=== PATIENT | male | born 1965 | race Caucasian/White ===

== ENCOUNTER 2019-02-27 21:45 | Emergency (ER) | payer MEDICAID, SELFPAY | END 2019-02-28 01:15 | disposition admitted as inpatient to this hospital (09) | LOC: ER 06-04 07:22 | PROVIDERS: Emergency Provider Emergency Medicine; Family Provider Family Medicine; PCP Family Medicine | DX: Z76.89 Persons encountering health services in other specified circumstances (principal) ==

== ENCOUNTER 2019-02-27 21:45 | Emergency (ER) | payer MEDICAID, SELFPAY | END 2019-02-28 01:15 | disposition admitted as inpatient to this hospital (09) | LOC: ER 04-11 09:27 | PROVIDERS: Emergency Provider Emergency Medicine; Family Provider Family Medicine; PCP Family Medicine | DX: Z76.89 Persons encountering health services in other specified circumstances (principal) | CPT/HCPCS: 36600; 71045; 80053; 82803; 83605; 85025; 87040; 87804; 93005; 96365; 96366; 96374; 96375; 99000; 99283; 99285; J1885; J2543; J2930 ==

== ENCOUNTER 2019-02-27 21:45 | Inpatient (IN) | payer MEDICAID, SELFPAY ==
[2019-02-27] VITALS (7 sets, daily range): BP systolic 126–154; BP diastolic 81–101; PULSE 78–103; RESP 20–31; TEMP 36.9; O2SAT 97–99; BMI 25.8
--- NOTE | 2019-02-27 21:55 | XR_ITS ---
WS: [id number] Portable AP upright chest, 02/27/2019 Clinical Data: admission Comparison: Portable chest, 11/12/2018. Findings: No nodules, masses or effusions are seen. The heart is normal. The pulmonary vascularity is not increased. No pneumonia or pneumothorax is seen. The diaphragms are flattened. XR/XR chest 1V portable [id number] Impression: Hyperinflation.
--- NOTE | 2019-02-27 21:55 | ECG_ITS ---
Measurements Intervals [place] Rate: 98 P: 87 RI: 144 QRS: 80 QRSD: 86 T: 78 QT: 318 QTc: 407 SINUS RHYTHM Compared to ECG 11/12/2018 03:13:56 Sinus arrhythmia no longer present Electronically Signed On 02-28-2019 5:36:02 MUSHROOM GROWER by Anna Akhtar M.D. [id number]
--- NOTE | 2019-02-27 22:01 | W.ED.GENADLT ---
HPI - General Adult General: Chief complaint: Chest Pain Stated complaint: SOB/LUNG PAIN Time Seen by Provider: 02/27/19 21:51 History of Present Illness: HPI narrative: Patient complains of worsening symptoms in the last 30 to 45 minutes and increased sputum production patient quit smoking 13 months ago does have a history of emphysema has been using his inhalers and home meds as directed. Now complains of increased shortness of breath. MD complaint: worse in last 1 hour, has been last copuple of days with increased sputum p Associated symptoms: Reports dyspnea; Deny chest pain, headache(s), nausea, rash or vomiting Review of Systems Const: Denies: fever, chills or body aches Eyes: Denies: change in vision or blurry vision ENMT: Denies: throat pain or nasal congestion Card: Reports: shortness of breath on exertion; Denies: chest pain Resp: Reports: shortness of breath, productive cough, wheezing, pain on inspiration, change in phlegm color and chest congestion; Denies: non-productive cough GI: Denies: abdominal pain, nausea or vomiting : Denies: difficulty urinating Musc: Denies: extremity pain Skin/Breast: Denies: rash Neuro: Denies: headache Psych: Denies: anxiety or depression Ish/Lymph: Denies: easy bruising PFSH ED PFSH: Statuses (acute, chronic, etc) shown below reflect problem list status as previously entered and may not be historically accurate Social History Smoking and tobacco status: former smoker Physical Exam Const: COMMON NORMALS: no apparent distress, average body habitus and oriented x3 HENMT: COMMON NORMALS: normocephalic HEAD & SCALP: normal to inspection and normocephalic FACE & SINUS: normal facial exam Eye: COMMON NORMALS: conjunctivae normal GENERAL EYE: normal appearance of both eyes CONJUNCTIVA: Yes conjunctivae normal Neck/C-Spine: COMMON NORMALS: no JVD Chest: COMMONS NORMALS: inspection of chest normal CHEST: Yes tenderness rib, pectoral muscle and sternoclavicular joint Resp: EFFORT & INSPECTION: Yes respiratory distress and Yes actively coughing AUSCULTATION: wheezes expiratory wheezes, diminished lung sounds diffuse and vesicular breath sounds Cardio: COMMON NORMALS: no JVD, regular rate and regular rhythm RATE: regular rate RHYTHM: regular rhythm GI: COMMON NORMALS: normal to inspection, nondistended, normoactive bowel sounds Extremity: COMMON NORMALS: normal to inspection and full ROM Neuro: COMMON NORMALS: oriented x3 Course Vital Signs: Vital signs: Vital Signs Temperature 98.4 F 02/27/19 21:52 Pulse Rate 112 H 02/28/19 00:32 Respiratory Rate 25 H 02/28/19 00:32 Blood Pressure 152/91 02/28/19 00:32 Pulse Oximetry 98 02/27/19 23:53 MDM - General Adult MDM Narrative: Medical decision making narrative: Patient coming here in respiratory distress with sats down around 86% while on 6 L oxygen after 2 respiratory treatments and IV steroids and while resting his sats maintained in 93-94 percent. After ambulating patient on 6 L his sats dropped back down to 86% and he had very difficult time breathing. Hospitalist was notified of need for admission he will come and see patient. Diagnosis COPD exacerbation Lab Data: Labs: Lab Results 02/27/19 02/27/19 02/27/19 Range/Units 22:10 22:10 22:10 WBC 12.4 H (4.0-10.0) 10^3/ uL RBC 4.18 (4.1-5.3) 10^6/u L Hgb 11.8 (11.7-16.6) g/dL Hct 37.1 L (42.0-52.0) % MCV 88.8 (80-94) fL MCH 28.2 (28.0-34.0) pg MCHC 31.8 (30.0-36.0) g/dL RDW 12.4 (12.1-15.1) % Plt Count 254 (130-400) 10^3/c mm MPV 11.1 H (7.4-10.4) fL Neut % (Auto) 77.6 % Lymph % (Auto) 12.0 % [place] % (Auto) 7.1 % Eos % (Auto) 2.2 % Baso % (Auto) 0.5 % Neut # (Auto) 9.6 H (1.8-7.7) 10^3/u L Lymph # (Auto) 1.5 (0.8-4.8) 10^3/u L [place] # (Auto) 0.9 (0.2-0.9) 10^3/u L Eos # (Auto) 0.3 (0.0-0.8) 10^3/u L Baso # (Auto) 0.1 (0.0-0.1) 10^3/u L Nucleated RBC % (a uto) 0 % Nucleated RBCs # 0.0 /100WBC Specimen Type Sample Site ABG pH (7.35-7.45) ABG pCO2 (35-45) mmHg ABG pO2 (80.0-100.0) mmH g ABG HCO3 (22-26) mmol/L ABG Base Excess (-2.0-2.0) mmol/ L Damon Test O2 Delivery Device O2 Liters/Min % Specimen Drawn By Sodium 142 (136-145) mmol/L Potassium 4.0 (3.5-5.1) mmol/L Chloride 101 (98-107) mmol/L Carbon Dioxide 29 (22-29) mmol/L Anion Gap 16.0 (5-19) BUN 16 (6-20) mg/dL Creatinine 0.7 (0.7-1.2) mg/dL GFR Calculation 117.5 (90-130) mL/min Glucose 133 H (74-109) mg/dL Lactic Acid 1.3 (0.5-2.2) mmol/L Calcium 9.9 (8.6-10.0) mg/Dl Total Bilirubin 0.2 (0.15-1.2) mg/dL AST 16 (0-40) U/L ALT 10 (0-41) U/L Alkaline Phosphata se 89 (40-130) IU/L Total Protein 7.5 (6.6-8.7) g/dL Albumin 4.8 (3.5-5.2) g/dL Globulin 2.7 (1.3-4.6) g/dL Influenza Type A A g (Negative) POC Influenza B Ag (Negative) 02/27/19 02/27/19 Range/Units 22:20 22:22 WBC (4.0-10.0) 10^3/ uL RBC (4.1-5.3) 10^6/u L Hgb (11.7-16.6) g/dL Hct (42.0-52.0) % MCV (80-94) fL MCH (28.0-34.0) pg MCHC (30.0-36.0) g/dL RDW (12.1-15.1) % Plt Count (130-400) 10^3/c mm MPV (7.4-10.4) fL Neut % (Auto) % Lymph % (Auto) % [place] % (Auto) % Eos % (Auto) % Baso % (Auto) % Neut # (Auto) (1.8-7.7) 10^3/u L Lymph # (Auto) (0.8-4.8) 10^3/u L [place] # (Auto) (0.2-0.9) 10^3/u L Eos # (Auto) (0.0-0.8) 10^3/u L Baso # (Auto) (0.0-0.1) 10^3/u L Nucleated RBC % (a uto) % Nucleated RBCs # /100WBC Specimen Type Arterial Sample Site Right,radial ABG pH 7.38 (7.35-7.45) ABG pCO2 53.8 H (35-45) mmHg ABG pO2 101.0 H (80.0-100.0) mmH g ABG HCO3 31.6 H (22-26) mmol/L ABG Base Excess 5.3 H (-2.0-2.0) mmol/ L Damon Test Pos O2 Delivery Device Nc O2 Liters/Min 6.0 % Specimen Drawn By Donnie Sodium (136-145) mmol/L Potassium (3.5-5.1) mmol/L Chloride (98-107) mmol/L Carbon Dioxide (22-29) mmol/L Anion Gap (5-19) BUN (6-20) mg/dL Creatinine (0.7-1.2) mg/dL GFR Calculation (90-130) mL/min Glucose (74-109) mg/dL Lactic Acid (0.5-2.2) mmol/L Calcium (8.6-10.0) mg/Dl Total Bilirubin (0.15-1.2) mg/dL AST (0-40) U/L ALT (0-41) U/L Alkaline Phosphata se (40-130) IU/L Total Protein (6.6-8.7) g/dL Albumin (3.5-5.2) g/dL Globulin (1.3-4.6) g/dL Influenza Type A A g Negative (Negative) POC Influenza B Ag Negative (Negative) Imaging Data^: CXR: My impression: left lower infiltrate, flattened diaphragm EKG Data^: EKG 1: EKG interpretation date: 02/27/19 EKG interpretation time: 21:58 Interpretation: Sinus rhythm normal EKG Discharge Plan Discharge Patient Disposition: Admitted As Inpatient Clinical Impression: COPD exacerbation Condition: Stable Prescriptions: No Action Unable to Assess RF: 0 Referrals: Rober Chakraborty MD [Family Provider] - Coding Level of Care Code ED Manager Study for Chg Fwd Exam Problem Focused
[2019-02-27 22:16] LABS: Basophils # 0.1 10^3/uL (0.0-0.1); Basophils % 0.5 %; Eosinophils # 0.3 10^3/uL (0.0-0.8); Eosinophils % 2.2 %; Hematocrit 37.1 % (42.0-52.0); Hemoglobin 11.8 g/dL (11.7-16.6); Lymphocytes # 1.5 10^3/uL (0.8-4.8); Mean Corpuscular HGB Conc 31.8 g/dL (30.0-36.0); Mean Corpuscular Hemoglobin 28.2 pg (28.0-34.0); Mean Corpuscular Volume 88.8 fL (80-94); Mean Platelet Volume 11.1 fL (7.4-10.4); Monocytes # 0.9 10^3/uL (0.2-0.9); Monocytes % 7.1 %; Neutrophils # 9.6 10^3/uL (1.8-7.7); Neutrophils % 77.6 %; Nucleated Red Blood Cells % 0 %; Platelet Count 254 10^3/cmm (130-400); Red Blood Count 4.18 10^6/uL (4.1-5.3); Red Cell Distribution Width 12.4 % (12.1-15.1); White Blood Count 12.4 10^3/uL (4.0-10.0)
--- NOTE | 2019-02-27 22:20 | PC.NURSE ---
via IV access
[2019-02-27] MEDS: ipratropium-albuterol 3 mL Neb INHALATION ×2 (22:21→23:52)
[2019-02-27 22:32] LABS: ABG PCO2 53.8 mmHg (35-45); ABG PH Result 7.38 (7.35-7.45); Base Excess ABG 5.3 mmol/L (-2.0-2.0); Blood Gas Allen Test POS; Blood Gas Sample Type ARTERIAL; HCO3 ABG 31.6 mmol/L (22-26); Oxygen Device NC
[2019-02-27 22:33] LABS: Alanine Aminotransferase 10 U/L (0-41); Albumin Level 4.8 g/dL (3.5-5.2); Alkaline Phosphatase 89 IU/L (40-130); Aspartate Amino Transferase 16 U/L (0-40); Blood Urea Nitrogen 16 mg/dL (6-20); Calcium 9.9 mg/Dl (8.6-10.0); Carbon Dioxide 29 mmol/L (22-29); Chloride 101 mmol/L (98-107); Globulin 2.7 g/dL (1.3-4.6); Glomerular Filtration Rate 117.5 mL/min (90-130); Glucose 133 mg/dL (74-109); Sodium 142 mmol/L (136-145); Total Bilirubin 0.2 mg/dL (0.15-1.2); Total Protein 7.5 g/dL (6.6-8.7)
[2019-02-27 22:50] LABS: Influenza A by IFA Negative (Negative); Influenza B by IFA Negative (Negative)
[2019-02-27] MEDS: ketorolac 60 mg/2 mL INJ IVP (23:16)
[2019-02-27 23:18] LABS: Lactic Sepsis W/Reflex 1.3 mmol/L (0.5-2.2)
[2019-02-27] MEDS: piperacillin-tazobactam 3.375 GM in sodium chloride 0.9% (plus) 50 ML IV (23:21)
[2019-02-28] VITALS (15 sets, daily range): BP systolic 122–152; BP diastolic 76–93; PULSE 87–112; RESP 18–25; TEMP 36.6–37; O2SAT 92–98
--- NOTE | 2019-02-28 00:29 | PC.NURSE ---
ambulation trail done on patient with nurse and respiratory therapy. Patient hooked up to oxygen via nasal canula at 6l/min during trial. pts oxygen dropped down to 86% upon exertion. patient become very short of breath and had abdominal breathing. ED ADDICTIONS COUNSELOR notified of ambulation trail. current vital signs after ambulation trial HR: 103 BP:152/91 RR:27 O2: 97
--- NOTE | 2019-02-28 00:44 | PM.HP ---
Providers/Chief Complaint Chief Complaint: SOB/LUNG PAIN History of Present Illness Shamar Negron JR is a 54 year old male carries diagnosis of end-stage COPD currently on 6 L [id number] at home, he is getting pretransplant work-up currently for his end-stage COPD, presented to the hospital with increased shortness of breath. Patient is stating that he decided to come to ER because he was hurting everywhere especially in his shoulders and rib cage bilaterally, he did not notice any fever, chills his cough and sputum production has been at usual baseline which is white sputum production with cough on daily basis, he cannot do much physical activity because he is on 6 L of oxygen [id number], he is compliant with his inhalers, he is not sure if he has diagnosis of pulmonary hypertension which was listed in his previous records. He has quit smoking and endorses weight gain. He has not noticed runny nose, runny eyes, fever, vital prodromal symptoms, diarrhea, constipation, dysuria or sick contacts. He has cats and dogs at home. Diagnostics in ER showed mild leukocytosis, normal pH on blood gas, on ambulation his oxygen saturation was down to 86% on 6 L hence decision was made to observe him overnight, in my assessment his chest x-ray is showing prominent vascular shadows because of primary hypertension I have compared them with previous x-ray I would not treat him with any antibiotics because I do not see any new consolidation/infiltrates I have ordered CTA chest to rule out pulmonary embolism Patient does carry previous history of pulmonary embolism he is off anticoagulation, he has not noticed any swelling of lower extremities, when I saw him he was on 6 L of oxygen saturating 97%, heart rate 97, sinus rhythm, blood pressure 147/70, he was not wheezing at that time Review of Systems Narrative: Patient is endorsing myalgias and bilateral shoulder pain and rib cage pain which does not get worse on taking deep breaths Denies diarrhea Denies dysuria Denies chest pain Denies abdominal pain Denies headache He is endorsing shortness of breath, sputum production white in color and cough Depressed mood positive No skin rash Medications/Allergies Home Medications Medication Instructions Recorded Confirmed Last Taken Type Unable to Assess 02/27/19 02/27/19 Unknown History Allergies Allergy/AdvReac Type Severity Reaction Status Date / Time No Known Allergies Allergy Verified 02/27/19 22:02 PFSH Acute PFSH: Statuses (acute, chronic, etc) shown below reflect problem list status as previously entered and may not be historically accurate Medical History (Updated 02/28/19 @ 01:51 by Minda Shelton MD) Anxiety (Acute) Chronic anticoagulation (Acute) COPD (chronic obstructive pulmonary disease) (Acute) Dyslipidemia (Acute) End stage COPD (Acute) GERD (gastroesophageal reflux disease) (Acute) Hypertension (Acute) Normal colonoscopy (Acute) Oxygen dependent (Acute) Pulmonary embolism (Acute) Pulmonary hypertension (Acute) Surgical History (Updated 02/28/19 @ 00:46 by Minda Shelton MD) H/O cardiac catheterization (Acute) Family History (Updated 02/28/19 @ 00:47 by Minda Shelton MD) Other CAD (coronary artery disease) Diabetes Social History (Updated 02/28/19 @ 00:49 by Minda Shelton MD) Smoking and tobacco status: former smoker Alcohol intake: never Substance/Drug Use: former Date of last use: Used to do marijuana Adopted: No Household members: family Vitals/I&O/Wt Last Vital Signs Temp 98.4 F 02/27/19 21:52 Pulse 112 H 02/28/19 00:32 Resp 25 H 02/28/19 00:32 BP 152/91 02/28/19 00:32 Pulse Ox 98 02/27/19 23:53 Weight last 48 hrs Weight 81.647 kg Physical Exam Narrative: EXAM NARRATIVE: Cachectic appearance unkempt appearance Patient is not using his respiratory accessory muscles currently saturating 97% on 6 L was able to communicate with mild distress, he has pursed lip breathing On lung auscultation he has decreased airflow but I was not able to hear any wheezing S1-S2 no murmur Abdomen soft nontender nondistended bowel sound present Nonfocal exam not focal deficit Skin shows no signs of ischemia gangrene or ulcers or signs of peripheral edema Flat affect Depressed mood Data Micro: Micro: Microbiology 02/27/19 22:10 Blood Culture - Pr eliminary Blood SPECIMEN [facility] A&P Assessment and plan (1) End stage COPD: Status: Acute Code(s): J44.9 - Chronic obstructive pulmonary disease, unspecified (2) Pulmonary hypertension: Status: Acute Code(s): I27.20 - Pulmonary hypertension, unspecified (3) Oxygen dependent: Status: Acute Code(s): Z99.81 - Dependence on supplemental oxygen End-stage COPD with acute exacerbation There is no shortness of breath No signs of acute infiltrate on chest x-ray, chest imaging is showing same prominent vascular markings as compared to previous x-ray, will get CTA chest to rule out pulmonary embolism I would not give him any antibiotics, he has already received Zosyn in ER I would not give him steroids, he is not actively wheezing Ted scheduled Roflumilast and azithromycin for anti-inflammatory effect for end-stage COPD Decrease his oxygen to 4 L because he was saturating 97% on 6 L at rest He is getting lung transplant work-up currently Looks cachectic but patient is saying he has gained weight after quitting smoking Med rec needs to be completed Goals of care: Patient said he wants to stay DNR/DNI, because he is getting lung transplant work-up I think goals of care should be readdressed in the morning Attestations Medical Necessity Statement*: Anticipating discharge in less than 48 hours will admit as observation to get CTA chest to rule out PE otherwise he has chronic end-stage COPD Coding Level of Care Code Acute Safety Assistant 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 Diagnoses End stage COPD J44.9 Pulmonary hypertension I27.20 Oxygen dependent Z99.81
--- NOTE | 2019-02-28 01:33 | CTR_ITS ---
PROCEDURE INFORMATION: Exam: CT Angiography Chest With Contrast Exam date and time: 02/28/2019 2:01 AM Age: 54 years old Clinical indication: Cough and shortness of breath; Chest pain; Type not specified; Additional info: Hypoxia on 6L TECHNIQUE: Imaging protocol: Computed tomographic angiography of the chest with intravenous contrast. 3D rendering: MIP and/or 3D reconstructed images were created by the technologist. Total DLP: 1048.31 mGy-cm Radiation optimization: All CT scans at this facility use at least one of these dose optimization techniques: automated exposure control; mA and/or kV adjustment per patient size (includes targeted exams where dose is matched to clinical indication); or iterative reconstruction. Contrast material: OMNI 350; Contrast volume: 95 ml; Contrast route: 20G; COMPARISON: 1. CTA Chest-Pulmonary Emb [id number] 04/18/2018 3:[address] of the chest 02/11/2019 FINDINGS: Heart size within normal limits. No enlarged or abnormal appearing mediastinal/hilar lymph nodes identified. No pulmonary emboli identified. There is no evidence of thoracic aortic aneurysm or dissection within the limits imposed by heart motion artifact. Severe emphysematous changes of both lungs. A few tiny calcified granulomata are noted in the right upper lobe. There is a 0.9 cm spiculated nodule in the left lung apex posteriorly on series 2 image 140. This is similar to 04/18/2018 and 02/11/2019. There is a 1 cm spiculated nodule in the left lung apex laterally on series 2 image 138. This is new since 04/18/2018 and similar to 02/11/2019. No pneumothorax or pleural effusion. Images of the upper abdomen were reviewed and are unremarkable. Visualized bones are unremarkable. CT/CT angio chest PE protcl [id number] IMPRESSION: 1. No pulmonary emboli identified. 2. Spiculated nodules in the left upper lobe. These are similar to 02/11/2019. One is new since 04/18/2018. See comment. 3. Severe emphysema. COMMENT: Highly suspicious nodule(s). Consider PET/CT, or tissue sampling.(Lida et al., Fleischner Society, 2017) Radiation Dose CTDIVOL = (mGy): DLP = 1048.31 (mGy-cm)
--- NOTE | 2019-02-28 02:39 | PC.NURSE ---
HOME OXYGEN: 6 liters
[2019-02-28] MEDS: iohexol 350 mg/mL 100 mL Btl IV (02:41)
[2019-02-28] MEDS: ipratropium-albuterol 3 mL Neb INHALATION ×3 (02:54→11:19)
[2019-02-28 03:45] LABS: ABG PCO2 54.3 mmHg (35-45); ABG PH Result 7.36 (7.35-7.45); Arterial Blood Gas Hematocrit 36.9 % (42-52); Base Excess ABG 3.8 mmol/L (-2.0-2.0); Blood Gas Allen Test Pos; Blood Gas Sample Site Radial, right; Blood Gas Sample Type Arterial; HCO3 ABG 30.4 mmol/L (22-26)
[2019-02-28] MEDS: enoxaparin 40 mg/0.4 mL Syringe SUBCUT (04:21)
--- NOTE | 2019-02-28 04:47 | NUR.SHIFT ---
OXYGEN: Nasal Cannula @6L
[2019-02-28 05:53] LABS: Basophils % 0.2 %; Hematocrit 37.3 % (42.0-52.0); Hemoglobin 11.7 g/dL (11.7-16.6); Lymphocytes # 0.6 10^3/uL (0.8-4.8); Lymphocytes % 5.1 %; Mean Corpuscular HGB Conc 31.4 g/dL (30.0-36.0); Mean Corpuscular Hemoglobin 28.8 pg (28.0-34.0); Mean Corpuscular Volume 91.9 fL (80-94); Mean Platelet Volume 11.1 fL (7.4-10.4); Monocytes # 0.1 10^3/uL (0.2-0.9); Monocytes % 0.8 %; Neutrophils # 11.2 10^3/uL (1.8-7.7); Neutrophils % 92.7 %; Nucleated Red Blood Cells % 0 %; Platelet Count 233 10^3/cmm (130-400); Red Blood Count 4.06 10^6/uL (4.1-5.3); Red Cell Distribution Width 12.3 % (12.1-15.1)
[2019-02-28] MEDS: morphine IR 15 mg Tablet PO ×2 (06:26→11:31)
[2019-02-28 06:31] LABS: Blood Urea Nitrogen 16 mg/dL (6-20); Calcium 10.4 mg/Dl (8.6-10.0); Carbon Dioxide 27 mmol/L (22-29); Chloride 99 mmol/L (98-107); Glomerular Filtration Rate 100.7 mL/min (90-130); Glucose 186 mg/dL (74-109); Sodium 140 mmol/L (136-145)
[2019-02-28] MEDS: azithromycin 250 mg Tablet 500 MG PO (11:29)
[2019-02-28] MEDS: CLONazepam 1 mg Tablet PO (11:30)
[2019-02-28] MEDS: roflumilast 500 mcg Tablet PO (11:32)
--- NOTE | 2019-02-28 12:17 | PM.DCS ---
Discharge Providers Date of Admission: 02/28/19 00:52 Date of Discharge: 02/28/19 Attending Provider at Admission: Minda Shelton MD Attending Provider at Discharge: Tam Paniter Diagnoses at Discharge Discharge Diagnosis (1) End stage COPD: Status: Acute (2) Pulmonary hypertension: Status: Acute (3) Oxygen dependent: Status: Acute Reason for Visit Reason for Visit: Reason For Visit: SOB/LUNG PAIN Hospital Course Hospital Course: 54-year-old gentleman with history of COPD, on chronic oxygen of 6 L, undergoing evaluation in preparation for placement onto a lung transplantation list was placed in observation after presenting with chest discomfort, epigastric discomfort, heartburn and bloating. Initially received a dose of Solu-Medrol and Zosyn in ER due to concern for possible COPD exacerbation. On assessment by night physician no signs of COPD exacerbation were seen. Steroids and antibiotic were not continued. His saturation was noted to be high on 6 L. His oxygen flow was turned down to 4 L with good subsequent saturation. Discussed with him and family to avoid excessively high saturations, to aim for saturation around 92%. He verbalized understanding, stating he understands to turn up his oxygen in case of saturation gets lower when he is walking. His EKG showed sinus rhythm. He had a coronary angiogram with normal coronary arteries in January 2018. Cardiac pain is considered unlikely. He does complain of epigastric discomfort, bloating, eructation. He reports history of recurrent GERD. He states he is previously had an upper endoscopy, but has not sure when exactly. He is not aware of history of diabetes. He does report that food sometimes sticks around in his stomach. Discussed with him and family we will request for A1c. This will need to be followed up in clinic. In case of persistence of the symptoms he may benefit from assessment by gastric emptying study. In terms of his hypoxia and chest discomfort he was assessed by CT angiogram to rule out PE. No PE was noted, but incidentally seen where a left upper lobe nodules. These will be followed up with PET CT, and we have discussed he should follow with his director of outpatient services in [place], and continue process of getting placed on lung transplantation list. Physical Exam Const: COMMON NORMALS: no apparent distress and oriented x3 OTHER: Nasal cannula on. Daughter is at bedside. HENMT: COMMON NORMALS: oropharynx normal Neck/C-Spine: COMMON NORMALS: no JVD Resp: COMMON NORMALS: normal respiratory effort and clear to auscultation bilaterally AUSCULTATION: clear to auscultation bilaterally Cardio: COMMON NORMALS: no JVD, regular rhythm, S1 normal heart sound, S2 normal heart sound and no murmurs RHYTHM: regular rhythm HEART SOUNDS: S1 normal and S2 normal GI: COMMON NORMALS: normal to inspection, nondistended, normoactive bowel sounds, soft to palpation and non-tender PALPATION: Yes soft Extremity: COMMON NORMALS: no joint enlargement and no pedal edema Neuro: COMMON NORMALS: oriented x3 Skin: COMMON NORMALS: no rashes or lesions noted GENERAL SKIN EXAM: no rashes or lesions noted Discharge Data Data Completed and Pending: Completed Studies During Hospitalization Category Date Time Status CT angio chest PE protcl 25754 Rout ine Cat Scan 02/28/19 01:33 Completed XR chest 1V frantz ble 92188 Stat Exams 02/27/19 21:55 Completed Pending at discharge Category Date Time Status Arterial Blood Ga s W/O Coox AM LABS Lab 02/28/19 03:33 Results Arterial Blood Ga s W/O Coox Routine Lab 02/27/19 22:20 Results Blood Culture Sta t Lab 02/27/19 22:10 Results Hemoglobin A1C Ro utine Lab 02/28/19 12:17 Ordered Labs from last 24 hours 02/28/19 02/28/19 02/28/19 05:35 05:35 03:33 WBC 12.0 H RBC 4.06 L Hgb 11.7 Hct 37.3 L MCV 91.9 MCH 28.8 MCHC 31.4 RDW 12.3 Plt Count 233 MPV 11.1 H Neut % (Auto) 92.7 Lymph % (Auto) 5.1 Butler % (Auto) 0.8 Eos % (Auto) 0.0 Baso % (Auto) 0.2 Neut # (Auto) 11.2 H Lymph # (Auto) 0.6 L Butler # (Auto) 0.1 L Eos # (Auto) 0.0 Baso # (Auto) 0.0 Nucleated RBC % (a uto) 0 Nucleated RBCs # 0.0 Specimen Type Arterial Sample Site Radial, right ABG pH 7.36 ABG pCO2 54.3 H ABG pO2 129.0 H ABG HCO3 30.4 H ABG Base Excess 3.8 H Damon Test Pos Hematocrit 36.9 L O2 Delivery Device O2 Liters/Min 6.0 Specimen Drawn By Event Marketing Coordinator ID [email or web address] Sodium 140 Potassium 4.0 Chloride 99 Carbon Dioxide 27 Anion Gap 18.0 BUN 16 Creatinine 0.8 GFR Calculation 100.7 Glucose 186 H Lactic Acid Calcium 10.4 H Total Bilirubin AST ALT Alkaline Phosphata se Total Protein Albumin Globulin Influenza Type A A g POC Influenza B Ag 02/27/19 02/27/19 02/27/19 22:22 22:20 22:10 WBC RBC Hgb Hct MCV MCH MCHC RDW Plt Count MPV Neut % (Auto) Lymph % (Auto) Butler % (Auto) Eos % (Auto) Baso % (Auto) Neut # (Auto) Lymph # (Auto) Butler # (Auto) Eos # (Auto) Baso # (Auto) Nucleated RBC % (a uto) Nucleated RBCs # Specimen Type Arterial Sample Site Right,radial ABG pH 7.38 ABG pCO2 53.8 H ABG pO2 101.0 H ABG HCO3 31.6 H ABG Base Excess 5.3 H Damon Test Pos Hematocrit O2 Delivery Device Nc O2 Liters/Min 6.0 Specimen Drawn By Donnie Event Marketing Coordinator ID Sodium Potassium Chloride Carbon Dioxide Anion Gap BUN Creatinine GFR Calculation Glucose Lactic Acid 1.3 Calcium Total Bilirubin AST ALT Alkaline Phosphata se Total Protein Albumin Globulin Influenza Type A A g Negative POC Influenza B Ag Negative 02/27/19 02/27/19 22:10 22:10 WBC 12.4 H RBC 4.18 Hgb 11.8 Hct 37.1 L MCV 88.8 MCH 28.2 MCHC 31.8 RDW 12.4 Plt Count 254 MPV 11.1 H Neut % (Auto) 77.6 Lymph % (Auto) 12.0 Butler % (Auto) 7.1 Eos % (Auto) 2.2 Baso % (Auto) 0.5 Neut # (Auto) 9.6 H Lymph # (Auto) 1.5 Butler # (Auto) 0.9 Eos # (Auto) 0.3 Baso # (Auto) 0.1 Nucleated RBC % (a uto) 0 Nucleated RBCs # 0.0 Specimen Type Sample Site ABG pH ABG pCO2 ABG pO2 ABG HCO3 ABG Base Excess Damon Test Hematocrit O2 Delivery Device O2 Liters/Min Specimen Drawn By Event Marketing Coordinator ID Sodium 142 Potassium 4.0 Chloride 101 Carbon Dioxide 29 Anion Gap 16.0 BUN 16 Creatinine 0.7 GFR Calculation 117.5 Glucose 133 H Lactic Acid Calcium 9.9 Total Bilirubin 0.2 AST 16 ALT 10 Alkaline Phosphata se 89 Total Protein 7.5 Albumin 4.8 Globulin 2.7 Influenza Type A A g POC Influenza B Ag Vitals: Last Vital Signs Temp 97.8 F 02/28/19 11:08 Pulse 109 H 02/28/19 11:25 Resp 20 H 02/28/19 11:31 BP 141/81 02/28/19 11:08 Pulse Ox 97 02/28/19 11:21 Discharge Plan Discharge Patient Disposition: Home, Self-Care Condition: Stable Prescriptions: New azithromycin 250 mg Tablet 500 mg PO DAILY Qty: 30 RF: 0 Continued Advair Diskus 250-50 mcg/dose Blister With Device 1 inh INHALATION BID RF: 0 albuterol sulfate 2.5 mg /3 mL (0.083 %) Solution For Nebulization 2.5 mg INHALATION Q6H RF: 0 Klonopin 1 mg Tablet 1 mg PO BEDTIME RF: 0 Wixela Inhub 250-50 mcg/dose Blister With Device 1 inh INHALATION BID RF: 0 DILT-XR 120 mg Capsule,Ext.Rel 24h Degradable 120 mg PO DAILY RF: 0 metoprolol tartrate 25 mg Tablet 12.5 mg PO BID RF: 0 Spiriva with HandiHaler 18 mcg Capsule, W/Inhalation Device 1 cap INHALATION DAILY RF: 0 Pristiq 50 mg Tablet Extended Release 24 Hr 50 mg PO DAILY RF: 0 Seroquel XR 50 mg Tablet Extended Release 24 Hr 50 mg PO BEDTIME RF: 0 Daliresp 500 mcg Tablet 500 mcg PO DAILY RF: 0 Changed Prilosec OTC 20 mg Tablet,Delayed Release (Dr/Ec) 40 mg PO BID Qty: 60 RF: 0 Discharge Orders: Discharge Order (Routine); Ordered 02/28/19 Ordered By: Tam Painter Referrals: Rober Chakraborty MD [Family Provider] - Juancarlos Hou MD, MBBS, MPH [Referring] - 2 weeks Discharge Activity: Oxygen as instructed Activity Restrictions/Additional Instructions: Please schedule patient for PET/CT for assessment of left upper lobe pulmonary nodules within 1 week, if possible tomorrow. At home please continue oxygen at 4 L nasal cannula, goal saturation 92%, titrate as needed to maintain saturation between 88-92%. Primary care provider please follow-up on A1c. If eructation/dyspepsia persistent, consider assessment by gastric emptying study, repeat upper endoscopy. Discharge Attestations Time Spent in Discharge Care*: greater than 30 min Quality Metrics Clinical Quality Measures During this hospital stay, did patient experience: None Coding Level of Care Code Acute Senior Billing Consultant 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 Diagnoses End stage COPD J44.9 Pulmonary hypertension I27.20 Oxygen dependent Z99.81
[2019-02-28 13:01] LABS: Estmated Average Glucose 97
--- NOTE | 2019-02-28 13:02 | PC.CHAP ---
Pastoral Care Encounter/Spiritual Assessment Type of Contact [x] Declined courtesy driver visit [] Patient/Family/Request visit [] Outpatient visit [] Follow-up visit [] Physician referral [] Code/Alert [] Routine visit [] Staff referral [] Actively dying [] Patient sleeping [] Family support [] [] Out of room [] Palliative care [] [] Receiving care in room [] Pre-surgical visit [] Trauma [] Long length of stay [] ICU visit [] Other: Relational/Emotional Strength [] Patient feels connected with others/family/visitors/staff [] Distress [] Loneliness/isolation [] Abandonment Spirituality of Patient [] Person of Casandra [] Attends Orthodox of their Casandra [] Believes in Prayer [] Reads Bible or Sikhism materials [] There are Spiritual issues to be addressed Cementer Machine Interventions [] Prayer [] Active listening [] Non-anxious presence [] Spiritual/emotional support [] Crisis/trauma care [] Spiritual counseling [] Bereavement support [] Provided bereavement packet [] Provided Bible/devotional materials [] Provided toy/stuffed animal, coloring book to patient or family member [] Completed spiritual assessment [] Provided Communion [] Anointing/[place] [] Salvation [] Other: Impact on Illness or Injury [] Angry [] Fearful [] Anxious [] Often cries [] Exhaustion [] Unable to work [] Unable to attend yazdanism [] Unable to walk/stand [] Unable to read [] Unable to drive [] Unable to eat/drink [] Unable to sleep [] Unable to be with family [] Other: Summary Patient declined visit; Mary Grace Verdugo Time spent with patient 2-minutes
[2019-02-28] MEDS: ibuprofen 600 mg Tablet PO (13:16)
--- NOTE | 2019-02-28 14:12 | PC.RESP ---
Pt currently enrolled and active in Pulmonary Rehab program.
[2019-03-05 08:22] LABS: Oxygen Device NC
[2019-03-05 08:24] LABS: Arterial Blood Gas Hematocrit 35.8 % (42-52)
== END 2019-02-28 14:00 | disposition home or self-care (01) | DRG 192 ==
LOC: ER 02-28 00:44 → MEDSURG 02-28 00:53
PROVIDERS: Nurse Practitioner Family; Admitting Provider Internal Medicine; Emergency Provider Emergency Medicine; Family Provider Family Medicine; Visit Provider Internal Medicine
DX: J44.9 Chronic obstructive pulmonary disease, unspecified (principal); I27.20 Pulmonary hypertension, unspecified; K21.9 Gastro-esophageal reflux disease without esophagitis; Z99.81 Dependence on supplemental oxygen; Z86.711 Personal history of pulmonary embolism; M79.10 Myalgia, unspecified site; M25.512 Pain in left shoulder; M25.511 Pain in right shoulder; F41.9 Anxiety disorder, unspecified; Z79.01 Long term (current) use of anticoagulants; E78.5 Hyperlipidemia, unspecified; I10 Essential (primary) hypertension; Z87.891 Personal history of nicotine dependence; R91.8 Other nonspecific abnormal finding of lung field; Z79.51 Long term (current) use of inhaled steroids; Z76.82 Awaiting organ transplant status
CPT/HCPCS: 36415; 36600; 71045; 71275; 80048; 80053; 82803; 83036; 83605; 85025; 87040; 87804; 93005; 94640; 96365; 96374; 99000; 99283; J1650; J1885; J2543; J2930; Q0144; Q9967

== ENCOUNTER 2019-03-05 07:13 | Outpatient (RCR) | payer MEDICAID, SELFPAY | END 2019-03-28 23:59 | disposition home or self-care (01) | LOC: PULRHB 07:13 | PROVIDERS: Family Provider Family Medicine; Visit Provider Internal Medicine | DX: J44.9 Chronic obstructive pulmonary disease, unspecified (principal) ==

== ENCOUNTER 2019-03-09 19:34 | Emergency (ER) | payer MEDICAID, SELFPAY ==
[2019-03-09 19:45] VITALS: BP 144/98; PULSE 107; RESP 30; TEMP 36.8; O2SAT 95; BMI 22.5
--- NOTE | 2019-03-09 19:46 | ED_ITS ---
Entered by Henrietta Hernandez, acting as scribe for HPI - Chest Pain General: Chief Complaint: Chest Pain Stated Complaint: CHEST PAINS, SOB Time Seen by Provider: 03/09/19 19:44 Source: patient Mode of arrival: ambulatory Limitations: no limitations History of Present Illness: HPI narrative: 54 yo Male presents to ED with complaint of chest pain. Pt states his lung are hurting. Pt states that he was in here a week ago. Pt states that his pain got worse about 2-3 hours ago. Pt states that he doesn't have a cardiac history. Pt states that he is working on getting a lung transplant. Pt states his Bingo Worker is in [facility]. Pt states he uses 4 liters of oxygen at home. MD complaint: chest pain and chest discomfort Onset (ago): hour(s) (2) Timing of current episode: constant, increasing and still present Prior episodes: Yes Pain location: left chest and right chest Relieving factors: nothing Exacerbating factors: nothing Associated symptoms: Deny dyspnea Treatment prior to arrival: none Review of Systems General: Reports: 10 or more systems reviewed and unremarkable except in HPI and below Card: Reports: chest pain Resp: Denies: shortness of breath PFSH ED PFSH: Statuses (acute, chronic, etc) shown below reflect problem list status as previously entered and may not be historically accurate Medical History (Updated 03/09/19 @ 22:44 by Angeline Barragan MD, [facility] [place]) Anxiety (Acute) Chronic anticoagulation (Acute) Chronic back pain (Acute) COPD (chronic obstructive pulmonary disease) (Acute) Depression (Acute) Dyslipidemia (Acute) End stage COPD (Acute) GERD (gastroesophageal reflux disease) (Acute) Hypertension (Acute) Normal colonoscopy (Acute) Oxygen dependent (Acute) Pulmonary embolism (Acute) Pulmonary hypertension (Acute) Respiratory failure (Acute) Surgical History (Updated 02/28/19 @ 00:46 by Minda Shelton MD) H/O cardiac catheterization (Acute) Family History (Updated 02/28/19 @ 00:47 by Minda Shelton MD) Other CAD (coronary artery disease) Diabetes Social History (Updated 02/28/19 @ 00:49 by Minda Shelton MD) Smoking and tobacco status: former smoker Alcohol intake: never Adopted: No Household members: family Physical Exam Const: COMMON NORMALS: average body habitus, oriented x3, no limitations, healthy appearing, alert and well nourished GENERAL APPEARANCE: in distress HENMT: COMMON NORMALS: normocephalic, head/scalp atraumatic, hearing grossly normal bilaterally, external ears normal, EAC's normal, TM's normal bilaterally, external nose normal, nasal mucous membranes and turbinates normal, moist oral mucous membranes, oropharynx normal, dentition normal and gingiva normal HEAD & SCALP: normocephalic and atraumatic NOSE: external nose normal and nasal mucous membranes and turbinates normal EXTERNAL EAR: Yes external ears normal EXTERNAL AUDITORY CANAL: EAC's normal TYMPANIC MEMBRANE: TM's normal bilaterally Eye: COMMON NORMALS: PERRL, EOMs intact bilaterally, conjunctivae normal, no scleral icterus, no papilledema, normal visual ann by confrontation and fundi normal bilaterally CONJUNCTIVA: Yes conjunctivae normal PUPIL: Yes PERRL DIRECT OPHTHALMOSCOPY: Yes no papilledema and Yes fundi normal bilaterally Neck/C-Spine: COMMON NORMALS: full ROM, supple, no meningeal signs, no JVD and no carotid bruits Chest: COMMONS NORMALS: inspection of chest normal and palpation of chest normal CHEST: No tenderness Resp: COMMON NORMALS: normal respiratory effort, no retractions, no use of accessory muscles, clear to auscultation bilaterally and percussion normal AUSCULTATION: clear to auscultation bilaterally PERCUSSION: percussion normal Cardio: COMMON NORMALS: no JVD, regular rhythm, S1 normal heart sound, S2 normal heart sound, no gallops, no clicks, no murmurs, no rub and peripheral pulses 2+ throughout RATE: tachycardic RHYTHM: regular rhythm HEART SOUNDS: S1 normal and S2 normal PERIPHERAL PULSES: pulses 2+ throughout GI: COMMON NORMALS: normal to inspection, nondistended, normoactive bowel sounds, soft to palpation, non-tender, no hepatosplenomegaly, no masses and no bruits PALPATION: Yes soft and Yes no hepatosplenomegaly : COMMON NORMALS: Yes no CVA tenderness BLADDER/KIDNEY EXAM: Yes no CVA tenderness Back/Pelvis: COMMON NORMALS: no CVA tenderness Extremity: COMMON NORMALS: normal to inspection, full ROM, normal capillary refill, no joint enlargement, no clubbing, cyanosis or edema, no calf tenderness and no pedal edema Neuro: COMMON NORMALS: oriented x3 SENSORIUM/ORIENTATION: Yes alert MENINGEAL SIGNS: Yes no meningeal signs Skin: COMMON NORMALS: no rashes or lesions noted, no wounds, skin turgor normal, no jaundice, no petechiae and no mottling GENERAL SKIN EXAM: no rashes or lesions noted and turgor normal Course Reevaluation(s): Reevaluation #1: Patient seen. His pain is resolved. Discussed his labs and imaging findings with him, negative for acute findings. He has a flat 2-hour delta on the high-sensitivity troponin. I believe his symptoms may be secondary to pleurisy. We will discharge him home on conservative measures, he is to take NSAIDs as needed. He voiced understanding and is in agreement with the plan. Time: 22:35 Vital Signs: Vital signs: Vital Signs Temperature 98.2 F 03/09/19 19:45 Pulse Rate 88 03/09/19 21:38 Respiratory Rate 18 03/09/19 21:38 Blood Pressure 126/88 03/09/19 21:38 Pulse Oximetry 97 03/09/19 21:38 MDM - Chest Pain MDM Narrative: Medical decision making narrative: 54-year-old gentleman with end-stage COPD who is on the lung transplant list. Presented to the emergency department with severe chest pain. Evaluation in the ED was negative for ischemic cardiac pain, negative d-dimer. I believe his pain is secondary to pleurisy which she has had in the past apparently. He will be managed conservatively with NSAIDs. Differential Diagnosis: Cardiac arrest differential diagnosis: Likely acute massive pulmonary embolism and acute myocardial infarction Medical Records: Attestation: I reviewed the patient's medical records. Lab Data: Attestation: I reviewed the patient's lab results. Labs: Lab Results 03/09/19 03/09/19 03/09/19 Range/Units 19:45 19:45 19:45 WBC 10.2 H (4.0-10.0) 10^3/ uL RBC 4.30 (4.1-5.3) 10^6/u L Hgb 12.2 (11.7-16.6) g/dL Hct 37.4 L (42.0-52.0) % MCV 87.0 (80-94) fL MCH 28.4 (28.0-34.0) pg MCHC 32.6 (30.0-36.0) g/dL RDW 12.1 (12.1-15.1) % Plt Count 232 (130-400) 10^3/c mm MPV 11.4 H (7.4-10.4) fL Neut % (Auto) 69.5 % Lymph % (Auto) 15.9 % Upson % (Auto) 8.5 % Eos % (Auto) 2.8 % Baso % (Auto) 0.6 % Neut # (Auto) 7.1 (1.8-7.7) 10^3/u L Lymph # (Auto) 1.6 (0.8-4.8) 10^3/u L Upson # (Auto) 0.9 (0.2-0.9) 10^3/u L Eos # (Auto) 0.3 (0.0-0.8) 10^3/u L Baso # (Auto) 0.1 (0.0-0.1) 10^3/u L Nucleated RBC % (a uto) 0 % Nucleated RBCs # 0.0 /100WBC PT 13.20 (10.5-13.3) SECO NDS INR 0.97 (0.8-1.2) D-Dimer 0.53 (0-0.59) ug/mIFE U Sodium 149 H (136-145) mmol/L Potassium 4.6 (3.5-5.1) mmol/L Chloride 105 (98-107) mmol/L Carbon Dioxide 29 (22-29) mmol/L Anion Gap 19.6 H (5-19) BUN 14 (6-20) mg/dL Creatinine 1.3 H (0.7-1.2) mg/dL GFR Calculation 57.5 L (90-130) mL/min Glucose 121 H (74-109) mg/dL Calcium 9.9 (8.6-10.0) mg/Dl Total Bilirubin 0.2 (0.15-1.2) mg/dL AST 17 (0-40) U/L ALT 13 (0-41) U/L Alkaline Phosphata se 91 (40-130) IU/L Troponin T Baselin e (0-15) ng/mL Troponin T 120 Min kw[place] (0-15) ng/mL Delta Troponin T (0-10) ABS# NT-Pro-B Natriuret Pep 28 (0-125) pg/mL Total Protein 7.1 (6.6-8.7) g/dL Albumin 4.9 (3.5-5.2) g/dL Globulin 2.2 (1.3-4.6) g/dL Lipase 18 (13-60) U/L Urine Opiates Scre en (Negative) ng/mL Ur Barbiturates Sc reen (Negative) ng/mL Ur Phencyclidine S crn (Negative) ng/mL Ur Amphetamines Sc reen (Negative) ng/mL U Benzodiazepines Scrn (Negative) ng/mL Urine Cocaine Scre en (Negative) ng/mL U Marijuana (THC) Screen (Negative) ng/mL 03/09/19 03/09/19 03/09/19 Range/Units 19:45 20:40 21:40 WBC (4.0-10.0) 10^3/ uL RBC (4.1-5.3) 10^6/u L Hgb (11.7-16.6) g/dL Hct (42.0-52.0) % MCV (80-94) fL MCH (28.0-34.0) pg MCHC (30.0-36.0) g/dL RDW (12.1-15.1) % Plt Count (130-400) 10^3/c mm MPV (7.4-10.4) fL Neut % (Auto) % Lymph % (Auto) % Upson % (Auto) % Eos % (Auto) % Baso % (Auto) % Neut # (Auto) (1.8-7.7) 10^3/u L Lymph # (Auto) (0.8-4.8) 10^3/u L Upson # (Auto) (0.2-0.9) 10^3/u L Eos # (Auto) (0.0-0.8) 10^3/u L Baso # (Auto) (0.0-0.1) 10^3/u L Nucleated RBC % (a uto) % Nucleated RBCs # /100WBC PT (10.5-13.3) SECO NDS INR (0.8-1.2) D-Dimer (0-0.59) ug/mIFE U Sodium (136-145) mmol/L Potassium (3.5-5.1) mmol/L Chloride (98-107) mmol/L Carbon Dioxide (22-29) mmol/L Anion Gap (5-19) BUN (6-20) mg/dL Creatinine (0.7-1.2) mg/dL GFR Calculation (90-130) mL/min Glucose (74-109) mg/dL Calcium (8.6-10.0) mg/Dl Total Bilirubin (0.15-1.2) mg/dL AST (0-40) U/L ALT (0-41) U/L Alkaline Phosphata se (40-130) IU/L Troponin T Baselin e 11 (0-15) ng/mL Troponin T 120 Min kw[place] 10.89 (0-15) ng/mL Delta Troponin T -0.11 L (0-10) ABS# NT-Pro-B Natriuret Pep (0-125) pg/mL Total Protein (6.6-8.7) g/dL Albumin (3.5-5.2) g/dL Globulin (1.3-4.6) g/dL Lipase (13-60) U/L Urine Opiates Scre en Positive H (Negative) ng/mL Ur Barbiturates Sc reen Negative (Negative) ng/mL Ur Phencyclidine S crn Negative (Negative) ng/mL Ur Amphetamines Sc reen Negative (Negative) ng/mL U Benzodiazepines Scrn Negative (Negative) ng/mL Urine Cocaine Scre en Negative (Negative) ng/mL U Marijuana (THC) Screen Negative (Negative) ng/mL EKG Data^: EKG 1: Attestation: I personally reviewed and interpreted this EKG as follows: EKG interpretation date: 03/09/19 EKG interpretation time: 19:44 Interpretation: Atrial fibrillation with RVR. Heart rate 105. Poor EKG tracing with lots of artifact. No ST changes EKG 2: Computer generated interpretation: Patient: Shamar Negron JRUnit #: [id number] : 1965Acct#:[id number] Age/Sex: 54 / MADM Date: 03/09/19 Loc: ERRoom/Bed: Attending Dr: Ordering Provider/Ordering MD: Angeline Barragan MD, [facility] [place] Date of Service: 03/09/19 Procedure(s): ECG 12 lead EKG Accession Number(s): [id number] Report Number: [id number] Measurements Intervals [place] Rate: 72 P: 68 DE: 181 QRS: 61 QRSD: 81 T: 66 QT: 335 QTc: 367 SINUS RHYTHM WITH SINUS ARRHYTHMIA Compared to ECG 02/27/2019 21:58:49 No significant changes [email or web address] Discharge Plan Discharge Patient Disposition: Home, Self-Care Clinical Impression: End stage COPD Chest pain Qualifiers: Chest pain type: other chest pain Qualified Code(s): R07.89 - Other chest pain Condition: Stable Prescriptions: Continued fluticasone propion-salmeterol [Advair Diskus] 250-50 mcg/dose Blister With Device 1 inh INHALATION BID RF: 0 albuterol sulfate 2.5 mg /3 mL (0.083 %) Solution For Nebulization 2.5 mg INHALATION Q6H RF: 0 clonazepam [Klonopin] 1 mg Tablet 1 mg PO TID RF: 0 diltiazem HCl [DILT-XR] 120 mg Capsule,Ext.Rel 24h Degradable 120 mg PO DAILY RF: 0 metoprolol tartrate 25 mg Tablet 12.5 mg PO BID RF: 0 Spiriva with HandiHaler 18 mcg Capsule, W/Inhalation Device 1 cap INHALATION DAILY RF: 0 desvenlafaxine succinate [Pristiq] 50 mg Tablet Extended Release 24 Hr 50 mg PO DAILY RF: 0 quetiapine [Seroquel XR] 50 mg Tablet Extended Release 24 Hr 50 mg PO BEDTIME RF: 0 Daliresp 500 mcg Tablet 500 mcg PO DAILY RF: 0 azithromycin 250 mg Tablet 500 mg PO DAILY Qty: 30 RF: 0 Prilosec OTC 20 mg Tablet,Delayed Release (Dr/Ec) 40 mg PO BID Qty: 60 RF: 0 Discharge Orders: Discharge Order (Routine); Ordered 03/09/19 Ordered By: Angeline Barragan Referrals: Rober Chakraborty MD [Family Provider] - 1-3 days Activity Restrictions/Additional Instructions: Return for any new or worsening symptoms. Follow-up with your primary care provider within 3 days. Take naproxen or ibuprofen as needed for mild to moderate pain. Take the pain medication as needed for severe pain. Follow-up with your unit director as scheduled. Coding Level of Care Code ED Automatic Transmission Mechanic 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 The documentation recorded by the David coon Carmen, accurately reflects the service I personally performed and the decisions made by , Angeline Barragan MD, [facility] [place] Mar 09, 2019 19:34
[2019-03-09 19:50] VITALS: BP 144/98; PULSE 106; RESP 22; O2SAT 94; O2SAT 95
--- NOTE | 2019-03-09 19:54 | ECG_ITS ---
Measurements Intervals [place] Rate: 105 P: NC: 0 QRS: 77 QRSD: 88 T: 74 QT: 294 QTc: 389 Sinus tachycardia with some PACs ABNORMAL RHYTHM ECG Compared to ECG 02/27/2019 21:58:49 Sinus rhythm no longer present Electronically Signed On 03-10-2019 19:25:02 INSTRUCTOR PAINTING by Aleksandra Johnston M.D. [email or web address]
--- NOTE | 2019-03-09 19:54 | XR_ITS ---
WS: [id number] PORTABLE CHEST HISTORY: Chest Pain COMPARISON: 07/01/2018 and 02/27/2019 Hyperinflated lungs. A few scattered granulomata. Focal scarring at the RIGHT lung base is stable. No dules are again noted at the LEFT apex which has been previously described. No pleural effusion or pn eumothorax. Cardiac size: Normal. Mediastinum/Aorta: Normal mediastinum. No osseous abnormality seen. XR/XR chest 1V portable [id number] IMPRESSION: 1. Chronic emphysema and stable scarring at the RIGHT lung base. 2. LEFT upper lobe pulmonary nodules. These nodules have been previously descr ibed and PET CT imaging has been performed.
[2019-03-09] MEDS: aspirin 325 mg Tablet PO (20:02)
[2019-03-09 20:06] VITALS: RESP 20
[2019-03-09 20:06] LABS: Basophils # 0.1 10^3/uL (0.0-0.1); Basophils % 0.6 %; Eosinophils # 0.3 10^3/uL (0.0-0.8); Eosinophils % 2.8 %; Hematocrit 37.4 % (42.0-52.0); Hemoglobin 12.2 g/dL (11.7-16.6); Lymphocytes # 1.6 10^3/uL (0.8-4.8); Lymphocytes % 15.9 %; Mean Corpuscular HGB Conc 32.6 g/dL (30.0-36.0); Mean Corpuscular Hemoglobin 28.4 pg (28.0-34.0); Mean Platelet Volume 11.4 fL (7.4-10.4); Monocytes # 0.9 10^3/uL (0.2-0.9); Monocytes % 8.5 %; Neutrophils # 7.1 10^3/uL (1.8-7.7); Neutrophils % 69.5 %; Nucleated Red Blood Cells % 0 %; Platelet Count 232 10^3/cmm (130-400); Red Cell Distribution Width 12.1 % (12.1-15.1); White Blood Count 10.2 10^3/uL (4.0-10.0)
[2019-03-09] MEDS: morphine 4 mg/mL SDV 1 mL IVP (20:06)
[2019-03-09 20:11] LABS: INR 0.97 (0.8-1.2)
[2019-03-09 20:14] LABS: D Dimer 0.53 ug/mIFEU (0-0.59)
[2019-03-09 20:30] LABS: Alanine Aminotransferase 13 U/L (0-41); Albumin Level 4.9 g/dL (3.5-5.2); Alkaline Phosphatase 91 IU/L (40-130); Anion Gap 19.6 (5-19); Aspartate Amino Transferase 17 U/L (0-40); Blood Urea Nitrogen 14 mg/dL (6-20); Calcium 9.9 mg/Dl (8.6-10.0); Carbon Dioxide 29 mmol/L (22-29); Chloride 105 mmol/L (98-107); Globulin 2.2 g/dL (1.3-4.6); Glomerular Filtration Rate 57.5 mL/min (90-130); Glucose 121 mg/dL (74-109); Lipase 18 U/L (13-60); NT Pro B Type Natriuretic Pept 28 pg/mL (0-125); Potassium 4.6 mmol/L (3.5-5.1); Sodium 149 mmol/L (136-145); Total Bilirubin 0.2 mg/dL (0.15-1.2); Total Protein 7.1 g/dL (6.6-8.7)
[2019-03-09 20:36] VITALS: BP 124/40; PULSE 98; RESP 18; O2SAT 96
[2019-03-09 20:44] LABS: Troponin(5th) Baseline 11 ng/mL (0-15)
[2019-03-09 21:00] LABS: Amphetamines Screen Urine Negative (Negative); Barbiturates Screen Urine Negative (Negative); Benzodiazepines Screen Urine Negative (Negative); Cocaine Screen Urine Negative (Negative); Opiate Screen Urine Positive (Negative); PCP Screen Urine Negative (Negative); THC Screen Urine Negative (Negative)
[2019-03-09 21:38] VITALS: BP 126/88; PULSE 88; RESP 18; O2SAT 97
--- NOTE | 2019-03-09 21:40 | PC.NURSE ---
Pt work of breathing is decreased. Pt states he no longer has pain. VSS. Pt watching tv and jovial at this time.
--- NOTE | 2019-03-09 21:54 | ECG_ITS ---
Measurements Intervals [place] Rate: 72 P: 68 DE: 181 QRS: 61 QRSD: 81 T: 66 QT: 335 QTc: 367 SINUS RHYTHM WITH SINUS ARRHYTHMIA Compared to ECG 02/27/2019 21:58:49 No significant changes Electronically Signed On 03-10-2019 19:30:42 WATCH TRAIN INSPECTOR by Aleksandra Johnston M.D. [id number] f
[2019-03-09 22:05] LABS: Troponin 5 2HR 10.89 ng/mL (0-15)
[2019-03-09 22:08] LABS: Troponin 5 2HR Delta -0.11 ABS# (0-10)
[2019-03-09] MEDS: HYDROcodone-acetaminophen 5-325 mg Tablet 4 TAB PO (23:08)
[2019-03-09 23:11] VITALS: BP 138/91; PULSE 72; RESP 18; TEMP 36.9; O2SAT 4
--- NOTE | 2019-03-10 15:57 | DCPLANNER ---
manager forms had message to schedule a follow up appointment for patient with [facility]. manager forms called [facility], spoke with Nneka, gave clinic patients information. manager forms was told that patients information would be printed and reviewed. Clinic will call pillowcase cutter and patient with appointment information.
--- NOTE | 2019-03-11 14:56 | DCPLANNER ---
A follow up appointment is scheduled for Tuesday, March 26, 2019 at 10:[address] Arnold at [facility]. Clinic will contact patient with appointment information.
--- NOTE | 2019-05-07 15:48 | DCPLANNER ---
Patient did not attend appointment scheduled with [facility].
== END 2019-03-09 23:18 | disposition home or self-care (01) ==
PROVIDERS: Emergency Provider Family Medicine; Family Provider Family Medicine
DX: J44.9 Chronic obstructive pulmonary disease, unspecified (principal); E78.5 Hyperlipidemia, unspecified; I10 Essential (primary) hypertension; Z87.891 Personal history of nicotine dependence; K21.9 Gastro-esophageal reflux disease without esophagitis
CPT/HCPCS: 71045; 80053; 80307; 83690; 83880; 84484; 85025; 85378; 85610; 93005; 96374; 99283; J2270

== ENCOUNTER → 2019-03-14 15:39 | Outpatient (BNVA) | payer MEDICAID, SELFPAY | PROVIDERS: Family Provider Family Medicine; PCP Family Medicine; Referring Provider Family Medicine; Visit Provider Family Medicine | DX: R07.81 Pleurodynia (principal); R91.1 Solitary pulmonary nodule | CPT/HCPCS: 80307 ==

== ENCOUNTER → 2019-04-17 14:18 | Outpatient (BNVA) | payer MEDICAID, SELFPAY | PROVIDERS: Family Provider Family Medicine; PCP Family Medicine; Visit Provider Psychiatry & Neurology Psychiatry | DX: F41.0 Panic disorder [episodic paroxysmal anxiety] (principal); F32.5 Major depressive disorder, single episode, in full remission | CPT/HCPCS: 99213 ==

== ENCOUNTER 2019-06-07 14:41 | Emergency (ER) | payer MEDICAID, SELFPAY ==
[2019-06-07 14:44] VITALS: BP 129/85; PULSE 75; RESP 18; TEMP 36.6; O2SAT 96; BMI 24.8
--- NOTE | 2019-06-07 14:50 | ED_ITS ---
HPI - Chest Pain General: Chief Complaint: Chest Pain Stated Complaint: CHEST PAIN Time Seen by Provider: 06/07/19 14:48 History of Present Illness: HPI narrative: Mr. Negron is a 54-year-old male who presents to the emergency room via EMS with complaint of chest pain radiating into his back. He has a known history of severe lung disease and is actually working to get on the transplant list. He has had this chest pain for the last 1-1/2 to 2 days with come on while at rest did get significantly worse today and he called EMS he did take a sublingual nitro had mild relief of pain and further relief of pain when Nitropaste was applied. He states the pain shoots through to his back. He denies any recent respiratory symptoms he denies any cough or fever. He is not had any vomiting he did have some diaphoresis today with this but not with his prior episodes. He states he has no known history of aneurysm. MD complaint: chest pain Onset (ago): day(s) (1 to 2 days ago) Timing of current episode: episodic and increasing Prior episodes: Yes Onset: during rest Pain location: substernal Pain radiation: back Quality: sharp Relieving factors: nitroglycerin Associated symptoms: Reports diaphoresis, dyspnea and nausea; Deny fever(s), leg edema, palpitations, syncope or vomiting Treatment prior to arrival: nitroglycerin Review of Systems Const: Reports: diaphoresis; Denies: fever ENMT: Denies: throat pain, ear pain, nasal discharge or nasal congestion Card: Reports: chest pain and shortness of breath on exertion; Denies: palpitations, swelling of feet/ankles, syncope or shortness of breath when lying down Resp: Reports: shortness of breath GI: Reports: nausea; Denies: vomiting : Denies: flank pain, painful urination, urinary frequency or urinary urgency Skin/Breast: Denies: rash or itching PFSH ED PFSH: Medical History Anxiety Chronic anticoagulation Chronic back pain COPD (chronic obstructive pulmonary disease) Depression Dyslipidemia End stage COPD GERD (gastroesophageal reflux disease) Hypertension Major depressive disorder, single episode, in full remission Normal colonoscopy Oxygen dependent Panic disorder [episodic paroxysmal anxiety] Pulmonary embolism Pulmonary hypertension Respiratory failure Surgical History H/O cardiac catheterization Family History Other CAD (coronary artery disease) Diabetes Social History Smoking and tobacco status: former smoker Alcohol intake: never Adopted: No Household members: family Physical Exam Const: COMMON NORMALS: no apparent distress GENERAL APPEARANCE: cooperative and comfortable ORIENTATION/CONSCIOUSNESS: Yes awake, Yes oriented to person, Yes oriented to place and Yes oriented to time HENMT: COMMON NORMALS: normocephalic, head/scalp atraumatic, hearing grossly normal bilaterally, external ears normal, EAC's normal, TM's normal bilaterally, nasal mucous membranes and turbinates normal, moist oral mucous membranes and oropharynx normal HEAD & SCALP: normocephalic and atraumatic NOSE: nasal mucous membranes and turbinates normal EXTERNAL EAR: Yes external ears normal EXTERNAL AUDITORY CANAL: EAC's normal TYMPANIC MEMBRANE: TM's normal b ilaterally Eye: COMMON NORMALS: PERRL, EOMs intact bilaterally, conjunctivae normal and no scleral icterus CONJUNCTIVA: Yes conjunctivae normal PUPIL: Yes PERRL Neck/C-Spine: COMMON NORMALS: full ROM, no lymphadenopathy, supple and no JVD Lymph: LYMPHATIC: no lymphadenopathy noted and no lymphedema noted Resp: COMMON NORMALS: normal respiratory effort, no retractions, no use of accessory muscles and clear to auscultation bilaterally AUSCULTATION: clear to auscultation bilaterally Cardio: COMMON NORMALS: no JVD, regular rate, regular rhythm and no murmurs RATE: regular rate RHYTHM: regular rhythm GI: COMMON NORMALS: soft to palpation and no hepatosplenomegaly AUSCULTATIO N: Yes normoactive bowel sounds PALPATION: Yes soft, No tender, No guarding and Yes no hepatosplenomegaly Extremity: COMMON NORMALS: normal to inspection, normal capillary refill, no clubbing, cyanosis or edema, no calf tenderness and no pedal edema Neuro: SENSORIUM/ORIENTATION: Yes oriented to person, Yes oriented to place and Yes oriented to time Skin: COMMON NORMALS: no rashes or lesions noted GENERAL SKIN EXAM: no rashes or lesions noted Course Vital Signs: Vital signs: Vital Signs Temperature 97.9 F 06/07/19 14:44 Pulse Rate 71 06/07/19 18:13 Respiratory Rate 21 H 06/07/19 18:13 Blood Pressure 109/78 06/07/19 18:13 Pulse Oximetry 96 06/07/19 18:13 MDM - Chest Pain MDM Narrative: Medical decision making narrative: On and is unremarkable x2. There is a little congestion on his chest x-ray when I cover him some Levaquin based on his symptoms. He has end-stage COPD and has been seen at [place] are attempting him on the list for lung transplant he has worsening problems recheck Lab Data: Labs: Lab Results 06/07/19 06/07/19 06/07/19 Range/Units 14:55 14:55 14:55 WBC 7.2 (4.0-10.0) 10^3/ uL RBC 4.08 L (4.1-5.3) 10^6/u L Hgb 11.4 L (11.7-16.6) g/dL Hct 36.9 L (42.0-52.0) % MCV 90.4 (80-94) fL MCH 27.9 L (28.0-34.0) pg MCHC 30.9 (30.0-36.0) g/dL RDW 12.1 (12.1-15.1) % Plt Count 227 (130-400) 10^3/c mm MPV 11.4 H (7.4-10.4) fL Neut % (Auto) 62.6 % Lymph % (Auto) 22.6 % [place] % (Auto) 8.2 % Eos % (Auto) 4.9 % Baso % (Auto) 0.7 % Neut # (Auto) 4.5 (1.8-7.7) 10^3/u L Lymph # (Auto) 1.6 (0.8-4.8) 10^3/u L [place] # (Auto) 0.6 (0.2-0.9) 10^3/u L Eos # (Auto) 0.4 (0.0-0.8) 10^3/u L Baso # (Auto) 0.1 (0.0-0.1) 10^3/u L Nucleated RBC % (a uto) 0 % Nucleated RBCs # 0.0 /100WBC Sodium 138 (136-145) mmol/L Potassium 4.3 (3.5-5.1) mmol/L Chloride 99 (98-107) mmol/L Carbon Dioxide 30 H (22-29) mmol/L Anion Gap 13.3 (5-19) BUN 12 (6-20) mg/dL Creatinine 0.8 (0.7-1.2) mg/dL GFR Calculation 100.7 (90-130) mL/min Glucose 107 (65-115) mg/dL Calculated Osmolal ity 283 L (285-295) mOsm/k g Calcium 9.6 (8.5-10.5) mg/dL Total Bilirubin 0.3 (0.15-1.2) mg/dL AST 14 (0-40) U/L ALT 7 (0-41) U/L Alkaline Phosphata se 76 (40-130) IU/L Troponin T Baselin e 9 (0-15) ng/mL Troponin T 120 Min [place] (0-15) ng/mL Delta Troponin T (0-10) ABS# Total Protein 6.9 (6.6-8.7) g/dL Albumin 4.3 (3.5-5.2) g/dL Globulin 2.6 (1.3-4.6) g/dL 06/07/19 Range/Units 17:02 WBC (4.0-10.0) 10^3/ uL RBC (4.1-5.3) 10^6/u L Hgb (11.7-16.6) g/dL Hct (42.0-52.0) % MCV (80-94) fL MCH (28.0-34.0) pg MCHC (30.0-36.0) g/dL RDW (12.1-15.1) % Plt Count (130-400) 10^3/c mm MPV (7.4-10.4) fL Neut % (Auto) % Lymph % (Auto) % [place] % (Auto) % Eos % (Auto) % Baso % (Auto) % Neut # (Auto) (1.8-7.7) 10^3/u L Lymph # (Auto) (0.8-4.8) 10^3/u L [place] # (Auto) (0.2-0.9) 10^3/u L Eos # (Auto) (0.0-0.8) 10^3/u L Baso # (Auto) (0.0-0.1) 10^3/u L Nucleated RBC % (a uto) % Nucleated RBCs # /100WBC Sodium (136-145) mmol/L Potassium (3.5-5.1) mmol/L Chloride (98-107) mmol/L Carbon Dioxide (22-29) mmol/L Anion Gap (5-19) BUN (6-20) mg/dL Creatinine (0.7-1.2) mg/dL GFR Calculation (90-130) mL/min Glucose (65-115) mg/dL Calculated Osmolal ity (285-295) mOsm/k g Calcium (8.5-10.5) mg/dL Total Bilirubin (0.15-1.2) mg/dL AST (0-40) U/L ALT (0-41) U/L Alkaline Phosphata se (40-130) IU/L Troponin T Baselin e (0-15) ng/mL Troponin T 120 Min [place] 7.93 (0-15) ng/mL Delta Troponin T -1.07 L (0-10) ABS# Total Protein (6.6-8.7) g/dL Albumin (3.5-5.2) g/dL Globulin (1.3-4.6) g/dL Discharge Plan Discharge Patient Disposition: Home, Self-Care Clinical Impression: Atypical chest pain, End stage COPD, Bronchitis Condition: Stable Prescriptions: New Levaquin 750 mg tablet 750 mg PO DAILY 7 Days Qty: 7 RF: 0 No Action clonazepam [Klonopin] 1 mg tablet 1 mg PO TID Qty: 90 RF: 2 desvenlafaxine succinate [Pristiq] 50 mg tablet extended release 24 hr 50 mg PO DAILY Qty: 30 RF: 2 quetiapine 50 mg tablet 50 mg PO DAILY Qty: 30 RF: 2 Spiriva with HandiHaler 18 mcg capsule, w/inhalation device 1 cap INHALATION DAILY 90 Days Qty: 90 RF: 3 fluticasone propion-salmeterol [Advair Diskus] 250-50 mcg/dose blister with device 1 inh INHALATION BID Qty: 60 RF: 3 hydrocodone-acetaminophen [[place]] 5-325 mg tablet 1 tab PO Q24H PRN (Reason: pain) 30 Days Qty: 30 RF: 0 Prilosec OTC 20 mg tablet,delayed release (DR/EC) 40 mg PO BID 90 Days Qty: 360 RF: 0 diltiazem HCl [DILT-XR] 120 mg Capsule,Ext.Rel 24h Degradable 120 mg PO DAILY RF: 0 metoprolol tartrate 25 mg Tablet 12.5 mg PO BID RF: 0 Daliresp 500 mcg Tablet 500 mcg PO DAILY RF: 0 Discharge Orders: Discharge Order (Routine); Ordered 06/07/19 Ordered By: Henry Villafana Discharge Diet: Usual diet Discharge Activity: Limit activity as instructed Activity Restrictions/Additional Instructions: Levaquin once daily for 7 days follow-up with your primary care doctor in 3 to 4 days if symptoms worsen or change return. Discharge Date/Time: 06/07/19 18:36 Coding Level of Care Code ED Records Custodian for Kianna Fwxiomara Exam Comprehensive
--- NOTE | 2019-06-07 14:55 | XRR_ITS ---
PROCEDURE INFORMATION: Exam: XR Chest, 1 View Exam date and time: 06/07/2019 2:56 PM Age: 54 years old Clinical indication: Shortness of breath; Patient HX: C/O SOB; Additional info: Dyspnea/cough TECHNIQUE: Imaging protocol: XR of the chest Views: 1 view. COMPARISON: [place] XR chest 1V portable [id number] 03/09/2019 8:52 PM FINDINGS: Lungs: Stable COPD . Possible mild right basilar interstitial pneumonia which is new since the previous exam. Pleural space: Unremarkable. No pleural effusion. No pneumothorax. Heart/Mediastinum: Unremarkable. No cardiomegaly. Bones/joints: Unremarkable. XR/XR chest 1V portable [id number] IMPRESSION: 1. Stable COPD . 2. Possible mild right basilar interstitial pneumonia which is new since the previous exam.
--- NOTE | 2019-06-07 14:55 | ECG_ITS ---
Measurements Intervals [place] Rate: 72 P: 78 OR: 156 QRS: 75 QRSD: 83 T: 78 QT: 354 QTc: 388 SINUS RHYTHM INTERPRETATION BASED ON A DEFAULT AGE OF 40 YEARS Compared to ECG 03/09/2019 21:48:59 Sinus arrhythmia no longer present Electronically Signed On 06-08-2019 8:21:13 CDT by Emir Colon M.D. [id number] f
[2019-06-07 15:05] LABS: Basophils # 0.1 10^3/uL (0.0-0.1); Basophils % 0.7 %; Eosinophils # 0.4 10^3/uL (0.0-0.8); Eosinophils % 4.9 %; Hematocrit 36.9 % (42.0-52.0); Hemoglobin 11.4 g/dL (11.7-16.6); Lymphocytes # 1.6 10^3/uL (0.8-4.8); Lymphocytes % 22.6 %; Mean Corpuscular HGB Conc 30.9 g/dL (30.0-36.0); Mean Corpuscular Hemoglobin 27.9 pg (28.0-34.0); Mean Corpuscular Volume 90.4 fL (80-94); Mean Platelet Volume 11.4 fL (7.4-10.4); Monocytes # 0.6 10^3/uL (0.2-0.9); Monocytes % 8.2 %; Neutrophils # 4.5 10^3/uL (1.8-7.7); Neutrophils % 62.6 %; Nucleated Red Blood Cells % 0 %; Platelet Count 227 10^3/cmm (130-400); Red Blood Count 4.08 10^6/uL (4.1-5.3); Red Cell Distribution Width 12.1 % (12.1-15.1); White Blood Count 7.2 10^3/uL (4.0-10.0)
[2019-06-07 15:21] LABS: Alanine Aminotransferase 7 U/L (0-41); Albumin Level 4.3 g/dL (3.5-5.2); Alkaline Phosphatase 76 IU/L (40-130); Anion Gap 13.3 (5-19); Aspartate Amino Transferase 14 U/L (0-40); Blood Urea Nitrogen 12 mg/dL (6-20); Calcium 9.6 mg/dL (8.5-10.5); Carbon Dioxide 30 mmol/L (22-29); Chloride 99 mmol/L (98-107); Globulin 2.6 g/dL (1.3-4.6); Glomerular Filtration Rate 100.7 mL/min (90-130); Glucose 107 mg/dL (65-115); Osmolality Calculated 283 mOsm/kg (285-295); Potassium 4.3 mmol/L (3.5-5.1); Sodium 138 mmol/L (136-145); Total Bilirubin 0.3 mg/dL (0.15-1.2); Total Protein 6.9 g/dL (6.6-8.7)
[2019-06-07 15:23] LABS: Troponin(5th) Baseline 9 ng/mL (0-15)
[2019-06-07 17:21] LABS: Troponin 5 2HR 7.93 ng/mL (0-15)
[2019-06-07 18:13] VITALS: BP 109/78; PULSE 71; RESP 21; O2SAT 96
[2019-06-07 18:46] LABS: Troponin 5 2HR Delta -1.07 ABS# (0-10)
== END 2019-06-07 18:36 | disposition home or self-care (01) ==
PROVIDERS: Emergency Provider Family Medicine; Family Provider Family Medicine; PCP Family Medicine
DX: R07.89 Other chest pain (principal); J44.9 Chronic obstructive pulmonary disease, unspecified; I10 Essential (primary) hypertension; I27.20 Pulmonary hypertension, unspecified; E78.5 Hyperlipidemia, unspecified; K21.9 Gastro-esophageal reflux disease without esophagitis; F41.0 Panic disorder [episodic paroxysmal anxiety]; F43.25 Adjustment disorder with mixed disturbance of emotions and conduct; Z99.81 Dependence on supplemental oxygen; Z87.891 Personal history of nicotine dependence
CPT/HCPCS: 12345; 36415; 71045; 80053; 84484; 85025; 87040; 93005; 99281; 99283

== ENCOUNTER 2019-08-10 18:21 | Emergency (ER) | payer MEDICAID, SELFPAY ==
[2019-08-10 18:35] VITALS: BP 128/83; PULSE 77; RESP 18; TEMP 36.8; O2SAT 97; BMI 24.3
[2019-08-10 18:50] VITALS: BP 133/88; PULSE 77; RESP 20; O2SAT 99
--- NOTE | 2019-08-10 18:57 | ECG_ITS ---
Measurements Intervals [place] Rate: 77 P: 83 [place]: 178 QRS: 79 QRSD: 80 T: 78 QT: 348 QTc: 395 SINUS RHYTHM Compared to ECG 06/07/2019 14:53:04 No significant changes Electronically Signed On 08-10-2019 21:03:12 CDT by Aleksandra Johnston M.D. [id number] f
--- NOTE | 2019-08-10 18:57 | XR_ITS ---
WS: [id number] XR chest 1V portable [id number] REASON FOR EXAM: chest pain FINDINGS: The cardiac silhouette is unremarkable. The mediastinum and heart shadows are normal. The lung ann are mildly hyper aerated and there is mild flattening the hemidiaphragm suggesting so me degree of emphysema. There was no pneumothorax, pleural effusion, pulmonary edema, or pneumonia. The hilum and apices are normal. XR/XR chest 1V portable [id number] IMPRESSION: Negative chest for acute findings.
[2019-08-10 19:06] LABS: Basophils # 0.1 10^3/uL (0.0-0.1); Eosinophils # 0.3 10^3/uL (0.0-0.8); Eosinophils % 4.3 %; Hematocrit 40.9 % (42.0-52.0); Hemoglobin 12.9 g/dL (11.7-16.6); Lymphocytes # 1.3 10^3/uL (0.8-4.8); Lymphocytes % 20.9 %; Mean Corpuscular HGB Conc 31.5 g/dL (30.0-36.0); Mean Corpuscular Volume 88.9 fL (80-94); Mean Platelet Volume 11.5 fL (7.4-10.4); Monocytes # 0.6 10^3/uL (0.2-0.9); Monocytes % 9.4 %; Neutrophils % 63.3 %; Nucleated Red Blood Cells % 0 %; Platelet Count 256 10^3/cmm (130-400); Red Cell Distribution Width 12.2 % (12.1-15.1); White Blood Count 6.3 10^3/uL (4.0-10.0)
--- NOTE | 2019-08-10 19:11 | PC.NURSE ---
DUring pt rounding, pt states his pain is 8/10 with nausea. Pt instructed to provide urine sample
[2019-08-10 19:21] LABS: Alanine Aminotransferase 10 U/L (0-41); Albumin Level 4.8 g/dL (3.5-5.2); Alkaline Phosphatase 89 IU/L (40-130); Anion Gap 16.3 (5-19); Aspartate Amino Transferase 18 U/L (0-40); Blood Urea Nitrogen 9 mg/dL (6-20); Carbon Dioxide 33 mmol/L (22-29); Chloride 97 mmol/L (98-107); Creatinine Clr Calc Pharmacy 111.4482; Globulin 2.7 g/dL (1.3-4.6); Glomerular Filtration Rate 100.7 mL/min (90-130); Glucose 113 mg/dL (65-115); Lipase 18 U/L (13-60); Osmolality Calculated 291 mOsm/kg (285-295); Potassium 4.3 mmol/L (3.5-5.1); Sodium 142 mmol/L (136-145); Total Bilirubin 0.3 mg/dL (0.15-1.2); Total Protein 7.5 g/dL (6.6-8.7)
[2019-08-10 19:22] LABS: Troponin(5th) Baseline 10 ng/L (0-15)
[2019-08-10 19:26] LABS: Alcohol Level < 10 mg/dL (0-10)
[2019-08-10] MEDS: ondansetron 2 mg/ML SDV 2 mL 4 MG IVP (19:35)
[2019-08-10 19:43] VITALS: RESP 22; O2SAT 100
[2019-08-10] MEDS: morphine 4 mg/mL SDV 1 mL 8 MG IVP (19:43)
--- NOTE | 2019-08-10 19:58 | PC.NURSE ---
pt reports 0/10 pain and no nausea after morphine and zofran adm
[2019-08-10 20:28] LABS: Add Urine Microscopic? NO
[2019-08-10 20:34] LABS: Bilirubin Urine Neg (NEGATIVE); Blood Urine Neg (Negative); Glucose Urine UA Norm (Normal); Ketones Urine Negative (Negative); Leukocyte Esterase Urine Negative (Negative); Nitrate Urine Negative (Negative); Protein Urine Neg (Negative); Urine Appearance Clear (CLEAR); Urine Color Yellow (Yellow); Urobilinogen Urine Norm (Negative); pH Urine 5 (5-7)
--- NOTE | 2019-08-10 20:57 | ECG_ITS ---
Measurements Intervals [place] Rate: 60 P: 81 [place]: 182 QRS: 77 QRSD: 85 T: 77 QT: 377 QTc: 377 SINUS RHYTHM Compared to ECG 08/10/2019 18:33:02 No significant changes Electronically Signed On 08-11-2019 20:35:26 CDT by Aleksandra Johnston M.D. [id number]
[2019-08-10 21:17] LABS: Troponin 5 2HR 10.14 ng/L (0-15); Troponin 5 2HR Delta 0.14 ABS# (0-10)
--- NOTE | 2019-08-10 21:27 | ED_ITS ---
HPI - Chest Pain General: Chief Complaint: Chest Pain Stated Complaint: sob/cp Time Seen by Provider: 08/10/19 18:49 History of Present Illness: HPI narrative: 54-year-old gentleman who presents to the emergency department with complaints of chest pain. States the chest pain is mainly on the right side of his chest, in the right lateral region. He has some mild shortness of breath. Denies dizziness, denies nausea, denies diaphoresis. He has had similar happen to him a few times. No prior cardiac history. He does have a history of end-stage COPD and is being worked up for lung transplant. MD complaint: chest pain Associated symptoms: Reports dyspnea; Deny abdominal pain, fever(s), nausea, palpitations or vomiting Review of Systems General: Reports: 10 or more systems reviewed and unremarkable except in HPI and below Const: Denies: fever(s), chills or body aches Eyes: Denies: change in vision or blurry vision ENMT: Denies: throat pain, enlarged tonsils, odynophagia, hoarseness, mouth pain or swelling of lips/tongue Card: Reports: chest pain; Denies: palpitations, irregular heart rhythm, edema or swelling of feet/ankles Resp: Reports: dyspnea; Denies: productive cough or non-productive cough GI: Denies: abdominal pain, nausea or vomiting : Denies: flank pain, dysuria, urinary frequency, urinary urgency or urinary hesitancy Musc: Denies: neck pain, back pain or extremity swelling Skin/Breast: Denies: rash, pruritus or erythema Neuro: Denies: headache(s), numbness in extremities or weakness in extremities Endo: Denies: polyuria, polydipsia or tired all the time PFSH ED PFSH: Medical History Anxiety Chronic anticoagulation Chronic back pain COPD (chronic obstructive pulmonary disease) Depression Dyslipidemia End stage COPD GERD (gastroesophageal reflux disease) Hypertension Major depressive disorder, single episode, in full remission Normal colonoscopy Oxygen dependent Panic disorder [episodic paroxysmal anxiety] Pulmonary embolism Pulmonary hypertension Respiratory failure Surgical History H/O cardiac catheterization Family History Other CAD (coronary artery disease) Diabetes Social History Smoking and tobacco status: former smoker Alcohol intake: never Adopted: No Household members: family Physical Exam Const: COMMON NORMALS: no acute distress, average body habitus, patient oriented x3, no limitations, healthy appearing, alert and well nourished HENMT: COMMON NORMALS: normocephalic, atraumatic and moist oral mucous membranes HEAD & SCALP: normocephalic and atraumatic Eye: COMMON NORMALS: Equal, round and reactive pupils present, EOMs intact bilaterally, conjunctivae normal and no scleral icterus CONJUNCTIVA: Yes conjunctivae normal PUPIL: Yes Equal, round and reactive pupils present Neck/C-Spine: COMMON NORMALS: full ROM, supple, no meningeal signs, no JVD and No carotid bruits Chest: COMMONS NORMALS: normal inspection of the chest CHEST: Yes tenderness (Right lateral chest wall) Resp: COMMON NORMALS: normal respiratory effort, No retractions, No use of acc essory muscles, clear to auscultation bilaterally and percussion normal AUSCULTATION: clear to auscultation bilaterally PERCUSSION: percussion normal Cardio: COMMON NORMALS: no JVD, regular rate, regular rhythm, S1 normal heart sound present, S2 normal heart sound present, No gallops present (Cardio), No clicks present (Cardio), No murmurs present (Cardio), No rub (Cardio) and Peripheral pulses 2+ throughout RATE: regular rate RHYTHM: regular rhythm HEART SOUNDS: S1 normal heart sound present and S2 normal heart sound present PERIPHERAL PULSES: Peripheral pulses 2+ throughout GI: COMMON NORMALS: Normal to inspection, nondistended, normoactive bowel sounds present, Soft to palpation, non-tender, No hepatosplenomegaly present, no masses and no bruits PALPATION: Yes Soft to palpation and Yes No hepatosplenomegaly present : COMMON NORMALS: Yes no CVA tenderness BLADDER/KIDNEY EXAM: Yes no CVA tenderness Back/Pelvis: COMMON NORMALS: no CVA tenderness Extremity: COMMON NORMALS: normal to inspection, full ROM, capillary refill normal, no calf tenderness and no pedal edema Neuro: COMMON NORMALS: patient oriented x3 SENSORIUM/ORIENTATION: Yes alert MENINGEAL SIGNS: Yes no meningeal signs Skin: COMMON NORMALS: no rashes or lesions noted, no wounds, turgor normal, no jaundice, no petechiae and no mottling GENERAL SKIN EXAM: no rashes or lesions noted and turgor normal Course Reevaluation(s): Reevaluation #1: Discussed his lab and imaging findings with him. Negative for acute findings. Negative high-sensitivity troponin x2. Negative d-dimer, negative lipase. Pain is resolved with a single dose of morphine. I believe his pain is musculoskeletal in origin. We will discharge him home with no new orders and he is to follow-up with his primary care provider. He voiced understanding and he is in agreement with the plan Time: 21:28 Vital Signs: Vital signs: Vital Signs Temperature 98.2 F 08/10/19 18:35 Pulse Rate 99 08/10/19 21:42 Respiratory Rate 22 H 08/10/19 21:42 Blood Pressure 128/80 08/10/19 21:42 Pulse Oximetry 99 08/10/19 21:42 MDM - Chest Pain MDM Narrative: Medical decision making narrative: 54-year-old gentleman with a right-sided chest pain. Chest pain is reproducible. Evaluation is negative for a cardiac etiology. Negative HS troponin x 2, normal liver enzymes, negative lipase, negative d-dimer. Medical Records: Attestation: I reviewed the patient's medical records. Lab Data: Attestation: I reviewed the patient's lab results. Labs: Lab Results 08/10/19 08/10/19 08/10/19 Range/Units 18:50 18:50 18:50 WBC 6.3 (4.0-10.0) 10^3/ uL RBC 4.60 (4.1-5.3) 10^6/u L Hgb 12.9 (11.7-16.6) g/dL Hct 40.9 L (42.0-52.0) % MCV 88.9 (80-94) fL MCH 28.0 (28.0-34.0) pg MCHC 31.5 (30.0-36.0) g/dL RDW 12.2 (12.1-15.1) % Plt Count 256 (130-400) 10^3/c mm MPV 11.5 H (7.4-10.4) fL Neut % (Auto) 63.3 % Lymph % (Auto) 20.9 % [place] % (Auto) 9.4 % Eos % (Auto) 4.3 % Baso % (Auto) 1.0 % Neut # (Auto) 4.0 (1.8-7.7) 10^3/u L Lymph # (Auto) 1.3 (0.8-4.8) 10^3/u L [place] # (Auto) 0.6 (0.2-0.9) 10^3/u L Eos # (Auto) 0.3 (0.0-0.8) 10^3/u L Baso # (Auto) 0.1 (0.0-0.1) 10^3/u L Nucleated RBC % (a uto) 0 % Nucleated RBCs # 0.0 /100WBC D-Dimer (0-0.59) ug/mIFE U Sodium 142 (136-145) mmol/L Potassium 4.3 (3.5-5.1) mmol/L Chloride 97 L (98-107) mmol/L Carbon Dioxide 33 H (22-29) mmol/L Anion Gap 16.3 (5-19) BUN 9 (6-20) mg/dL Creatinine 0.8 (0.7-1.2) mg/dL GFR Calculation 100.7 (90-130) mL/min Glucose 113 (65-115) mg/dL Calculated Osmolal ity 291 (285-295) mOsm/k g Calcium 10.0 (8.5-10.5) mg/dL Total Bilirubin 0.3 (0.15-1.2) mg/dL AST 18 (0-40) U/L ALT 10 (0-41) U/L Alkaline Phosphata se 89 (40-130) IU/L Troponin T Baselin e 10 (0-15) ng/L Troponin T 120 Min [place] (0-15) ng/L Delta Troponin T (0-10) ABS# Total Protein 7.5 (6.6-8.7) g/dL Albumin 4.8 (3.5-5.2) g/dL Globulin 2.7 (1.3-4.6) g/dL Lipase 18 (13-60) U/L Urine Color (Yellow) Urine Appearance (CLEAR) Urine pH (5-7) Ur Specific Gravit y (1.005-1.030) Urine Protein (Negative) Urine Glucose (UA) (Normal) Urine Ketones (Negative) Urine Blood (Negative) Urine Nitrate (Negative) Urine Bilirubin (NEGATIVE) Urine Urobilinogen (Negative) mg/dL Ur Leukocyte Mariaelena ase (Negative) Ethyl Alcohol < 10 (0-10) mg/dL 08/10/19 08/10/19 08/10/19 Range/Units 18:50 19:50 20:55 WBC (4.0-10.0) 10^3/ uL RBC (4.1-5.3) 10^6/u L Hgb (11.7-16.6) g/dL Hct (42.0-52.0) % MCV (80-94) fL MCH (28.0-34.0) pg MCHC (30.0-36.0) g/dL RDW (12.1-15.1) % Plt Count (130-400) 10^3/c mm MPV (7.4-10.4) fL Neut % (Auto) % Lymph % (Auto) % [place] % (Auto) % Eos % (Auto) % Baso % (Auto) % Neut # (Auto) (1.8-7.7) 10^3/u L Lymph # (Auto) (0.8-4.8) 10^3/u L [place] # (Auto) (0.2-0.9) 10^3/u L Eos # (Auto) (0.0-0.8) 10^3/u L Baso # (Auto) (0.0-0.1) 10^3/u L Nucleated RBC % (a uto) % Nucleated RBCs # /100WBC D-Dimer 0.30 (0-0.59) ug/mIFE U Sodium (136-145) mmol/L Potassium (3.5-5.1) mmol/L Chloride (98-107) mmol/L Carbon Dioxide (22-29) mmol/L Anion Gap (5-19) BUN (6-20) mg/dL Creatinine (0.7-1.2) mg/dL GFR Calculation (90-130) mL/min Glucose (65-115) mg/dL Calculated Osmolal ity (285-295) mOsm/k g Calcium (8.5-10.5) mg/dL Total Bilirubin (0.15-1.2) mg/dL AST (0-40) U/L ALT (0-41) U/L Alkaline Phosphata se (40-130) IU/L Troponin T Baselin e (0-15) ng/L Troponin T 120 Min [place] 10.14 (0-15) ng/L Delta Troponin T 0.14 (0-10) ABS# Total Protein (6.6-8.7) g/dL Albumin (3.5-5.2) g/dL Globulin (1.3-4.6) g/dL Lipase (13-60) U/L Urine Color Yellow (Yellow) Urine Appearance Clear (CLEAR) Urine pH 5 (5-7) Ur Specific Gravit y 1.020 (1.005-1.030) Urine Protein Neg (Negative) Urine Glucose (UA) Norm (Normal) Urine Ketones Negative (Negative) Urine Blood Neg (Negative) Urine Nitrate Negative (Negative) Urine Bilirubin Neg (NEGATIVE) Urine Urobilinogen Norm (Negative) mg/dL Ur Leukocyte Mariaelena ase Negative (Negative) Ethyl Alcohol (0-10) mg/dL Imaging Data^: CXR: Attestation: I personally reviewed and interpreted this imaging study as follows: My impression: hyperexpanded lungs. no acute findings EKG Data^: EKG 1: Attestation: I personally reviewed and interpreted this EKG as follows: EKG interpretation date: 08/10/19 EKG interpretation time: 18:33 Prior EKG tracings: not available for review Interpretation: normal sinus rhythm HR 77 beats per minute no ST changes normal axis EKG 2: Attestation: I personally reviewed and interpreted this EKG as follows: EKG interpretation date: 08/10/19 EKG interpretation time: 21:09 Prior EKG tracings: available for review Interpretation: normal sinus rhythm HR [address] changes unchanged from earlier Discharge Plan Discharge Patient Disposition: Home, Self-Care Clinical Impression: Chest pain, musculoskeletal Condition: Stable Prescriptions: Continued Spiriva with HandiHaler 18 mcg capsule, w/inhalation device 1 cap INHALATION DAILY 90 Days Qty: 90 RF: 3 clonazepam [Klonopin] 1 mg tablet 1 mg PO TID Qty: 90 RF: 2 desvenlafaxine succinate [Pristiq] 50 mg tablet extended release 24 hr 50 mg PO DAILY Qty: 30 RF: 2 quetiapine 50 mg tablet 50 mg PO DAILY Qty: 30 RF: 2 fluticasone propion-salmeterol [Advair Diskus] 250-50 mcg/dose blister with device 1 inh INHALATION BID Qty: 60 RF: 3 Prilosec OTC 20 mg tablet,delayed release (DR/EC) 40 mg PO BID 90 Days Qty: 360 RF: 0 hydrocodone-acetaminophen 5-325 mg tablet 1 tab PO DAILY PRN (Reason: pain) 30 Days Qty: 30 RF: 0 diltiazem HCl [DILT-XR] 120 mg Capsule,Ext.Rel 24h Degradable 120 mg PO DAILY RF: 0 metoprolol tartrate 25 mg Tablet 12.5 mg PO BID RF: 0 Daliresp 500 mcg Tablet 500 mcg PO DAILY RF: 0 Discharge Orders: Discharge Order (Routine); Ordered 08/10/19 Ordered By: Angeline Barragan Referrals: Jaime Jordan MD [Primary Care Provider] - 1-3 days Patient Instructions: Chest Pain (ED) Activity Restrictions/Additional Instructions: Return for any new or worsening symptoms. Follow-up with your primary care provider within 3 days. Discharge Date/Time: 08/10/19 21:42 Coding Level of Care Code ED Senior Ruby Developer 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
[2019-08-10 21:42] VITALS: BP 128/80; PULSE 99; RESP 22; O2SAT 99
== END 2019-08-10 21:42 | disposition home or self-care (01) ==
PROVIDERS: Emergency Provider Family Medicine; PCP Family Medicine
DX: R07.89 Other chest pain (principal); J44.9 Chronic obstructive pulmonary disease, unspecified; E78.5 Hyperlipidemia, unspecified; I10 Essential (primary) hypertension; Z87.891 Personal history of nicotine dependence
CPT/HCPCS: 12345; 71045; 80053; 80307; 81003; 83690; 84484; 85025; 85378; 93005; 96374; 96375; 99283; 99284; J2270; J2405

== ENCOUNTER → 2019-08-21 07:34 | Outpatient (BNVA) | payer MEDICAID, SELFPAY | PROVIDERS: PCP Family Medicine; Visit Provider Psychiatry & Neurology Psychiatry | DX: F32.4 Major depressive disorder, single episode, in partial remission (principal); F41.0 Panic disorder [episodic paroxysmal anxiety] | CPT/HCPCS: 99214 ==

== ENCOUNTER 2019-08-23 18:13 | Emergency (ER) | payer MEDICAID, SELFPAY ==
[2019-08-23 18:30] VITALS: BP 105/66; PULSE 81; RESP 20; TEMP 36.7; O2SAT 96; BMI 24.3
--- NOTE | 2019-08-23 20:39 | XRR_ITS ---
PROCEDURE INFORMATION: Exam: XR Abdomen, 3 or More Views Exam date and time: 08/23/2019 8:41 PM Age: 54 years old Clinical indication: Abdominal pain; Generalized; Additional info: Diffuse abd pain distention TECHNIQUE: Imaging protocol: XR of the abdomen. Views: 3 or more views. COMPARISON: Chest CT report from 02/28/2019 FINDINGS: Lungs: Bilateral thickened interstitial opacities may represent scarring or bronchial wall thickening. Incidental bullae in the right lower lobe. There are several bilateral noncalcified nodules in the upper lobes all measuring between 5 and 8 mm. Some nodules were also seen on a chest CT from earlier this year. Gastrointestinal tract: There are several loops of dilated small bowel in the left abdomen measuring up to 3.2 cm. Scattered gas and stool in the nondilated colon. Intraperitoneal space: No free air. Bones/joints: Unremarkable for age. XR/XR acute abdomen series 72119 IMPRESSION: 1. Several dilated loops of small bowel. Low-grade obstruction versus ileus. 2. Several bilateral noncalcified lung nodules. These have been previously seen on CT but it is indeterminate if they have changed in size or number.
--- NOTE | 2019-08-23 20:41 | ECG_ITS ---
[facility] Test Date: 2019-08-23 Pat Name: Shamar Negron Department: Room: Gender: Male Paper Finisher: : 1965 Requested By: Trina Barry Order Number: [id number] Durham MD: Emir Colon M.D. Measurements Intervals [place] Rate: 67 P: 77 IN: 198 QRS: 80 QRSD: 90 T: 80 QT: 378 QTc: 400 Interpretive Statements SINUS RHYTHM ST ELEVATION, PROBABLY EARLY REPOLARIZATION [ST ELEVATION WITH NORMALLY INFLECTED T WAVE] INTERPRETATION BASED ON A DEFAULT AGE OF 40 YEARS Compared to ECG 08/10/2019 21:08:55 ST (T wave) deviation now present Early repolarization now present Electronically Signed On 08-24-2019 15:12:37 CDT by Emir Colon M.D. [id number]
[2019-08-23 20:55] LABS: Basophils # 0.1 10^3/uL (0.0-0.1); Basophils % 0.8 %; Eosinophils # 0.4 10^3/uL (0.0-0.8); Eosinophils % 6.1 %; Hematocrit 36.7 % (42.0-52.0); Hemoglobin 11.5 g/dL (11.7-16.6); Lymphocytes # 1.3 10^3/uL (0.8-4.8); Lymphocytes % 21.4 %; Mean Corpuscular HGB Conc 31.3 g/dL (30.0-36.0); Mean Corpuscular Hemoglobin 27.8 pg (28.0-34.0); Mean Corpuscular Volume 88.9 fL (80-94); Mean Platelet Volume 11.3 fL (7.4-10.4); Monocytes # 0.5 10^3/uL (0.2-0.9); Neutrophils # 3.7 10^3/uL (1.8-7.7); Neutrophils % 62.2 %; Nucleated Red Blood Cells % 0 %; Platelet Count 210 10^3/cmm (130-400); Red Blood Count 4.13 10^6/uL (4.1-5.3); Red Cell Distribution Width 12.3 % (12.1-15.1)
[2019-08-23 21:21] LABS: Alanine Aminotransferase 8 U/L (0-41); Albumin Level 4.2 g/dL (3.5-5.2); Alkaline Phosphatase 80 IU/L (40-130); Amylase 64 U/L (28-100); Anion Gap 15.9 (5-19); Aspartate Amino Transferase 16 U/L (0-40); Blood Urea Nitrogen 9 mg/dL (6-20); Calcium 9.4 mg/dL (8.5-10.5); Carbon Dioxide 31 mmol/L (22-29); Chloride 97 mmol/L (98-107); Creatinine Clr Calc Pharmacy 111.4482; Globulin 2.6 g/dL (1.3-4.6); Glomerular Filtration Rate 100.7 mL/min (90-130); Glucose 96 mg/dL (65-115); Lipase 13 U/L (13-60); Osmolality Calculated 286 mOsm/kg (285-295); Potassium 3.9 mmol/L (3.5-5.1); Sodium 140 mmol/L (136-145); Total Bilirubin 0.3 mg/dL (0.15-1.2); Total Protein 6.8 g/dL (6.6-8.7)
--- NOTE | 2019-08-23 21:24 | CTR_ITS ---
PROCEDURE INFORMATION: Exam: CT Abdomen With Contrast Exam date and time: 08/23/2019 10:36 PM Age: 54 years old Clinical indication: Abnormal findings; Abnormal radiologic finding of the abdomen; Radiologic exam and body structure: Acute abd series; Patient HX: Dilated bowel loops seen on plain film imaging this p. M. Denies any abd pain. ; Additional info: Abdominal pain TECHNIQUE: Imaging protocol: Computed tomography images of the abdomen with intravenous contrast. Radiation optimization: All CT scans at this facility use at least one of these dose optimization techniques: automated exposure control; mA and/or kV adjustment per patient size (includes targeted exams where dose is matched to clinical indication); or iterative reconstruction. Contrast material: OMNI 300; Contrast volume: 95 ml; Contrast route: INTRAVENOUS (IV); COMPARISON: CT abdomen pelvis w con* [id number] 07/14/2016 7:45 AM RADIATION DOSE METRICS: Total DLP (mGy-cm): 467.22 FINDINGS: Lungs: Centrilobular emphysema in both lung bases. Pleural space: Right pleural plaques and subpleural atelectasis. Liver: Normal. No mass. Gallbladder and bile ducts: Normal. No calcified stones. No ductal dilation. Pancreas: Normal. No ductal dilation. Spleen: Normal. No splenomegaly. Adrenals: Normal. No mass. Kidneys and ureters: Normal. No hydronephrosis. Stomach and bowel: The visualized bowel is normal in size. There is no obstruction or ileus. Appendix: The appendix is normal. Intraperitoneal space: No abdominal free fluid. Lymph nodes: Unremarkable. No enlarged lymph nodes. Vasculature: Unremarkable. No abdominal aortic aneurysm. Bones/joints: Chronic lower lumbar degenerative disc disease. Soft tissues: Unremarkable. CT/CT abdomen w con* [id number] IMPRESSION: 1. No acute abdominal findings. 2. No bowel obstruction or ileus. 3. Emphysema Radiation Dose CTDIVOL = (mGy): DLP = 467.22 (mGy-cm)
--- NOTE | 2019-08-23 21:27 | W.ED.SOB ---
HPI - SOB/Dyspnea General: Chief Complaint: Abdominal Pain Stated Complaint: sob, abd pain Time Seen by Provider: 08/23/19 20:33 Source: patient History of Present Illness: HPI Narrative: Patient chronically has COPD however states that in the last 3 days he has had increasing discomfort in his abdomen, along with some distention. To cure this he states that he took his pain medication that he typically takes daily 3 times in 1 day. Patient typically has daily bowel movements and states that constipation is not typically an issue with him. Associated symptoms: Reports abdominal pain; Deny fever(s), nausea or vomiting Related Data: Home oxygen amount: 4 liters Review of Systems General: Reports: 10 or more systems reviewed and unremarkable except in HPI and below Const: Denies: fever(s) or chills GI: Reports: abdominal pain, bloating and GI cramping; Denies: nausea or vomiting PFSH ED PFSH: Medical History (Updated 08/23/19 @ 23:29 by Trina Barry APRN) Anxiety Chronic anticoagulation Chronic back pain COPD (chronic obstructive pulmonary disease) Depression Dyslipidemia End stage COPD GERD (gastroesophageal reflux disease) Hypertension Major depressive disorder, single episode, in full remission Normal colonoscopy Oxygen dependent Panic disorder [episodic paroxysmal anxiety] Pulmonary embolism Pulmonary hypertension Respiratory failure Surgical History (Reviewed 08/10/19 @ 21:57 by Angeline Barragan MD, [facility] [place]) H/O cardiac catheterization Family History (Reviewed 08/10/19 @ 21:57 by Angeline Barragan MD, [facility] [place]) Other CAD (coronary artery disease) Diabetes Social History (Reviewed 08/10/19 @ 21:57 by Angeline Barragan MD, [facility] [place]) Smoking and tobacco status: former smoker Alcohol intake: never Adopted: No Household members: family Physical Exam Const: COMMON NORMALS: average body habitus, patient oriented x3 and no limitations HENMT: COMMON NORMALS: normocephalic and atraumatic HEAD & SCALP: normocephalic and atraumatic Eye: COMMON NORMALS: Equal, round and reactive pupils present and EOMs intact bilaterally PUPIL: Yes Equal, round and reactive pupils present Chest: COMMONS NORMALS: normal inspection of the chest and normal palpation of entire chest wall Resp: COMMON NORMALS: normal respiratory effort, No retractions and No use of accessory muscles EFFORT & INSPECTION: Yes able to speak in complete sentences AUSCULTATION: diminished lung sounds Cardio: COMMON NORMALS: regular rhythm, S1 normal heart sound present and S2 normal heart sound present RHYTHM: regular rhythm HEART SOUNDS: S1 normal heart sound present and S2 normal heart sound present GI: COMMON NORMALS: Normal to inspection, nondistended, normoactive bowel sounds present and Soft to palpation INSPECTION: Yes normal to inspection and Yes abdominal distension AUSCULTATION: Yes normoactive bowel sounds PALPATION: Yes Soft to palpation and Yes Tenderness to palpation present (GI) Details: LLQ, RLQ, LUQ and RUQ PERCUSSION: normal to percussion : COMMON NORMALS: Yes no CVA tenderness BLADDER/KIDNEY EXAM: Yes no CVA tenderness Back/Pelvis: COMMON NORMALS: no CVA tenderness and thoracic and lumbar spine normal to inspection Extremity: COMMON NORMALS: normal to inspection and full ROM Neuro: COMMON NORMALS: patient oriented x3 Course Vital Signs: Vital signs: Vital Signs Temperature 98.1 F 08/23/19 18:30 Pulse Rate 81 08/23/19 18:30 Respiratory Rate 20 H 08/23/19 18:30 Blood Pressure 105/66 08/23/19 18:30 Pulse Oximetry 96 08/23/19 18:30 MDM - SOB/Dyspnea MDM Narrative: Medical decision making narrative: Acute abdominal series indicates several dilated loops of small bowel. Low-grade obstruction versus ileus. No acute abdominal findings aside from constipation. Discussed the effects of constipation and the associated symptoms of abdominal distention. Will have patient take mag citrate at home, follow-up with his doctor next week Lab Data: Labs: Lab Results 08/23/19 08/23/19 Range/Units 20:45 20:45 WBC 6.0 (4.0-10.0) 10^3/ uL RBC 4.13 (4.1-5.3) 10^6/u L Hgb 11.5 L (11.7-16.6) g/dL Hct 36.7 L (42.0-52.0) % MCV 88.9 (80-94) fL MCH 27.8 L (28.0-34.0) pg MCHC 31.3 (30.0-36.0) g/dL RDW 12.3 (12.1-15.1) % Plt Count 210 (130-400) 10^3/c mm MPV 11.3 H (7.4-10.4) fL Neut % (Auto) 62.2 % Lymph % (Auto) 21.4 % Divide % (Auto) 9.0 % Eos % (Auto) 6.1 % Baso % (Auto) 0.8 % Neut # (Auto) 3.7 (1.8-7.7) 10^3/u L Lymph # (Auto) 1.3 (0.8-4.8) 10^3/u L Divide # (Auto) 0.5 (0.2-0.9) 10^3/u L Eos # (Auto) 0.4 (0.0-0.8) 10^3/u L Baso # (Auto) 0.1 (0.0-0.1) 10^3/u L Nucleated RBC % (a uto) 0 % Nucleated RBCs # 0.0 /100WBC Sodium 140 (136-145) mmol/L Potassium 3.9 (3.5-5.1) mmol/L Chloride 97 L (98-107) mmol/L Carbon Dioxide 31 H (22-29) mmol/L Anion Gap 15.9 (5-19) BUN 9 (6-20) mg/dL Creatinine 0.8 (0.7-1.2) mg/dL GFR Calculation 100.7 (90-130) mL/min Glucose 96 (65-115) mg/dL Calculated Osmolal ity 286 (285-295) mOsm/k g Calcium 9.4 (8.5-10.5) mg/dL Total Bilirubin 0.3 (0.15-1.2) mg/dL AST 16 (0-40) U/L ALT 8 (0-41) U/L Alkaline Phosphata se 80 (40-130) IU/L Total Protein 6.8 (6.6-8.7) g/dL Albumin 4.2 (3.5-5.2) g/dL Globulin 2.6 (1.3-4.6) g/dL Amylase 64 (28-100) U/L Lipase 13 (13-60) U/L Discharge Plan Discharge Patient Disposition: Home, Self-Care Clinical Impression: Constipation in male Condition: Stable Prescriptions: No Action bupropion HCl [Wellbutrin XL] 150 mg tablet extended release 24 hr 150 mg PO QAM Qty: 30 RF: 5 Spiriva with HandiHaler 18 mcg capsule, w/inhalation device 1 cap INHALATION DAILY 90 Days Qty: 90 RF: 3 clonazepam [Klonopin] 1 mg tablet 1 mg PO TID Qty: 90 RF: 2 desvenlafaxine succinate [Pristiq] 50 mg tablet extended release 24 hr 50 mg PO DAILY Qty: 30 RF: 2 quetiapine 50 mg tablet 50 mg PO DAILY Qty: 30 RF: 2 fluticasone propion-salmeterol [Advair Diskus] 250-50 mcg/dose blister with device 1 inh INHALATION BID Qty: 60 RF: 3 Prilosec OTC 20 mg tablet,delayed release (DR/EC) 40 mg PO BID 90 Days Qty: 360 RF: 0 hydrocodone-acetaminophen 5-325 mg tablet 1 tab PO DAILY PRN (Reason: pain) 30 Days Qty: 30 RF: 0 diltiazem HCl [DILT-XR] 120 mg Capsule,Ext.Rel 24h Degradable 120 mg PO DAILY RF: 0 metoprolol tartrate 25 mg Tablet 12.5 mg PO BID RF: 0 Daliresp 500 mcg Tablet 500 mcg PO DAILY RF: 0 Discharge Orders: Discharge Order (Routine); Ordered 08/23/19 Ordered By: Trina Barry Referrals: Jaime Jordan MD [Primary Care Provider] - Discharge Diet: Usual diet Discharge Activity: Resume usual activity Coding Level of Care Code ED Claims Collector for Chg Fwd Exam Comprehensive
[2019-08-23] MEDS: iohexol 300 mg/mL 100 mL Btl IV (22:40)
[2019-08-24] MEDS: magnesium citrate Btl 296 mL 150 ML PO (00:05)
[2019-08-24 00:12] VITALS: BP 116/80; PULSE 67; RESP 18; O2SAT 98
--- NOTE | 2019-08-24 00:14 | PC.NURSE ---
i agree with this assessment
== END 2019-08-24 00:14 | disposition home or self-care (01) ==
PROVIDERS: Emergency Provider Nurse Practitioner Family; PCP Family Medicine
DX: K59.00 Constipation, unspecified (principal); J44.9 Chronic obstructive pulmonary disease, unspecified; E78.5 Hyperlipidemia, unspecified; I10 Essential (primary) hypertension; Z87.891 Personal history of nicotine dependence
CPT/HCPCS: 12345; 36415; 74022; 74160; 80053; 82150; 83690; 85025; 93005; 99283; 99284; Q9967

== ENCOUNTER → 2019-09-18 07:56 | Outpatient (BNVA) | payer MEDICAID, SELFPAY | PROVIDERS: PCP Family Medicine; Visit Provider Psychiatry & Neurology Psychiatry | DX: F41.0 Panic disorder [episodic paroxysmal anxiety] (principal); F32.5 Major depressive disorder, single episode, in full remission | CPT/HCPCS: 99213 ==

== ENCOUNTER 2019-10-01 10:44 | Outpatient (CLI) | payer MEDICAID, SELFPAY ==
--- NOTE | 2019-10-01 18:30 | ONC CON_ITS ---
Dr. Sharma New Patient Note Patient: Shamar Negron Unit #: [id number]: 1965 Dicatated By: Etienne Sharma M.D.Date of Visit: Oct 01, 2019 Onc MED New Patient/Consult Referring Physician: Dr. Shahzad Ybarra M.D. Chief Complaint: Pulmonary nodules. History of Present Illness: This is a 54 year-old man with multiple pulmonary nodules. This patient has severe COPD. He has associated pulmonary hypertension, and he has a history of pulmonary emboli in 2018. 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 [place] for possible lung transplant. The reason for the visit has had he has been found to have small pulmonary nodules by CT scan which thus far has precluded him from being placed on the transplant list due to the concern for underlying malignancy. The initial chest CT report which is available to me is from November 2017. It showed advanced chronic emphysematous changes with bulla formation. A noncalcified 3 minimally pulmonary nodule was noted in the right upper lobe laterally. There were no other pulmonary nodules noted and there was no mediastinal or hilar lymphadenopathy. His CT pulmonary angiogram in December 2017 showed small emboli in the bilateral lower lobe segmental pulmonary artery branches. There were no pulmonary nodules reported on that study. A repeat CT pulmonary angiogram on 04/18/2018 showed resolved bibasilar segmental emboli with scattered foci of subsegmental atelectasis in both upper and lower lobes. A tiny cavitary focus was noted in the lateral subpleural right middle lobe measuring 6.3 mm. There were no other nodules reported on that study. A repeat chest CT on 02/11/2019 showed resolution of the cavitary right middle lobe nodule, which was presumed inflammatory. There was interim development of 2 left upper lobe nodules, the more anterior measuring 9.1 x 7.9 mm in the more posterior measuring 6.6 x 8 mm. These were indeterminate, but 3 to 6-month interval follow-up was recommended. Further evaluation with PET/CT on 03/08/2019 reported to 6 mm left lung apical nodules which demonstrated minimal FDG uptake. Due to the small size of the lesions the presence of FDG activity in the nodules was felt to be suspicious but not diagnostic for malignancy. There were no other areas of abnormal uptake. He was seen for followup at the [facility] on 06/24/2019. Repeat chest CT showed a 9 x 6 mm left upper lobe nodule which appeared stable prior to a prior study from 03/25/2019 but new since 12/20/2017. A 6 x 5 mm smoothly marginated left upper lobe nodule was reported to be slightly smaller, previously measuring 9.6 mm, and a 1 mm linear opacity in left upper lobe had decreased from 4 mm. Multiple groundglass opacities in the right lung appeared stable. Overall, the findings were felt to be consistent with a stable 9 x 6 mm left upper nodule with decrease in size of multiple other nodules and opacities. The transplant physician recommended a 6-month interval follow-up. He says that he feels fairly decent, though he does have very limited activity tolerance. He is able to do some walking. His ECOG score is 2. His appetite comes and goes, and his weight fluctuates up and down. He does not have fever or night sweats. He complains that he has been gradually losing his eyesight. He has shortness of breath, and he is on continuous oxygen at 4 L/min. He does not complain of cough, and he has had no hemoptysis. He has lots of sharp pain in the chest and up both sides. He does not complain of nausea, but he does have heartburn and he also complains that he stays bloated. He has had chronic diarrhea. Recently he has had pain in his lower abdomen on both sides, but more on the right. He says his bladder function is not too good. He voids pretty well in the morning, but only a little bit here and there during the rest of the day. He has a little bit of joint pain in his knees, elbows, and shoulders. He has some chronic back problems. He does not complain of headache or dizziness, and he has no focal neurologic symptoms. He has had some ongoing problems with depression. He is [facility] at [facility]. Past Medical History: His medical history includes chronic anxiety with agoraphobia and panic disorder, chronic obstructive pulmonary disease, depression, gastroesophageal reflux disease, hypercholesterolemia, hypertension, and pulmonary hypertension. He has a history of pulmonary emboli in 2018. Past Surgical History: He has had no prior surgeries. Medications: Advair Diskus 1 Puff(s) (of 250-50 mcg/dose) Aerosol Powder, Breath Activated Inhalation b.i.d., Benzonatate 1 Capsule (of 100 mg) Oral t.i.d. PRN, buPROPion HCl ER (SR) 1 Tablet (of 150 mg) Tablet SR 12 HR Oral daily, Cetirizine HCl 1 Tablet (of 10 mg) Oral at bedtime, clonazePAM 1 Tablet (of 1 mg) Oral t.i.d., Daliresp 1 Tablet (of 500 mcg) Oral daily, Desvenlafaxine Fumarate ER 1 Tablet (of 50 mg) Tablet SR 24 HR Oral daily, dilTIAZem CD 1 Capsule (of 120 mg) Capsule SR 24 HR Oral daily, HYDROcodone-Acetaminophen 1 Tablet (of 5-325 mg) Oral b.i.d. PRN, Meloxicam 1 Tablet (of 7.5 mg) Oral daily, Omeprazole 1 Capsule (of 40 mg) Capsule Delayed Release Oral b.i.d., ProAir HFA (108 (90 base) mcg/act) Aerosol, solution Inhalation daily, QUEtiapine Fumarate 1 Tablet (of 50 mg) Oral daily, Spiriva HandiHaler 1 Capsule (of 18 mcg) Inhalation daily Allergies: No Known Allergies. Social History: Mr. Negron is . He has a history of smoking for 30 years, up to 2 packs of cigarettes daily. He quit smoking in December 2017. He currently does not drink alcohol. He had some alcohol use when he was younger, but never heavy. Family History: Mr. Negron's mother is alive. Mr. Negron's father at age 86. Father lived to age 86. He had COPD, but apparently just of old age. Mother is still living at age 79 and in good health. He has 10 siblings who apparently are also in good health. Review Of Symptoms: Constitutional - His energy is not very good. He has very limited activity. He is ambulatory. His appetite comes and goes, and his weight fluctuates up and down. He does not have fever or night sweats. ECOG score is 2, Eyes - He has been gradually losing eyesight, ENMT - He has some hearing loss. No tinnitus. No sinus congestion/drainage. No mouth sores. No sore throat or difficulty swallowing, Hematologic/Lymphatic - No has easy bruising, Respiratory - He has shortness of breath. He is on continuous oxygen at 4 L/min. No cough. No hemoptysis. He reports having a lot of sharp pain in his chest and up both sides, Cardiovascular - No angina pain. No palpitations, Gastrointestinal - No nausea or vomiting. He has heartburn, and he complains that he stays bloated. He has chronic diarrhea. Recently has had some pain in his lower abdomen on both sides, but more on the right. No blood in the stool or black stools, Genitourinary (M) - His bladder function is not too good. It is okay when he first gets up in the morning but after that he just voids a little bit here and there. No dysuria or hematuria. No urinary frequency. No urgency or incontinence, Musculoskeletal - He has a little bit of joint pain in his knees, elbows, and shoulders. He has some chronic back problems, Integumentary - No skin rash or other skin problems, Neurologic - No headache or dizziness. No numbness or tingling. No other focal neurologic symptoms, Psychiatric - He has depression. He has difficulty falling asleep. Vital Signs: Performed on Oct 01, 2019 11:08: 0, 25.51, 1.99 sq.m, 70.00 in, 95 % (LOW), 88 /min, 26 /min, 149/92 mm(hg) (HIGH), 98.2 F (LOW), and 177.8 lbs (HIGH). Physical Examination: Constitutional - He appears chronically ill, Eyes - Sclerae nonicteric. Conjunctivae clear, ENMT - No lesions noted in the oral cavity, Neck - No mass or thyromegaly, Hematologic/Lymphatic - No cervical, clavicular, or axillary adenopathy, Respiratory - Lungs sound clear with dimnished air movement bilaterally, Cardiovascular - Heart tones are distant. The rhythm is regular. There is no murmur, gallop, or rub noted, Abdomen - Soft and non-tender. Liver and spleen are not enlarged. There is no abdominal mass or ascites noted and there is no inguinal adenopathy, Back/Spine - No spine or CVA tenderness noted, Extremities - No edema, Integumentary - No rashes. No suspicious skin lesions noted, Neurologic - No focal neurologic deficits noted. Lab/Imaging: His laboratory studies from 08/23/2019 included CBC showing hemoglobin 11.5 g, white blood cell count 6000, and platelet count 210,000. The red cell indices were normal. Comprehensive metabolic profile was unremarkable. Impression: 1. Patient with CT evidence of multiple small pulmonary nodules, the largest in the left upper lobe measuring 9 x 6 mm. On the most recent CT scan, from 06/24/2019, the 9 x 6 mm nodule appeared stable, and there did appear to be improvement in other pulmonary nodules and opacities. However, the findings are still of indeterminate significance, and underlying malignancy is not excluded. 2. He has severe COPD with associated pulmonary hypertension, and he would otherwise be a potential candidate for lung transplant. 3. He has been mildly anemic, which potentially is significant in the context of his underlying lung disease. The cause is uncertain. 4. He has a history of pulmonary emboli in December 2017. His other medical illnesses include: 5. Hypertension. 6. Hypercholesterolemia. 7. GERD. 8. Chronic pain. 9. Depression. 10. Chronic anxiety with panic disorder and agoraphobia. Plan: I reviewed the CT findings with the patient, and we discussed the clinical implications. These would appear to be most likely benign nodules, but at this point they would still have to be considered of indeterminate significance. Due to the size, they cannot be reliably evaluated by PET imaging, and biopsy would have significant risk and would probably not be technically feasible to begin with. My plan is to obtain the CT disks from [facility] and review all of the studies with the radiologist. However, in all likelihood the only practical way to manage this will be continued monitoring with serial CT scans, which unfortunately will further delay any possibility of his undergoing transplant. At some point I will plan some additional evaluation for the anemia, but that does not appear to be an urgent issue. Signed By: Etienne Sharma M.D. <<Signature on File>>
== END 2019-10-01 10:45 | disposition home or self-care (01) ==
PROVIDERS: PCP Family Medicine; Visit Provider Internal Medicine Medical Oncology
DX: R91.8 Other nonspecific abnormal finding of lung field (principal); J44.9 Chronic obstructive pulmonary disease, unspecified; I27.20 Pulmonary hypertension, unspecified; D64.9 Anemia, unspecified; I10 Essential (primary) hypertension; E78.00 Pure hypercholesterolemia, unspecified; K21.9 Gastro-esophageal reflux disease without esophagitis; G89.29 Other chronic pain; F32.9 Major depressive disorder, single episode, unspecified; F40.01 Agoraphobia with panic disorder; Z86.711 Personal history of pulmonary embolism
CPT/HCPCS: 99205

== ENCOUNTER 2019-11-19 19:14 | Emergency (ER) | payer MEDICAID, SELFPAY ==
--- NOTE | 2019-11-19 19:18 | XR_ITS ---
WS: [id number] Portable AP upright chest, 11/19/2019 Clinical Data: Dyspnea Comparison: Portable chest, 08/10/2019. Findings: No nodules, masses or effusions are seen. The heart is normal. The pulmonary vascularity is not increased. No pneumonia or pneumothorax is seen. The diaphragms are flattened. Monitor leads are on the chest wall. XR/XR chest 1V portable [id number] Impression: Hyperinflation.
--- NOTE | 2019-11-19 19:19 | ECG_ITS ---
[facility] Test Date: 2019-11-19 Pat Name: Shamar Negron Department: Room: Gender: Male Office Service Coordinator: : 1965 Requested By: Balbina Bernal Order Number: [id number] Durham MD: Anna Akhtar M.D. Measurements Intervals [place] Rate: 61 P: 76 WI: 219 QRS: 79 QRSD: 86 T: 78 QT: 365 QTc: 370 Interpretive Statements SINUS RHYTHM WITH SINUS ARRHYTHMIA WITH FIRST DEGREE AV BLOCK Compared to ECG 08/23/2019 21:28:00 First degree AV block now present ST (T wave) deviation no longer present Early repolarization no longer present Electronically Signed On 11-20-2019 17:12:38 CDT by Anna Akhtar M.D. [id number]
[2019-11-19 19:20] VITALS: BP 136/89; PULSE 71; RESP 18; TEMP 36.7; O2SAT 95; BMI 25.0
--- NOTE | 2019-11-19 19:20 | ED_ITS ---
HPI - General Adult General: Chief complaint: Chest Pain Stated complaint: CP Time Seen by Provider: 11/19/19 19:18 Source: patient and EMS Mode of arrival: EMS Limitations: no limitations History of Present Illness: HPI narrative: Mr. Negron is a nice 54-year-old male who comes in complaining of cough and chest pain with cough. He also states he has pain in his chest when he takes a deep breath. He denies any fevers or chills. He does state his sputum is changed color from white to green. He denies any hemoptysis. He denies any chest pain at rest only when he coughs or takes a deep breath. Patient does not have a history of pulmonary embolism or DVT. He does have a history of severe COPD for which she is on a transplant list for lungs. Patient has any leg pain or swelling. Patient states the symptoms went present for the past 3 days and not improving. He otherwise denies any complaints. Associated symptoms: Reports chest pain; Deny confusion, diaphoresis, dyspnea, headache(s), malaise, nausea, rash, palpitations, syncope or vomiting Review of Systems Const: Denies: fever(s), chills, body aches, fatigue, malaise or diaphoresis Eyes: Denies: change in vision, blurry vision, photophobia, eye discomfort, eye discharge, eye redness or yellow eyes ENMT: Denies: throat pain, odynophagia, hoarseness, swelling of lips/tongue, ear or mastoid pain, ear discharge, change in hearing or nasal discharge Card: Reports: chest pain; Denies: palpitations, irregular heart rhythm, edema, lightheadedness, syncope, pre-syncope, dyspnea on exertion or orthopnea Resp: Denies: dyspnea, productive cough, non-productive cough, wheezing, hemoptysis or chest congestion GI: Denies: abdominal pain, nausea, vomiting, hematemesis, coffee ground emesis, heartburn, diarrhea, constipation, GI cramping, hematochezia or melena : Denies: flank pain, dysuria, urinary frequency, urinary urgency or hematuria Musc: Denies: neck pain, back pain, extremity pain, extremity swelling, joint pain, joint swelling, joint redness, joint warmth or joint stiffness Skin/Breast: Denies: rash, pruritus, erythema, skin pain or skin tenderness Neuro: Denies: headache(s), numbness in extremities, weakness in extremities, sensory changes, lack of coordination, difficulty walking, dizziness, vertigo, confusion, Slurred speech present or seizure-like activity Ish/Lymph: Denies: easy bruising, easy bleeding, petechiae, purpura or enlarged lymph nodes All/Imm: Denies: urticaria, throat swelling, tongue swelling, facial swelling or acute wheezing PFSH ED PFSH: Medical History Anxiety Chronic anticoagulation Chronic back pain COPD (chronic obstructive pulmonary disease) Depression Dyslipidemia End stage COPD GERD (gastroesophageal reflux disease) Hypertension Major depressive disorder, single episode, in full remission Normal colonoscopy Oxygen dependent Panic disorder [episodic paroxysmal anxiety] Pulmonary embolism Pulmonary hypertension Respiratory failure Surgical History H/O cardiac catheterization Family History Other CAD (coronary artery disease) Diabetes Social History Smoking and tobacco status: former smoker Alcohol intake: never Adopted: No Household members: family Physical Exam Const: COMMON NORMALS: no acute distress, patient oriented x3, no limitations and alert GENERAL APPEARANCE: cooperative HENMT: COMMON NORMALS: normocephalic, atraumatic, external ears normal, EAC's normal and Normal external nose present HEAD & SCALP: normal to inspection, normocephalic and atraumatic FACE & SINUS: normal facial exam and face symmetric NOSE: Normal external nose present and Normal nares present EXTERNAL EAR: Yes external ears normal EXTERNAL AUDITORY CANAL: EAC's normal MOUTH: Normal oral and palatal mucosa present, lip normal and tongue normal Eye: COMMON NORMALS: Equal, round and reactive pupils present and conjunctivae normal GENERAL EYE: appearance normal, both eyes and all related structures ALIGNMENT: Yes alignment normal PERIORBITAL: periorbital findings normal EYELID: eyelids normal CONJUNCTIVA: Yes conjunctivae normal SCLERA: sclerae normal PUPIL: Yes Equal, round and reactive pupils present Neck/C-Spine: COMMON NORMALS: full ROM, no lymphadenopathy, supple, no meningeal signs and no JVD GENERAL: Yes normal visual inspection and Yes trachea midline Chest: COMMONS NORMALS: normal inspection of the chest and normal palpation of entire chest wall Resp: COMMON NORMALS: normal respiratory effort, No retractions, No use of accessory muscles and clear to auscultation bilaterally EFFORT & INSPECTION: Yes able to speak in complete sentences and Yes symmetric chest movement AUSCULTATION: clear to auscultation bilaterally, no crackles, no rales, no rhonchi and no wheezes Cardio: COMMON NORMALS: no JVD, regular rate, regular rhythm, S1 normal heart sound present and S2 normal heart sound present RATE: regular rate RHYTHM: regular rhythm HEART SOUNDS: S1 normal heart sound present, S2 normal heart sound present, no click, no gallops, no murmurs and no rubs GI: COMMON NORMALS: Soft to palpation and No hepatosplenomegaly present PALPATION: Yes Soft to palpation, No Tenderness to palpation present (GI), No Guarding due to palpation present (GI), No Rigid due to palpation, Yes No hepatosplenomegaly present, No Hernia present, No Palpable mass present and No Pulsatile mass present : COMMON NORMALS: Yes no CVA tenderness BLADDER/KIDNEY EXAM: Yes no CVA tenderness Back/Pelvis: COMMON NORMALS: no CVA tenderness, thoracic and lumbar spine normal to inspection, no thoracic nor lumbar tenderness and thoraco-lumbar ROM normal Extremity: COMMON NORMALS: normal to inspection, full ROM, capillary refill normal, no joint enlargement, no clubbing, cyanosis or edema and no calf tende rness Neuro: COMMON NORMALS: patient oriented x3, CN's II-XII intact bilaterally, moves all extremities, no focal motor deficits and no sensory deficits noted SENSORIUM/ORIENTATION: Yes alert MENINGEAL SIGNS: Yes no meningeal signs SPEECH: speech normal Psych: COMMON NORMALS: mental status grossly normal, Normal thought process present, cooperative, normal affect, speech normal and activity/motor behavior normal SPEECH: Yes normal speech THOUGHT PROCESS: Normal thought process present Skin: COMMON NORMALS: no rashes or lesions noted, turgor normal, no jaundice, no petechiae and no mottling GENERAL SKIN EXAM: no rashes or lesions noted and turgor normal Course Vital Signs: Vital signs: Vital Signs Temperature 98.0 F 11/19/19 19:20 Pulse Rate 63 11/19/19 22:06 Respiratory Rate 16 11/19/19 22:06 Blood Pressure 135/82 11/19/19 22:06 Pulse Oximetry 97 11/19/19 22:06 MDM - General Adult MDM Narrative: Medical decision making narrative: 2202 -patient is feeling better and wants to go home. He declines a second EKG or troponin to rule out cardiac problems. He is aware that a possible heart problem can be life- threatening but at this time he states that he only has the pain when he takes deep breaths and now that is gone he would like to be discharged. I see no sign or symptom of acute coronary syndrome based upon history, first EKG and troponin. He understands my evaluation is limited secondary to just 1 EKG and troponin. His d-dimer is negative and per Wells criteria he is low risk for PE. Patient agrees to return should his symptoms change or worsen but at this time he is requesting discharge. Patient clearly has capacity to make this decision and shows no sign of impairment. He has asked multiple questions but at this time he feels like he would like to go home. Lab Data: Labs: Lab Results 11/19/19 11/19/19 11/19/19 Range/Units 19:32 19:32 19:32 WBC 6.4 (4.0-10.0) 10^3/ uL RBC 4.23 (4.1-5.3) 10^6/u L Hgb 11.9 (11.7-16.6) g/dL Hct 38.4 L (42.0-52.0) % MCV 90.8 (80-94) fL MCH 28.1 (28.0-34.0) pg MCHC 31.0 (30.0-36.0) g/dL RDW 12.5 (12.1-15.1) % Plt Count 202 (130-400) 10^3/c mm MPV 11.4 H (7.4-10.4) fL Neut % (Auto) 65.7 % Lymph % (Auto) 20.8 % Clarke % (Auto) 7.2 % Eos % (Auto) 4.9 % Baso % (Auto) 0.5 % Neut # (Auto) 4.19 (1.8-7.7) 10^3/u L Lymph # (Auto) 1.3 (0.8-4.8) 10^3/u L Clarke # (Auto) 0.5 (0.2-0.9) 10^3/u L Eos # (Auto) 0.3 (0.0-0.8) 10^3/u L Baso # (Auto) 0.0 (0.0-0.1) 10^3/u L Nucleated RBC % (a uto) 0 % Nucleated RBCs # 0.0 /100WBC PT 12.90 (12.1-14.9) SECO NDS INR 0.95 (0.8-1.2) D-Dimer (0-0.59) ug/mIFE U Specimen Type Sample Site ABG pH (7.35-7.45) ABG pCO2 (35-45) mmHg ABG pO2 (80.0-100.0) mmH g ABG HCO3 (22-26) mmol/L ABG Base Excess (-2.0-2.0) mmol/ L Damon Test Hematocrit (42-52) % O2 Delivery Device O2 Liters/Min % Software Designer ID Sodium 141 (136-145) mmol/L Potassium 4.1 (3.5-5.1) mmol/L Chloride 101 (98-107) mmol/L Carbon Dioxide 33 H (22-29) mmol/L Anion Gap 11.1 (5-19) BUN 13 (6-20) mg/dL Creatinine 0.8 (0.7-1.2) mg/dL GFR Calculation 100.7 (90-130) mL/min Glucose 107 (65-115) mg/dL Calculated Osmolal ity 293 (285-295) mOsm/k g Lactic Acid (0.5-2.2) mmol/L Calcium 10.3 (8.5-10.5) mg/dL Magnesium 1.7 (1.7-2.3) mg/dL Total Bilirubin 0.2 (0.15-1.2) mg/dL AST 14 (0-40) U/L ALT 8 (0-41) U/L Alkaline Phosphata se 78 (40-130) IU/L Troponin T Baselin e (0-15) ng/L Total Protein 6.8 (6.6-8.7) g/dL Albumin 4.5 (3.5-5.2) g/dL Globulin 2.3 (1.3-4.6) g/dL Urine Color (Yellow) Urine Appearance (CLEAR) Urine pH (5-7) Ur Specific Gravit y (1.005-1.030) Urine Protein (Negative) Urine Glucose (UA) (Normal) Urine Ketones (Negative) Urine Blood (Negative) Urine Nitrate (Negative) Urine Bilirubin (Negative) Urine Urobilinogen (Negative) mg/dL Ur Leukocyte Mariaelena ase (Negative) SARS-CoV-2 Ag (Rap id) (Negative) 11/19/19 11/19/19 11/19/19 Range/Units 19:32 19:33 19:42 WBC (4.0-10.0) 10^3/ uL RBC (4.1-5.3) 10^6/u L Hgb (11.7-16.6) g/dL Hct (42.0-52.0) % MCV (80-94) fL MCH (28.0-34.0) pg MCHC (30.0-36.0) g/dL RDW (12.1-15.1) % Plt Count (130-400) 10^3/c mm MPV (7.4-10.4) fL Neut % (Auto) % Lymph % (Auto) % Clarke % (Auto) % Eos % (Auto) % Baso % (Auto) % Neut # (Auto) (1.8-7.7) 10^3/u L Lymph # (Auto) (0.8-4.8) 10^3/u L Clarke # (Auto) (0.2-0.9) 10^3/u L Eos # (Auto) (0.0-0.8) 10^3/u L Baso # (Auto) (0.0-0.1) 10^3/u L Nucleated RBC % (a uto) % Nucleated RBCs # /100WBC PT (12.1-14.9) SECO NDS INR (0.8-1.2) D-Dimer 0.29 (0-0.59) ug/mIFE U Specimen Type Arterial Sample Site Radial, left ABG pH 7.38 (7.35-7.45) ABG pCO2 53.9 H (35-45) mmHg ABG pO2 78.0 L (80.0-100.0) mmH g ABG HCO3 31.8 H (22-26) mmol/L ABG Base Excess 5.4 H (-2.0-2.0) mmol/ L Damon Test Pos Hematocrit 35.3 L (42-52) % O2 Delivery Device Nc O2 Liters/Min 3.0 % Software Designer ID Harkr Sodium (136-145) mmol/L Potassium (3.5-5.1) mmol/L Chloride (98-107) mmol/L Carbon Dioxide (22-29) mmol/L Anion Gap (5-19) BUN (6-20) mg/dL Creatinine (0.7-1.2) mg/dL GFR Calculation (90-130) mL/min Glucose (65-115) mg/dL Calculated Osmolal ity (285-295) mOsm/k g Lactic Acid (0.5-2.2) mmol/L Calcium (8.5-10.5) mg/dL Magnesium (1.7-2.3) mg/dL Total Bilirubin (0.15-1.2) mg/dL AST (0-40) U/L ALT (0-41) U/L Alkaline Phosphata se (40-130) IU/L Troponin T Baselin e 8 (0-15) ng/L Total Protein (6.6-8.7) g/dL Albumin (3.5-5.2) g/dL Globulin (1.3-4.6) g/dL Urine Color (Yellow) Urine Appearance (CLEAR) Urine pH (5-7) Ur Specific Gravit y (1.005-1.030) Urine Protein (Negative) Urine Glucose (UA) (Normal) Urine Ketones (Negative) Urine Blood (Negative) Urine Nitrate (Negative) Urine Bilirubin (Negative) Urine Urobilinogen (Negative) mg/dL Ur Leukocyte Mariaelena ase (Negative) SARS-CoV-2 Ag (Rap id) (Negative) 11/19/19 11/19/19 11/19/19 Range/Units 19:46 20:15 21:17 WBC (4.0-10.0) 10^3/ uL RBC (4.1-5.3) 10^6/u L Hgb (11.7-16.6) g/dL Hct (42.0-52.0) % MCV (80-94) fL MCH (28.0-34.0) pg MCHC (30.0-36.0) g/dL RDW (12.1-15.1) % Plt Count (130-400) 10^3/c mm MPV (7.4-10.4) fL Neut % (Auto) % Lymph % (Auto) % Clarke % (Auto) % Eos % (Auto) % Baso % (Auto) % Neut # (Auto) (1.8-7.7) 10^3/u L Lymph # (Auto) (0.8-4.8) 10^3/u L Clarke # (Auto) (0.2-0.9) 10^3/u L Eos # (Auto) (0.0-0.8) 10^3/u L Baso # (Auto) (0.0-0.1) 10^3/u L Nucleated RBC % (a uto) % Nucleated RBCs # /100WBC PT (12.1-14.9) SECO NDS INR (0.8-1.2) D-Dimer (0-0.59) ug/mIFE U Specimen Type Sample Site ABG pH (7.35-7.45) ABG pCO2 (35-45) mmHg ABG pO2 (80.0-100.0) mmH g ABG HCO3 (22-26) mmol/L ABG Base Excess (-2.0-2.0) mmol/ L Damon Test Hematocrit (42-52) % O2 Delivery Device O2 Liters/Min % Software Designer ID Sodium (136-145) mmol/L Potassium (3.5-5.1) mmol/L Chloride (98-107) mmol/L Carbon Dioxide (22-29) mmol/L Anion Gap (5-19) BUN (6-20) mg/dL Creatinine (0.7-1.2) mg/dL GFR Calculation (90-130) mL/min Glucose (65-115) mg/dL Calculated Osmolal ity (285-295) mOsm/k g Lactic Acid 0.7 (0.5-2.2) mmol/L Calcium (8.5-10.5) mg/dL Magnesium (1.7-2.3) mg/dL Total Bilirubin (0.15-1.2) mg/dL AST (0-40) U/L ALT (0-41) U/L Alkaline Phosphata se (40-130) IU/L Troponin T Baselin e (0-15) ng/L Total Protein (6.6-8.7) g/dL Albumin (3.5-5.2) g/dL Globulin (1.3-4.6) g/dL Urine Color Yellow (Yellow) Urine Appearance Clear (CLEAR) Urine pH 7 (5-7) Ur Specific Gravit y 1.015 (1.005-1.030) Urine Protein Neg (Negative) Urine Glucose (UA) Norm (Normal) Urine Ketones Negative (Negative) Urine Blood Neg (Negative) Urine Nitrate Negative (Negative) Urine Bilirubin Neg (Negative) Urine Urobilinogen Norm (Negative) mg/dL Ur Leukocyte Mariaelena ase Negative (Negative) SARS-CoV-2 Ag (Rap id) Negative (Negative) Imaging Data^: CXR: Attestation: I personally reviewed and interpreted this imaging study as follows: My impression: No acute cardiopulmonary findings. EKG Data^: EKG 1: Attestation: I personally reviewed and interpreted this EKG as follows: EKG interpretation date: 11/19/19 EKG interpretation time: 19:34 Interpretation: Normal sinus rhythm at 61 beats a minute, benign early repolarization, first-degree AV block, normal QTC. No change from previous. Discharge Plan Discharge Patient Disposition: Home Clinical Impression: Pleurisy Chest pain Qualifiers: Chest pain type: unspecified Qualified Code(s): R07.9 - Chest pain, unspecified Condition: Stable Prescriptions: No Action bupropion HCl [Wellbutrin XL] 150 mg tablet extended release 24 hr 150 mg PO QAM Qty: 30 RF: 5 benzonatate [Tessalon Perles] 100 mg capsule 100 mg PO TID PRN (Reason: Cough) RF: 0 clonazepam [Klonopin] 1 mg tablet 1 mg PO TID Qty: 90 RF: 2 desvenlafaxine succinate [Pristiq] 50 mg tablet extended release 24 hr 50 mg PO DAILY Qty: 30 RF: 2 quetiapine 50 mg tablet 50 mg PO DAILY Qty: 30 RF: 2 Spiriva with HandiHaler 18 mcg capsule, w/inhalation device 1 cap INHALATION DAILY 90 Days Qty: 90 RF: 3 fluticasone propion-salmeterol [Advair Diskus] 250-50 mcg/dose blister with device 1 inh INHALATION BID Qty: 60 RF: 3 Multiple Vitamins Tablet 1 tab PO DAILY RF: 0 Zyrtec 10 mg Tablet 10 mg PO BEDTIME RF: 0 omeprazole 40 mg Capsule,Delayed Release(Dr/Ec) 40 mg PO BID RF: 0 Mobic 7.5 mg Tablet 7.5 mg PO DAILY RF: 0 ProAir HFA 90 mcg/actuation Hfa Aerosol Inhaler 2 puff INHALATION QID PRN (Reason: Shortness Of Breath) RF: 0 Tums See Rx Instructions .ROUTE .COMPLEX RF: 0 hydrocodone-acetaminophen 5-325 mg tablet 1 tab PO BID PRN (Reason: pain) RF: 0 diltiazem HCl [DILT-XR] 120 mg Capsule,Ext.Rel 24h Degradable 120 mg PO DAILY RF: 0 metoprolol tartrate 25 mg Tablet 12.5 mg PO BID RF: 0 Daliresp 500 mcg Tablet 500 mcg PO DAILY RF: 0 Discharge Orders: Discharge Order (Routine); Ordered 11/19/19 Ordered By: Balbina Monaco Referrals: Shahzad Ybarra [Primary Care Provider] - 1-3 days Discharge Diet: Advance as tolerated Discharge Activity: Increase activity as tolerated Patient Instructions: Pleurisy (ED) Activity Restrictions/Additional Instructions: Please return to the ER immediately for any of the signs or symptoms listed on your discharge instruction sheets, worsening/changing of your symptoms, you are not getting better as quickly as expected, or for ANY other cause or concerns. You have declined any further evaluation and care of your heart and of course any heart problem can become life-threatening so if you change your mind, your symptoms return or worsen, he develop any new concerning symptoms you are more than welcome to return to the ER for recheck. Take Tylenol Motrin at home if you have any more discomfort. Discharge Date/Time: 11/19/19 22:38 Coding Level of Care Code ED Payroll Consultant for Kianna Fwd Exam Comprehensive
[2019-11-19] MEDS: sodium chloride 0.9% 1,000 ML 999 ML IV (19:36)
[2019-11-19] MEDS: sodium chloride 0.9% 1,000 ML 100 ML IV (19:36)
[2019-11-19 19:43] LABS: ABG PCO2 53.9 mmHg (35-45); ABG PH Result 7.38 (7.35-7.45); Arterial Blood Gas Hematocrit 35.3 % (42-52); Base Excess ABG 5.4 mmol/L (-2.0-2.0); Blood Gas Allen Test Pos; Blood Gas Sample Type Arterial; HCO3 ABG 31.8 mmol/L (22-26)
[2019-11-19 19:44] VITALS: BP 144/88; PULSE 63; RESP 18; O2SAT 98
[2019-11-19 19:44] LABS: Blood Gas Operator Identificat HARKR; Blood Gas Sample Site Radial, left; Oxygen Device NC
[2019-11-19 19:57] LABS: INR 0.95 (0.8-1.2)
[2019-11-19 19:58] LABS: Basophils % 0.5 %; Eosinophils # 0.3 10^3/uL (0.0-0.8); Eosinophils % 4.9 %; Hematocrit 38.4 % (42.0-52.0); Hemoglobin 11.9 g/dL (11.7-16.6); Lymphocytes # 1.3 10^3/uL (0.8-4.8); Lymphocytes % 20.8 %; Mean Corpuscular Hemoglobin 28.1 pg (28.0-34.0); Mean Corpuscular Volume 90.8 fL (80-94); Mean Platelet Volume 11.4 fL (7.4-10.4); Monocytes # 0.5 10^3/uL (0.2-0.9); Monocytes % 7.2 %; Neutrophils # 4.19 10^3/uL (1.8-7.7); Neutrophils % 65.7 %; Nucleated Red Blood Cells % 0 %; Platelet Count 202 10^3/cmm (130-400); Red Blood Count 4.23 10^6/uL (4.1-5.3); Red Cell Distribution Width 12.5 % (12.1-15.1); White Blood Count 6.4 10^3/uL (4.0-10.0)
[2019-11-19 20:05] LABS: Alanine Aminotransferase 8 U/L (0-41); Albumin Level 4.5 g/dL (3.5-5.2); Alkaline Phosphatase 78 IU/L (40-130); Anion Gap 11.1 (5-19); Aspartate Amino Transferase 14 U/L (0-40); Blood Urea Nitrogen 13 mg/dL (6-20); Calcium 10.3 mg/dL (8.5-10.5); Carbon Dioxide 33 mmol/L (22-29); Chloride 101 mmol/L (98-107); Globulin 2.3 g/dL (1.3-4.6); Glomerular Filtration Rate 100.7 mL/min (90-130); Glucose 107 mg/dL (65-115); Magnesium 1.7 mg/dL (1.7-2.3); Osmolality Calculated 293 mOsm/kg (285-295); Potassium 4.1 mmol/L (3.5-5.1); Sodium 141 mmol/L (136-145); Total Bilirubin 0.2 mg/dL (0.15-1.2); Total Protein 6.8 g/dL (6.6-8.7)
[2019-11-19 20:06] LABS: Troponin(5th) Baseline 8 ng/L (0-15)
[2019-11-19 20:07] LABS: Lactic Sepsis W/Reflex 0.7 mmol/L (0.5-2.2)
[2019-11-19 20:26] LABS: D Dimer 0.29 ug/mIFEU (0-0.59)
[2019-11-19 20:50] LABS: Add Urine Microscopic? NO
[2019-11-19 20:56] LABS: Bilirubin Urine Neg (Negative); Blood Urine Neg (Negative); Glucose Urine UA Norm (Normal); Ketones Urine Negative (Negative); Leukocyte Esterase Urine Negative (Negative); Nitrate Urine Negative (Negative); Protein Urine Neg (Negative); Specific Gravity, Urine 1.015 (1.005-1.030); Urine Appearance Clear (CLEAR); Urine Color Yellow (Yellow); Urobilinogen Urine Norm (Negative); pH Urine 7 (5-7)
[2019-11-19 21:52] LABS: SARS Covid-2 Antigen Negative (Negative)
[2019-11-19 21:57] VITALS: BP 135/85; PULSE 75; RESP 16; O2SAT 97
[2019-11-19 22:06] VITALS: BP 135/82; PULSE 63; RESP 16; O2SAT 97
== END 2019-11-19 22:38 | disposition home or self-care (01) ==
PROVIDERS: Emergency Provider Emergency Medicine; PCP Family Medicine
DX: R07.9 Chest pain, unspecified (principal); R09.1 Pleurisy; J44.9 Chronic obstructive pulmonary disease, unspecified; E78.5 Hyperlipidemia, unspecified; I10 Essential (primary) hypertension; Z87.891 Personal history of nicotine dependence
CPT/HCPCS: 12345; 36415; 36600; 71045; 80053; 81003; 82803; 83605; 83735; 84484; 85025; 85378; 85610; 87426; 93005; 96360; 96361; 99283; 99284; J7030

== ENCOUNTER → 2019-12-08 07:35 | Outpatient (BNVA) | payer MEDICAID, SELFPAY | PROVIDERS: PCP Family Medicine; Visit Provider Psychiatry & Neurology Psychiatry | DX: F32.5 Major depressive disorder, single episode, in full remission (principal); F41.0 Panic disorder [episodic paroxysmal anxiety] | CPT/HCPCS: 99213 ==

== ENCOUNTER 2019-12-21 19:15 | Emergency (ER) | payer MEDICAID, SELFPAY ==
[2019-12-21 19:28] VITALS: BP 129/81; PULSE 88; RESP 20; TEMP 37; O2SAT 100
--- NOTE | 2019-12-21 20:08 | XR_ITS ---
WS: [id number] PORTABLE CHEST HISTORY: chest pain, congestion COMPARISON: 11/19/2019 Hyperexpanded lungs from emphysema. Linear area of increasing scarring or atelectasis in the central RIGHT lung. New area of scarring at the RIGHT lung base. No pneumonia. No pleural effusion or pneumot horax. Cardiac size: Normal. Mediastinum/Aorta: Normal mediastinum. No osseous abnormality seen. XR/XR chest 1V portable [id number] IMPRESSION: 1. Moderate to severe chronic emphysema. 2. New areas of atelectasis or mild pneumonitis in the central RIGHT lung and at the RIGHT lung base.
--- NOTE | 2019-12-21 20:08 | ECG_ITS ---
[facility] Test Date: 2019-12-21 Pat Name: Shamar Negron Department: Room: Gender: Male Research Fellow: : 1965 Requested By: Jessica Barber Order Number: [id number] Marva MD: Anna Akhtar M.D. Measurements Intervals [place] Rate: 90 P: 74 RI: 168 QRS: 70 QRSD: 82 T: 68 QT: 321 QTc: 394 Interpretive Statements SINUS RHYTHM Compared to ECG 11/19/2019 19:34:12 Sinus arrhythmia no longer present First degree AV block no longer present Electronically Signed On 12-23-2019 7:22:14 CDT by Anna Akhtar M.D. [id number] f
--- NOTE | 2019-12-21 20:08 | CTR_ITS ---
PROCEDURE INFORMATION: Exam: CT Head Without Contrast Exam date and time: 12/21/2019 8:24 PM Age: 54 years old Clinical indication: Pain; Headache not specified; Patient HX: C/O VELÁSQUEZ w n/v x 3 days TECHNIQUE: Imaging protocol: Computed tomography of the head without contrast. Sagittal and coronal reformatted images were created and reviewed. Radiation optimization: All CT scans at this facility use at least one of these dose optimization techniques: automated exposure control; mA and/or kV adjustment per patient size (includes targeted exams where dose is matched to clinical indication); or iterative reconstruction. COMPARISON: No relevant prior studies available. RADIATION DOSE METRICS: Total DLP (mGy-cm): 859.55 FINDINGS: Brain: No acute intracranial hemorrhage. No acute infarct. No intra-axial or extra-axial masses. De Leon-white matter differentiation is preserved. No cerebral edema. No extra-axial fluid collections. No midline shift. No evidence for Chiari 1 malformation. Cerebral ventricles: No hydrocephalus. Bones/joints: No acute fracture. Paranasal sinuses: Visualized paranasal sinuses are clear. Mastoid air cells: Mastoid air cells are clear bilaterally. Orbital cavity: Globes and lenses, extraocular muscles, and optic nerves are intact bilaterally. No acute intraorbital abnormality. Vasculature: Mild atherosclerotic changes in the visualized arteries. Soft tissues: The extracranial soft tissues are unremarkable. CT/CT head wo con* [id number] IMPRESSION: No acute abnormality of the brain. Radiation Dose CTDIVOL = (mGy): DLP = 859.55 (mGy-cm)
--- NOTE | 2019-12-21 20:10 | W.ED.NAVMDI ---
HPI - Nausea/Vomiting/Diarrhea General: Chief complaint: Nausea/Vomiting/Diarrhea Stated complaint: N/V/VELÁSQUEZ X3 DAYS Time Seen by Provider: 12/21/19 19:38 History of Present Illness: HPI Narrative: 54-year-old male patient presents to the emergency department via EMS. Reports 3-day history of nausea vomiting with headache, increased cough congestion. Reports previous testing for Covid 4-5 times in the past month, all negative. Denies fever chills, denies diarrhea. He reports last meal yesterday, has not tolerated p.o. fluids. Reports pain to the right side of his chest, reports pain increases with deep breath. He reports productive cough but is unable to describe character of sputum. States has given up on lung transplant and is thinking of hospice secondary to severe COPD state. MD elicited complaint: nausea and vomiting Onset (ago): day(s) (3) Description of vomiting: other (yellow) Associated nausea: Yes Associated abdominal pain: No Location of pain: Chest (right) Pain consistency: intermittent Severity: moderate Quality: stabbing Exacerbating factors: none Relieving factors: none Associated symtoms: Reports chest pain, cough, fatigue, anorexia, malaise, nausea, short of breath and weakness; Denies anxiety, dysuria, headache(s) or palpitations Review of Systems General: Reports: 10 or more systems reviewed and unremarkable except in HPI and below Const: Reports: fatigue and malaise; Denies: fever(s) or chills Eyes: Denies: blurry vision or eye redness ENMT: Denies: throat pain, dental pain or disequilibrium Card: Reports: chest pain and dyspnea on exertion; Denies: palpitations or swelling of feet/ankles Resp: Reports: dyspnea, productive cough, wheezing (x 4 days), pain on inspiration, change in phlegm color and chest congestion; Denies: non-productive cough or hemoptysis GI: Reports: nausea and vomiting; Denies: heartburn : Denies: difficulty urinating, dysuria or urinary urgency Musc: Denies: neck pain, back pain, joint pain or joint warmth Skin/Breast: Denies: rash or pruritus Neuro: Denies: headache(s), weakness in extremities or behavioral changes Psych: Reports: depression (secondary to illness), sleeping more and change in appetite (decreased); Denies: anxiety Ish/Lymph: Denies: easy bruising PFS ED PFSH: Medical History (Updated 12/21/19 @ 22:51 by BERENICE Oneal) Anxiety Chronic anticoagulation Chronic back pain COPD (chronic obstructive pulmonary disease) Depression Dyslipidemia End stage COPD GERD (gastroesophageal reflux disease) Hypertension Major depressive disorder, single episode, in full remission Normal colonoscopy Oxygen dependent Panic disorder [episodic paroxysmal anxiety] Pulmonary embolism Pulmonary hypertension Respiratory failure Surgical History H/O cardiac catheterization Family History Other CAD (coronary artery disease) Diabetes Social History Smoking and tobacco status: former smoker Alcohol intake: never Adopted: No Household members: family Physical Exam Const: COMMON NORMALS: no acute distress, patient oriented x3 and alert GENERAL APPEARANCE: cooperative, comfortable, ill appearing, frail appearing and well hydrated NUTRITIONAL APPEARANCE: thin ORIENTATION/CONSCIOUSNESS: Yes awake, Yes oriented to person, Yes oriented to place and Yes oriented to time HENMT: COMMON NORMALS: normocephalic, Normal external nose present and moist oral mucous membranes HEAD & SCALP: normocephalic NOSE: Normal external nose present Eye: COMMON NORMALS: Equal, round and reactive pupils present and EOMs intact bilaterally GENERAL EYE: appearance normal, both eyes and all related structures PUPIL: Yes Equal, round and reactive pupils present Neck/C-Spine: COMMON NORMALS: full ROM and no lymphadenopathy GENERAL: Yes normal visual inspection and Yes trachea midline CERVICAL SPINE: Yes cervical ROM normal Lymph: LYMPHATIC: no lymphadenopathy noted Chest: COMMONS NORMALS: normal palpation of entire chest wall CHEST: Yes abnormal inspection of the chest barrel chest and increased A-P diameter Resp: COMMON NORMALS: normal respiratory effort EFFORT & INSPECTION: Yes able to speak in complete sentences, Yes symmetric chest movement, Yes labored and Yes audible wheezes AUSCULTATION: diminished lung sounds bilateral in the lower lung ann Cardio: COMMON NORMALS: regular rhythm, S1 normal heart sound present, S2 normal heart sound present and Peripheral pulses 2+ throughout RHYTHM: regular rhythm HEART SOUNDS: S1 normal heart sound present and S2 normal heart sound present PERIPHERAL PULSES: Peripheral pulses 2+ throughout GI: COMMON NORMALS: Soft to palpation and non-tender INSPECTION: No Abdominal wall edema, No incision, No visible peristalsis and Yes other (distended) AUSCULTATION: Yes Hypoactive bowel sounds present PALPATION: Yes Soft to palpation PERCUSSION: normal to percussion : COMMON NORMALS: Yes no CVA tenderness BLADDER/KIDNEY EXAM: Yes no CVA tenderness Back/Pelvis: COMMON NORMALS: no CVA tenderness and thoracic and lumbar spine normal to inspection Extremity: COMMON NORMALS: normal to inspection and capillary refill normal Neuro: COMMON NORMALS: patient oriented x3 and no focal motor deficits SENSORIUM/ORIENTATION: Yes alert, Yes oriented to person, Yes oriented to place and Yes oriented to time Psych: COMMON NORMALS: mental status grossly normal, Normal thought process present and cooperative ACTIVITY/MOTOR BEHAVIOR: Yes appropriate eye contact THOUGHT PROCESS: Normal thought process present Skin: COMMON NORMALS: no rashes or lesions noted and turgor normal GENERAL SKIN EXAM: no rashes or lesions noted and turgor normal Course ED course: 54-year-old male patient presents to the emergency department with complaints of nausea vomiting. He reports increased cough congestion, change of sputum with increased wheezing x4 days. Previous Covid testing with negative results. Zofran administered IV, tolerated oral fluids without vomiting or nausea, is requesting to go home, does not wish to stay. Placed on doxycycline for COPD with exacerbation/acute bronchitis. Plan to refer to primary care for hospice consult. Advised to return to the emergency department if he develops increased shortness of breath, inability to catch his breath or other concerning symptoms. Serology and radiology results discussed with the patient. Lactic acid and D-dimer negative, lipase normal, EKG without acute changes. Troponin negative. Chemistry with slightly elevated CO2, he suffers from COPD and oxygen dependent at home. Vital Signs: Vital signs: Vital Signs Temperature 98.6 F 12/21/19 19:28 Pulse Rate 79 12/21/19 23:30 Respiratory Rate 18 12/21/19 23:30 Blood Pressure 101/58 12/21/19 23:30 Pulse Oximetry 99 12/21/19 23:30 MDM - Nausea/Vomiting/Diarrhea Lab Data: Labs: Lab Results 12/21/19 12/21/19 12/21/19 Range/Units 20:32 20:44 20:44 WBC 11.4 H (4.0-10.0) 10^3/ uL RBC 3.73 L (4.1-5.3) 10^6/u L Hgb 10.9 L (11.7-16.6) g/dL Hct 35.1 L (42.0-52.0) % MCV 94.1 H (80-94) fL MCH 29.2 (28.0-34.0) pg MCHC 31.1 (30.0-36.0) g/dL RDW 13.1 (12.1-15.1) % Plt Count 197 (130-400) 10^3/c mm MPV 10.6 H (7.4-10.4) fL Neut % (Auto) 82.1 % Lymph % (Auto) 7.2 % [place] % (Auto) 7.1 % Eos % (Auto) 2.2 % Baso % (Auto) 0.3 % Neut # (Auto) 9.38 H (1.8-7.7) 10^3/u L Lymph # (Auto) 0.8 (0.8-4.8) 10^3/u L [place] # (Auto) 0.8 (0.2-0.9) 10^3/u L Eos # (Auto) 0.3 (0.0-0.8) 10^3/u L Baso # (Auto) 0.0 (0.0-0.1) 10^3/u L Nucleated RBC % (a uto) 0 % Nucleated RBCs # 0.0 /100WBC D-Dimer (0-0.59) ug/mIFE U Sodium 137 (136-145) mmol/L Potassium 4.4 (3.5-5.1) mmol/L Chloride 95 L (98-107) mmol/L Carbon Dioxide 33 H (22-29) mmol/L Anion Gap 13.4 (5-19) BUN 11 (6-20) mg/dL Creatinine 0.6 L (0.7-1.2) mg/dL GFR Calculation 140.4 H (90-130) mL/min Glucose 120 H (65-115) mg/dL Calculated Osmolal ity 285 (285-295) mOsm/k g Lactate (0.5-2.2) mmol/L Calcium 9.5 (8.5-10.5) mg/dL Total Bilirubin 0.4 (0.15-1.2) mg/dL AST 22 (0-40) U/L ALT 22 (0-41) U/L Alkaline Phosphata se 80 (40-130) IU/L Troponin T Baselin e (0-15) ng/L Total Protein 6.6 (6.6-8.7) g/dL Albumin 4.1 (3.5-5.2) g/dL Globulin 2.5 (1.3-4.6) g/dL Lipase 10 L (13-60) U/L Urine Color Yellow (Yellow) Urine Appearance Sl cloudy A (CLEAR) Urine pH 9 H (5-7) Ur Specific Gravit y 1.015 (1.005-1.030) Urine Protein Neg (Negative) Urine Glucose (UA) Norm (Normal) Urine Ketones Negative (Negative) Urine Blood Neg (Negative) Urine Nitrate Negative (Negative) Urine Bilirubin Neg (Negative) Prot Sulfosalicyli c Acd Negative (Negative) Urine Urobilinogen Norm (Negative) mg/dL Ur Leukocyte Mariaelena ase Negative (Negative) Urine RBC 0-4 H (0-2) /hpf Urine WBC 0-4 H (0-5) /hpf Ur Squamous Epith Cells 0-4 H (0-5) /hpf Amorphous Sediment 3+ /hpf Urine Bacteria Trace (NONE) /hpf Urine Mucus Trace /hpf 12/21/19 12/21/19 12/21/19 Range/Units 20:44 20:44 20:44 WBC (4.0-10.0) 10^3/ uL RBC (4.1-5.3) 10^6/u L Hgb (11.7-16.6) g/dL Hct (42.0-52.0) % MCV (80-94) fL MCH (28.0-34.0) pg MCHC (30.0-36.0) g/dL RDW (12.1-15.1) % Plt Count (130-400) 10^3/c mm MPV (7.4-10.4) fL Neut % (Auto) % Lymph % (Auto) % [place] % (Auto) % Eos % (Auto) % Baso % (Auto) % Neut # (Auto) (1.8-7.7) 10^3/u L Lymph # (Auto) (0.8-4.8) 10^3/u L [place] # (Auto) (0.2-0.9) 10^3/u L Eos # (Auto) (0.0-0.8) 10^3/u L Baso # (Auto) (0.0-0.1) 10^3/u L Nucleated RBC % (a uto) % Nucleated RBCs # /100WBC D-Dimer 0.36 (0-0.59) ug/mIFE U Sodium (136-145) mmol/L Potassium (3.5-5.1) mmol/L Chloride (98-107) mmol/L Carbon Dioxide (22-29) mmol/L Anion Gap (5-19) BUN (6-20) mg/dL Creatinine (0.7-1.2) mg/dL GFR Calculation (90-130) mL/min Glucose (65-115) mg/dL Calculated Osmolal ity (285-295) mOsm/k g Lactate 0.4 L (0.5-2.2) mmol/L Calcium (8.5-10.5) mg/dL Total Bilirubin (0.15-1.2) mg/dL AST (0-40) U/L ALT (0-41) U/L Alkaline Phosphata se (40-130) IU/L Troponin T Baselin e 9 (0-15) ng/L Total Protein (6.6-8.7) g/dL Albumin (3.5-5.2) g/dL Globulin (1.3-4.6) g/dL Lipase (13-60) U/L Urine Color (Yellow) Urine Appearance (CLEAR) Urine pH (5-7) Ur Specific Gravit y (1.005-1.030) Urine Protein (Negative) Urine Glucose (UA) (Normal) Urine Ketones (Negative) Urine Blood (Negative) Urine Nitrate (Negative) Urine Bilirubin (Negative) Prot Sulfosalicyli c Acd (Negative) Urine Urobilinogen (Negative) mg/dL Ur Leukocyte Mariaelena ase (Negative) Urine RBC (0-2) /hpf Urine WBC (0-5) /hpf Ur Squamous Epith Cells (0-5) /hpf Amorphous Sediment /hpf Urine Bacteria (NONE) /hpf Urine Mucus /hpf Imaging Data^: CT Head: Radiologist's impression: [address] [place] [address] CT Scan Report Signed Patient: Shamar Negron JRUnit #: [id number] : 1965Acct#:[id number] Age/Sex: 54 / MADM Date: 12/21/19 Loc: ERRoom/Bed: Attending Dr: Ordering Provider/Ordering MD: Jessica Dimas Date of Service: 12/21/19 Procedure(s): CT head wo con* [id number] Accession Number(s): [id number] Report Number: [id number] PROCEDURE INFORMATION: Exam: CT Head Without Contrast Exam date and time: 12/21/2019 8:24 PM Age: 54 years old Clinical indication: Pain; Headache not specified; Patient HX: C/O VELÁSQUEZ w n/v x 3 days TECHNIQUE: Imaging protocol: Computed tomography of the head without contrast. Sagittal and coronal reformatted images were created and reviewed. Radiation optimization: All CT scans at this facility use at least one of these dose optimization techniques: automated exposure control; mA and/or kV adjustment per patient size (includes targeted exams where dose is matched to clinical indication); or iterative reconstruction. COMPARISON: No relevant prior studies available. RADIATION DOSE METRICS: Total DLP (mGy-cm): 859.55 FINDINGS: Brain: No acute intracranial hemorrhage. No acute infarct. No intra-axial or extra-axial masses. De Leon-white matter differentiation is preserved. No cerebral edema. No extra-axial fluid collections. No midline shift. No evidence for Chiari 1 malformation. Cerebral ventricles: No hydrocephalus. Bones/joints: No acute fracture. Paranasal sinuses: Visualized paranasal sinuses are clear. Mastoid air cells: Mastoid air cells are clear bilaterally. Orbital cavity: Globes and lenses, extraocular muscles, and optic nerves are intact bilaterally. No acute intraorbital abnormality. Vasculature: Mild atherosclerotic changes in the visualized arteries. Soft tissues: The extracranial soft tissues are unremarkable. CT/CT head wo con* [id number] IMPRESSION: No acute abnormality of the brain. Radiation Dose CTDIVOL = (mGy): DLP = 859.55 (mGy-cm) Dictated By:Patricia Harden MD Signed By:Patricia Harden Date/Time:12/21/192046 DD/ 45 CXR: My impression: No acute changes from previous chest x-ray completed 11/19/2019. Question increased haziness of the right middle lobe, radiology interpretation pending. EKG Data^: EKG 1: EKG interpretation date: 12/21/19 EKG interpretation time: 20:40 Computer generated interpretation: Sinus rhythm, normal ECG Discharge Plan Discharge Patient Disposition: Home Clinical Impression: Chronic obstructive pulmonary disease with (acute) exacerbation, COPD (chronic obstructive pulmonary disease) with acute bronchitis Nausea & vomiting Qualifiers: Vomiting type: unspecified Vomiting Intractability: unspecified Qualified Code(s): R11.2 - Nausea with vomiting, unspecified Condition: Stable Prescriptions: New Zofran 4 mg tablet 4 mg PO DIRECTED PRN (Reason: nausea and vomiting) 4 Days Qty: 10 RF: 0 prednisone 20 mg tablet 20 mg PO BID 5 Days Qty: 10 RF: 0 doxycycline hyclate 100 mg tablet 100 mg PO BID 10 Days Qty: 20 RF: 0 No Action benzonatate [Tessalon Perles] 100 mg capsule 100 mg PO TID PRN (Reason: Cough) RF: 0 Spiriva with HandiHaler 18 mcg capsule, w/inhalation device 1 cap INHALATION DAILY 90 Days Qty: 90 RF: 3 fluticasone propion-salmeterol [Advair Diskus] 250-50 mcg/dose blister with device 1 inh INHALATION BID Qty: 60 RF: 3 quetiapine 50 mg tablet 50 mg PO DAILY Qty: 30 RF: 2 desvenlafaxine succinate [Pristiq] 50 mg tablet extended release 24 hr 50 mg PO DAILY Qty: 30 RF: 2 clonazepam [Klonopin] 1 mg tablet 1 mg PO TID Qty: 90 RF: 2 bupropion HCl [Wellbutrin XL] 150 mg tablet extended release 24 hr 150 mg PO QAM Qty: 30 RF: 5 Multiple Vitamins Tablet 1 tab PO DAILY RF: 0 Zyrtec 10 mg Tablet 10 mg PO BEDTIME RF: 0 omeprazole 40 mg Capsule,Delayed Release(Dr/Ec) 40 mg PO BID RF: 0 Mobic 7.5 mg Tablet 7.5 mg PO DAILY RF: 0 ProAir HFA 90 mcg/actuation Hfa Aerosol Inhaler 2 puff INHALATION QID PRN (Reason: Shortness Of Breath) RF: 0 Tums See Rx Instructions .ROUTE .COMPLEX RF: 0 hydrocodone-acetaminophen 5-325 mg tablet 1 tab PO BID PRN (Reason: pain) RF: 0 diltiazem HCl [DILT-XR] 120 mg Capsule,Ext.Rel 24h Degradable 120 mg PO DAILY RF: 0 metoprolol tartrate 25 mg Tablet 12.5 mg PO BID RF: 0 Daliresp 500 mcg Tablet 500 mcg PO DAILY RF: 0 Discharge Orders: Discharge Order (Routine); Ordered 12/21/19 Ordered By: Jessica Dimas Referrals: Shahzad Ybarra [Primary Care Provider] - Discharge Diet: Advance as tolerated and Clear Liquid Discharge Activity: Limit activity as instructed Patient Instructions: Acute Bronchitis (ED), Chronic Obstructive Pulmonary Disease (ED), Acute Nausea and Vomiting (ED) Activity Restrictions/Additional Instructions: Continue home medications Take doxycycline until all gone, even if feeling better Continue inhalers as directed Take prednisone with food Remain in quarantine as Covid testing will be available in 24 to 48 hours Follow-up with your primary care physician this week Return to the emergency department if you develop worsening shortness of breath, inability to catch her breath or coughing up blood Push fluids, clear liquid diet for the first 12 hours then advance as tolerated, avoid greasy fried fatty foods as this can upset your stomach. Discharge Date/Time: 12/22/19 00:02 Coding Level of Care Code ED Supervisor Transcribing Operators for Kianna Fwd Exam Comprehensive
[2019-12-21 20:46] LABS: Add Urine Microscopic? YES; Bilirubin Urine Neg (Negative); Blood Urine Neg (Negative); Glucose Urine UA Norm (Normal); Ketones Urine Negative (Negative); Leukocyte Esterase Urine Negative (Negative); Nitrate Urine Negative (Negative); Protein Urine Neg (Negative); Specific Gravity, Urine 1.015 (1.005-1.030); Sulfosalicylic Acid Urine Negative (Negative); Urine Color Yellow (Yellow); Urobilinogen Urine Norm (Negative); pH Urine 9 (5-7)
[2019-12-21 20:47] LABS: Add Urine Culture? No; Amorphous Sediment Urine 3+ /hpf; Bacteria Urine TRACE /hpf; Mucus Urine TRACE /hpf; RBC Urine 0-4 /hpf (0-2); Squamous Epithelial Cell Urine 0-4 /hpf (0-5); WBC Urine 0-4 /hpf (0-5)
[2019-12-21 20:53] LABS: Basophils % 0.3 %; Eosinophils # 0.3 10^3/uL (0.0-0.8); Eosinophils % 2.2 %; Hematocrit 35.1 % (42.0-52.0); Hemoglobin 10.9 g/dL (11.7-16.6); Lymphocytes # 0.8 10^3/uL (0.8-4.8); Lymphocytes % 7.2 %; Mean Corpuscular HGB Conc 31.1 g/dL (30.0-36.0); Mean Corpuscular Hemoglobin 29.2 pg (28.0-34.0); Mean Corpuscular Volume 94.1 fL (80-94); Mean Platelet Volume 10.6 fL (7.4-10.4); Monocytes # 0.8 10^3/uL (0.2-0.9); Monocytes % 7.1 %; Neutrophils # 9.38 10^3/uL (1.8-7.7); Neutrophils % 82.1 %; Nucleated Red Blood Cells % 0 %; Platelet Count 197 10^3/cmm (130-400); Red Blood Count 3.73 10^6/uL (4.1-5.3); Red Cell Distribution Width 13.1 % (12.1-15.1); White Blood Count 11.4 10^3/uL (4.0-10.0)
[2019-12-21] MEDS: ondansetron 2 mg/ML SDV 2 mL 4 MG IVP (20:55)
[2019-12-21] MEDS: sodium chloride 0.9% 500 ML 999 ML IV (20:55)
[2019-12-21 21:06] LABS: D Dimer 0.36 ug/mIFEU (0-0.59)
[2019-12-21 21:11] VITALS: BP 121/79; RESP 20; O2SAT 100
[2019-12-21 21:12] LABS: Alanine Aminotransferase 22 U/L (0-41); Albumin Level 4.1 g/dL (3.5-5.2); Alkaline Phosphatase 80 IU/L (40-130); Blood Urea Nitrogen 11 mg/dL (6-20); Calcium 9.5 mg/dL (8.5-10.5); Carbon Dioxide 33 mmol/L (22-29); Chloride 95 mmol/L (98-107); Globulin 2.5 g/dL (1.3-4.6); Glomerular Filtration Rate 140.4 mL/min (90-130); Glucose 120 mg/dL (65-115); Lipase 10 U/L (13-60); Osmolality Calculated 285 mOsm/kg (285-295); Sodium 137 mmol/L (136-145); Total Bilirubin 0.4 mg/dL (0.15-1.2); Total Protein 6.6 g/dL (6.6-8.7)
[2019-12-21 21:13] LABS: Lactate (Lactic Acid level) 0.4 mmol/L (0.5-2.2)
[2019-12-21 21:14] LABS: Anion Gap 13.4 (5-19); Potassium 4.4 mmol/L (3.5-5.1); Troponin(5th) Baseline 9 ng/L (0-15)
[2019-12-21 21:15] LABS: Aspartate Amino Transferase 22 U/L (0-40)
[2019-12-21 22:05] VITALS: BP 124/88; PULSE 94; RESP 18; O2SAT 94
--- NOTE | 2019-12-21 22:08 | ECG_ITS ---
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 Measurements Intervals [place] Rate: 90 P: 74 [place]: 168 QRS: 70 QRSD: 82 T: 68 QT: 321 QTc: 394 Interpretive Statements SINUS RHYTHM Compared to ECG 11/19/2019 19:34:12 Sinus arrhythmia no longer present First degree AV block no longer present Electronically Signed On 12-23-2019 7:39:27 CDT by Anna Akhtar M.D. [id number]
[2019-12-21 23:30] VITALS: BP 101/58; PULSE 79; RESP 18; O2SAT 99
== END 2019-12-22 00:02 | disposition home or self-care (01) ==
PROVIDERS: Emergency Provider Nurse Practitioner Family; PCP Family Medicine
DX: J44.0 Chronic obstructive pulmonary disease with (acute) lower respiratory infection (principal); J20.9 Acute bronchitis, unspecified; J44.1 Chronic obstructive pulmonary disease with (acute) exacerbation; R11.2 Nausea with vomiting, unspecified; E78.5 Hyperlipidemia, unspecified; I10 Essential (primary) hypertension; Z99.81 Dependence on supplemental oxygen; Z87.891 Personal history of nicotine dependence
CPT/HCPCS: 12345; 70450; 71045; 80053; 81001; 83605; 83690; 84484; 85025; 85378; 93005; 96374; 96375; 99283; 99284; J2405; J7040

== ENCOUNTER → 2020-02-17 07:29 | Outpatient (BNVA) | payer MEDICAID, SELFPAY | PROVIDERS: PCP Family Medicine; Visit Provider Psychiatry & Neurology Psychiatry | DX: F32.5 Major depressive disorder, single episode, in full remission (principal); F41.0 Panic disorder [episodic paroxysmal anxiety]; J44.9 Chronic obstructive pulmonary disease, unspecified | CPT/HCPCS: 99214 ==

== ENCOUNTER → 2020-04-13 07:26 | Outpatient (BNVA) | payer MEDICAID, SELFPAY | PROVIDERS: PCP Family Medicine; Visit Provider Psychiatry & Neurology Psychiatry | DX: F32.5 Major depressive disorder, single episode, in full remission (principal); F41.0 Panic disorder [episodic paroxysmal anxiety]; J44.9 Chronic obstructive pulmonary disease, unspecified; Z99.81 Dependence on supplemental oxygen | CPT/HCPCS: 99214 ==

== ENCOUNTER 2020-05-06 09:14 | Outpatient (CLI) | payer MEDICAID, SELFPAY ==
--- NOTE | 2020-05-06 09:28 | CT_ITS ---
WS: [id number] CT CHEST WITHOUT INTRAVENOUS CONTRAST HISTORY: PULMONARY NODULES, PRE TRANSPLANT EVALUATION FOR LUNG TRANSPLANT TECHNIQUE: Contiguous 5 mm axial imaging performed on the thorax. Coronal and sagittal reformats are submitted. All CT scans at [facility] use at least one of these dose optimization techniq ues: automated exposure control; mA and/or kV adjustment per patient size (includes targeted exams wh ere dose is matched to clinical indication); or iterative reconstruction. CONTRAST: None DLP: 935.39 mGycm COMPARISON: 06/24/2019, 02/11/2019 Lungs and central airway: Severe chronic emphysema. There is a new spiculated lesion with central cav itation measuring 1.5 cm in the RIGHT upper lobe. Previously described nodules in the LEFT upper lobe have decreased in size since 02/11/2019. The largest measures 4 mm. Focal linear area of scar anteri germaine RIGHT upper lobe. Bronchial thickening and mild bronchiectasis at the lung bases. There are nume roslyn bulla and bleb formations. Pleura: Normal. No pleural effusion. Heart and pericardium: Normal size heart with no pericardial effusion. Mediastinum and saida: No mediastinum or hilar adenopathy. Vessels: Normal size aortic and pulmonary artery. No coronary artery calcifications. Chest wall and lower neck: No soft tissue masses. Upper abdomen: No adrenal mass. Visualized noncontrast liver is negative. Osseous structures: No destructive process. CT/CT chest wo con [id number] IMPRESSION: 1. New spiculated cavitary lesion RIGHT upper lobe with a maximum diameter 1.5 cm. Suspicious for neoplasm versus resolving pneumonia. 2. Previously described LEFT upper lobe pulmonary nodules have significantly d ecreased in size with a maximum diameter of 4 mm. 3. Severe emphysema and bilateral lower lobe mild bronchiectasis.
== END 2020-05-06 09:15 | disposition home or self-care (01) ==
LOC: RADWPI 09:17
PROVIDERS: PCP Family Medicine; Visit Provider Family Medicine
DX: J44.9 Chronic obstructive pulmonary disease, unspecified (principal); R91.8 Other nonspecific abnormal finding of lung field; Z01.818 Encounter for other preprocedural examination
CPT/HCPCS: 71250

== ENCOUNTER 2020-05-31 02:03 | Inpatient (IN) | payer MEDICAID, SELFPAY ==
[2020-05-31] VITALS (14 sets, daily range): BP systolic 114–165; BP diastolic 69–108; PULSE 67–104; RESP 16–20; TEMP 36.4–37.6; O2SAT 93–98; BMI 24.3
--- NOTE | 2020-05-31 02:19 | ECG_ITS ---
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 Measurements Intervals [place] Rate: 93 P: 79 [place]: 148 QRS: 79 QRSD: 86 T: 79 QT: 331 QTc: 413 Interpretive Statements SINUS RHYTHM Compared to ECG 12/21/2019 20:35:32 No significant changes Electronically Signed On 06-01-2020 1:11:12 CDT by Aleksandra Johnston M.D. [id number]
[2020-05-31] MEDS: sodium chloride 0.9% 1,000 ML 999 ML IV (02:27)
[2020-05-31 02:40] LABS: Basophils # 0.1 10^3/uL (0.0-0.1); Basophils % 0.6 %; Eosinophils # 0.4 10^3/uL (0.0-0.8); Eosinophils % 4.6 %; Hematocrit 36.3 % (42.0-52.0); Hemoglobin 11.3 g/dL (11.7-16.6); Lymphocytes % 25.1 %; Mean Corpuscular HGB Conc 31.1 g/dL (30.0-36.0); Mean Corpuscular Hemoglobin 28.2 pg (28.0-34.0); Mean Corpuscular Volume 90.5 fL (80-94); Mean Platelet Volume 12.1 fL (7.4-10.4); Monocytes # 0.7 10^3/uL (0.2-0.9); Monocytes % 8.7 %; Neutrophils # 4.73 10^3/uL (1.8-7.7); Neutrophils % 60.2 %; Nucleated Red Blood Cells % 0 %; Platelet Count 289 10^3/cmm (130-400); Red Blood Count 4.01 10^6/uL (4.1-5.3); Red Cell Distribution Width 12.9 % (12.1-15.1); White Blood Count 7.9 10^3/uL (4.0-10.0)
[2020-05-31 02:54] LABS: Alanine Aminotransferase 7 U/L (0-41); Albumin Level 4.3 g/dL (3.5-5.2); Alkaline Phosphatase 73 IU/L (40-130); Blood Urea Nitrogen 13 mg/dL (6-20); Calcium 9.4 mg/dL (8.5-10.5); Carbon Dioxide 33 mmol/L (22-29); Chloride 101 mmol/L (98-107); Glomerular Filtration Rate 117.1 mL/min (90-130); Glucose 127 mg/dL (65-115); Osmolality Calculated 298 mOsm/kg (285-295); Sodium 143 mmol/L (136-145); Total Bilirubin 0.2 mg/dL (0.15-1.2); Total Protein 6.3 g/dL (6.6-8.7)
[2020-05-31 03:00] LABS: Acetaminophen < 5.0 ug/mL (10-30); Alcohol Level < 10 mg/dL (0-10); Salicylate < 0.3 mg/dL (3-10)
[2020-05-31 03:01] LABS: Anion Gap 12.4 (5-19); Aspartate Amino Transferase 14 U/L (0-40); Potassium 3.4 mmol/L (3.5-5.1)
--- NOTE | 2020-05-31 04:28 | ED_ITS ---
HPI - Overdose General: Chief Complaint: Overdose Stated Complaint: OD Time Seen by Provider: 05/31/20 02:12 History of Present Illness: HPI Narrative: 55-year-old male who intentionally drank between 204 100 mg of morphine liquid last evening after he did discussion with his . He had made statements that he did not want his kids to see him suffer with his COPD, and that he wanted to . He is on oxygen chronically. He presents on his home O2 settings, awake and talking. Narcan did not have to be used. MD complaint: intentional overdose Onset (ago): hour(s) (3) Timing confirmed by: family member Review of Systems Const: Denies: fever(s) or chills Eyes: Denies: change in vision Card: Denies: chest pain, palpitations or irregular heart rhythm Resp: Reports: dyspnea (Chronic) and non-productive cough (Chronic); Denies: productive cough or wheezing GI: Denies: abdominal pain, nausea or vomiting Skin/Breast: Denies: rash Neuro: Reports: confusion (Mild) and behavioral changes; Denies: headache(s) Psych: Reports: depression and suicidal ideation PFS ED PFSH: Medical History (Updated 05/31/20 @ 04:24 by Narinder Valentin DO) Anxiety Chronic anticoagulation Chronic back pain COPD (chronic obstructive pulmonary disease) Depression Dyslipidemia End stage COPD GERD (gastroesophageal reflux disease) Hypertension Major depressive disorder, single episode, in full remission Normal colonoscopy Oxygen dependent Panic disorder [episodic paroxysmal anxiety] Pulmonary embolism Pulmonary hypertension Respiratory failure Surgical History H/O cardiac catheterization Family History Other CAD (coronary artery disease) Diabetes Social History Smoking and tobacco status: former smoker Alcohol intake: never Adopted: No Household members: family Physical Exam Const: GENERAL APPEARANCE: well developed ORIENTATION/CONSCIOUSNESS: Yes oriented to person, Yes oriented to place and Yes oriented to time HENMT: COMMON NORMALS: normocephalic, external ears normal and Normal external nose present HEAD & SCALP: normocephalic FACE & SINUS: normal facial exam NOSE: Normal external nose present and No nasal discharge present EXTERNAL EAR: Yes external ears normal Eye: COMMON NORMALS: Equal, round and reactive pupils present, EOMs intact bilaterally and conjunctivae normal EYELID: eyelids normal CONJUNCTIVA: Yes conjunctivae normal PUPIL: Yes Equal, round and reactive pupils present Neck/C-Spine: GENERAL: No tracheal deviation Chest: COMMONS NORMALS: normal inspection of the chest CHEST: No tenderness Resp: COMMON NORMALS: clear to auscultation bilaterally EFFORT & INSPECTION: No tachypneic, No respiratory distress, No retractions, No uses accessory muscles and No tracheal deviation AUSCULTATION: clear to auscultation bilaterally, no rhonchi, no wheezes and lung sounds not diminished Cardio: COMMON NORMALS: regular rate and regular rhythm RATE: regular rate RHYTHM: regular rhythm HEART SOUNDS: no murmurs PERIPHERAL PULSES: radial pulses present GI: INSPECTION: No abdominal distension AUSCULTATION: No Hyperactive bowel sounds present and No Hypoactive bowel sounds present PALPATION: No Guarding due to palpation present (GI) and No Rigid due to palpation PERCUSSION: no dullness to percussion and no tympanic to percussion Neuro: SENSORIUM/ORIENTATION: Yes oriented to person, Yes oriented to place and Yes oriented to time Psych: COMMON NORMALS: Normal thought process present, cooperative and speech normal APPEARANCE: Yes grossly normal ATTITUDE: Yes calm and Yes engaged ACTIVITY/MOTOR BEHAVIOR: Yes appropriate eye contact SPEECH: Yes normal speech MOOD & AFFECT: Yes depressed mood THOUGHT PROCESS: Normal thought process present THOUGHT CONTENT: Yes Suicidality present ATTENTION/CONCENTRATION: Yes attention grossly intact and Yes concentration grossly intact MEMORY/COGNITION: Yes memory grossly intact and Yes cognition grossly intact INSIGHT: Fair insight present (Psych) JUDGEMENT: Limited judgement present (Psych) Skin: COMMON NORMALS: no rashes or lesions noted GENERAL SKIN EXAM: no rashes or lesions noted Course Consultations: Consultation #1: yony Vital Signs: Vital signs: Vital Signs Temperature 98 F 05/31/20 02:05 Pulse Rate 83 05/31/20 04:16 Respiratory Rate 20 H 05/31/20 04:16 Blood Pressure 157/93 05/31/20 04:16 Pulse Oximetry 95 05/31/20 04:16 MDM - Overdose MDM Narrative: Medical decision making narrative: 55-year-old intentional narcotic overdose on morphine oral solution. He is awake talking. No intervention has been warranted. He is oxygenating well on his home O2 settin gs. He does have multiple medical problems. His laboratory is stable at this point. Remains stable over 6 hours out of his ingestion time. Spoke with psychiatry. He will be admitted to the NPU. He will be placed under 96-hour hold because of the intentional overdose. Lab Data: Labs: Lab Results 05/31/20 05/31/20 Range/Units 02:12 02:12 WBC 7.9 (4.0-10.0) 10^3/ uL RBC 4.01 L (4.1-5.3) 10^6/u L Hgb 11.3 L (11.7-16.6) g/dL Hct 36.3 L (42.0-52.0) % MCV 90.5 (80-94) fL MCH 28.2 (28.0-34.0) pg MCHC 31.1 (30.0-36.0) g/dL RDW 12.9 (12.1-15.1) % Plt Count 289 (130-400) 10^3/c mm MPV 12.1 H (7.4-10.4) fL Neut % (Auto) 60.2 % Lymph % (Auto) 25.1 % Clarke % (Auto) 8.7 % Eos % (Auto) 4.6 % Baso % (Auto) 0.6 % Neut # (Auto) 4.73 (1.8-7.7) 10^3/u L Lymph # (Auto) 2.0 (0.8-4.8) 10^3/u L Clarke # (Auto) 0.7 (0.2-0.9) 10^3/u L Eos # (Auto) 0.4 (0.0-0.8) 10^3/u L Baso # (Auto) 0.1 (0.0-0.1) 10^3/u L Nucleated RBC % (a uto) 0 % Nucleated RBCs # 0.0 /100WBC Sodium 143 (136-145) mmol/L Potassium 3.4 L (3.5-5.1) mmol/L Chloride 101 (98-107) mmol/L Carbon Dioxide 33 H (22-29) mmol/L Anion Gap 12.4 (5-19) BUN 13 (6-20) mg/dL Creatinine 0.7 (0.7-1.2) mg/dL GFR Calculation 117.1 (90-130) mL/min Glucose 127 H (65-115) mg/dL Calculated Osmolal ity 298 H (285-295) mOsm/k g Calcium 9.4 (8.5-10.5) mg/dL Total Bilirubin 0.2 (0.15-1.2) mg/dL AST 14 (0-40) U/L ALT 7 (0-41) U/L Alkaline Phosphata se 73 (40-130) IU/L Total Protein 6.3 L (6.6-8.7) g/dL Albumin 4.3 (3.5-5.2) g/dL Globulin 2.0 (1.3-4.6) g/dL Salicylates < 0.3 L (3-10) mg/dL Acetaminophen < 5.0 L (10-30) ug/mL Ethyl Alcohol < 10 (0-10) mg/dL Discharge Plan Discharge Patient Disposition: Admitted As Inpatient Clinical Impression: Overdose of analgesic Qualifiers: Encounter type: initial encounter Injury intent: intentional self-harm Qualified Code(s): T39.92XA - Poisoning by unspecified nonopioid analgesic, antipyretic and antirheumatic, intentional self-harm, initial encounter Condition: Stable Coding Level of Care Code ED Director Of Manufacturing Operations 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
[2020-05-31] MEDS: albuterol 8 gm MDI 2 PUFF INHALATION ×3 (08:00→19:41)
[2020-05-31] MEDS: multivitamin therapeutic Tablet 1 TAB PO (08:23)
[2020-05-31] MEDS: desvenlafaxine 50 mg Tablet PO (08:23)
[2020-05-31] MEDS: calcium carbonate 500 mg Chew Tablet 1000 MG PO (08:23)
[2020-05-31] MEDS: pantoprazole DR 40 mg Tablet PO ×2 (08:24→20:18)
[2020-05-31] MEDS: meloxicam 7.5 mg tablet PO (08:24)
[2020-05-31] MEDS: metoprolol tartrate 25 mg Tablet 12.5 MG PO ×2 (08:24→20:18)
--- NOTE | 2020-05-31 08:26 | PC.NURSE ---
PRN TUMS 1000 MG GIVEN PO PER PT C/O ACID REFLUX
[2020-05-31] MEDS: roflumilast 500 mcg Tablet PO (09:38)
[2020-05-31] MEDS: dilTIAZem ER (24HR) 120 mg Capsule PO (09:38)
[2020-05-31] MEDS: acetaminophen 325 mg Tablet 650 MG PO ×2 (11:49→17:22)
[2020-05-31] MEDS: ondansetron 4 MG Tablet PO (11:49)
--- NOTE | 2020-05-31 11:52 | PC.NURSE ---
PRN ZOFRAN 4 MG GIVEN PO PER PT C/O NAUSEA/VOMITING.
[2020-05-31 13:15] LABS: Add Urine Microscopic? NO; Charge for UA Resulting for Rev
[2020-05-31 13:25] LABS: Bilirubin Urine 1+ (Negative); Blood Urine Neg (Negative); Glucose Urine UA Norm (Normal); Ketones Urine Negative (Negative); Leukocyte Esterase Urine Negative (Negative); Nitrate Urine Negative (Negative); Protein Urine Neg (Negative); Specific Gravity, Urine 1.025 (1.005-1.030); Urine Appearance Clear (CLEAR); Urine Color Dark Yellow (Yellow); Urobilinogen Urine Norm (Negative); pH Urine 5 (5-7)
[2020-05-31 15:12] LABS: Amphetamines Screen Urine Negative (Negative); Barbiturates Screen Urine Negative (Negative); Benzodiazepines Screen Urine Positive (Negative); Cocaine Screen Urine Negative (Negative); Opiate Screen Urine Positive (Negative); PCP Screen Urine Negative (Negative); THC Screen Urine Positive (Negative)
--- NOTE | 2020-05-31 16:17 | PC.RESP ---
Pt has been previously enrolled and compliant with Pulmonary Rehab prior to COVID event. Patient has not returned since Quarantine. Will reach out to patient.
--- NOTE | 2020-05-31 17:34 | P.HP_ITS ---
Providers/Chief Complaint Admitting Physician: Demetrius Díaz MD Primary Care Provider: Shahzad Ybarra Chief Complaint: SI HPI NPU History of Present Illness Shamar Negron JR is a 55 year old male who presents to the emergency department with the following report: Chief Complaint: Overdose Stated Complaint: OD Time Seen by Provider: 05/31/20 02:12 History of Present Illness: HPI Narrative: 55-year-old male who intentionally drank between 204 100 mg of morphine liquid last evening after he did discussion with his . He had made statements that he did not want his kids to see him suffer with his COPD, and that he wanted to . He is on oxyg en chronically. He presents on his home O2 settings, awake and talking. Narcan did not have to be used. complaint: intentional overdose Onset (ago): hour(s) (3) Timing confirmed by: family member. He was admitted to the neuropsychiatric unit for definitive treatment of those issues. He presents today reporting that he has never had psychiatric inpatient services but has had psychiatric outpatient services including here at [facility]. He endorses having treatment with medication including Wellbutrin SR Pristiq and Seroquel. He reports that he struggles a lot with depression and anxiety for s ome time. He reports that he did smoke cigarettes but he quit that essentially 2-1/2 years ago but that he did have a cigarette the other day. He reports that he does not drink alcohol, does not smoke marijuana but does have edibles regularly, he denies any other illicit drug use. He denies any previous suicide attempts. And reports that he got in a fight with his significant other and that he ended up doing something really stupid that he does acknowledge that he did but he reports that he feels horrible identified by his throwing up throughout the day. He denies that he had used the morphine for some time. He reports that he came off of it over 4 weeks ago and he denies using the left over morphine but he did take a whole bunch today or yesterday. He reports that he did make some comments about not wanting to go on but it was something he said the moment. He said he wants to live and severely regrets doing what he did. He was reporting the ability to contract for safety and hoping he could continue to do treatment as he has. He denies any need for any major changes. An excerpt from his December 05, 2011 outpatient psychiatric evaluation is included below for context. He endorses that it represents an accurate history at that point. Psychiatric history: As above. Substance abuse history: As above. Per his 12/05/2011 [facility] outpatient eval: [facility] Psychiatric Evaluation Time in: 9 AM Time out: 9:25 AM Chief Complaint: I have this anxiety History of present illness:Shamar is a 46-year-old white male who presents for the evaluation of anxiety. For the past 6 months Shamar has been having pretty well circumscribed panic attacks. They reach peak intensity within 10 minutes and he feels as if he is going crazy, has difficulty breathing, has a rapid heart rate, has extreme anxiety, gets short of breath, sweats, and has to stop whatever he is doing to try to calm himself. They can last anywhere from a few minutes to a few hours and afterwards he feels perfectly fine, but he has been changing his routine recently for fear of having more panic attacks. He has difficulty driving anywhere because he is scared of having one when he drives. As a result, he has stopped going out in public as much and is starting to become agoraphobic. He is having panic attacks about 2-3 times per week, but some weeks he will have more. His primary care physician started him on Celexa, but he developed bruxism and abdominal pain so he stopped taking it and he does not know the dosage that he was on, but I suspect he was on a relatively high dose. Other than these very well circumscribed incidents of panic, he denies any other psychiatric comorbidity. He is relatively psychiatrically healthy individual and he denies all mood symptoms. Past Psychiatric History: No hospitalizations and no suicide attempts. No self injury. Family Psychiatric History: No family psychiatric history or history of suicide. Past Medical History: COPD Substance Use History: He experimented with drugs and alcohol as a youngster, but denies current use of any illicit substances. He does smoke one to 2 packs of cigarettes per day. Social History: He was born and raised in [facility]. He denies ever being exposed physical or sexual abuse of child. He currently lives in [place] with his girlfriend of 3 years. He is under a lot of stress at home now because he is having difficulty with his oldest daughter he is raising his 5-year-old granddaughter. He has 3 biological kids. He has twins age 26 and a 2-year-old thought. He has 3 stepchildren. He is currently unemployed and on disability because he cannot read or write. He has an eighth grade education and is illiterate. He is not jehovah's witness man. He does have guns at home, but adamantly denies all suicidal thoughts. He denies any current or past legal difficulties. He was for 20 years but in 1992. Mental Status Examination:The patient is alert and oriented to person, place, time, and situation. Hygiene is fairly adequate. Sensorium is clear. Speech is of a regular rate, rhythm, volume, tone, and prosody. The patient maintains appropriate eye contact during the examination. There are no psychomotor changes. Mood is okay right now . Affect is mood congruent and non-labile. He appears to be friendly Thought process is linear, logical, and goal directed. The patient denies auditory or visual hallucinations and does not endorse any delusional thinking. The patient denies suicide or homicidal thoughts. There is no passive wish of . Memory is intact for recent and remote events. The p atient is cooperative and relates well to me. Insight and judgment were deemed to be good given the recognition of problems and desire for treatment. 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 I suspect he has been genetically predisposed to this, however with decreased lung functioning as a result of his COPD, I suspect that he is having some hypercapnia and then having a false suffocation alarm response. With appropriate treatment, I feel that we will be able to treat his symptoms into remission. Meds NPU Home Medications Medication Instructions Recorded Confirmed Last Taken Type Daliresp 500 mcg PO DAILY 02/28/19 05/31/20 05/30/20 21:00 History diltiazem HCl [DILT-XR] 120 mg PO DAILY 02/28/19 05/31/20 05/30/20 09:00 History metoprolol tartrate 12.5 mg PO BID 02/28/19 05/31/20 11/19/19 History tiotropium bromide 18 mcg capsule 1 cap INHALATION DAILY 90 Days #90 04/10/19 05/31/20 05/30/20 12:00 Rx with inhalation device inh fluticasone 250 mcg-salmeterol 50 1 inh INHALATION BID #60 each 05/12/19 05/31/20 05/30/20 09:00 Rx mcg/dose blistr powdr for inhalation benzonatate 100 mg capsule 100 mg PO TID PRN 09/17/19 05/31/20 05/30/20 21:00 History Tums 2 wafer PO Q1H PRN 11/19/19 05/31/20 05/30/20 20:20 History albuterol sulfate [ProAir HFA] 2 puff INHALATION QID PRN 11/19/19 05/31/20 05/30/20 21:00 History cetirizine [Zyrtec] 10 mg PO BEDTIME 11/19/19 05/31/20 05/30/20 21:00 History hydrocodone-acetaminophen 1 tab PO BID PRN 11/19/19 05/31/20 05/30/20 16:00 History meloxicam [Mobic] 7.5 mg PO DAILY 11/19/19 05/31/20 05/30/20 16:00 History multivitamin [Multiple Vitamins] 1 tab PO DAILY 11/19/19 05/31/20 05/30/20 09:00 History omeprazole 40 mg PO BID 11/19/19 05/31/20 05/30/20 09:00 History bupropion HCl 150 mg 24 hr tablet, 150 mg PO QAM #30 tab 02/24/20 05/31/20 05/30/20 09:00 Rx extended release desvenlafaxine succinate 50 mg 50 mg PO DAILY #30 tab 04/13/20 05/31/20 05/30/20 09:00 Rx tablet,extended release 24 hr quetiapine 50 mg tablet 50 mg PO DAILY #30 tab 04/13/20 05/31/20 05/31/20 00:00 Rx Allergies Allergy/AdvReac Type Severity Reaction Status Date / Time No Known Allergies Allergy Verified 11/19/19 20:07 PFSH NPU PFSH: Medical History (Updated 06/01/20 @ 00:01 by Demetrius Díaz MD) Anxiety Chronic anticoagulation Chronic back pain COPD (chronic obstructive pulmonary disease) Depression Dyslipidemia End stage COPD GERD (gastroesophageal reflux disease) Hypertension Major depressive disorder, single episode, in full remission Normal colonoscopy Oxygen dependent Panic disorder [episodic paroxysmal anxiety] Pulmonary embolism Pulmonary hypertension Respiratory failure Surgical History H/O cardiac catheterization Family History Other CAD (coronary artery disease) Diabetes Social History Smoking and tobacco status: former smoker Alcohol intake: never Adopted: No Household members: family Mental Status Exam MSE Comments: This is an overweight white male with limited grooming and adequate eye contact in hospital scrubs. Cooperative with exam in mild distress. Speech was slightly decreased rate and volume with some tremulousness in his voice. Mood described as a little better, affect slightly subdued. Thought process organized. Thought content: Patient denied suicidal or homicida l ideation, there were no delusions reported or noted, he denied any auditory or visual hallucinations. Attention and concentration appeared intact and memory appeared reliable but none were formally tested. He is alert and oriented x3. Insight and judgment appear fair impulse control is limited. Vitals/I&O/Wt Last Vital Signs Temp 99.7 F H 05/31/20 19:27 Pulse 92 05/31/20 19:44 Resp 17 05/31/20 19:44 BP 125/69 05/31/20 19:27 Pulse Ox 98 05/31/20 19:44 Weight last 48 hrs Weight 77.111 kg Data NPU : 05/31/20 02:12 05/31/20 02:12 A&P Assessment and plan (1) Overdose of analgesic: Status: Acute Qualifiers: Encounter type: initial encounter Injury intent: intentional self-harm Qualified Code(s): T39.92XA - Poisoning by unspecified nonopioid analgesic, antipyretic and antirheumatic, intentional self-harm, initial encounter (2) Panic disorder [episodic paroxysmal anxiety]: Status: Acute (3) Partner relational problem: Status: Acute (4) Major depressive disorder, single episode, in full remission: Status: Acute (5) Adjustment disorder with mixed disturbance of emotions and conduct: Status: Acute (6) Pulmonary nodule, left: Status: Acute (7) Rib pain: Status: Acute (8) End stage COPD: Status: Acute (9) Pulmonary hypertension: Status: Acute (10) GERD (gastroesophageal reflux disease): Status: Acute (11) Oxygen dependent: Status: Acute (12) Suicide attempt: Status: Acute (13) Cannabis abuse: Status: Acute Additional A&P Information This is a 55-year-old white male with a long history of mental health difficul ties, nicotine dependence and multiple medical sequela who presents with some partner relational problems and adjustment to his medical status which is fairly advanced reporting that he had an impulsive moment and is no longer suicidal. 1. Continue current medication. Given his medical issues we will touch base with his outpatient psychiatrist and get recommendations about possible changes if indicated. 2. Continue every 15 minute checks for safety. 3. Encourage individual, group and milieu therapies. 4. We will identify whether there is a need for ongoing hospitalization in collaboration with outpatient team and monitor for 96-hour hold necessity. Involuntary Hold Information 96 Hour Hold: 96 Hour Involuntary Admission: Yes 96 Hour Hold Ending Date: 06/04/20 96 Hour Hold Ending Time: 04:33 Attestations NPU Medical Necessity Statement*: Inpatient hospitalization is medically necessary and the clinically appropriate intervention at this time. We will monitor medications and make changes as indicated. Patient will be in the hospital for over two midnights. Likely length of stay 2-4 days. Coding Level of Care Code Acute [place] Management Specialist 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 Diagnoses Overdose of analgesic T39.92XA Encounter type: initial encounter Injury intent: intentional self-harm Panic disorder [episodic paroxysmal anxiety] F41.0 Partner relational problem Z63.0 Major depressive disorder, single episode, in full remission F32.5 Adjustment disorder with mixed disturbance of emotions and conduct F43.25 Pulmonary nodule, left R91.1 Rib pain R07.81 End stage COPD J44.9 Pulmonary hypertension I27.20 GERD (gastroesophageal reflux disease) K21.9 Oxygen dependent Z99.81 Suicide attempt T14.91XA Cannabis abuse F12.10
[2020-05-31] MEDS: quetiapine 25 mg Tablet 50 MG PO (20:17)
[2020-05-31] MEDS: cetirizine 10 mg Tablet PO (20:18)
[2020-06-01] VITALS (8 sets, daily range): BP systolic 103–114; BP diastolic 58–70; PULSE 65–94; RESP 16–18; TEMP 36.7–37.4; O2SAT 94–98
[2020-06-01] MEDS: buPROPion XL (24 HR) 150 mg Tablet PO (06:37)
[2020-06-01] MEDS: albuterol 8 gm MDI 2 PUFF INHALATION ×3 (08:16→19:45)
[2020-06-01] MEDS: desvenlafaxine 50 mg Tablet PO (09:10)
[2020-06-01] MEDS: roflumilast 500 mcg Tablet PO (09:10)
[2020-06-01] MEDS: meloxicam 7.5 mg tablet PO (09:10)
[2020-06-01] MEDS: multivitamin therapeutic Tablet 1 TAB PO (09:10)
[2020-06-01] MEDS: dilTIAZem ER (24HR) 120 mg Capsule PO (09:10)
[2020-06-01] MEDS: metoprolol tartrate 25 mg Tablet 12.5 MG PO ×2 (09:10→21:04)
[2020-06-01] MEDS: pantoprazole DR 40 mg Tablet PO ×2 (09:11→21:05)
[2020-06-01] MEDS: HYDROcodone-acetaminophen 5-325 mg Tablet 1 TAB PO ×2 (10:36→21:05)
--- NOTE | 2020-06-01 15:53 | PM.NPN ---
Subjective NPU Subjective: Interval history: Jaison presented today reporting that he really would like to go home. We discussed the importance of making sure the 96-hour hold has been thoroughly vetted. She reported that he feels the medication he is on is fine and he denies any need for any changes. He reiterated that he would not be harming anyone or himself and that he is never attempted to hurt himself before. He contracted for safety outside the hospital and endorsed a desire to leave as soon as he can. Mental Status Exam MSE Comments: This is an overweight white male with limited grooming and adequate eye contact in hospital scrubs. Cooperative with exam in no acute distress. Speech was more normal rate and volume with less tremulousness in his voice. Mood described as pretty good, affect brighter. Thought process organized. Thought content: Patient denied suicidal or homicidal ideation, there were no delusions reported or noted, he denied any auditory or visual hallucinations. Attention and concentration appeared intact and memory appeared reliable but none were formally tested. He is alert and oriented x3. Insight and judgment appear fair impulse control is limited. Vitals/I&O/Wt Last Vital Signs Temp 98.0 F 06/01/20 13:43 Pulse 65 06/01/20 13:43 Resp 18 06/01/20 13:43 BP 112/60 06/01/20 13:43 Pulse Ox 97 06/01/20 13:43 Data NPU : 05/31/20 02:12 05/31/20 02:12 A&P Additional A&P Information (1) Overdose of analgesic: (2) Panic disorder [episodic paroxysmal anxiety]: (3) Partner relational problem: (4) Major depressive disorder, single episode, in full remission: (5) Adjustment disorder with mixed disturbance of emotions and conduct: (6) Pulmonary nodule, left: (7) Rib pain: (8) End stage COPD: (9) Pulmonary hypertension: (10) GERD (gastroesophageal reflux disease): (11) Oxygen dependent: (12) Suicide attempt: (13) Cannabis abuse: Additional A&P Information This is a 55-year-old white male with a long history of mental health difficulties, nicotine dependence and multiple medical sequela who presents with some partner relational problems and adjustment to his medical status which is fairly advanced reporting that he had an impulsive moment and is no longer suicidal. 1. Continue current medication. 2. Continue every 15 minute checks for safety. 3. Encourage individual, group and milieu therapies. 4. We will identify whether there is a need for ongoing hospitalization in collaboration with outpatient team and monitor for 96-hour hold necessity. Involuntary Hold Information 96 Hour Hold: 96 Hour Involuntary Admission: Yes 96 Hour Hold Ending Date: 06/04/20 96 Hour Hold Ending Time: 04:33 Attestations NPU Medical Necessity Statement*: Inpatient hospitalization is medically necessary and the clinically appropriate intervention at this time. We will monitor medications and make changes as indicated. Likely length of stay 1-3 days. Coding Level of Care Code Acute [employer] Maintenance Supervisor 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
[2020-06-01] MEDS: quetiapine 25 mg Tablet 50 MG PO (21:04)
[2020-06-01] MEDS: cetirizine 10 mg Tablet PO (21:04)
[2020-06-01] MEDS: trazodone 50 mg Tablet PO (21:05)
--- NOTE | 2020-06-01 22:22 | PC.NURSE ---
Patient requested Trazodone 50mg PO for sleep.
[2020-06-02 06:00] VITALS: BP 102/65; PULSE 74; RESP 17; TEMP 37.1; O2SAT 96
[2020-06-02] MEDS: buPROPion XL (24 HR) 150 mg Tablet PO (09:01)
[2020-06-02] MEDS: roflumilast 500 mcg Tablet PO (09:01)
[2020-06-02] MEDS: pantoprazole DR 40 mg Tablet PO (09:01)
[2020-06-02] MEDS: desvenlafaxine 50 mg Tablet PO (09:01)
[2020-06-02] MEDS: metoprolol tartrate 25 mg Tablet 12.5 MG PO (09:02)
[2020-06-02] MEDS: dilTIAZem ER (24HR) 120 mg Capsule PO (09:02)
[2020-06-02] MEDS: meloxicam 7.5 mg tablet PO (09:02)
[2020-06-02] MEDS: multivitamin therapeutic Tablet 1 TAB PO (09:02)
[2020-06-02] MEDS: albuterol 8 gm MDI 2 PUFF INHALATION (10:05)
[2020-06-02 10:06] VITALS: PULSE 73; RESP 17; O2SAT 97
[2020-06-02 10:09] VITALS: PULSE 77; RESP 16; O2SAT 97
--- NOTE | 2020-06-02 10:14 | P.DS_ITS ---
Diagnoses at Discharge Discharge Diagnosis (1) Overdose of analgesic: Status: Inactive Qualifiers: Encounter type: initial encounter Injury intent: intentional self-harm Qualified Code(s): T39.92XA - Poisoning by unspecified nonopioid analgesic, antipyretic and antirheumatic, intentional self-harm, initial encounter (2) Panic disorder [episodic paroxysmal anxiety]: Status: Acute (3) Partner relational problem: Status: Acute (4) Major depressive disorder, single episode, in full remission: Status: Acute (5) Adjustment disorder with mixed disturbance of emotions and conduct: Status: Acute (6) Pulmonary nodule, left: Status: Acute (7) Rib pain: Status: Acute (8) End stage COPD: Status: Acute (9) Pulmonary hypertension: Status: Acute (10) GERD (gastroesophageal reflux disease): Status: Acute (11) Oxygen dependent: Status: Acute (12) Suicide attempt: Status: Resolved (13) Cannabis abuse: Status: Acute Reason for Visit Reason for Visit: SI Brief History: History of Present Illness Shamar Negron JR is a 55 year old male who presents to the emergency department with the following report: Chief Complaint: Overdose Stated Complaint: OD Time Seen by Provider: 05/31/20 02:12 History of Present Illness: HPI Narrative: 55-year-old male who intentionally drank between 204 100 mg of morphine liquid last evening after he did discussion with his . He had made statements that he did not want his kids to see him suffer with his COPD, and that he wanted to . He is on oxygen chronically. He presents on his home O2 settings, awake and talking. Narcan did not have to be used. MD complaint: intentional overdose Onset (ago): hour(s) (3) Timing confirmed by: family member. He was admitted to the neuropsychiatric unit for definitive treatment of those issues. He presents today reporting that he has never had psychiatric inpatient services but has had psychiatric outpatient services including here at [facility]. He endorses having treatment with medication including Wellbutrin SR Pristiq and Seroquel. He reports that he struggles a lot with depression and anxiety for some time. He reports that he did smoke cigarettes but he quit that essentially 2-1/2 years ago but that he did have a cigarette the other day. He reports that he does not drink alcohol, does not smoke marijuana but does have edibles regularly, he denies any other illicit drug use. He denies any previous suicide attempts. And reports that he got in a fight with his significant other and that he ended up doing something really stupid that he does acknowledge that he did but he reports that he feels horrible identified by his throwing up throughout the day. He denies that he had used the morphine for some time. He reports that he came off of it over 4 weeks ago and he denies using the left over morphine but he did take a whole bunch today or yesterday. He reports that he did make some comments about not wanting to go on but it was something he said the moment. He said he wants to live and severely regrets doing what he did. He was reporting the ability to contract for safety and hoping he could continue to do treatment as he has. He denies any need for any major changes. An excerpt from his December 05, 2011 outpatient psychiatric evaluation is included below for context. He endorses that it represents an accurate history at that point. Psychiatric history: As above. Substance abuse history: As above. Per his 12/05/2011 [facility] outpatient eval: [facility] Psychiatric Evaluation Time in: 9 AM Time out: 9:25 AM Chief Complaint: I have this anxiety History of present illness:Shamar is a 46-year-old white male who presents for the evaluation of anxiety. For the past 6 months Shamar has been having pretty well circumscribed panic attacks. They reach peak intensity within 10 minutes and he feels as if he is going crazy, has difficulty breathing, has a rapid heart rate, has extreme anxiety, gets short of breath, sweats, and has to stop whatever he is doing to try to calm himself. They can last anywhere from a few minutes to a few hours and afterwards he feels perfectly fine, but he has been changing his routine recently for fear of having more panic attacks. He has difficulty driving anywhere because he is scared of having one when he drives. As a result, he has stopped going out in public as much and is starting to become agoraphobic. He is having panic attacks about 2-3 times per week, but some weeks he will have more. His primary care physician started him on Celexa, but he developed bruxism and abdominal pain so he stopped taking it and he does not know the dosage that he was on, but I suspect he was on a relatively high dose. Other than these very well circumscribed incidents of panic, he denies any other psychiatric comorbidity. He is relatively psychiatrically healthy individual and he denies all mood symptoms. Past Psychiatric History: No hospitalizations and no suicide attempts. No self injury. Family Psychiatric History: No family psychiatric history or history of suicide. Past Medical History: COPD Substance Use History: He experimented with drugs and alcohol as a youngster, but denies current use of any illicit substances. He does smoke one to 2 packs of cigarettes per day. Social History: He was born and raised in [place]. He denies ever being exposed physical or sexual abuse of child. He currently lives in [place] with his girlfriend of 3 years. He is under a lot of stress at home now because he is having difficulty with his oldest daughter he is raising his 5-year-old granddaughter. He has 3 biological kids. He has twins age 26 and a 2-year-old thought. He has 3 stepchildren. He is currently unemployed and on disability because he cannot read or write. He has an eighth grade education and is illiterate. He is not methodist man. He does have guns at home, but adamantly denies all suicidal thoughts. He denies any current or past legal difficulties. He was for 20 years but in 1992. Mental Status Examination:The patient is alert and oriented to person, place, time, and situation. Hygiene is fairly adequate. Sensorium is clear. Speech is of a regular rate, rhythm, volume, tone, and prosody. The patient maintains appropriate eye contact during the examination. There are no psychomotor changes. Mood is okay right now . Affect is mood congruent and non-labile. He appears to be friendly Thought process is linear, logical, and goal directed. The patient denies auditory or visual hallucinations and does not endorse any delusional thinking. The patient denies suicide or homicidal thoughts. There is no passive wish of . Memory is intact for recent and remote events. The patient is cooperative and relates well to me. Insight and judgment were deemed to be good given the recognition of problems and desire for treatment. 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 I suspect he has been genetically predisposed to this, however with decreased lung functioning as a result of his COPD, I suspect that he is having some hypercapnia and then having a false suffocation alarm response. With appropriate treatment, I feel that we will be able to treat his symptoms into remission. Hospital Course Hospital Course junior Shamar presented to the outside facility with reported suicidal gesture which involved taking some unknown amount of morphine after a conflict with his . He was transferred to [facility] and then admitted to the neuropsychiatric unit for definitive treatment of those issues. He was oxygen dependent and has been having significant medical problems and acknowledges taking some medicine but very quickly denied current lethality. We continued his medication and observed him on the 96-hour hold to identify whether he would be safe for discharge. He showed modest improvement and was able to contract for safety outside the hospital before discharge. During the hospitalization, patient had routine laboratory studies which were within normal limits except for few outliers. Additionally there was a general medical evaluation which was also within normal limits and revealed no new acute processes. Discharge Summary: At the time of discharge, psychosis and lethality were denied. Mood and anxiety were well managed. Patient endorsed a plan to avoid all drugs of abuse and follow-up with the aftercare recommendations of the treatment team. Patient was evaluated and deemed to be absent credible lethality, and had achieved the maximum benefit from an inpatient hospitalization, so was discharged. Involuntary Hold Information 96 Hour Hold: 96 Hour Involuntary Admission: Yes 96 Hour Hold Ending Date: 06/04/20 96 Hour Hold Ending Time: 04:33 Mental Status Exam MSE Comments: This is a well-nourished, well-developed white male with adequate grooming and eye contact in hospital scrubs. Cooperative with exam in no acute distress. Speech was more normal rate and volume with less tremulousness in his voice. Mood described as better, affect brighter. Thought process organized. Thought content: Patient denied suicidal or homicidal ideation, there were no delusions reported or noted, he denied any auditory or visual hallucinations. Attention and concentration appeared intact and memory appeared reliable but none were formally tested. He is alert and oriented x3. Insight and judgment appear fair, impulse control is limited and improving. Discharge Data Vitals: Last Vital Signs Temp 98.8 F 06/02/20 06:00 Pulse 77 06/02/20 10:09 Resp 16 06/02/20 10:09 BP 102/65 06/02/20 06:00 Pulse Ox 97 06/02/20 10:09 Discharge Plan Discharge Patient Disposition: Home Condition: Stable Prescriptions: Continued Spiriva with HandiHaler 18 mcg capsule, w/inhalation device 1 cap INHALATION DAILY 90 Days Qty: 90 RF: 3 fluticasone propion-salmeterol [Advair Diskus] 250-50 mcg/dose blister with device 1 inh INHALATION BID Qty: 60 RF: 3 multivitamin [Multiple Vitamins] Tablet 1 tab PO DAILY RF: 0 cetirizine [Zyrtec] 10 mg Tablet 10 mg PO BEDTIME RF: 0 omeprazole 40 mg Capsule,Delayed Release(Dr/Ec) 40 mg PO BID RF: 0 meloxicam [Mobic] 7.5 mg Tablet 7.5 mg PO DAILY RF: 0 Tums 2 wafer PO Q1H PRN (Reason: Acid Reflux) RF: 0 hydrocodone-acetaminophen 5-325 mg tablet 1 tab PO BID PRN (Reason: pain) RF: 0 diltiazem HCl [DILT-XR] 120 mg Capsule,Ext.Rel 24h Degradable 120 mg PO DAILY RF: 0 metoprolol tartrate 25 mg Tablet 12.5 mg PO BID RF: 0 Daliresp 500 mcg Tablet 500 mcg PO DAILY RF: 0 Tessalon Perles 100 mg capsule 100 mg PO TID PRN (Reason: Cough) 30 Days Qty: 90 RF: 1 Wellbutrin XL 150 mg tablet extended release 24 hr 150 mg PO QAM 30 Days Qty: 30 RF: 1 quetiapine 50 mg tablet 50 mg PO DAILY Qty: 30 RF: 2 Pristiq 50 mg tablet extended release 24 hr 50 mg PO DAILY 30 Days Qty: 30 RF: 1 ProAir HFA 90 mcg/actuation Hfa Aerosol Inhaler 2 puff INHALATION QID PRN (Reason: Shortness Of Breath) 30 Days Qty: 1 RF: 0 No Action clonazepam [Klonopin] 1 mg tablet 1 mg PO TID Qty: 30 RF: 1 Discharge Orders: Discharge Order (Routine); Ordered 06/02/20 Ordered By: Demetrius Díaz Referrals: Floresita Adam [Machine Loader] - (Contact for needs) Shahzad Ybarra [Primary Care Provider] - Carmelo Renae DO [Staff Physician] - 06/08/20 10:30 am (Medication services) Discharge Diet: Cardiac Discharge Activity: Resume usual activity Patient Instructions: Generalized Anxiety Disorder (DC) Discharge Attestations NPU Time Spent in Discharge Care*: less than 30 min Specific Discharge Activities: Specific discharge activities: educating patient, discussing with transplant case manager/social workers/dc planners, documenting/other paperwork and evaluating patient/reviewing data Coding Level of Care Code 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
[2020-06-02 10:26] VITALS: PULSE 77; RESP 16; O2SAT 97
== END 2020-06-02 11:30 | disposition home or self-care (01) | DRG 918 ==
LOC: ER 04:24 → NP 04:45
PROVIDERS: Admitting Provider Psychiatry & Neurology Psychiatry; Emergency Provider Emergency Medicine; PCP Family Medicine; Visit Provider Psychiatry & Neurology Psychiatry
DX: T39.92XA Poisoning by unspecified nonopioid analgesic, antipyretic and antirheumatic, intentional self-harm, initial encounter (principal); J44.9 Chronic obstructive pulmonary disease, unspecified; Z99.81 Dependence on supplemental oxygen; F32.5 Major depressive disorder, single episode, in full remission; F41.9 Anxiety disorder, unspecified; Z87.891 Personal history of nicotine dependence; Z79.01 Long term (current) use of anticoagulants; G89.29 Other chronic pain; M54.9 Dorsalgia, unspecified; E78.5 Hyperlipidemia, unspecified; K21.9 Gastro-esophageal reflux disease without esophagitis; I10 Essential (primary) hypertension; F41.0 Panic disorder [episodic paroxysmal anxiety]; Z86.711 Personal history of pulmonary embolism; I27.20 Pulmonary hypertension, unspecified; Z63.0 Problems in relationship with spouse or partner; F43.25 Adjustment disorder with mixed disturbance of emotions and conduct; R91.8 Other nonspecific abnormal finding of lung field; Z79.51 Long term (current) use of inhaled steroids; F12.10 Cannabis abuse, uncomplicated; R07.81 Pleurodynia
CPT/HCPCS: 80053; 80306; 80307; 81003; 85025; 93005; 94640; 96360; 99285; J3535; J7030; Q0162

== ENCOUNTER → 2020-06-08 07:28 | Outpatient (BNVA) | payer MEDICAID, SELFPAY | PROVIDERS: PCP Family Medicine; Visit Provider Psychiatry & Neurology Psychiatry | DX: F32.5 Major depressive disorder, single episode, in full remission (principal); F41.0 Panic disorder [episodic paroxysmal anxiety]; J44.9 Chronic obstructive pulmonary disease, unspecified | CPT/HCPCS: 99214 ==

== ENCOUNTER 2020-06-22 09:55 | Outpatient (CLI) | payer MEDICAID, SELFPAY ==
--- NOTE | 2020-06-22 09:59 | CT_ITS ---
WS: [id number] Exam: CT chest wo con [id number] Date/Time of Exam: 06/22/2020 10:00 AM Reason For Exam: LUNG NEOPLASM DLP: 636.[address] scans at [facility] use at least one of these dose optimization techniques: automat ed exposure control; mA and/or kV adjustment per patient size (includes targeted exams where dose is matched to clinical indication); or iterative reconstruction. Compared to previous exam 05/06/2020. There are 2 stable appearing small spiculated soft tissue nodules in the posterior aspect of the left upper lobe. Previously noted new 1.5 cm nodule in the right upper lobe is much less dense and appear s to represent area of post pneumonitis scarring or fibrosis. There are no new suspicious lesions elvis ntified in either lung. There are scattered areas of fibrous scarring. Advanced changes of pulmonary emphysema noted. The lungs are hyperinflated. No infiltrates or pleural effusions. No pericardial eff usion. The airway is patent. No mediastinal or hilar lymphadenopathy. The thoracic aorta is normal in caliber. CT sections the upper abdomen are unremarkable. No destructive bone lesions are chest wall defects are seen. Bronchiectasis noted in the lower lung zones. Several emphysematous blebs are seen in the right lower lobe. CT/CT chest wo con [id number] IMPRESSION: 1. There are 2 stable appearing 4 mm spiculated soft tissue nodules in the left upper lobe. 2. Previously noted spiculated cavitary nodule in the upper right lobe is much less dense and appears to represent an area of post pneumonitis scarring or fib rosis. 3. No suspicious new nodules have developed and no lymphadenopathy in the chest noted. 4. Advanced emphysematous changes and other chronic findings as indicated above .
== END 2020-06-22 09:56 | disposition home or self-care (01) ==
PROVIDERS: PCP Family Medicine; Visit Provider Family Medicine
DX: D49.1 Neoplasm of unspecified behavior of respiratory system (principal); R91.8 Other nonspecific abnormal finding of lung field
CPT/HCPCS: 71250

== ENCOUNTER → 2020-07-07 08:09 | Outpatient (BNVA) | payer MEDICAID, SELFPAY | PROVIDERS: PCP Family Medicine; Visit Provider Psychiatry & Neurology Psychiatry | DX: F32.5 Major depressive disorder, single episode, in full remission (principal); F41.0 Panic disorder [episodic paroxysmal anxiety]; J44.9 Chronic obstructive pulmonary disease, unspecified | CPT/HCPCS: 99214 ==

== ENCOUNTER 2020-07-26 21:27 | Emergency (ER) | payer MEDICAID, SELFPAY ==
[2020-07-26 21:28] VITALS: BP 156/114; PULSE 78; RESP 24; TEMP 36.8; O2SAT 97; BMI 24.3
--- NOTE | 2020-07-26 21:34 | ED_ITS ---
HPI - SOB/Dyspnea General: Chief Complaint: Shortness of Breath/Dyspnea Stated Complaint: diff breathing Time Seen by Provider: 07/26/20 21:28 Source: patient and EMS Mode of arrival: EMS Limitations: no limitations History of Present Illness: HPI Narrative: 55-year-old male with a long history of COPD is on 4 to 5 L of oxygen at all times at home. He states he has had increasing shortness of breath throughout the day and wheezing. Patient given a breathing treatment in route with no steroids. He denies any chest pain. Denies any recent illness. He has had a slight cough denies any worsening improving factors. Associated symptoms: Deny abdominal pain, chest pain, fever(s), nausea or vomiting Review of Systems Const: Denies: fever(s), chills, body aches or change in appetite Eyes: Denies: blurry vision or eye discomfort ENMT: Denies: throat pain or dental pain Card: Denies: chest pain Resp: Reports: dyspnea, non-productive cough and wheezing GI: Denies: abdominal pain, nausea, vomiting or diarrhea : Denies: dysuria Musc: Denies: neck pain or back pain Skin/Breast: Denies: rash Neuro: Denies: headache(s) Psych: Denies: depression Ish/Lymph: Denies: easy bruising All/Imm: Denies: urticaria PFSH ED PFSH: Medical History Anxiety Chronic anticoagulation Chronic back pain COPD (chronic obstructive pulmonary disease) Depression Dyslipidemia End stage COPD GERD (gastroesophageal reflux disease) Hypertension Major depressive disorder, single episode, in full remission Normal colonoscopy Overdose of analgesic Oxygen dependent Panic disorder [episodic paroxysmal anxiety] Pulmonary embolism Pulmonary hypertension Respiratory failure Surgical History H/O cardiac catheterization Family History Other CAD (coronary artery disease) Diabetes Social History Smoking and tobacco status: former smoker Alcohol intake: never Adopted: No Household members: family Physical Exam Const: COMMON NORMALS: no acute distress, patient oriented x3 and healthy appearing HENMT: COMMON NORMALS: normocephalic and atraumatic HEAD & SCALP: normocephalic and atraumatic Eye: COMMON NORMALS: Equal, round and reactive pupils present and EOMs intact bilaterally PUPIL: Yes Equal, round and reactive pupils present Neck/C-Spine: COMMON NORMALS: full ROM and supple Chest: COMMONS NORMALS: normal inspection of the chest and normal palpation of entire chest wall Resp: COMMON NORMALS: normal respiratory effort, No retractions and No use of accessory muscles EFFORT & INSPECTION: Yes tachypneic AUSCULTATION: wheezes Cardio: COMMON NORMALS: regular rate, regular rhythm and No murmurs present ( Cardio) RATE: regular rate RHYTHM: regular rhythm GI: COMMON NORMALS: Normal to inspection, nondistended, normoactive bowel sounds present, Soft to palpation, non-tender and no masses PALPATION: Yes Soft to palpation Extremity: COMMON NORMALS: normal to inspection and full ROM Neuro: COMMON NORMALS: patient oriented x3, moves all extremities and no focal motor deficits Psych: COMMON NORMALS: mental status grossly normal, Normal thought process present and cooperative THOUGHT PROCESS: Normal thought process present Skin: COMMON NORMALS: no rashes or lesions noted and no wounds GENERAL SKIN EXAM: no rashes or lesions noted Course Vital Signs: Vital signs: Vital Signs Temperature 98.3 F 07/26/20 21:28 Pulse Rate 73 07/26/20 22:21 Respiratory Rate 16 07/26/20 23:07 Blood Pressure 155/101 07/26/20 22:21 Pulse Oximetry 98 07/26/20 23:07 MDM - SOB/Dyspnea MDM Narrative: Medical decision making narrative: Patient presents here with COPD exacerbation. He is much improved after breathing treatments and is in no distress here. X-ray shows no pneumonia and his troponin here is normal with no signs of coronary cause. He has no signs of pulmonary embolism. We will place him on 5 days of steroids and he is to follow-up his PCP in 2 to 4 days and return if worsening. Lab Data: Labs: Lab Results 07/26/20 07/26/20 07/26/20 Range/Units 21:40 21:40 21:40 WBC 8.8 (4.0-10.0) 10^3/ uL RBC 4.05 L (4.1-5.3) 10^6/u L Hgb 11.4 L (11.7-16.6) g/dL Hct 37.4 L (42.0-52.0) % MCV 92.3 (80-94) fL MCH 28.1 (28.0-34.0) pg MCHC 30.5 (30.0-36.0) g/dL RDW 13.2 (12.1-15.1) % Plt Count 230 (130-400) 10^3/c mm MPV 11.5 H (7.4-10.4) fL Neut % (Auto) 72.0 % Lymph % (Auto) 17.8 % [place] % (Auto) 6.5 % Eos % (Auto) 2.5 % Baso % (Auto) 0.6 % Neut # (Auto) 6.31 (1.8-7.7) 10^3/u L Lymph # (Auto) 1.6 (0.8-4.8) 10^3/u L [place] # (Auto) 0.6 (0.2-0.9) 10^3/u L Eos # (Auto) 0.2 (0.0-0.8) 10^3/u L Baso # (Auto) 0.1 (0.0-0.1) 10^3/u L Nucleated RBC % (a uto) 0 % Nucleated RBCs # 0.0 /100WBC Specimen Type Sample Site ABG pH (7.35-7.45) ABG pCO2 (35-45) mmHg ABG pO2 (80.0-100.0) mmH g ABG HCO3 (22-26) mmol/L ABG Base Excess (-2.0-2.0) mmol/ L Damon Test Hematocrit (42-52) % Hgb O2 Saturation (95-100) % Carboxyhemoglobin (0.4-20.1) %THgb Methemoglobin (0.4-1.5) % Total Hemoglobin (14-18) g/dL O2 Delivery Device O2 Liters/Min % Black Top Spreader Machine Operator ID Sodium 147 H (136-145) mmol/L Potassium 3.8 (3.5-5.1) mmol/L Chloride 107 (98-107) mmol/L Carbon Dioxide 33 H (22-29) mmol/L Anion Gap 10.8 (5-19) BUN 19 (6-20) mg/dL Creatinine 0.7 (0.7-1.2) mg/dL GFR Calculation 117.1 (90-130) mL/min Glucose 115 (65-115) mg/dL Calculated Osmolal ity 307 H (285-295) mOsm/k g Calcium 8.8 (8.5-10.5) mg/dL Total Bilirubin 0.2 (0.15-1.2) mg/dL AST 17 (0-40) U/L ALT 11 (0-41) U/L Alkaline Phosphata se 75 (40-130) IU/L Troponin T Baselin e 9 (0-15) ng/L NT-Pro-B Natriuret Pep 63 (0-125) pg/mL Total Protein 6.6 (6.6-8.7) g/dL Albumin 4.2 (3.5-5.2) g/dL Globulin 2.4 (1.3-4.6) g/dL 07/26/20 Range/Units 21:45 WBC (4.0-10.0) 10^3/ uL RBC (4.1-5.3) 10^6/u L Hgb (11.7-16.6) g/dL Hct (42.0-52.0) % MCV (80-94) fL MCH (28.0-34.0) pg MCHC (30.0-36.0) g/dL RDW (12.1-15.1) % Plt Count (130-400) 10^3/c mm MPV (7.4-10.4) fL Neut % (Auto) % Lymph % (Auto) % [place] % (Auto) % Eos % (Auto) % Baso % (Auto) % Neut # (Auto) (1.8-7.7) 10^3/u L Lymph # (Auto) (0.8-4.8) 10^3/u L [place] # (Auto) (0.2-0.9) 10^3/u L Eos # (Auto) (0.0-0.8) 10^3/u L Baso # (Auto) (0.0-0.1) 10^3/u L Nucleated RBC % (a uto) % Nucleated RBCs # /100WBC Specimen Type Arterial Sample Site Radial, right ABG pH 7.42 (7.35-7.45) ABG pCO2 51.5 H (35-45) mmHg ABG pO2 74.5 L (80.0-100.0) mmH g ABG HCO3 33.4 H (22-26) mmol/L ABG Base Excess 7.6 H (-2.0-2.0) mmol/ L Damon Test Pos Hematocrit 36.1 L (42-52) % Hgb O2 Saturation 93.2 L (95-100) % Carboxyhemoglobin 1.9 (0.4-20.1) %THgb Methemoglobin 0.9 (0.4-1.5) % Total Hemoglobin 11.8 L (14-18) g/dL O2 Delivery Device Nc O2 Liters/Min 5.0 % Black Top Spreader Machine Operator ID ellpe Sodium (136-145) mmol/L Potassium (3.5-5.1) mmol/L Chloride (98-107) mmol/L Carbon Dioxide (22-29) mmol/L Anion Gap (5-19) BUN (6-20) mg/dL Creatinine (0.7-1.2) mg/dL GFR Calculation (90-130) mL/min Glucose (65-115) mg/dL Calculated Osmolal ity (285-295) mOsm/k g Calcium (8.5-10.5) mg/dL Total Bilirubin (0.15-1.2) mg/dL AST (0-40) U/L ALT (0-41) U/L Alkaline Phosphata se (40-130) IU/L Troponin T Baselin e (0-15) ng/L NT-Pro-B Natriuret Pep (0-125) pg/mL Total Protein (6.6-8.7) g/dL Albumin (3.5-5.2) g/dL Globulin (1.3-4.6) g/dL Imaging Data^: CXR: Attestation: I personally reviewed and interpreted this imaging study as follows: Radiologist's impression: [address] [address] XRay Report Signed Patient: Shamar Negron JR Unit #: [id number] : 1965 Age/Sex: 55 / M ADM Date: 07/26/20 Loc: ER Room/Bed: Attending Dr: Ordering Provider/Ordering MD: Mike Espinoza MD Date of Service: 07/26/20 Procedure(s): XR chest 1V portable [id number] Accession Number(s): [id number] Report Number: [id number] PROCEDURE INFORMATION: Exam: XR Chest Exam date and time: 07/26/2020 9:34 PM Age: 55 years old Clinical indication: Shortness of breath; Additional info: SOB TECHNIQUE: Imaging protocol: XR of the chest. Views: 1 view. COMPARISON: CT chest [facility] [id number] 06/22/2020 10:05 AM FINDINGS: Lungs: There are emphysematous changes in both lungs, stable compared with 12/21/2019 with stable areas of scarring in the right mid lung and at the right lung base. No acute infiltrate is identified. Pleural spaces: Unremarkable. No pleural effusion. No pneumothorax. Heart/Mediastinum: Unremarkable. No cardiomegaly. Bones/joints: Unremarkable. Other findings: Findings are not significantly changed from 12/21/2019. XR/XR chest 1V portable [id number] IMPRESSION: COPD. EKG Data^: EKG 1: Attestation: I personally reviewed and interpreted this EKG as follows: EKG Interpretation Date: 07/26/20 EKG interpretation time: 21:58 Interpretation: nsr hr [address] or t wave abnormalities qrs 85 qtc 377 EKG 2: Attestation: I personally reviewed and interpreted this EKG as follows: EKG Interpretation Date: 07/26/20 EKG interpretation time: 23:17 Interpretation: Normal sinus rhythm heart rate [address] or T wave normalities QRS 84 QTC 385 Discharge Plan Discharge Patient Disposition: Home Clinical Impression: Acute exacerbation of chronic obstructive airways disease Condition: Stable Prescriptions: New prednisone 50 mg tablet 50 mg PO DAILY Qty: 5 RF: 0 No Action Wellbutrin XL 150 mg tablet extended release 24 hr 150 mg PO QAM 30 Days Qty: 30 RF: 5 clonazepam [Klonopin] 1 mg tablet 1 mg PO TID Qty: 90 RF: 5 Pristiq 50 mg tablet extended release 24 hr 50 mg PO DAILY Qty: 30 RF: 5 Spiriva with HandiHaler 18 mcg capsule, w/inhalation device 1 cap INHALATION DAILY 90 Days Qty: 90 RF: 3 fluticasone propion-salmeterol [Advair Diskus] 250-50 mcg/dose blister with device 1 inh INHALATION BID Qty: 60 RF: 3 multivitamin [Multiple Vitamins] Tablet 1 tab PO DAILY RF: 0 cetirizine [Zyrtec] 10 mg Tablet 10 mg PO BEDTIME RF: 0 omeprazole 40 mg Capsule,Delayed Release(Dr/Ec) 40 mg PO BID RF: 0 meloxicam [Mobic] 7.5 mg Tablet 7.5 mg PO DAILY RF: 0 Tums 2 wafer PO Q1H PRN (Reason: Acid Reflux) RF: 0 hydrocodone-acetaminophen 5-325 mg tablet 1 tab PO BID PRN (Reason: pain) RF: 0 diltiazem HCl [DILT-XR] 120 mg Capsule,Ext.Rel 24h Degradable 120 mg PO DAILY RF: 0 metoprolol tartrate 25 mg Tablet 12.5 mg PO BID RF: 0 Daliresp 500 mcg Tablet 500 mcg PO DAILY RF: 0 Tessalon Perles 100 mg capsule 100 mg PO TID PRN (Reason: Cough) 30 Days Qty: 90 RF: 1 ProAir HFA 90 mcg/actuation Hfa Aerosol Inhaler 2 puff INHALATION QID PRN (Reason: Shortness Of Breath) 30 Days Qty: 1 RF: 0 Discharge Orders: Discharge ED (Routine); Ordered 07/26/20 Ordered By: Mike Espinoza Referrals: Shahzad Ybarra [Primary Care Provider] - 1-3 days Discharge Diet: Advance as tolerated Discharge Activity: Resume usual activity Patient Instructions: Chronic Obstructive Pulmonary Disease (ED) Coding Level of Care Code ED Spinning Machine Operator for Konradg Fwd Exam Comprehensive
[2020-07-26] MEDS: ipratropium-albuterol 3 mL Neb INHALATION (21:43)
[2020-07-26 21:44] VITALS: PULSE 93; RESP 22; O2SAT 96
[2020-07-26 21:47] VITALS: PULSE 98
[2020-07-26 21:48] LABS: Basophils # 0.1 10^3/uL (0.0-0.1); Basophils % 0.6 %; Eosinophils # 0.2 10^3/uL (0.0-0.8); Eosinophils % 2.5 %; Hematocrit 37.4 % (42.0-52.0); Hemoglobin 11.4 g/dL (11.7-16.6); Lymphocytes # 1.6 10^3/uL (0.8-4.8); Lymphocytes % 17.8 %; Mean Corpuscular HGB Conc 30.5 g/dL (30.0-36.0); Mean Corpuscular Hemoglobin 28.1 pg (28.0-34.0); Mean Corpuscular Volume 92.3 fL (80-94); Mean Platelet Volume 11.5 fL (7.4-10.4); Monocytes # 0.6 10^3/uL (0.2-0.9); Monocytes % 6.5 %; Neutrophils # 6.31 10^3/uL (1.8-7.7); Nucleated Red Blood Cells % 0 %; Platelet Count 230 10^3/cmm (130-400); Red Blood Count 4.05 10^6/uL (4.1-5.3); Red Cell Distribution Width 13.2 % (12.1-15.1); White Blood Count 8.8 10^3/uL (4.0-10.0)
[2020-07-26 21:50] LABS: ABG PCO2 51.5 mmHg (35-45); ABG PH Result 7.42 (7.35-7.45); Arterial Blood Gas Hematocrit 36.1 % (42-52); Base Excess ABG 7.6 mmol/L (-2.0-2.0); Blood Gas Allen Test Pos; Blood Gas Sample Site Radial, right; Blood Gas Sample Type Arterial; Carboxyhemoglobin 1.9 %THgb (0.4-20.1); HCO3 ABG 33.4 mmol/L (22-26); HGB O2 Sat 93.2 % (95-100); Methemoglobin 0.9 % (0.4-1.5); Oxygen Device NC; PO2 ABG 74.5 mmHg (80.0-100.0); Total Hemoglobin 11.8 g/dL (14-18)
--- NOTE | 2020-07-26 21:51 | ECG_ITS ---
[facility] Test Date: 2020-07-26 Pat Name: Shamar Negron Department: Room: Gender: Male Youth Director: : 1965 Requested By: Mike Espinoza Order Number: [id number] Marva MD: Anthony Moran M.D. Measurements Intervals [place] Rate: 82 P: 78 CA: 180 QRS: 80 QRSD: 84 T: 77 QT: 346 QTc: 406 Interpretive Statements SINUS RHYTHM Compared to ECG 05/31/2020 02:16:08 No significant changes Electronically Signed On 07-27-2020 19:08:38 CDT by Anthony Moran M.D. [email or web address]
[2020-07-26 22:20] LABS: Alanine Aminotransferase 11 U/L (0-41); Albumin Level 4.2 g/dL (3.5-5.2); Alkaline Phosphatase 75 IU/L (40-130); Anion Gap 10.8 (5-19); Aspartate Amino Transferase 17 U/L (0-40); Blood Urea Nitrogen 19 mg/dL (6-20); Calcium 8.8 mg/dL (8.5-10.5); Carbon Dioxide 33 mmol/L (22-29); Chloride 107 mmol/L (98-107); Globulin 2.4 g/dL (1.3-4.6); Glomerular Filtration Rate 117.1 mL/min (90-130); Glucose 115 mg/dL (65-115); NT Pro B Type Natriuretic Pept 63 pg/mL (0-125); Osmolality Calculated 307 mOsm/kg (285-295); Potassium 3.8 mmol/L (3.5-5.1); Sodium 147 mmol/L (136-145); Total Bilirubin 0.2 mg/dL (0.15-1.2); Total Protein 6.6 g/dL (6.6-8.7)
[2020-07-26 22:21] VITALS: BP 155/101; PULSE 73; RESP 18; O2SAT 97
--- NOTE | 2020-07-26 22:57 | ECG_ITS ---
[facility] Test Date: 2020-07-26 Pat Name: Shamar Negron Department: Room: Gender: Male Nursing Administrator: : 1965 Requested By: Mike Espinoza Order Number: [id number] Marva MD: Anthony Moran M.D. Measurements Intervals [place] Rate: 83 P: 80 MT: 166 QRS: 80 QRSD: 85 T: 75 QT: 337 QTc: 397 Interpretive Statements SINUS RHYTHM WITH SINUS ARRHYTHMIA Compared to ECG 05/31/2020 02:16:08 No significant changes Electronically Signed On 07-27-2020 19:08:52 CDT by Anthony Moran M.D. [id number]
[2020-07-26] MEDS: ondansetron 2 mg/ML SDV 2 mL 4 MG IVP (23:06)
[2020-07-26 23:07] VITALS: RESP 16; O2SAT 98
[2020-07-26] MEDS: morphine 4 mg/mL SDV 1 mL IVP (23:07)
[2020-07-26 23:24] LABS: Troponin(5th) Baseline 9 ng/L (0-15)
[2020-07-26 23:40] VITALS: BP 131/93; PULSE 82; RESP 22; O2SAT 97
== END 2020-07-26 23:40 | disposition home or self-care (01) ==
PROVIDERS: Emergency Provider Emergency Medicine; PCP Family Medicine
DX: J44.1 Chronic obstructive pulmonary disease with (acute) exacerbation (principal); E78.5 Hyperlipidemia, unspecified; I10 Essential (primary) hypertension; Z99.81 Dependence on supplemental oxygen; Z87.891 Personal history of nicotine dependence
CPT/HCPCS: 36600; 71045; 80053; 82805; 83880; 84484; 85025; 93005; 94640; 96374; 96375; 99284; J2270; J2405; J2930; J7611

== ENCOUNTER 2020-08-30 09:51 | Outpatient (CLI) | payer MEDICAID, SELFPAY ==
--- NOTE | 2020-08-30 12:37 | PFTS_ITS ---
Date of Study:08/30/20 Date of Dictation: 09/03/2020 MECHANICS: Post bronchodilator Forced vital capacity (FVC) is reduced. Post bronchodilator Forced expiratory volume in one second (FEV1) is very severe reduced 18% FEV1/FVC is reduced. There is no significant response to bronchodilators. FLOW VOLUME LOOP: Sloping of expiratory limb suggestive of severe air way obstruction LUNG VOLUMES: Total lung capacity (TLC) is increased. Residual volume (RV) is increased suggestive of severe air trapping. Increased RV/TLC suggestive of severe hyperinflation. DIFFUSING CAPACITY FOR CARBON MONOXIDE: severely reduced 36% . INTERPRETATION: The pulmonary function tests consistent with very severe obstructive ventilatory defect with post bronchodilator FVC 2.21 L 46% predicted and post bronchodilator FEV1 690 ml 18% of predicted normal. There is no significant bronchodilator response. There is severe air trapping and hyperinflation on lung volumes and severe gas transfer defect. Overall suggestive of very severe emphysema. Clinical correlation recommended. [facility]
== END 2020-08-30 09:52 | disposition home or self-care (01) ==
LOC: RT 09:52
PROVIDERS: PCP Family Medicine; Visit Provider Family Medicine
DX: J43.1 Panlobular emphysema (principal); J96.11 Chronic respiratory failure with hypoxia
CPT/HCPCS: 94060; 94726; 94729; J7611

== ENCOUNTER → 2020-09-03 07:29 | Outpatient (BNVA) | payer MEDICAID, SELFPAY | PROVIDERS: PCP Family Medicine; Visit Provider Psychiatry & Neurology Psychiatry | DX: F32.5 Major depressive disorder, single episode, in full remission (principal); F41.0 Panic disorder [episodic paroxysmal anxiety]; J44.9 Chronic obstructive pulmonary disease, unspecified | CPT/HCPCS: 99214 ==

== ENCOUNTER → 2020-09-17 07:15 | Outpatient (BNVA) | payer MEDICAID, SELFPAY | PROVIDERS: PCP Family Medicine; Visit Provider Psychiatry & Neurology Psychiatry | DX: F33.2 Major depressive disorder, recurrent severe without psychotic features (principal); F41.0 Panic disorder [episodic paroxysmal anxiety]; Z55.0 Illiteracy and low-level literacy | CPT/HCPCS: 99215 ==

== ENCOUNTER 2021-01-21 21:13 | Emergency (ER) | payer MEDICAID, SELFPAY ==
[2021-01-21 21:13] VITALS: BP 140/110; PULSE 118; RESP 28; TEMP 37.1; O2SAT 97; BMI 19.3
--- NOTE | 2021-01-21 21:25 | ED_ITS ---
Documented by User: Luis E Mojica MD 01/25/21 21:23 HPI - SOB/Dyspnea General: Chief Complaint: Shortness of Breath/Dyspnea Stated Complaint: sob Time Seen by Provider: 01/21/21 21:17 History of Present Illness: HPI Narrative: Mr. Negron is a 56-year-old gentleman with significant past medical history of COPD with chronic hypoxic respiratory failure on 5 L at baseline who presents to the emergency department due to chest pain and worsening shortness of breath. He reports symptom onset approximately 6 days ago, 1 week ago he went to a basketball game and the next morning he woke up with severe generalized malaise. At that time he had some nausea and vomiting as well as cough and shortness of breath which have become more progressive. Today he endorses generalized chest pain with this. Intensity of symptoms is moderate to severe. Course has been worsening. He has tried home nebulizer treatments without significant relief. He has not been vaccinated except Covid. No other specific exacerbating or alleviating factors identified. Review of Systems General: Reports: 10 or more systems reviewed and unremarkable except in HPI and below PFSH ED PFSH: Medical History Anxiety Chronic anticoagulation Chronic back pain COPD (chronic obstructive pulmonary disease) Depression Dyslipidemia End stage COPD GERD (gastroesophageal reflux disease) Hypertension Major depressive disorder, single episode, in full remission Normal colonoscopy Overdose of analgesic Oxygen dependent Panic disorder [episodic paroxysmal anxiety] Pulmonary embolism Pulmonary hypertension Respiratory failure Surgical History H/O cardiac catheterization Family History Other CAD (coronary artery disease) Diabetes Social History Smoking and tobacco status: former smoker Alcohol intake: never Adopted: No Household members: family Physical Exam Narrative: EXAM NARRATIVE: GENERAL/CONSTITUTIONAL -chronically ill-appearing. No acute distress. Eyes - PERRL, no conjunctival injection ENMT - Atraumatic external nose and ears. Moist mucous membranes NECK - supple. trachea midline CARDIOVASCULAR -tachycardic rate and regular rhythm. Normal peripheral perfusion. RESPIRATORY -markedly decreased throughout, worse in right lower quadrant, wheezes present. ABDOMEN/GI - Nontender/Nondistended. No tenderness to percussion or evidence of peritonitis MSK - Extremities without obvious deformity or tenderness to palpation SKIN - Warm, Dry NEURO - alert and appropriately oriented. Moves all extremities equally. Course ED course: - Patient was seen and evaluated by me at bedside - Patient placed on cardiac monitors, IV access obtained - Initial evaluation notable for increased respiratory effort, decreased breath sounds, wheezes. -Symptom treatment ordered, RT treatment ordered. - Labs notable for no leukocytosis. Metabolic panel without significant abnormality to explain patient's symptoms. PCO2 on blood gas is mildly elevated above baseline however patient is compensating well at this time and mental status is normal with improvement with breathing treatments. Viral studies negative. - Imaging notable for no lobar consolidation. Discussed finding of pulmonary nodule with patient. - Upon serial reexamination after treatment the patient was mildly improved though still would benefit from additional breathing treatments which were ordered. - Patient care signed out to overnight ED physician Dr. Valentin pending reevaluation for disposition. Vital Signs: Vital signs: Vital Signs Temperature 98.7 F 01/21/21 21:13 Pulse Rate 101 H 01/22/21 01:49 Respiratory Rate 18 01/22/21 01:49 Blood Pressure 134/72 01/22/21 01:49 Pulse Oximetry 97 01/22/21 01:49 MDM - SOB/Dyspnea Medical Records: Attestation: I reviewed the patient's medical records. Lab Data: Attestation: I reviewed the patient's lab results. Labs: Lab Results 01/21/21 01/21/21 01/21/21 21:25 21:25 21:25 WBC 8.7 10^3/uL 10^3/ uL (4.0-10.0) RBC 4.28 10^6/uL 10^6 /uL (4.1-5.3) Hgb 12.3 g/dL g/dL (11.7-16.6) Hct 39.6 % L % (42.0-52.0) MCV 92.5 fl fl (80-94) MCH 28.7 pg pg (28.0-34.0) MCHC 31.1 g/dL g/dL (30.0-36.0) RDW 12.8 % % (12.1-15.1) Plt Count 303 10^3/cmm 10^3 /cmm (130-400) MPV 11.3 fL H fL (7.4-10.4) Neut % (Auto) 69.7 % % Lymph % (Auto) 17.5 % % Wallace % (Auto) 8.2 % % Eos % (Auto) 3.3 % % Baso % (Auto) 0.7 % % Neut # (Auto) 6.08 10^3/uL 10^3 /uL (1.8-7.7) Lymph # (Auto) 1.5 10^3/uL 10^3/ uL (0.8-4.8) Wallace # (Auto) 0.7 10^3/uL 10^3/ uL (0.2-0.9) Eos # (Auto) 0.3 10^3/uL 10^3/ uL (0.0-0.8) Baso # (Auto) 0.1 10^3/uL 10^3/ uL (0.0-0.1) Nucleated RBC % (a uto) 0 % % Nucleated RBCs # 0.0 /100WBC /100W BC Specimen Type Sample Site ABG pH ABG pCO2 ABG pO2 ABG HCO3 ABG Base Excess Damon Test Hematocrit Hgb O2 Saturation Carboxyhemoglobin Methemoglobin Total Hemoglobin O2 Delivery Device O2 Liters/Min Inside Outside Sales Representative ID Sodium 144 mmol/L mmol/L (136-145) Potassium 3.7 mmol/L mmol/L (3.5-5.1) Chloride 99 mmol/L mmol/L (98-107) Carbon Dioxide 31 mmol/L H mmol/ L (22-29) Anion Gap 17.7 (5-19) BUN 18 mg/dL mg/dL (6-20) Creatinine 0.7 mg/dL mg/dL (0.7-1.2) GFR Calculation 116.7 mL/min mL/m in (90-130) Glucose 105 mg/dL mg/dL (65-115) Calculated Osmolal ity 300 mOsm/kg H mOs m/kg (285-295) Lactic Acid 1.9 mmol/L mmol/L (0.5-2.2) Calcium 8.9 mg/dL mg/dL (8.5-10.5) Total Bilirubin 0.2 mg/dL mg/dL (0.15-1.2) AST 13 U/L U/L (0-40) ALT 8 U/L U/L (0-41) Alkaline Phosphata se 73 IU/L IU/L (40-130) Troponin T Baselin e Troponin T 120 Min [place] Troponin T NT-Pro-B Natriuret Pep 58 pg/mL pg/mL (0-125) Total Protein 6.2 g/dL L g/dL (6.6-8.7) Albumin 4.2 g/dL g/dL (3.5-5.2) Globulin 2.0 g/dL g/dL (1.3-4.6) Procalcitonin 0.05 ng/mL ng/mL (0-0.5) Influenza Type A A g Influenza Type B A g SARS-CoV-2 Ag (Rap id) 01/21/21 01/21/21 01/21/21 21:25 21:29 21:35 WBC RBC Hgb Hct MCV MCH MCHC RDW Plt Count MPV Neut % (Auto) Lymph % (Auto) Wallace % (Auto) Eos % (Auto) Baso % (Auto) Neut # (Auto) Lymph # (Auto) Wallace # (Auto) Eos # (Auto) Baso # (Auto) Nucleated RBC % (a uto) Nucleated RBCs # Specimen Type Arterial Sample Site Radial, right ABG pH 7.40 (7.35-7.45) ABG pCO2 61.1 mmHg H* mmHg (35-45) ABG pO2 77.1 mmHg L mmHg (80.0-100.0) ABG HCO3 37.8 mmol/L H mmo l/L (22-26) ABG Base Excess 10.8 mmol/L H mmo l/L (-2.0-2.0) Damon Test Pos Hematocrit 36.7 % L % (42-52) Hgb O2 Saturation 93.9 % L % (95-100) Carboxyhemoglobin 1.1 %THgb %THgb (0.4-20.1) Methemoglobin 0.8 % % (0.4-1.5) Total Hemoglobin 12.0 g/dL L g/dL (14-18) O2 Delivery Device Nc O2 Liters/Min 5.0 % % Inside Outside Sales Representative ID [id number] Sodium Potassium Chloride Carbon Dioxide Anion Gap BUN Creatinine GFR Calculation Glucose Calculated Osmolal ity Lactic Acid Calcium Total Bilirubin AST ALT Alkaline Phosphata se Troponin T Baselin e 13 ng/L ng/L (0-15) Troponin T 120 Min [place] Troponin T NT-Pro-B Natriuret Pep Total Protein Albumin Globulin Procalcitonin Influenza Type A A g Negative (Negative) Influenza Type B A g Negative (Negative) SARS-CoV-2 Ag (Rap id) 01/21/21 01/21/21 21:35 23:44 WBC RBC Hgb Hct MCV MCH MCHC RDW Plt Count MPV Neut % (Auto) Lymph % (Auto) Wallace % (Auto) Eos % (Auto) Baso % (Auto) Neut # (Auto) Lymph # (Auto) Wallace # (Auto) Eos # (Auto) Baso # (Auto) Nucleated RBC % (a uto) Nucleated RBCs # Specimen Type Sample Site ABG pH ABG pCO2 ABG pO2 ABG HCO3 ABG Base Excess Damon Test Hematocrit Hgb O2 Saturation Carboxyhemoglobin Methemoglobin Total Hemoglobin O2 Delivery Device O2 Liters/Min Inside Outside Sales Representative ID Sodium Potassium Chloride Carbon Dioxide Anion Gap BUN Creatinine GFR Calculation Glucose Calculated Osmolal ity Lactic Acid Calcium Total Bilirubin AST ALT Alkaline Phosphata se Troponin T Baselin e Troponin T 120 Min [place] 9.01 ng/L ng/L (0-15) Delta Troponin T -3.99 ABS# L ABS# (0-10) NT-Pro-B Natriuret Pep Total Protein Albumin Globulin Procalcitonin Influenza Type A A g Influenza Type B A g SARS-CoV-2 Ag (Rap id) Negative (Negative) EKG Data^: EKG 1: Attestation: I personally reviewed and interpreted this EKG as follows: EKG Interpretation Date: 01/21/21 EKG interpretation time: 21:33 Interpretation: Twelve-lead EKG shows a regular rhythm at a rate of 111 HI interval 148, QRS duration 86, QTc 377 Normal axis Interpretation: Sinus tachycardia. Discharge Plan Discharge Patient Disposition: Home Clinical Impression: Acute exacerbation of chronic obstructive airways disease Condition: Stable Prescriptions: New prednisone 50 mg tablet 50 mg PO DAILY 5 Days Qty: 5 RF: 0 doxycycline hyclate 100 mg tablet 100 mg PO BID 10 Days Qty: 20 RF: 0 albuterol sulfate 90 mcg/actuation HFA aerosol inhaler See Rx Instructions .ROUTE .COMPLEX Qty: 8.5 RF: 0 No Action Wellbutrin XL 150 mg tablet extended release 24 hr 150 mg PO QAM 30 Days Qty: 30 RF: 2 clonazepam [Klonopin] 1 mg tablet 1 mg PO TID Qty: 90 RF: 2 Pristiq 50 mg tablet extended release 24 hr 50 mg PO DAILY Qty: 30 RF: 2 Spiriva with HandiHaler 18 mcg capsule, w/inhalation device 1 cap INHALATION DAILY 90 Days Qty: 90 RF: 3 fluticasone propion-salmeterol [Advair Diskus] 250-50 mcg/dose blister with device 1 inh INHALATION BID Qty: 60 RF: 3 multivitamin [Multiple Vitamins] Tablet 1 tab PO DAILY RF: 0 cetirizine [Zyrtec] 10 mg Tablet 10 mg PO BEDTIME RF: 0 omeprazole 40 mg Capsule,Delayed Release(Dr/Ec) 40 mg PO BID RF: 0 meloxicam [Mobic] 7.5 mg Tablet 7.5 mg PO DAILY RF: 0 Tums 2 wafer PO Q1H PRN (Reason: Acid Reflux) RF: 0 hydrocodone-acetaminophen 5-325 mg tablet 1 tab PO BID PRN (Reason: pain) RF: 0 diltiazem HCl [DILT-XR] 120 mg Capsule,Ext.Rel 24h Degradable 120 mg PO DAILY RF: 0 metoprolol tartrate 25 mg Tablet 12.5 mg PO BID RF: 0 Daliresp 500 mcg Tablet 500 mcg PO DAILY RF: 0 Tessalon Perles 100 mg capsule 100 mg PO TID PRN (Reason: Cough) 30 Days Qty: 90 RF: 1 ProAir HFA 90 mcg/actuation Hfa Aerosol Inhaler 2 puff INHALATION QID PRN (Reason: Shortness Of Breath) 30 Days Qty: 1 RF: 0 prednisone 50 mg tablet 50 mg PO DAILY Qty: 5 RF: 0 Discharge Orders: Discharge ED (Routine); Ordered 01/22/21 Ordered By: Narinder Valentin Referrals: Shahzad Ybarra [Primary Care Provider] - 4-7 days Discharge Diet: Usual diet Discharge Activity: Resume usual activity Patient Instructions: Chest Pain (ED), COPD (Chronic Obstructive Pulmonary Disease) (ED), Opioid Safety Activity Restrictions/Additional Instructions: Thank you for visiting the ED. You were seen and evaluated for shortness of b reath and chest pain. The exact cause of your symptoms is unclear though likely related to exacerbation of your baseline COPD. You will be given prescriptions for symptom treatment. Please follow-up with your primary care provider. Please return to the emergency department for worsening symptoms or anything else that you are concerned about and feel needs emergency department evaluation. Incidentally you were noted to have the radiologist found I recommend the following: Small right upper lobe pulmonary nodule may be new from prior, although a couple right upper lobe granulomas are visible on comparison CT chest. However, recommend CT chest follow-up as an outpatient to exclude a new, developing nodule. Coding Level of Care Code ED Director Of Promotions for Chg [employer]wd Documented by User: Narinder Valentin, 01/22/21 00:56 HPI - SOB/Dyspnea General: Chief Complaint: Shortness of Breath/Dyspnea Stated Complaint: sob Time Seen by Provider: 01/21/21 21:17 PFSH ED PFSH: Medical History Anxiety Chronic anticoagulation Chronic back pain COPD (chronic obstructive pulmonary disease) Depression Dyslipidemia End stage COPD GERD (gastroesophageal reflux disease) Hypertension Major depressive disorder, single episode, in full remission Normal colonoscopy Overdose of analgesic Oxygen dependent Panic disorder [episodic paroxysmal anxiety] Pulmonary embolism Pulmonary hypertension Respiratory failure Surgical History H/O cardiac catheterization Family History Other CAD (coronary artery disease) Diabetes Social History Smoking and tobacco status: former smoker Alcohol intake: never Adopted: No Household members: family Course Vital Signs: Vital signs: Vital Signs Temperature 98.7 F 01/21/21 21:13 Pulse Rate 101 H 01/22/21 01:49 Respiratory Rate 18 01/22/21 01:49 Blood Pressure 134/72 01/22/21 01:49 Pulse Oximetry 97 01/22/21 01:49 MDM - SOB/Dyspnea MDM Narrative: Medical decision making narrative: 56-year-old male checked out to me at shift change by the previous physician. This patient complained of shortness of breath, and pleuritic type chest discomfort. CBC is not remarkable. BMP is not remarkable. Troponin initially was 13, and felt to 9. EKG did not show any signs of acute ischemia. Discomfort and shortness of breath appear to be related to his COPD. He will be treated as such. Given he improved significantly after nebulizer treatments, he will be allowed home. The patient wishes to go home. Lab Data: Labs: Lab Results 01/21/21 01/21/21 01/21/21 21:25 21:25 21:25 WBC 8.7 10^3/uL 10^3/ uL (4.0-10.0) RBC 4.28 10^6/uL 10^6 /uL (4.1-5.3) Hgb 12.3 g/dL g/dL (11.7-16.6) Hct 39.6 % L % (42.0-52.0) MCV 92.5 fl fl (80-94) MCH 28.7 pg pg (28.0-34.0) MCHC 31.1 g/dL g/dL (30.0-36.0) RDW 12.8 % % (12.1-15.1) Plt Count 303 10^3/cmm 10^3 /cmm (130-400) MPV 11.3 fL H fL (7.4-10.4) Neut % (Auto) 69.7 % % Lymph % (Auto) 17.5 % % Wallace % (Auto) 8.2 % % Eos % (Auto) 3.3 % % Baso % (Auto) 0.7 % % Neut # (Auto) 6.08 10^3/uL 10^3 /uL (1.8-7.7) Lymph # (Auto) 1.5 10^3/uL 10^3/ uL (0.8-4.8) Wallace # (Auto) 0.7 10^3/uL 10^3/ uL (0.2-0.9) Eos # (Auto) 0.3 10^3/uL 10^3/ uL (0.0-0.8) Baso # (Auto) 0.1 10^3/uL 10^3/ uL (0.0-0.1) Nucleated RBC % (a uto) 0 % % Nucleated RBCs # 0.0 /100WBC /100W BC Specimen Type Sample Site ABG pH ABG pCO2 ABG pO2 ABG HCO3 ABG Base Excess Damon Test Hematocrit Hgb O2 Saturation Carboxyhemoglobin Methemoglobin Total Hemoglobin O2 Delivery Device O2 Liters/Min Inside Outside Sales Representative ID Sodium 144 mmol/L mmol/L (136-145) Potassium 3.7 mmol/L mmol/L (3.5-5.1) Chloride 99 mmol/L mmol/L (98-107) Carbon Dioxide 31 mmol/L H mmol/ L (22-29) Anion Gap 17.7 (5-19) BUN 18 mg/dL mg/dL (6-20) Creatinine 0.7 mg/dL mg/dL (0.7-1.2) GFR Calculation 116.7 mL/min mL/m in (90-130) Glucose 105 mg/dL mg/dL (65-115) Calculated Osmolal ity 300 mOsm/kg H mOs m/kg (285-295) Lactic Acid 1.9 mmol/L mmol/L (0.5-2.2) Calcium 8.9 mg/dL mg/dL (8.5-10.5) Total Bilirubin 0.2 mg/dL mg/dL (0.15-1.2) AST 13 U/L U/L (0-40) ALT 8 U/L U/L (0-41) Alkaline Phosphata se 73 IU/L IU/L (40-130) Troponin T Baselin e Troponin T 120 Min [place] Troponin T NT-Pro-B Natriuret Pep 58 pg/mL pg/mL (0-125) Total Protein 6.2 g/dL L g/dL (6.6-8.7) Albumin 4.2 g/dL g/dL (3.5-5.2) Globulin 2.0 g/dL g/dL (1.3-4.6) Procalcitonin 0.05 ng/mL ng/mL (0-0.5) Influenza Type A A g Influenza Type B A g SARS-CoV-2 Ag (Rap id) 01/21/21 01/21/21 01/21/21 21:25 21:29 21:35 WBC RBC Hgb Hct MCV MCH MCHC RDW Plt Count MPV Neut % (Auto) Lymph % (Auto) Wallace % (Auto) Eos % (Auto) Baso % (Auto) Neut # (Auto) Lymph # (Auto) Wallace # (Auto) Eos # (Auto) Baso # (Auto) Nucleated RBC % (a uto) Nucleated RBCs # Specimen Type Arterial Sample Site Radial, right ABG pH 7.40 (7.35-7.45) ABG pCO2 61.1 mmHg H* mmHg (35-45) ABG pO2 77.1 mmHg L mmHg (80.0-100.0) ABG HCO3 37.8 mmol/L H mmo l/L (22-26) ABG Base Excess 10.8 mmol/L H mmo l/L (-2.0-2.0) Damon Test Pos Hematocrit 36.7 % L % (42-52) Hgb O2 Saturation 93.9 % L % (95-100) Carboxyhemoglobin 1.1 %THgb %THgb (0.4-20.1) Methemoglobin 0.8 % % (0.4-1.5) Total Hemoglobin 12.0 g/dL L g/dL (14-18) O2 Delivery Device Nc O2 Liters/Min 5.0 % % Inside Outside Sales Representative ID [id number] Sodium Potassium Chloride Carbon Dioxide Anion Gap BUN Creatinine GFR Calculation Glucose Calculated Osmolal ity Lactic Acid Calcium Total Bilirubin AST ALT Alkaline Phosphata se Troponin T Baselin e 13 ng/L ng/L (0-15) Troponin T 120 Min [place] Troponin T NT-Pro-B Natriuret Pep Total Protein Albumin Globulin Procalcitonin Influenza Type A A g Negative (Negative) Influenza Type B A g Negative (Negative) SARS-CoV-2 Ag (Rap id) 01/21/21 01/21/21 21:35 23:44 WBC RBC Hgb Hct MCV MCH MCHC RDW Plt Count MPV Neut % (Auto) Lymph % (Auto) Wallace % (Auto) Eos % (Auto) Baso % (Auto) Neut # (Auto) Lymph # (Auto) Wallace # (Auto) Eos # (Auto) Baso # (Auto) Nucleated RBC % (a uto) Nucleated RBCs # Specimen Type Sample Site ABG pH ABG pCO2 ABG pO2 ABG HCO3 ABG Base Excess Damon Test Hematocrit Hgb O2 Saturation Carboxyhemoglobin Methemoglobin Total Hemoglobin O2 Delivery Device O2 Liters/Min Inside Outside Sales Representative ID Sodium Potassium Chloride Carbon Dioxide Anion Gap BUN Creatinine GFR Calculation Glucose Calculated Osmolal ity Lactic Acid Calcium Total Bilirubin AST ALT Alkaline Phosphata se Troponin T Baselin e Troponin T 120 Min [place] 9.01 ng/L ng/L (0-15) Delta Troponin T -3.99 ABS# L ABS# (0-10) NT-Pro-B Natriuret Pep Total Protein Albumin Globulin Procalcitonin Influenza Type A A g Influenza Type B A g SARS-CoV-2 Ag (Rap id) Negative (Negative) Discharge Plan Discharge Patient Disposition: Home Clinical Impression: Acute exacerbation of chronic obstructive airways disease Condition: Stable Prescriptions: New prednisone 50 mg tablet 50 mg PO DAILY 5 Days Qty: 5 RF: 0 doxycycline hyclate 100 mg tablet 100 mg PO BID 10 Days Qty: 20 RF: 0 albuterol sulfate 90 mcg/actuation HFA aerosol inhaler See Rx Instructions .ROUTE .COMPLEX Qty: 8.5 RF: 0 No Action Wellbutrin XL 150 mg tablet extended release 24 hr 150 mg PO QAM 30 Days Qty: 30 RF: 2 clonazepam [Klonopin] 1 mg tablet 1 mg PO TID Qty: 90 RF: 2 Pristiq 50 mg tablet extended release 24 hr 50 mg PO DAILY Qty: 30 RF: 2 Spiriva with HandiHaler 18 mcg capsule, w/inhalation device 1 cap INHALATION DAILY 90 Days Qty: 90 RF: 3 fluticasone propion-salmeterol [Advair Diskus] 250-50 mcg/dose blister with device 1 inh INHALATION BID Qty: 60 RF: 3 multivitamin [Multiple Vitamins] Tablet 1 tab PO DAILY RF: 0 cetirizine [Zyrtec] 10 mg Tablet 10 mg PO BEDTIME RF: 0 omeprazole 40 mg Capsule,Delayed Release(Dr/Ec) 40 mg PO BID RF: 0 meloxicam [Mobic] 7.5 mg Tablet 7.5 mg PO DAILY RF: 0 Tums 2 wafer PO Q1H PRN (Reason: Acid Reflux) RF: 0 hydrocodone-acetaminophen 5-325 mg tablet 1 tab PO BID PRN (Reason: pain) RF: 0 diltiazem HCl [DILT-XR] 120 mg Capsule,Ext.Rel 24h Degradable 120 mg PO DAILY RF: 0 metoprolol tartrate 25 mg Tablet 12.5 mg PO BID RF: 0 Daliresp 500 mcg Tablet 500 mcg PO DAILY RF: 0 Tessalon Perles 100 mg capsule 100 mg PO TID PRN (Reason: Cough) 30 Days Qty: 90 RF: 1 ProAir HFA 90 mcg/actuation Hfa Aerosol Inhaler 2 puff INHALATION QID PRN (Reason: Shortness Of Breath) 30 Days Qty: 1 RF: 0 prednisone 50 mg tablet 50 mg PO DAILY Qty: 5 RF: 0 Discharge Orders: Discharge ED (Routine); Ordered 01/22/21 Ordered By: Narinder Valentin Referrals: Shahzad Ybarra [Primary Care Provider] - 4-7 days Discharge Diet: Usual diet Discharge Activity: Resume usual activity Patient Instructions: Chest Pain (ED), COPD (Chronic Obstructive Pulmonary Disease) (ED), Opioid Safety Activity Restrictions/Additional Instructions: Thank you for visiting the ED. You were seen and evaluated for shortness of breath and chest pain. The exact cause of your symptoms is unclear though likely related to exacerbation of your baseline COPD. You will be given prescriptions for symptom treatment. Please follow-up with your primary care provider. Please return to the emergency department for worsening symptoms or anything else that you are concerned about and feel needs emergency department evaluation. Incidentally you were noted to have the radiologist found I recommend the following: Small right upper lobe pulmonary nodule may be new from prior, although a couple right upper lobe granulomas are visible on comparison CT chest. However, recommend CT chest follow-up as an outpatient to exclude a new, developing nodule. Coding Level of Care Code ED Director Of Promotions 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
--- NOTE | 2021-01-21 21:29 | XRR_ITS ---
PROCEDURE INFORMATION: Exam: XR Chest Exam date and time: 01/21/2021 9:29 PM Age: 56 years old Clinical indication: Cough and shortness of breath; Prior surgery; Surgery type: Cardiac catheterization. ; Patient HX: Cough with SOB. History of copd. TECHNIQUE: Imaging protocol: XR of the chest. Views: 1 view. COMPARISON: 1. CR XR chest 1V portable [id number] 07/26/2020 10:[address] chest [facility] [id number] 06/22/2020 10:05:50 AM FINDINGS: Lungs: Hyperinflated lungs. Reticular interstitial lung change. Scattered blebs in the lungs. Scarring at lateral right lung base. Negative for airspace consolidation. Cannot exclude a small developing right upper lobe pulmonary nodule. Pleural spaces: Unremarkable. No pleural effusion. No pneumothorax. Heart/Mediastinum: Unremarkable. No cardiomegaly. Bones/joints: Unremarkable. XR/XR chest 1V portable [id number] IMPRESSION: 1. No focal acute pulmonary disease. 2. Small right upper lobe pulmonary nodule may be new from prior, although a couple right upper lobe granulomas are visible on comparison CT chest. However, recommend CT chest follow-up as an outpatient to exclude a new, developing nodule. Radiation Dose CTDIVOL = (mGy): DLP = (mGy-cm)
--- NOTE | 2021-01-21 21:30 | ECG_ITS ---
[facility] Test Date: 2021-01-21 Pat Name: Shamar Negron Department: Room: Gender: Male Hoop Cutter: : 1965 Requested By: Luis E Mojica Order Number: [id number] Reading MD: KIANNA DAVISON Measurements Intervals [place] Rate: 111 P: 83 WY: 148 QRS: 82 QRSD: 86 T: 88 QT: 312 QTc: 424 Interpretive Statements SINUS TACHYCARDIA ABNORMAL RHYTHM ECG Compared to ECG 07/26/2020 23:17:22 Sinus rhythm no longer present Electronically Signed On 01-24-2021 12:56:09 MANAGER SURGICAL by KIANNA DAVISON [id number] f
[2021-01-21 21:35] LABS: Basophils # 0.1 10^3/uL (0.0-0.1); Basophils % 0.7 %; Eosinophils # 0.3 10^3/uL (0.0-0.8); Eosinophils % 3.3 %; Hematocrit 39.6 % (42.0-52.0); Hemoglobin 12.3 g/dL (11.7-16.6); Lymphocytes # 1.5 10^3/uL (0.8-4.8); Lymphocytes % 17.5 %; Mean Corpuscular HGB Conc 31.1 g/dL (30.0-36.0); Mean Corpuscular Hemoglobin 28.7 pg (28.0-34.0); Mean Corpuscular Volume 92.5 fl (80-94); Mean Platelet Volume 11.3 fL (7.4-10.4); Monocytes # 0.7 10^3/uL (0.2-0.9); Monocytes % 8.2 %; Neutrophils # 6.08 10^3/uL (1.8-7.7); Neutrophils % 69.7 %; Nucleated Red Blood Cells % 0 %; Platelet Count 303 10^3/cmm (130-400); Red Blood Count 4.28 10^6/uL (4.1-5.3); Red Cell Distribution Width 12.8 % (12.1-15.1); White Blood Count 8.7 10^3/uL (4.0-10.0)
[2021-01-21 21:41] VITALS: BP 136/92; PULSE 99; RESP 16; O2SAT 94
[2021-01-21 21:46] LABS: Lactic Sepsis W/Reflex 1.9 mmol/L (0.5-2.2)
[2021-01-21 21:52] VITALS: PULSE 104; RESP 18
[2021-01-21] MEDS: ipratropium-albuterol 3 mL Neb INHALATION (21:53)
[2021-01-21 21:55] LABS: NT Pro B Type Natriuretic Pept 58 pg/mL (0-125); Procalcitonin 0.05 ng/mL (0-0.5)
[2021-01-21 21:58] LABS: Troponin(5th) Baseline 13 ng/L (0-15)
[2021-01-21 22:03] LABS: Arterial Blood Gas Hematocrit 36.7 % (42-52); Base Excess ABG 10.8 mmol/L (-2.0-2.0); Blood Gas Allen Test Pos; Blood Gas Sample Site Radial, right; Blood Gas Sample Type Arterial; Carboxyhemoglobin 1.1 %THgb (0.4-20.1); HCO3 ABG 37.8 mmol/L (22-26); HGB O2 Sat 93.9 % (95-100); Methemoglobin 0.8 % (0.4-1.5); Oxygen Device NC; PO2 ABG 77.1 mmHg (80.0-100.0)
[2021-01-21 22:05] LABS: ABG PCO2 61.1 mmHg (35-45)
[2021-01-21 22:06] LABS: Albumin Level 4.2 g/dL (3.5-5.2); Chloride 99 mmol/L (98-107); Potassium 3.7 mmol/L (3.5-5.1); Sodium 144 mmol/L (136-145)
[2021-01-21 22:11] LABS: Influenza A by IFA Negative (Negative); Influenza B by IFA Negative (Negative); SARS Covid-2 Antigen Negative (Negative)
[2021-01-21 22:22] LABS: Alanine Aminotransferase 8 U/L (0-41); Alkaline Phosphatase 73 IU/L (40-130); Anion Gap 17.7 (5-19); Aspartate Amino Transferase 13 U/L (0-40); Blood Urea Nitrogen 18 mg/dL (6-20); Calcium 8.9 mg/dL (8.5-10.5); Carbon Dioxide 31 mmol/L (22-29); Creatinine Clr Calc Pharmacy 113.8233; Glomerular Filtration Rate 116.7 mL/min (90-130); Glucose 105 mg/dL (65-115); Osmolality Calculated 300 mOsm/kg (285-295); Total Bilirubin 0.2 mg/dL (0.15-1.2); Total Protein 6.2 g/dL (6.6-8.7)
[2021-01-21] MEDS: doxycycline 100 MG in sodium chloride 0.9% (plus) 100 ML IV (22:25)
[2021-01-22 00:24] LABS: Troponin 5 2HR 9.01 ng/L (0-15)
[2021-01-22 00:27] LABS: Troponin 5 2HR Delta -3.99 ABS# (0-10)
[2021-01-22 01:49] VITALS: BP 134/72; PULSE 101; RESP 18; O2SAT 97
--- NOTE | 2021-01-25 15:13 | DCPLANNER ---
dog track kennel manager had message to schedule a follow up appointment for patient with [facility]. dog track kennel manager called [facility], spoke with Jessica, gave clinic patients information. A follow up appointment was scheduled for Sunday, February 02, 2021 at 1:[address] Akhtar. dog track kennel manager called patient and gave patient the appointment information.
--- NOTE | 2021-02-23 14:42 | DCPLANNER ---
Patient had a follow up appointment scheduled with heart care - patient did attend appointment.
== END 2021-01-21 23:58 | disposition home or self-care (01) ==
PROVIDERS: Emergency Medicine; Emergency Provider Emergency Medicine; PCP Family Medicine
DX: J44.1 Chronic obstructive pulmonary disease with (acute) exacerbation (principal); Z79.891 Long term (current) use of opiate analgesic; J96.11 Chronic respiratory failure with hypoxia; Z99.81 Dependence on supplemental oxygen; Z87.891 Personal history of nicotine dependence
CPT/HCPCS: 36600; 71045; 80053; 82805; 83605; 83880; 84145; 84484; 85025; 87426; 87804; 93005; 94640; 96365; 96375; 99284; J2930; J3490

== ENCOUNTER → 2021-01-24 07:34 | Outpatient (BNVA) | payer MEDICAID, SELFPAY | PROVIDERS: PCP Family Medicine; Visit Provider Psychiatry & Neurology Psychiatry | DX: F33.2 Major depressive disorder, recurrent severe without psychotic features (principal); F41.0 Panic disorder [episodic paroxysmal anxiety]; Z55.0 Illiteracy and low-level literacy | CPT/HCPCS: 99214 ==

== ENCOUNTER 2021-02-01 18:12 | Emergency (ER) | payer MEDICAID, SELFPAY ==
[2021-02-01 18:26] VITALS: BP 99/65; PULSE 124; RESP 22; TEMP 36.5; O2SAT 96; BMI 18.6
--- NOTE | 2021-02-01 18:39 | ECG_ITS ---
[facility] Test Date: 2021-02-01 Pat Name: Shamar Negron Department: Room: Gender: Male Manager Art: : 1965 Requested By: Mike Espinoza Order Number: [id number] Reading MD: KIANNA DAVISON Measurements Intervals [place] Rate: 121 P: 87 MN: 138 QRS: 91 QRSD: 82 T: 91 QT: 338 QTc: 480 Interpretive Statements SINUS TACHYCARDIA BORDERLINE RIGHT AXIS DEVIATION [QRS AXIS > 90] MODERATE ST DEPRESSION [0.05+ mV ST DEPRESSION] Compared to ECG 01/21/2021 21:28:26 ST (T wave) deviation now present Electronically Signed On 02-01-2021 19:53:58 TRAILER TRUCK DRIVER by KIANNA DAVISON [id number]
--- NOTE | 2021-02-01 18:39 | XRR_ITS ---
PROCEDURE INFORMATION: Exam: XR Chest Exam date and time: 02/01/2021 6:39 PM Age: 56 years old Clinical indication: Cough and shortness of breath; Smoker's cough; Additional info: SOB TECHNIQUE: Imaging protocol: XR of the chest. Views: 1 view. COMPARISON: CR (CHEST, ) 01/21/2021 9:37 PM FINDINGS: Lungs: Lung volumes are large. There is no focal consolidation. Pleural spaces: There is no pleural effusion or pneumothorax. Heart/Mediastinum: Cardiomediastinal contours are unremarkable. Bones/joints: Bones are unremarkable. XR/XR chest 1V portable [id number] IMPRESSION: No acute findings.
[2021-02-01 20:44] LABS: Basophils % 0.4 %; Eosinophils # 0.1 10^3/uL (0.0-0.8); Eosinophils % 1.4 %; Hematocrit 39.5 % (42.0-52.0); Hemoglobin 11.9 g/dL (11.7-16.6); Lymphocytes # 1.1 10^3/uL (0.8-4.8); Lymphocytes % 11.5 %; Mean Corpuscular HGB Conc 30.1 g/dL (30.0-36.0); Mean Corpuscular Volume 92.9 fl (80-94); Mean Platelet Volume 11.5 fL (7.4-10.4); Monocytes # 0.9 10^3/uL (0.2-0.9); Monocytes % 8.9 %; Neutrophils # 7.53 10^3/uL (1.8-7.7); Neutrophils % 77.3 %; Nucleated Red Blood Cells % 0 %; Platelet Count 246 10^3/cmm (130-400); Red Blood Count 4.25 10^6/uL (4.1-5.3); White Blood Count 9.8 10^3/uL (4.0-10.0)
[2021-02-01 20:58] LABS: INR 0.97 (0.8-1.2)
[2021-02-01 21:01] LABS: D Dimer 0.69 ug/mIFEU (0-0.59); Troponin(5th) Baseline 11 ng/L (0-15)
--- NOTE | 2021-02-01 21:07 | CTR_ITS ---
PROCEDURE INFORMATION: Exam: CTA Chest With Contrast Exam date and time: 02/01/2021 9:07 PM Age: 56 years old Clinical indication: Shortness of breath; Prior surgery; Surgery type: Heart cath; Additional info: Eval pe TECHNIQUE: Imaging protocol: Computed tomographic angiography of the chest with contrast. 3D rendering (Not supervised by radiologist): MIP and/or 3D reconstructed images were created by the technologist. Radiation optimization: All CT scans at this facility use at least one of these dose optimization techniques: automated exposure control; mA and/or kV adjustment per patient size (includes targeted exams where dose is matched to clinical indication); or iterative reconstruction. Contrast material: OMNI 350; Contrast volume: 95 ml; Contrast route: INTRAVENOUS (IV); COMPARISON: CT angio chest PE protcl [id number] 02/28/2019 2:06 AM RADIATION DOSE METRICS: Total DLP (mGy-cm): 591.06 FINDINGS: Pulmonary arteries: The pulmonary arteries are adequately opacified for evaluation to the subsegmental level. There is no filling defect to suggest embolism. Aorta: There is mild aortic atherosclerotic disease. Lungs: There is severe upper lung predominant centrilobular emphysema. There is minimal bronchial wall thickening in the lower lobes. There is no focal consolidation. There are scattered tiny subpleural nodules in the left lower lobe and lingula with branching morphology. Pleural spaces: Unremarkable. No pneumothorax. No pleural effusion. Heart: Heart size is normal. There is no pericardial effusion. There is moderate coronary artery calcification. Lymph nodes: There is no mediastinal or hilar lymphadenopathy. Intraperitoneal space: Visible structures in the upper abdomen are unremarkable. Bones/joints: There is moderate degenerative disease at the left shoulder. Soft tissues: The extrathoracic soft tissues are unremarkable. CT/CT angio chest PE protcl [id number] IMPRESSION: 1. No pulmonary embolism. 2. Tiny branching nodules in the left lower lobe and lingula suggests a low-grade inflammatory process. 3. Severe centrilobular emphysema.
[2021-02-01 21:10] LABS: NT Pro B Type Natriuretic Pept 15 pg/mL (0-125)
[2021-02-01 21:18] LABS: SARS Covid-2 Antigen Negative (Negative)
[2021-02-01] MEDS: iohexol 350 mg/mL 100 mL Btl IV (21:24)
--- NOTE | 2021-02-01 22:06 | ED_ITS ---
HPI - General Adult General: Chief complaint: Shortness of Breath/Dyspnea Stated complaint: SOB Time Seen by Provider: 02/01/21 20:19 History of Present Illness: HPI narrative: Patient is a 56-year-old male with history of significant emphysema on 5L of home O2 presenting to the emergency room with worsening wheezing x1 month. Patient says that even since his discharge from hospital 2 weeks ago he has been feeling worsening shortness of breath. Patient uses albuterol at home without any relief of symptoms. Patient presents emergency room for dyspnea. Patient denies any fever/chills, nausea/vomiting, chest pain, abdominal complaints, diarrhea, melena or hematochezia. Denies any increased use of oxygen but reports wheezing symptoms. Onset: 1 month ago Duration:ongoing Location:home Severity:moderate Review of Systems Narrative: Constitutional: No fever, no chills. HEENT: No vision changes CV: No chest pain, no palpitations PULM: no cough, +dyspnea. +wheezing GI: No abdominal pain, no N/V/D. : No dysuria MSKEL: No muscle pain SKIN: No new rashes, no lesions. NEURO: No headache, no focal weakness. HEME: No visible bruises PSYCH: Normal mood PFSH ED PFSH: Medical History Anxiety Chronic anticoagulation Chronic back pain COPD (chronic obstructive pulmonary disease) Depression Dyslipidemia End stage COPD GERD (gastroesophageal reflux disease) Hypertension Major depressive disorder, single episode, in full remission Normal colonoscopy Overdose of analgesic Oxygen dependent Panic disorder [episodic paroxysmal anxiety] Pulmonary embolism Pulmonary hypertension Respiratory failure Surgical History H/O cardiac catheterization Family History Other CAD (coronary artery disease) Diabetes Social History Smoking and tobacco status: former smoker Alcohol intake: never Adopted: No Household members: family Physical Exam Narrative: EXAM NARRATIVE: Head: Atraumatic Eyes: PERRL, conjunctiva without injection ENT: Mucous membrane moist NECK: Supple, ROM intact LUNGS: +b/l lung field wheezing, +decreased air movement, no increased work of breathing, speaking full sentences CV: Sinus tachycardia ABDOMEN: Soft, nontender in all quadrants EXTREMITY: Normal ROM SKIN: No rash or erythema NEURO: Awake and alert, no focal motor deficits PSYCH: Normal mood and affect Course Vital Signs: Vital signs: Vital Signs Temperature 97.7 F 02/01/21 18:26 Pulse Rate 124 H 02/01/21 18:26 Respiratory Rate 22 H 02/01/21 18:26 Blood Pressure 99/65 02/01/21 18:26 Pulse Oximetry 96 02/01/21 18:26 MDM - General Adult MDM Narrative: Medical decision making narrative: Patient is a 56-year-old male with history of COPD and significant emphysema on 5 L home oxygen presents emergency room for worsening wheezing x1 month. On exam, patient is noted is noted to be mildly tachycardic. Patient is a 5L cannula with O2 sats greater than 95%. Physical exam is consistent with wheezing bilaterally. No increased work of breathing requiring BiPAP at this time. Received DuoNeb x3, magnesium, terbutaline in the emergency room with significant symptom improvement. XR and CTA consistent with emphysema Case was signed out to Dr. Espinoza pending reassessment. Lab Data: Labs: Lab Results 02/01/21 02/01/21 02/01/21 20:36 20:36 20:36 WBC 9.8 10^3/uL 10^3/ uL (4.0-10.0) RBC 4.25 10^6/uL 10^6 /uL (4.1-5.3) Hgb 11.9 g/dL g/dL (11.7-16.6) Hct 39.5 % L % (42.0-52.0) MCV 92.9 fl fl (80-94) MCH 28.0 pg pg (28.0-34.0) MCHC 30.1 g/dL g/dL (30.0-36.0) RDW 13.0 % % (12.1-15.1) Plt Count 246 10^3/cmm 10^3 /cmm (130-400) MPV 11.5 fL H fL (7.4-10.4) Neut % (Auto) 77.3 % % Lymph % (Auto) 11.5 % % [place] % (Auto) 8.9 % % Eos % (Auto) 1.4 % % Baso % (Auto) 0.4 % % Neut # (Auto) 7.53 10^3/uL 10^3 /uL (1.8-7.7) Lymph # (Auto) 1.1 10^3/uL 10^3/ uL (0.8-4.8) [place] # (Auto) 0.9 10^3/uL 10^3/ uL (0.2-0.9) Eos # (Auto) 0.1 10^3/uL 10^3/ uL (0.0-0.8) Baso # (Auto) 0.0 10^3/uL 10^3/ uL (0.0-0.1) Nucleated RBC % (a uto) 0 % % Nucleated RBCs # 0.0 /100WBC /100W BC PT 13.20 SECONDS SEC ONDS (12.1-14.9) INR 0.97 (0.8-1.2) D-Dimer 0.69 ug/mIFEU H u g/mIFEU (0-0.59) Troponin T Baselin e 11 ng/L ng/L (0-15) Troponin T 120 Min [place] Troponin T NT-Pro-B Natriuret Pep SARS-CoV-2 Ag (Rap id) 02/01/21 02/01/21 02/01/21 20:36 20:45 22:25 WBC RBC Hgb Hct MCV MCH MCHC RDW Plt Count MPV Neut % (Auto) Lymph % (Auto) [place] % (Auto) Eos % (Auto) Baso % (Auto) Neut # (Auto) Lymph # (Auto) [place] # (Auto) Eos # (Auto) Baso # (Auto) Nucleated RBC % (a uto) Nucleated RBCs # PT INR D-Dimer Troponin T Baselin e Troponin T 120 Min [place] 9.08 ng/L ng/L (0-15) Delta Troponin T -1.92 ABS# L ABS# (0-10) NT-Pro-B Natriuret Pep 15 pg/mL pg/mL (0-125) SARS-CoV-2 Ag (Rap id) Negative (Negative) Imaging Data^: Other Imaging: Radiologist's impression: [address] [id number] Scan ReportSigned Patient: Shamar Negron JrUnit #: [id number]: 01/11Acct#:[id number]/Sex: 56 / MADM Date: 02/01/21Loc: ERRoom/Bed:Attending Dr: Ordering Provider/Ordering MD: Quinn Gilliland MD Date of Service: 02/01/21 Procedure(s): CT angio chest PE protcl [id number] Accession Number(s): [id number] Report Number: [id number] PROCEDURE INFORMATION: Exam: CTA Chest With Contrast Exam date and time: 02/01/2021 9:07 PM Age: 56 years old Clinical indication: Shortness of breath; Prior surgery; Surgery type: Heart cath; Additional info: Eval pe TECHNIQUE: Imaging protocol: Computed tomographic angiography of the chest with contrast. 3D rendering (Not supervised by radiologist): MIP and/or 3D reconstructed images were created by the technologist. Radiation optimization: All CT scans at this facility use at least one of these dose optimization techniques: automated exposure control; mA and/or kV adjustment per patient size (includes targeted exams where dose is matched to clinical indication); or iterative reconstruction. Contrast material: OMNI 350; Contrast volume: 95 ml; Contrast route: INTRAVENOUS (IV); COMPARISON: CT angio chest PE protcl [id number] 02/28/2019 2:06 AM RADIATION DOSE METRICS: Total DLP (mGy-cm): 591.06 FINDINGS: Pulmonary arteries: The pulmonary arteries are adequately opacified for evaluation to the subsegmental level. There is no filling defect to suggest embolism. Aorta: There is mild aortic atherosclerotic disease. Lungs: There is severe upper lung predominant centrilobular emphysema. There is minimal bronchial wall thickening in the lower lobes. There is no focal consolidation. There are scattered tiny subpleural nodules in the left lower lobe and lingula with branching morphology. Pleural spaces: Unremarkable. No pneumothorax. No pleural effusion. Heart: Heart size is normal. There is no pericardial effusion. There is moderate coronary artery calcification. Lymph nodes: There is no mediastinal or hilar lymphadenopathy. Intraperitoneal space: Visible structures in the upper abdomen are unremarkable. Bones/joints: There is moderate degenerative disease at the left shoulder. Soft tissues: The extrathoracic soft tissues are unremarkable. CT/CT angio chest PE protcl [id number] IMPRESSION: 1. No pulmonary embolism. 2. Tiny branching nodules in the left lower lobe and lingula suggests a low-grade inflammatory process. 3. Severe centrilobular emphysema. Dictated By:King Rosarioigned By:King Rosario Date/Time:02/01/21 2142DD/ [address] [id number] ReportSigned Patient: Shamar Negron JrUnit #: [id number]: 1965Acct#:[id number]/Sex: 56 / MADM Date: 02/01/21Loc: ERRoom/Bed:Attending Dr: Ordering Provider/Ordering MD: Mike Espinoza MD Date of Service: 02/01/21 Procedure(s): XR chest 1V portable [id number] Accession Number(s): [id number] Report Number: [id number] PROCEDURE INFORMATION: Exam: XR Chest Exam date and time: 02/01/2021 6:39 PM Age: 56 years old Clinical indication: Cough and shortness of breath; Smoker's cough; Additional info: SOB TECHNIQUE: Imaging protocol: XR of the chest. Views: 1 view. COMPARISON: CR (CHEST, ) 01/21/2021 9:37 PM FINDINGS: Lungs: Lung volumes are large. There is no focal consolidation. Pleural spaces: There is no pleural effusion or pneumothorax. Heart/Mediastinum: Cardiomediastinal contours are unremarkable. Bones/joints: Bones are unremarkable. XR/XR chest 1V portable [id number] IMPRESSION: No acute findings. Dictated By:King Rosarioigned By:King Rosario Date/Time:02/01/21 2041DD/ 1839 Discharge Plan Discharge Prescriptions: No Action Wellbutrin XL 150 mg tablet extended release 24 hr 150 mg PO QAM 30 Days Qty: 30 RF: 2 clonazepam [Klonopin] 1 mg tablet 1 mg PO TID Qty: 90 RF: 2 Pristiq 50 mg tablet extended release 24 hr 50 mg PO DAILY Qty: 30 RF: 2 Spiriva with HandiHaler 18 mcg capsule, w/inhalation device 1 cap INHALATION DAILY 90 Days Qty: 90 RF: 3 fluticasone propion-salmeterol [Advair Diskus] 250-50 mcg/dose blister with device 1 inh INHALATION BID Qty: 60 RF: 3 multivitamin [Multiple Vitamins] Tablet 1 tab PO DAILY RF: 0 cetirizine [Zyrtec] 10 mg Tablet 10 mg PO BEDTIME RF: 0 omeprazole 40 mg Capsule,Delayed Release(Dr/Ec) 40 mg PO BID RF: 0 meloxicam [Mobic] 7.5 mg Tablet 7.5 mg PO DAILY RF: 0 Tums 2 wafer PO Q1H PRN (Reason: Acid Reflux) RF: 0 hydrocodone-acetaminophen 5-325 mg tablet 1 tab PO BID PRN (Reason: pain) RF: 0 diltiazem HCl [DILT-XR] 120 mg Capsule,Ext.Rel 24h Degradable 120 mg PO DAILY RF: 0 metoprolol tartrate 25 mg Tablet 12.5 mg PO BID RF: 0 Daliresp 500 mcg Tablet 500 mcg PO DAILY RF: 0 Tessalon Perles 100 mg capsule 100 mg PO TID PRN (Reason: Cough) 30 Days Qty: 90 RF: 1 ProAir HFA 90 mcg/actuation Hfa Aerosol Inhaler 2 puff INHALATION QID PRN (Reason: Shortness Of Breath) 30 Days Qty: 1 RF: 0 prednisone 50 mg tablet 50 mg PO DAILY Qty: 5 RF: 0 albuterol sulfate 90 mcg/actuation HFA aerosol inhaler See Rx Instructions .ROUTE .COMPLEX Qty: 8.5 RF: 0 Coding Level of Care Code 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
[2021-02-01] MEDS: magnesium sulfate premix 2 GM/50 ML PIGGYBACK IV (22:11)
[2021-02-01] MEDS: terbutaline 1 mg/mL INJ 0.5 MG SUBCUT (22:11)
[2021-02-01] MEDS: ipratropium-albuterol 3 mL Neb INHALATION ×3 (22:17→22:18)
[2021-02-01 22:50] LABS: Troponin 5 2HR 9.08 ng/L (0-15)
[2021-02-01 22:51] LABS: Troponin 5 2HR Delta -1.92 ABS# (0-10)
[2021-02-01 23:35] VITALS: BP 97/52; PULSE 104; RESP 18; O2SAT 96
[2021-02-02 15:13] LABS: Coronavirus Test Green County Not Detected
== END 2021-02-01 23:36 | disposition home or self-care (01) ==
PROVIDERS: Emergency Medicine; Emergency Provider Emergency Medicine; PCP Family Medicine
DX: R06.2 Wheezing (principal); J44.9 Chronic obstructive pulmonary disease, unspecified; E78.5 Hyperlipidemia, unspecified; I10 Essential (primary) hypertension; Z99.81 Dependence on supplemental oxygen; Z86.711 Personal history of pulmonary embolism; Z87.891 Personal history of nicotine dependence; Z20.822 Contact with and (suspected) exposure to COVID-19
CPT/HCPCS: 36415; 71045; 71275; 83880; 84484; 85025; 85378; 85610; 87426; 87635; 93005; 94640; 96365; 96372; 96375; 99284; J2930; J3105; J3475; Q9967

== ENCOUNTER 2021-03-04 13:48 | Emergency (ER) | payer MEDICAID, SELFPAY ==
[2021-03-04 13:57] VITALS: BP 117/78; PULSE 103; RESP 16; TEMP 36.7; O2SAT 100; BMI 17.6
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
[2021-03-04 15:45] LABS: Basophils % 0.7 %; Eosinophils # 0.2 10^3/uL (0.0-0.8); Hematocrit 35.1 % (42.0-52.0); Lymphocytes # 1.1 10^3/uL (0.8-4.8); Lymphocytes % 18.1 %; Mean Corpuscular HGB Conc 31.3 g/dL (30.0-36.0); Mean Corpuscular Hemoglobin 28.8 pg (28.0-34.0); Mean Corpuscular Volume 91.9 fl (80-94); Mean Platelet Volume 11.2 fL (7.4-10.4); Monocytes # 0.5 10^3/uL (0.2-0.9); Monocytes % 8.5 %; Neutrophils % 68.9 %; Nucleated Red Blood Cells % 0 %; Platelet Count 259 10^3/cmm (130-400); Red Blood Count 3.82 10^6/uL (4.1-5.3); Red Cell Distribution Width 13.2 % (12.1-15.1); White Blood Count 6.1 10^3/uL (4.0-10.0)
[2021-03-04 15:56] LABS: Alanine Aminotransferase < 5 U/L (0-41); Albumin Level 3.6 g/dL (3.5-5.2); Alkaline Phosphatase 67 IU/L (40-130); Anion Gap 10.6 (5-19); Aspartate Amino Transferase 12 U/L (0-40); Blood Urea Nitrogen 6 mg/dL (6-20); Calcium 8.4 mg/dL (8.5-10.5); Carbon Dioxide 33 mmol/L (22-29); Chloride 100 mmol/L (98-107); Globulin 1.9 g/dL (1.3-4.6); Glucose 96 mg/dL (65-115); Osmolality Calculated 287 mOsm/kg (285-295); Potassium 3.6 mmol/L (3.5-5.1); Sodium 140 mmol/L (136-145); Total Bilirubin 0.2 mg/dL (0.15-1.2); Total Protein 5.5 g/dL (6.6-8.7)
[2021-03-04] MEDS: iohexol 300 mg/mL 100 mL Btl IV (17:24)
--- NOTE | 2021-03-04 17:43 | XRR_ITS ---
PROCEDURE INFORMATION: Exam: XR Left Ribs Exam date and time: 03/04/2021 5:43 PM Age: 56 years old Clinical indication: Pain; Other: Ribs; Additional info: Rib pain TECHNIQUE: Imaging protocol: XR Left ribs. Views: 2 views. COMPARISON: CR (CHEST, ) 02/01/2021 7:58 PM FINDINGS: Bones/joints: Normal. Soft tissues: Normal. XR/XR ribs LT 2V* [id number] IMPRESSION: No acute findings.
[2021-03-04 18:28] VITALS: BP 120/79; PULSE 100; RESP 16; TEMP 36.7; O2SAT 100
== END 2021-03-04 18:42 | disposition home or self-care (01) ==
PROVIDERS: Emergency Provider Family Medicine; PCP Family Medicine
DX: Z04.1 Encounter for examination and observation following transport accident (principal); R07.81 Pleurodynia; J44.9 Chronic obstructive pulmonary disease, unspecified; E78.5 Hyperlipidemia, unspecified; Z86.711 Personal history of pulmonary embolism; I10 Essential (primary) hypertension; Z99.81 Dependence on supplemental oxygen; F17.210 Nicotine dependence, cigarettes, uncomplicated; V89.2XXA Person injured in unspecified motor-vehicle accident, traffic, initial encounter
CPT/HCPCS: 70450; 71045; 71100; 72040; 74177; 80053; 85025; 99283; Q9967

== ENCOUNTER 2021-08-15 22:42 | Emergency (ER) | payer MEDICAID, SELFPAY ==
[2021-08-15 22:57] VITALS: BP 126/70; PULSE 91; RESP 20; TEMP 36.8; O2SAT 100
[2021-08-16 00:09] LABS: Basophils # 0.1 10^3/uL (0.0-0.1); Basophils % 0.8 %; Eosinophils # 0.2 10^3/uL (0.0-0.8); Eosinophils % 2.7 %; Hemoglobin 12.6 g/dL (11.7-16.6); Lymphocytes # 1.5 10^3/uL (0.8-4.8); Lymphocytes % 19.9 %; Mean Corpuscular HGB Conc 32.3 g/dL (30.0-36.0); Mean Corpuscular Hemoglobin 29.4 pg (28.0-34.0); Mean Corpuscular Volume 90.9 fl (80-94); Mean Platelet Volume 11.9 fL (7.4-10.4); Monocytes # 0.5 10^3/uL (0.2-0.9); Monocytes % 7.3 %; Neutrophils # 5.13 10^3/uL (1.8-7.7); Neutrophils % 68.9 %; Nucleated Red Blood Cells % 0 %; Platelet Count 234 10^3/cmm (130-400); Red Blood Count 4.29 10^6/uL (4.1-5.3); Red Cell Distribution Width 12.2 % (12.1-15.1); White Blood Count 7.4 10^3/uL (4.0-10.0)
[2021-08-16 00:22] LABS: INR 0.94 (0.8-1.2)
[2021-08-16 00:29] LABS: Troponin(5th) Baseline 9 ng/L (0-15)
[2021-08-16 00:31] LABS: Alanine Aminotransferase 8 U/L (0-41); Albumin Level 4.6 g/dL (3.5-5.2); Alkaline Phosphatase 89 IU/L (40-130); Anion Gap 9.1 (5-19); Aspartate Amino Transferase 13 U/L (0-40); Blood Urea Nitrogen 12 mg/dL (6-20); Calcium 9.3 mg/dL (8.5-10.5); Carbon Dioxide 38 mmol/L (22-29); Chloride 99 mmol/L (98-107); Glomerular Filtration Rate 139.4 mL/min (90-130); Glucose 94 mg/dL (65-115); Osmolality Calculated 292 mOsm/kg (285-295); Potassium 5.1 mmol/L (3.5-5.1); Sodium 141 mmol/L (136-145); Total Bilirubin 0.2 mg/dL (0.15-1.2); Total Protein 6.6 g/dL (6.6-8.7)
[2021-08-16 00:37] LABS: NT Pro B Type Natriuretic Pept 29 pg/mL (0-125)
--- NOTE | 2021-10-08 09:59 | ED_ITS ---
HPI - SOB/Dyspnea General: Chief Complaint: Shortness of Breath/Dyspnea Stated Complaint: gen weakness Time Seen by Provider: 08/16/21 00:23 History of Present Illness: HPI Narrative: . PFSH ED PFSH: Medical History Anxiety Chronic anticoagulation Chronic back pain COPD (chronic obstructive pulmonary disease) Depression Dyslipidemia End stage COPD GERD (gastroesophageal reflux disease) History of pulmonary embolism Hypertension Major depressive disorder, single episode, in full remission Normal colonoscopy Overdose of analgesic Oxygen dependent Panic disorder [episodic paroxysmal anxiety] Pulmonary embolism Pulmonary hypertension Respiratory failure Surgical History H/O cardiac catheterization Family History Other CAD (coronary artery disease) Diabetes Social History Smoking and tobacco status: current every day smoker Alcohol intake: never Adopted: No Household members: family Course Vital Signs: Vital signs: Vital Signs Temperature 98.3 F 08/15/21 22:57 Pulse Rate 91 08/15/21 22:57 Respiratory Rate 20 H 08/15/21 22:57 Blood Pressure 126/70 08/15/21 22:57 Pulse Oximetry 100 08/15/21 22:57 Oxygen Delivery Me thod 08/15/21 22:57 Oxygen Flow Rate 4 08/15/21 22:57 MDM - SOB/Dyspnea Medical Decision Making I never seen patient as patient left that being seen he was assigned to me I never actually had seen him. Lab Data : 08/16/21 00:07 08/16/21 00:07 Labs/Radiology: Laboratory Results WBC 7.4 10^3/uL (4.0-10.0) 08/16/21 00:07 RBC 4.29 10^6/uL (4.1-5.3) 08/16/21 00:07 Hgb 12.6 g/dL (11.7-16.6) 08/16/21 00:07 Hct 39.0 % (42.0-52.0) L 08/16/21 00:07 MCV 90.9 fl (80-94) 08/16/21 00:07 MCH 29.4 pg (28.0-34.0) 08/16/21 00:07 MCHC 32.3 g/dL (30.0-36.0) 08/16/21 00:07 RDW 12.2 % (12.1-15.1) 08/16/21 00:07 Plt Count 234 10^3/cmm (130-400) 08/16/21 00:07 MPV 11.9 fL (7.4-10.4) H 08/16/21 00:07 Neut % (Auto) 68.9 % 08/16/21 00:07 Lymph % (Auto) 19.9 % 08/16/21 00:07 [place] % (Auto) 7.3 % 08/16/21 00:07 Eos % (Auto) 2.7 % 08/16/21 00:07 Baso % (Auto) 0.8 % 08/16/21 00:07 Neut # (Auto) 5.13 10^3/uL (1.8-7.7) 08/16/21 00:07 Lymph # (Auto) 1.5 10^3/uL (0.8-4.8) 08/16/21 00:07 [place] # (Auto) 0.5 10^3/uL (0.2-0.9) 08/16/21 00:07 Eos # (Auto) 0.2 10^3/uL (0.0-0.8) 08/16/21 00:07 Baso # (Auto) 0.1 10^3/uL (0.0-0.1) 08/16/21 00:07 Nucleated RBC % (auto) 0 % 08/16/21 00:07 Nucleated RBCs # 0.0 /100WBC 08/16/21 00:07 PT 12.90 SECONDS (12.1-14.9) 08/16/21 00:07 INR 0.94 (0.8-1.2) 08/16/21 00:07 Sodium 141 mmol/L (136-145) 08/16/21 00:07 Potassium 5.1 mmol/L (3.5-5.1) 08/16/21 00:07 Chloride 99 mmol/L (98-107) 08/16/21 00:07 Carbon Dioxide 38 mmol/L (22-29) H 08/16/21 00:07 Anion Gap 9.1 (5-19) 08/16/21 00:07 BUN 12 mg/dL (6-20) 08/16/21 00:07 Creatinine 0.6 mg/dL (0.7-1.2) L 08/16/21 00:07 GFR Calculation 139.4 mL/min (90-130) H 08/16/21 00:07 Glucose 94 mg/dL (65-115) 08/16/21 00:07 Calculated Osmolality 292 mOsm/kg (285-295) 08/16/21 00:07 Calcium 9.3 mg/dL (8.5-10.5) 08/16/21 00:07 Total Bilirubin 0.2 mg/dL (0.15-1.2) 08/16/21 00:07 AST 13 U/L (0-40) 08/16/21 00:07 ALT 8 U/L (0-41) 08/16/21 00:07 Alkaline Phosphatase 89 IU/L (40-130) 08/16/21 00:07 Troponin T Baseline 9 ng/L (0-15) 08/16/21 00:07 NT-Pro-B Natriuret Pep 29 pg/mL (0-125) 08/16/21 00:07 Total Protein 6.6 g/dL (6.6-8.7) 08/16/21 00:07 Albumin 4.6 g/dL (3.5-5.2) 08/16/21 00:07 Globulin 2.0 g/dL (1.3-4.6) 08/16/21 00:07 Discharge Plan Discharge Patient Disposition: Left Without Being Seen Coding Level of Care Code ED 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
== END 2021-08-16 00:42 | disposition left against medical advice (07) ==
PROVIDERS: Emergency Provider Emergency Medicine; PCP Family Medicine
DX: Z53.21 Procedure and treatment not carried out due to patient leaving prior to being seen by health care provider (principal)
CPT/HCPCS: 36415; 80053; 83880; 84484; 85025; 85610

== ENCOUNTER 2021-08-25 23:46 | Emergency (ER) | payer MEDICAID, SELFPAY ==
[2021-08-25 23:47] VITALS: BP 148/98; PULSE 108; RESP 18; TEMP 37; O2SAT 98; BMI 16.5
--- NOTE | 2021-08-25 23:52 | ED_ITS ---
HPI - Headache General: Chief Complaint: Headache Stated Complaint: HEADACHE Time Seen by Provider: 08/25/21 23:52 History of Present Illness: 56-year-old male patient comes in today with headache. Patient reports that the headaches been on and off for the last 5 days. Patient reports he does take hydrocodone and will resolve the headache. Patient does not use it that often. Patient is alert and oriented. Patient has end-stage COPD. Patient does continue to smoke tobacco, drink alcohol occasional, and may have a toke from the joint at times. Patient appears nontoxic. Patient asked more depressed than pain. Patient does have a history of major depression and panic disorder. Associated symptoms: Deny fever(s) Review of Systems Const: Denies: fever(s) Neuro: Denies: headache(s) PFSH ED PFSH: Medical History Anxiety Chronic anticoagulation Chronic back pain COPD (chronic obstructive pulmonary disease) Depression Dyslipidemia End stage COPD GERD (gastroesophageal reflux disease) History of pulmonary embolism Hypertension Major depressive disorder, single episode, in full remission Normal colonoscopy Overdose of analgesic Oxygen dependent Panic disorder [episodic paroxysmal anxiety] Pulmonary embolism Pulmonary hypertension Respiratory failure Surgical History H/O cardiac catheterization Family History Other CAD (coronary artery disease) Diabetes Social History Smoking and tobacco status: current every day smoker Alcohol intake: never Adopted: No Household members: family Physical Exam Const: COMMON NORMALS: alert HENMT: HEAD & SCALP: normal to inspection Neck/C-Spine: COMMON NORMALS: full ROM Resp: COMMON NORMALS: normal respiratory effort AUSCULTATION: diminished lung sounds Cardio: COMMON NORMALS: regular rhythm RATE: tachycardic RHYTHM: regular rhythm Extremity: COMMON NORMALS: normal to inspection Neuro: SCAR COMA SCALE: document GCS findings Scar coma scale eye opening: Spontaneous Dequincy coma scale verbal response: Orientated Scar coma scale motor response: Obey commands Scar coma scale total score: 15 SENSORIUM/ORIENTATION: Yes alert Skin: COMMON NORMALS: no rashes or lesions noted GENERAL SKIN EXAM: no rashes or lesions noted Course Vital Signs: Vital signs: Vital Signs Temperature 98.6 F 08/25/21 23:47 Pulse Rate 97 08/26/21 01:44 Respiratory Rate 18 08/26/21 01:44 Blood Pressure 120/89 08/26/21 01:44 Pulse Oximetry 98 08/26/21 01:44 MDM - Headache Medical Decision Making Patient came in tonight for concerns of headache and increased confusion. Patient reports for the last week he is just felt off. On exam patient is alert oriented. Patient responds appropriate to questions. Lungs are decreased throughout. Patient is on chronic oxygen. Vital signs are stable. Differential diagnosis includes but not limited to adverse drug effect, hypercapnia, intracranial bleeding. CT of the head was normal. CBC and CMP were unremarkable. Patient's carbon dioxide level and his venous blood was stable. Patient is on several medications that may increase his confusion including hydrocodone, clonazepam, cetirizine. Suspect some of these medications may be increasing his confusion and he may even be having rebound headaches. I also believe patient probably has some depression he has a 12-year-old son at home which I think he is extremely concerned that he will not be able to watch him grow up. Patient did admit to this. Recommend patient discontinue with his medication be aware that clonazepam and hydrocodone together may increase confusion. Follow-up with primary care. Return to ER for worsening symptoms or new concerns. Lab Data : 08/26/21 00:05 08/26/21 00:[address] 08/26/21 00:00 IMPRESSION: Negative CT head. No acute intracranial abnormality. Laboratory Results WBC 12.8 10^3/uL (4.0-10.0) H 08/26/21 00:05 RBC 4.54 10^6/uL (4.1-5.3) 08/26/21 00:05 Hgb 13.3 g/dL (11.7-16.6) 08/26/21 00:05 Hct 41.3 % (42.0-52.0) L 08/26/21 00:05 MCV 91.0 fl (80-94) 08/26/21 00:05 MCH 29.3 pg (28.0-34.0) 08/26/21 00:05 MCHC 32.2 g/dL (30.0-36.0) 08/26/21 00:05 RDW 12.2 % (12.1-15.1) 08/26/21 00:05 Plt Count 311 10^3/cmm (130-400) 08/26/21 00:05 MPV 12.4 fL (7.4-10.4) H 08/26/21 00:05 Neut % (Auto) 76.0 % 08/26/21 00:05 Lymph % (Auto) 14.8 % 08/26/21 00:05 [place] % (Auto) 7.5 % 08/26/21 00:05 Eos % (Auto) 0.9 % 08/26/21 00:05 Baso % (Auto) 0.5 % 08/26/21 00:05 Neut # (Auto) 9.69 10^3/uL (1.8-7.7) H 08/26/21 00:05 Lymph # (Auto) 1.9 10^3/uL (0.8-4.8) 08/26/21 00:05 [place] # (Auto) 1.0 10^3/uL (0.2-0.9) H 08/26/21 00:05 Eos # (Auto) 0.1 10^3/uL (0.0-0.8) 08/26/21 00:05 Baso # (Auto) 0.1 10^3/uL (0.0-0.1) 08/26/21 00:05 Nucleated RBC % (auto) 0 % 08/26/21 00:05 Nucleated RBCs # 0.0 /100WBC 08/26/21 00:05 Sodium 139 mmol/L (136-145) 08/26/21 00:05 Potassium 4.1 mmol/L (3.5-5.1) 08/26/21 00:05 Chloride 97 mmol/L (98-107) L 08/26/21 00:05 Carbon Dioxide 31 mmol/L (22-29) H 08/26/21 00:05 Anion Gap 15.1 (5-19) 08/26/21 00:05 BUN 10 mg/dL (6-20) 08/26/21 00:05 Creatinine 0.7 mg/dL (0.7-1.2) 08/26/21 00:05 GFR Calculation 116.7 mL/min (90-130) 08/26/21 00:05 Glucose 101 mg/dL (65-115) 08/26/21 00:05 Calculated Osmolality 287 mOsm/kg (285-295) 08/26/21 00:05 Calcium 9.8 mg/dL (8.5-10.5) 08/26/21 00:05 Total Bilirubin 0.4 mg/dL (0.15-1.2) 08/26/21 00:05 AST 20 U/L (0-40) 08/26/21 00:05 ALT 12 U/L (0-41) 08/26/21 00:05 Alkaline Phosphatase 96 IU/L (40-130) 08/26/21 00:05 Total Protein 7.8 g/dL (6.6-8.7) 08/26/21 00:05 Albumin 4.9 g/dL (3.5-5.2) 08/26/21 00:05 Globulin 2.9 g/dL (1.3-4.6) 08/26/21 00:05 Discharge Plan Discharge Patient Disposition: Home Clinical Impression: End stage COPD, Major depressive disorder, recurrent severe without psychotic features Headache Qualifiers: Headache type: unspecified Headache chronicity pattern: episodic headache Intractability: not intractable Qualified Code(s): R51.9 - Headache, unspecified Condition: Stable Prescriptions: No Action Spiriva with HandiHaler 18 mcg capsule, w/inhalation device 1 cap INHALATION DAILY 90 Days Qty: 90 3RF Rx Instructions: run through 340b fluticasone propion-salmeterol [Advair Diskus] 250-50 mcg/dose blister with device 1 inh INHALATION BID Qty: 60 3RF bupropion HCl [Wellbutrin XL] 150 mg tablet extended release 24 hr 150 mg PO QAM 30 Days Qty: 30 2RF clonazepam [Klonopin] 1 mg tablet 1 mg PO TID Qty: 90 2RF desvenlafaxine succinate [Pristiq] 50 mg tablet extended release 24 hr 50 mg PO DAILY Qty: 30 2RF multivitamin [Multiple Vitamins] Tablet 1 tab PO DAILY 0RF Rx Instructions: PT STATES HE TAKES THIS MEDICATION cetirizine [Zyrtec] 10 mg Tablet 10 mg PO BEDTIME 0RF omeprazole 40 mg Capsule,Delayed Release(Dr/Ec) 40 mg PO BID 0RF meloxicam [Mobic] 7.5 mg Tablet 7.5 mg PO DAILY 0RF Rx Instructions: PTS GIRLFRIEND STATES THE PT TAKES THIS MEDICATION Tums 2 wafer PO Q1H PRN (Reason: Acid Reflux) 0RF Rx Instructions: PRN hydrocodone-acetaminophen 5-325 mg tablet 1 tab PO BID PRN (Reason: pain) 0RF Rx Instructions: PT STATES HE DOESNT TAKE THIS MEDICATION OFTEN diltiazem HCl [DILT-XR] 120 mg Capsule,Ext.Rel 24h Degradable 120 mg PO DAILY 0RF metoprolol tartrate 25 mg Tablet 12.5 mg PO BID 0RF Daliresp 500 mcg Tablet 500 mcg PO DAILY 0RF Tessalon Perles 100 mg capsule 100 mg PO TID PRN (Reason: Cough) 30 Days Qty: 90 1RF ProAir HFA 90 mcg/actuation Hfa Aerosol Inhaler 2 puff INHALATION QID PRN (Reason: Shortness Of Breath) 30 Days Qty: 1 0RF prednisone 50 mg tablet 50 mg PO DAILY Qty: 5 0RF albuterol sulfate 90 mcg/actuation HFA aerosol inhaler See Rx Instructions .ROUTE .COMPLEX Qty: 8.5 0RF Rx Instructions: 2 puffs every 4 hrs for 24 hrs then 2 puffs every 6 hrs for 24 hrs then 2 puffs every 8 hrs for 24 hrs prednisone 50 mg tablet 50 mg PO DAILY Qty: 5 0RF Discharge Orders: Discharge ED (Routine); Ordered 08/26/21 Ordered By: Ace Bueno Referrals: Sahhzad Ybarra [Primary Care Provider] - Discharge Diet: Usual diet Discharge Activity: Increase activity as tolerated Activity Restrictions/Additional Instructions: Continue routine care. Follow-up with primary care as needed. Return to ER for worsening symptoms. 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
--- NOTE | 2021-08-26 | CTR_ITS ---
PROCEDURE INFORMATION: Exam: CT Head Without Contrast Exam date and time: 08/26/2021 12:25 AM Age: 56 years old Clinical indication: Pain; Headache not specified; Additional info: Head ache TECHNIQUE: Imaging protocol: Computed tomography of the head without contrast. Radiation optimization: All CT scans at this facility use at least one of these dose optimization techniques: automated exposure control; mA and/or kV adjustment per patient size (includes targeted exams where dose is matched to clinical indication); or iterative reconstruction. COMPARISON: CT head wo con* [id number] 03/04/2021 3:43 PM RADIATION DOSE METRICS: Total DLP (mGy-cm): 859.07 FINDINGS: Brain: Normal. No hemorrhage. Unremarkable white matter. No mass effect. Cerebral ventricles: No ventriculomegaly. Paranasal sinuses: Visualized sinuses are unremarkable. No fluid levels. Mastoid air cells: Visualized mastoid air cells are well aerated. Orbital cavities: Prosthesis of the right globe. Bones/joints: Unremarkable. No acute fracture. Soft tissues: Unremarkable. CT/CT head wo con* [id number] IMPRESSION: Negative CT head. No acute intracranial abnormality.
[2021-08-26 00:33] LABS: Basophils # 0.1 10^3/uL (0.0-0.1); Basophils % 0.5 %; Eosinophils # 0.1 10^3/uL (0.0-0.8); Eosinophils % 0.9 %; Hematocrit 41.3 % (42.0-52.0); Hemoglobin 13.3 g/dL (11.7-16.6); Lymphocytes # 1.9 10^3/uL (0.8-4.8); Lymphocytes % 14.8 %; Mean Corpuscular HGB Conc 32.2 g/dL (30.0-36.0); Mean Corpuscular Hemoglobin 29.3 pg (28.0-34.0); Mean Platelet Volume 12.4 fL (7.4-10.4); Monocytes % 7.5 %; Neutrophils # 9.69 10^3/uL (1.8-7.7); Nucleated Red Blood Cells % 0 %; Platelet Count 311 10^3/cmm (130-400); Red Blood Count 4.54 10^6/uL (4.1-5.3); Red Cell Distribution Width 12.2 % (12.1-15.1); White Blood Count 12.8 10^3/uL (4.0-10.0)
[2021-08-26 00:48] LABS: Alanine Aminotransferase 12 U/L (0-41); Albumin Level 4.9 g/dL (3.5-5.2); Alkaline Phosphatase 96 IU/L (40-130); Anion Gap 15.1 (5-19); Aspartate Amino Transferase 20 U/L (0-40); Blood Urea Nitrogen 10 mg/dL (6-20); Calcium 9.8 mg/dL (8.5-10.5); Carbon Dioxide 31 mmol/L (22-29); Chloride 97 mmol/L (98-107); Globulin 2.9 g/dL (1.3-4.6); Glomerular Filtration Rate 116.7 mL/min (90-130); Glucose 101 mg/dL (65-115); Osmolality Calculated 287 mOsm/kg (285-295); Potassium 4.1 mmol/L (3.5-5.1); Sodium 139 mmol/L (136-145); Total Bilirubin 0.4 mg/dL (0.15-1.2); Total Protein 7.8 g/dL (6.6-8.7)
[2021-08-26 01:44] VITALS: BP 120/89; PULSE 97; RESP 18; O2SAT 98
[2021-08-26 02:03] VITALS: PULSE 80; RESP 20; O2SAT 98
== END 2021-08-26 02:51 | disposition home or self-care (01) ==
PROVIDERS: Emergency Provider Nurse Practitioner Family; PCP Family Medicine
DX: R51.9 Headache, unspecified (principal); J44.9 Chronic obstructive pulmonary disease, unspecified; F33.2 Major depressive disorder, recurrent severe without psychotic features; E78.5 Hyperlipidemia, unspecified; I10 Essential (primary) hypertension; Z99.81 Dependence on supplemental oxygen; F17.210 Nicotine dependence, cigarettes, uncomplicated
CPT/HCPCS: 70450; 80053; 85025; 99283

== ENCOUNTER 2021-12-20 19:05 | Emergency (ER) | payer MEDICAID, SELFPAY ==
[2021-12-20] VITALS (9 sets, daily range): BP systolic 110–144; BP diastolic 61–88; PULSE 69–78; RESP 17–20; TEMP 37.1; O2SAT 90–97; BMI 17.8
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
--- NOTE | 2021-12-20 19:34 | W.ED.ABDPA2 ---
HPI - Abdominal Pain General: Chief Complaint: Abdominal Pain Stated Complaint: RUQ abdominal pain Time Seen by Provider: 12/20/21 19:06 Source: patient and EMS Mode of arrival: EMS Limitations: no limitations History of Present Illness: 56-year-old male who has been having chronic abdominal pain he states he is to follow-up with oncology as a return he may have liver cancer she has been having worsening pain today rates a 7 out of 10 in his right upper quadrant he denies any worsening proving factors and no vomiting no diarrhea denies any fevers. Associated Symptoms: Denies chills, dysuria and fever(s) Review of Systems Const: Denies: fever(s), chills, body aches or change in appetite Eyes: Denies: blurry vision or eye discomfort ENMT: Denies: throat pain or dental pain Card: Denies: chest pain Resp: Denies: dyspnea GI: Reports: abdominal pain : Denies: dysuria Musc: Denies: neck pain or back pain Skin/Breast: Denies: rash Neuro: Denies: headache(s) Psych: Denies: depression Ihs/Lymph: Denies: easy bruising All/Imm: Denies: urticaria PFSH ED PFSH: Medical History Anxiety Chronic anticoagulation Chronic back pain COPD (chronic obstructive pulmonary disease) Depression Dyslipidemia End stage COPD GERD (gastroesophageal reflux disease) History of pulmonary embolism Hypertension Major depressive disorder, single episode, in full remission Normal colonoscopy Overdose of analgesic Oxygen dependent Panic disorder [episodic paroxysmal anxiety] Pulmonary embolism Pulmonary hypertension Respiratory failure Surgical History H/O cardiac catheterization Family History Other CAD (coronary artery disease) Diabetes Social History Smoking and tobacco status: current every day smoker Alcohol intake: never Adopted: No Household members: family Physical Exam Const: COMMON NORMALS: no acute distress, patient oriented x3 and healthy appearing HENMT: COMMON NORMALS: normocephalic and atraumatic HEAD & SCALP: normocephalic and atraumatic Eye: COMMON NORMALS: Equal, round and reactive pupils present and EOMs intact bilaterally PUPIL: Yes Equal, round and reactive pupils present Neck/C-Spine: COMMON NORMALS: full ROM and supple Chest: COMMONS NORMALS: normal inspection of the chest and normal palpation of entire chest wall Resp: COMMON NORMALS: normal respiratory effort, No retractions, No use of accessory muscles and clear to auscultation bilaterally AUSCULTATION: clear to auscultation bilaterally Cardio: COMMON NORMALS: regular rate, regular rhythm and No murmurs present (Cardio) RATE: regular rate RHYTHM: regular rhythm GI: COMMON NORMALS: Normal to inspection, nondistended, normoactive bowel sounds present, Soft to palpation and no masses PALPATION: Yes Soft to palpation and Yes Tenderness to palpation present (GI) Details: RUQ Extremity: COMMON NORMALS: normal to inspection and full ROM Neuro: COMMON NORMALS: patient oriented x3, moves all extremities and no focal motor deficits Psych: COMMON NORMALS: mental status grossly normal, Normal thought process present and cooperative THOUGHT PROCESS: Normal thought process present Skin: COMMON NORMALS: no rashes or lesions noted and no wounds GENERAL SKIN EXAM: no rashes or lesions noted Course Vital Signs: Vital signs: Vital Signs Temperature 98.8 F 12/20/21 19:12 Pulse Rate 78 12/20/21 20:14 Respiratory Rate 17 12/20/21 20:14 Blood Pressure 127/76 12/20/21 20:14 Pulse Oximetry 93 12/20/21 20:14 Oxygen Delivery Me thod 12/20/21 19:30 Oxygen Flow Rate 6 12/20/21 20:14 MDM - Abdominal Pain Medical Decision Making Patient presents here with abdominal pain has been chronic in nature CT showed no acute findings he is to follow-up with oncology as scheduled his pain is improved here he is stable for discharge he is return if worsening. Lab Data : 12/20/21 19:51 12/20/21 19:51 Labs/Radiology: Radiology Impressions Abdomen/Pelvis CT 12/20/21 19:33 IMPRESSION: 1. Prominent fluid in the small bowel without dilation may reflect an enteritis in the appropriate clinical setting. 2. 2 cm low-density lesion at the junction of the right and left hepatic lobe similar to prior exam, may again reflect possible metastasis as previously commented on, prior exam suggested correlation with PET-CT. 3. Prostate gland enlarged. 4. Emphysematous changes. 5. Bibasilar atelectasis. 6. Bilateral renal cysts, negative for follow-up advised. COMMENTS: Consistent with the [place] [employer]'s Incidental Findings Committee white paper (J Am Jona Radiol 2018): Any incidental renal lesion less than 1 cm or classified as too small to characterize, or any incidental cystic renal lesion characterized as simple-appearing, is likely benign. No follow-up imaging is recommended for these lesions per consensus recommendations based on imaging criteria. Laboratory Results WBC 7.6 10^3/uL (4.0-10.0) 12/20/21 19:51 RBC 4.16 10^6/uL (4.1-5.3) 12/20/21 19:51 Hgb 12.2 g/dL (11.7-16.6) 12/20/21 19:51 Hct 39.6 % (42.0-52.0) L 12/20/21 19:51 MCV 95.2 fl (80-94) H 12/20/21 19:51 MCH 29.3 pg (28.0-34.0) 12/20/21 19:51 MCHC 30.8 g/dL (30.0-36.0) 12/20/21 19:51 RDW 12.8 % (12.1-15.1) 12/20/21 19:51 Plt Count 217 10^3/cmm (130-400) 12/20/21 19:51 MPV 11.2 fL (7.4-10.4) H 12/20/21 19:51 Neut % (Auto) 73.2 % 12/20/21 19:51 Lymph % (Auto) 15.4 % 12/20/21 19:51 [place] % (Auto) 7.3 % 12/20/21 19:51 Eos % (Auto) 2.9 % 12/20/21 19:51 Baso % (Auto) 0.7 % 12/20/21 19:51 Neut # (Auto) 5.53 10^3/uL (1.8-7.7) 12/20/21 19:51 Lymph # (Auto) 1.2 10^3/uL (0.8-4.8) 12/20/21 19:51 [place] # (Auto) 0.6 10^3/uL (0.2-0.9) 12/20/21 19:51 Eos # (Auto) 0.2 10^3/uL (0.0-0.8) 12/20/21 19:51 Baso # (Auto) 0.1 10^3/uL (0.0-0.1) 12/20/21 19:51 Nucleated RBC % (auto) 0 % 12/20/21 19:51 Nucleated RBCs # 0.0 /100WBC 12/20/21 19:51 Sodium 143 mmol/L (136-145) 12/20/21 19:51 Potassium 4.9 mmol/L (3.5-5.1) 12/20/21 19:51 Chloride 94 mmol/L (98-107) L 12/20/21 19:51 Carbon Dioxide 40 mmol/L (22-29) H 12/20/21 19:51 Anion Gap 13.9 (5-19) 12/20/21 19:51 BUN 18 mg/dL (6-20) 12/20/21 19:51 Creatinine 0.7 mg/dL (0.7-1.2) 12/20/21 19:51 GFR Calculation 116.7 mL/min (90-130) 12/20/21 19:51 Glucose 109 mg/dL (65-115) 12/20/21 19:51 Calculated Osmolality 298 mOsm/kg (285-295) H 12/20/21 19:51 Calcium 9.5 mg/dL (8.5-10.5) 12/20/21 19:51 Total Bilirubin 0.2 mg/dL (0.15-1.2) 12/20/21 19:51 AST 17 U/L (0-40) 12/20/21 19:51 ALT 13 U/L (0-41) 12/20/21 19:51 Alkaline Phosphatase 88 U/L (40-130) 12/20/21 19:51 Total Protein 6.7 g/dL (6.6-8.7) 12/20/21 19:51 Albumin 4.2 g/dL (3.5-5.2) 12/20/21 19:51 Globulin 2.5 g/dL (1.3-4.6) 12/20/21 19:51 Lipase 86 U/L (13-60) H 12/20/21 19:51 Discharge Plan Discharge Patient Disposition: Home Clinical Impression: Abdominal pain Condition: Stable Prescriptions: No Action Spiriva with HandiHaler 18 mcg capsule, w/inhalation device 1 cap INHALATION DAILY 90 Days Qty: 90 3RF Rx Instructions: run through 340b fluticasone propion-salmeterol [Advair Diskus] 250-50 mcg/dose blister with device 1 inh INHALATION BID Qty: 60 3RF bupropion HCl [Wellbutrin XL] 150 mg tablet extended release 24 hr 150 mg PO QAM 30 Days Qty: 30 2RF clonazepam [Klonopin] 1 mg tablet 1 mg PO TID Qty: 90 2RF desvenlafaxine succinate [Pristiq] 50 mg tablet extended release 24 hr 50 mg PO DAILY Qty: 30 2RF multivitamin [Multiple Vitamins] Tablet 1 tab PO DAILY Rx Instructions: PT STATES HE TAKES THIS MEDICATION cetirizine [Zyrtec] 10 mg Tablet 10 mg PO BEDTIME omeprazole 40 mg Capsule,Delayed Release(Dr/Ec) 40 mg PO BID meloxicam [Mobic] 7.5 mg Tablet 7.5 mg PO DAILY Rx Instructions: PTS GIRLFRIEND STATES THE PT TAKES THIS MEDICATION Tums 2 wafer PO Q1H PRN (Reason: Acid Reflux) Rx Instructions: PRN hydrocodone-acetaminophen 5-325 mg tablet 1 tab PO BID PRN (Reason: pain) Rx Instructions: PT STATES HE DOESNT TAKE THIS MEDICATION OFTEN diltiazem HCl [DILT-XR] 120 mg Capsule,Ext.Rel 24h Degradable 120 mg PO DAILY metoprolol tartrate 25 mg Tablet 12.5 mg PO BID Daliresp 500 mcg Tablet 500 mcg PO DAILY Tessalon Perles 100 mg capsule 100 mg PO TID PRN (Reason: Cough) 30 Days Qty: 90 1RF ProAir HFA 90 mcg/actuation Hfa Aerosol Inhaler 2 puff INHALATION QID PRN (Reason: Shortness Of Breath) 30 Days Qty: 1 0RF prednisone 50 mg tablet 50 mg PO DAILY Qty: 5 0RF albuterol sulfate 90 mcg/actuation HFA aerosol inhaler See Rx Instructions .ROUTE .COMPLEX Qty: 8.5 0RF Rx Instructions: 2 puffs every 4 hrs for 24 hrs then 2 puffs every 6 hrs for 24 hrs then 2 puffs every 8 hrs for 24 hrs prednisone 50 mg tablet 50 mg PO DAILY Qty: 5 0RF Discharge Orders: Discharge ED (Routine); Ordered 12/20/21 Ordered By: Mike Espinoza Referrals: Shahzad Ybarra [Primary Care Provider] - Discharge Diet: Advance as tolerated Discharge Activity: Resume usual activity Patient Instructions: Abdominal Pain (ED), Opioid Safety Coding Level of Care Code ED Health Advisor for Chg Fwd Exam Comprehensive
[2021-12-20] MEDS: HYDROmorphone 1 mg/mL INJ 1 mL IVP (19:51)
[2021-12-20] MEDS: ondansetron 2 mg/ML SDV 2 mL 4 MG IVP (19:51)
[2021-12-20 20:00] LABS: Basophils # 0.1 10^3/uL (0.0-0.1); Basophils % 0.7 %; Eosinophils # 0.2 10^3/uL (0.0-0.8); Eosinophils % 2.9 %; Hematocrit 39.6 % (42.0-52.0); Hemoglobin 12.2 g/dL (11.7-16.6); Lymphocytes # 1.2 10^3/uL (0.8-4.8); Lymphocytes % 15.4 %; Mean Corpuscular HGB Conc 30.8 g/dL (30.0-36.0); Mean Corpuscular Hemoglobin 29.3 pg (28.0-34.0); Mean Corpuscular Volume 95.2 fl (80-94); Mean Platelet Volume 11.2 fL (7.4-10.4); Monocytes # 0.6 10^3/uL (0.2-0.9); Monocytes % 7.3 %; Neutrophils # 5.53 10^3/uL (1.8-7.7); Neutrophils % 73.2 %; Nucleated Red Blood Cells % 0 %; Platelet Count 217 10^3/cmm (130-400); Red Blood Count 4.16 10^6/uL (4.1-5.3); Red Cell Distribution Width 12.8 % (12.1-15.1); White Blood Count 7.6 10^3/uL (4.0-10.0)
[2021-12-20] MEDS: iohexol 350 mg/mL 100 mL Btl IV (20:12)
[2021-12-20 20:20] LABS: Alanine Aminotransferase 13 U/L (0-41); Albumin Level 4.2 g/dL (3.5-5.2); Alkaline Phosphatase 88 U/L (40-130); Aspartate Amino Transferase 17 U/L (0-40); Blood Urea Nitrogen 18 mg/dL (6-20); Calcium 9.5 mg/dL (8.5-10.5); Chloride 94 mmol/L (98-107); Globulin 2.5 g/dL (1.3-4.6); Glomerular Filtration Rate 116.7 mL/min (90-130); Glucose 109 mg/dL (65-115); Lipase 86 U/L (13-60); Osmolality Calculated 298 mOsm/kg (285-295); Potassium 4.9 mmol/L (3.5-5.1); Sodium 143 mmol/L (136-145); Total Bilirubin 0.2 mg/dL (0.15-1.2); Total Protein 6.7 g/dL (6.6-8.7)
[2021-12-20 20:38] LABS: Carbon Dioxide 40 mmol/L (22-29)
[2021-12-20 20:41] LABS: Anion Gap 13.9 (5-19)
== END 2021-12-20 21:16 | disposition home or self-care (01) ==
PROVIDERS: Emergency Provider Emergency Medicine; PCP Family Medicine
DX: R10.9 Unspecified abdominal pain (principal); F17.210 Nicotine dependence, cigarettes, uncomplicated; J44.9 Chronic obstructive pulmonary disease, unspecified; E78.5 Hyperlipidemia, unspecified; I10 Essential (primary) hypertension
CPT/HCPCS: 74177; 80053; 83690; 85025; 96374; 96375; 99285; J1170; J2405; Q9967

== ENCOUNTER 2021-12-30 13:22 | Emergency (ER) | payer MEDICAID, SELFPAY ==
[2021-12-30] VITALS (8 sets, daily range): BP systolic 100–146; BP diastolic 59–77; PULSE 65–87; RESP 17–30; TEMP 37; O2SAT 65–100; BMI 17.8
--- NOTE | 2021-12-30 13:51 | XR_ITS ---
WS: [id number] Portable AP semiupright chest, 12/30/2021 Clinical Data: chest pain Comparison: Portable chest, 03/04/2021 Findings: No nodules, masses or effusions are seen. The heart is normal. The pulmonary vascularity is not increased. No pneumonia or pneumothorax is seen. The diaphragms are flattened. There are monitor leads on the chest wall. XR/XR chest 1V portable [id number] Impression: Hyperinflation.
--- NOTE | 2021-12-30 14:01 | W.ED.CHESTPA ---
HPI - Chest Pain General: Chief Complaint: Chest Pain Stated Complaint: chest pains, SOB Time Seen by Provider: 12/30/21 13:51 Source: patient Mode of arrival: ambulatory Limitations: no limitations History of Present Illness: 56-year-old male presents emergency room complaining of chest pain and shortness of breath. He has had this along with chest pressure for the last 5 days. He normally is on 5 L of oxygen EMS reported that on 5 L he was 65 to 70% however when he arrived here on 5 L he is 97 to 99%. He has a minimally productive cough subjective low-grade fever no vomiting or diarrhea. MD complaint: chest pain Pertinent past history: other (copd) Onset (ago): day(s) (5) Timing of current episode: constant Onset: during rest Pain location: substernal Pain radiation: none Severity: mild Quality: tightness and aching Relieving factors: nothing Exacerbating factors: nothing Associated symptoms: Reports fever(s) (Subjective); Deny abdominal pain, diaphoresis, dyspnea, leg edema, nausea, palpitations, sense of impending doom, syncope or vomiting Treatment prior to arrival: none Review of Systems Const: Reports: fever(s) (Subjective); Denies: chills, fatigue, malaise or diaphoresis ENMT: Denies: throat pain, ear or mastoid pain, nasal discharge or nasal congestion Card: Denies: chest pain, palpitations or syncope Resp: Denies: dyspnea GI: Denies: abdominal pain, nausea or vomiting : Denies: flank pain, difficulty urinating, dysuria, urinary frequency or urinary urgency Skin/Breast: Denies: rash or pruritus PFSH ED PFSH: Medical History Anxiety Chronic anticoagulation Chronic back pain COPD (chronic obstructive pulmonary disease) Depression Dyslipidemia End stage COPD GERD (gastroesophageal reflux disease) History of pulmonary embolism Hypertension Major depressive disorder, single episode, in full remission Normal colonoscopy Overdose of analgesic Oxygen dependent Panic disorder [episodic paroxysmal anxiety] Pulmonary embolism Pulmonary hypertension Respiratory failure Surgical History H/O cardiac catheterization Family History Other CAD (coronary artery disease) Diabetes Social History Smoking and tobacco status: current every day smoker Alcohol intake: never Adopted: No Household members: family Physical Exam Const: GENERAL APPEARANCE: cooperative and comfortable ORIENTATION/CONSCIOUSNESS: Yes awake, Yes oriented to person, Yes oriented to place and Yes oriented to time HENMT: COMMON NORMALS: normocephalic, atraumatic and hearing grossly normal bilaterally HEAD & SCALP: normocephalic and atraumatic Resp: COMMON NORMALS: normal respiratory effort, No retractions and No use of accessory muscles AUSCULTATION: rhonchi and wheezes Cardio: COMMON NORMALS: regular rate, regular rhythm and No murmurs present (Cardio) RATE: regular rate RHYTHM: regular rhythm GI: COMMON NORMALS: Soft to palpation and No hepatosplenomegaly present AUSCULTATION: Yes normoactive bowel sounds PALPATION: Yes Soft to palpation, No Tenderness to palpation present (GI), No Guarding due to palpation present (GI) and Yes No hepatosplenomegaly present Extremity: COMMON NORMALS: normal to inspection, capillary refill normal, no clubbing, cyanosis or edema, no calf tenderness and no pedal edema Neuro: SENSORIUM/ORIENTATION: Yes oriented to person, Yes oriented to place and Yes oriented to time Skin: COMMON NORMALS: no rashes or lesions noted GENERAL SKIN EXAM: no rashes or lesions noted Course Vital Signs: Vital signs: Vital Signs Temperature 98.6 F 12/30/21 13:30 Pulse Rate 65 12/30/21 15:30 Respiratory Rate 18 12/30/21 15:30 Blood Pressure 103/77 12/30/21 15:30 Pulse Oximetry 99 12/30/21 15:30 Oxygen Delivery Me thod 12/30/21 15:30 Oxygen Flow Rate 5 12/30/21 15:30 MDM - Chest Pain Medical Decision Making Troponin EKG unremarkable no acute changes noted. Chest x-ray shows hyperinflation we will start him on a steroid taper doxycycline aggressive use of albuterol nebs for good pulmonary toilet recheck his primary care doctor if not improving. No evidence of acute coronary syndrome no evidence of a PE at this time chest x-ray does not show pneumothorax or pneumonia. Medical Records I reviewed the patient's medical records. Lab Data I reviewed the patient's lab results. : 12/30/21 14:30 12/30/21 14:30 Radiology Impressions Chest X-Ray 12/30/21 13:51 Impression: Hyperinflation. Laboratory Results WBC 7.0 10^3/uL (4.0-10.0) 12/30/21 14:30 RBC 3.85 10^6/uL (4.1-5.3) L 12/30/21 14:30 Hgb 11.1 g/dL (11.7-16.6) L 12/30/21 14:30 Hct 36.7 % (42.0-52.0) L 12/30/21 14:30 MCV 95.3 fl (80-94) H 12/30/21 14: MCH 28.8 pg (28.0-34.0) 12/30/21 14: MCHC 30.2 g/dL (30.0-36.0) 12/30/21 14: RDW 12.5 % (12.1-15.1) 12/30/21 14:30 Plt Count 241 10^3/cmm (130-400) 12/30/21 14:30 MPV 11.6 fL (7.4-10.4) H 12/30/21 14:30 Neut % (Auto) 67.1 % 12/30/21 14:30 Lymph % (Auto) 18.4 % 12/30/21 14:30 [place] % (Auto) 9.8 % 12/30/21 14:30 Eos % (Auto) 3.4 % 12/30/21 14:30 Baso % (Auto) 0.6 % 12/30/21 14:30 Neut # (Auto) 4.71 10^3/uL (1.8-7.7) 12/30/21 14:30 Lymph # (Auto) 1.3 10^3/uL (0.8-4.8) 12/30/21 14:30 [place] # (Auto) 0.7 10^3/uL (0.2-0.9) 12/30/21 14:30 Eos # (Auto) 0.2 10^3/uL (0.0-0.8) 12/30/21 14:30 Baso # (Auto) 0.0 10^3/uL (0.0-0.1) 12/30/21 14:30 Nucleated RBC % (auto) 0 % 12/30/21 14:30 Nucleated RBCs # 0.0 /100WBC 12/30/21 14:30 Sodium 143 mmol/L (136-145) 12/30/21 14:30 Potassium 4.3 mmol/L (3.5-5.1) 12/30/21 14:30 Chloride 100 mmol/L (98-107) 12/30/21 14:30 Carbon Dioxide 37 mmol/L (22-29) H 12/30/21 14:30 Anion Gap 10.3 (5-19) 12/30/21 14:30 BUN 10 mg/dL (6-20) 12/30/21 14:30 Creatinine 0.6 mg/dL (0.7-1.2) L 12/30/21 14:30 GFR Calculation 139.4 mL/min (90-130) H 12/30/21 14:30 Glucose 75 mg/dL (65-115) 12/30/21 14:30 Calculated Osmolality 294 mOsm/kg (285-295) 12/30/21 14:30 Calcium 9.6 mg/dL (8.5-10.5) 12/30/21 14:30 Total Bilirubin 0.2 mg/dL (0.15-1.2) 12/30/21 14:30 AST 11 U/L (0-40) 12/30/21 14:30 ALT 6 U/L (0-41) 12/30/21 14:30 Alkaline Phosphatase 83 U/L (40-130) 12/30/21 14:30 Troponin T Baseline 12 ng/L (0-15) 12/30/21 14:30 Troponin T 120 Minute 9.59 ng/L (0-15) 12/30/21 16:30 Total Protein 6.9 g/dL (6.6-8.7) 12/30/21 14:30 Albumin 4.2 g/dL (3.5-5.2) 12/30/21 14:30 Globulin 2.7 g/dL (1.3-4.6) 12/30/21 14:30 Discharge Plan Discharge Patient Disposition: Home Clinical Impression: End stage COPD, Atypical chest pain Condition: Stable Prescriptions: New doxycycline hyclate 100 mg capsule 100 mg PO BID 10 Days Qty: 20 0RF prednisone 20 mg tablet 20 mg PO TID Qty: 15 0RF Rx Instructions: 1 p.o. 3 times daily x3 days, 1 p.o. twice daily x2 days, 1 p.o. daily x2 days No Action Spiriva with HandiHaler 18 mcg capsule, w/inhalation device 1 cap INHALATION DAILY 90 Days Qty: 90 3RF Rx Instructions: run through 340b fluticasone propion-salmeterol [Advair Diskus] 250-50 mcg/dose blister with device 1 inh INHALATION BID Qty: 60 3RF bupropion HCl [Wellbutrin XL] 150 mg tablet extended release 24 hr 150 mg PO QAM 30 Days Qty: 30 2RF clonazepam [Klonopin] 1 mg tablet 1 mg PO TID Qty: 90 2RF desvenlafaxine succinate [Pristiq] 50 mg tablet extended release 24 hr 50 mg PO DAILY Qty: 30 2RF multivitamin [Multiple Vitamins] Tablet 1 tab PO DAILY cetirizine [Zyrtec] 10 mg Tablet 10 mg PO BEDTIME omeprazole 40 mg Capsule,Delayed Release(Dr/Ec) 40 mg PO BID hydrocodone-acetaminophen 5-325 mg tablet 1 tab PO BID PRN (Reason: pain) diltiazem HCl [DILT-XR] 120 mg Capsule,Ext.Rel 24h Degradable 120 mg PO DAILY metoprolol tartrate 25 mg Tablet 12.5 mg PO BID Daliresp 500 mcg Tablet 500 mcg PO DAILY albuterol sulfate [ProAir HFA] 90 mcg/actuation Hfa Aerosol Inhaler 2 puff INHALATION QID PRN (Reason: Shortness Of Breath) 30 Days Qty: 1 0RF albuterol sulfate 90 mcg/actuation HFA aerosol inhaler See Rx Instructions .ROUTE .COMPLEX Qty: 8.5 0RF Rx Instructions: 2 puffs every 4 hrs for 24 hrs then 2 puffs every 6 hrs for 24 hrs then 2 puffs every 8 hrs for 24 hrs meloxicam 15 mg tablet 15 mg PO DAILY benzonatate 100 mg capsule 100 mg PO TID PRN (Reason: Cough) trazodone 50 mg tablet 50 mg PO BEDTIME quetiapine 50 mg tablet 50 mg PO DAILY Discharge Orders: Discharge ED (Routine); Ordered 12/30/21 Ordered By: Henry Villafana Referrals: Shahzad Ybarra [Primary Care Provider] - Discharge Diet: Usual diet Patient Instructions: Opioid Safety, Pain Management Coding Level of Care Code ED Java Developer Architect for Chg Fwd Exam Detailed
--- NOTE | 2021-12-30 14:02 | ECG_ITS ---
[facility] Test Date: 2021-12-30 Pat Name: Shamar Negron Department: Room: Gender: Male Change Number Operator: : 1965 Requested By: Henry Perez Order Number: [id number] Marva MD: Anna Akhtar M.D. Measurements Intervals [place] Rate: 70 P: 83 ME: 162 QRS: 83 QRSD: 85 T: 83 QT: 345 QTc: 374 Interpretive Statements SINUS RHYTHM Compared to ECG 02/01/2021 18:35:52 Sinus tachycardia no longer present ST (T wave) deviation no longer present Electronically Signed On 12-30-2021 17:58:15 CDT by Anna Akhtar M.D. [id number]
[2021-12-30] MEDS: ipratropium-albuterol 3 mL Neb INHALATION (14:37)
[2021-12-30 14:39] LABS: Basophils % 0.6 %; Eosinophils # 0.2 10^3/uL (0.0-0.8); Eosinophils % 3.4 %; Hematocrit 36.7 % (42.0-52.0); Hemoglobin 11.1 g/dL (11.7-16.6); Lymphocytes # 1.3 10^3/uL (0.8-4.8); Lymphocytes % 18.4 %; Mean Corpuscular HGB Conc 30.2 g/dL (30.0-36.0); Mean Corpuscular Hemoglobin 28.8 pg (28.0-34.0); Mean Corpuscular Volume 95.3 fl (80-94); Mean Platelet Volume 11.6 fL (7.4-10.4); Monocytes # 0.7 10^3/uL (0.2-0.9); Monocytes % 9.8 %; Neutrophils # 4.71 10^3/uL (1.8-7.7); Neutrophils % 67.1 %; Nucleated Red Blood Cells % 0 %; Platelet Count 241 10^3/cmm (130-400); Red Blood Count 3.85 10^6/uL (4.1-5.3); Red Cell Distribution Width 12.5 % (12.1-15.1)
[2021-12-30 14:59] LABS: Troponin(5th) Baseline 12 ng/L (0-15)
[2021-12-30 15:02] LABS: Alanine Aminotransferase 6 U/L (0-41); Albumin Level 4.2 g/dL (3.5-5.2); Alkaline Phosphatase 83 U/L (40-130); Anion Gap 10.3 (5-19); Aspartate Amino Transferase 11 U/L (0-40); Blood Urea Nitrogen 10 mg/dL (6-20); Calcium 9.6 mg/dL (8.5-10.5); Carbon Dioxide 37 mmol/L (22-29); Chloride 100 mmol/L (98-107); Creatinine Clr Calc Pharmacy 109.3653; Globulin 2.7 g/dL (1.3-4.6); Glomerular Filtration Rate 139.4 mL/min (90-130); Glucose 75 mg/dL (65-115); Osmolality Calculated 294 mOsm/kg (285-295); Potassium 4.3 mmol/L (3.5-5.1); Sodium 143 mmol/L (136-145); Total Bilirubin 0.2 mg/dL (0.15-1.2); Total Protein 6.9 g/dL (6.6-8.7)
[2021-12-30] MEDS: dexamethasone 10 mg/mL INJ IVP (15:07)
--- NOTE | 2021-12-30 15:51 | ECG_ITS ---
[facility] Test Date: 2021-12-30 Pat Name: Shamar Negron Department: Room: Gender: Male Logger: : 1965 Requested By: Henry Perez Order Number: [id number] Marva MD: Anna Akhtar M.D. Measurements Intervals [place] Rate: 64 P: 86 [place]: 172 QRS: 84 QRSD: 82 T: 75 QT: 359 QTc: 371 Interpretive Statements SINUS RHYTHM Compared to ECG 12/30/2021 14:02:08 No significant changes Electronically Signed On 12-30-2021 18:00:37 CDT by Anna Akhtar M.D. [id number]
[2021-12-30 16:57] LABS: Troponin 5 2HR 9.59 ng/L (0-15)
[2021-12-30 17:34] LABS: Troponin 5 2HR Delta -2.41 ABS# (0-10)
== END 2021-12-30 17:41 | disposition home or self-care (01) ==
PROVIDERS: Emergency Provider Family Medicine; PCP Family Medicine
DX: R07.89 Other chest pain (principal); J44.9 Chronic obstructive pulmonary disease, unspecified; E78.5 Hyperlipidemia, unspecified; I10 Essential (primary) hypertension; Z99.81 Dependence on supplemental oxygen; Z86.711 Personal history of pulmonary embolism
CPT/HCPCS: 71045; 80053; 84484; 85025; 93005; 94640; 96374; 99285; J1100

== ENCOUNTER 2022-01-11 09:00 | Outpatient (CLI) | payer MEDICAID, SELFPAY ==
[2022-01-09 14:00] VITALS: BMI 18.6
[2022-01-11] VITALS (12 sets, daily range): BP systolic 119–152; BP diastolic 73–92; PULSE 60–72; RESP 12–22; TEMP 36.2–36.6; O2SAT 98–100
--- NOTE | 2022-01-11 09:19 | US_ITS ---
WS: [id number] ULTRASOUND GUIDED BIOPSY LIVER. HISTORY: PET/CT positive lesions in the liver. Patient with a history of melanoma. Procedure, risks, and complications are explained to the patient. Consent was obtained. Skin is clean sed with ChloraPrep and anesthetized with 1% buffered lidocaine. Comparison: Prior studies reviewed include CT from 2024 2021 and PET/CT 12/10/2021 Hypoechoic lesion is identified within the superior anterior liver. This is probably within the LEFT lobe of the liver. This corresponds to the PET/CT positive lesion. This hypoechoic mass measures 2.6 x 2.2 cm. Incidentally noted within the additional lesion along the surface of the liver. This was no t imaged. 3 core needle biopsies are performed with an 18-gauge automatic needle. All 3 biopsy tract appear to be within the central portion of the liver lesion. Specimen placed in formalin. No complications are encountered. Patient will be observed 2 hours post procedure. US/US biopsy liver [id number] IMPRESSION: 1. Uncomplicated ultrasound-guided biopsy hepatic mass. Specimen placed in for yoni. 2. No complications are apparent.
[2022-01-11] MEDS: sodium chloride 0.9% 1,000 ML 30 ML IV (09:35)
[2022-01-11 09:43] LABS: Platelet Count 206 10^3/cmm (130-400)
[2022-01-11 09:57] LABS: INR 0.88 (0.8-1.2)
[2022-01-11] MEDS: fentaNYL 50 mcg/mL INJ 2mL 25 MCG IVP (10:22)
[2022-01-11] MEDS: midazolam 1 mg/mL INJ 2 mL IVP (10:22)
== END 2022-01-11 12:38 | disposition home or self-care (01) ==
PROVIDERS: PCP Family Medicine; Visit Provider Family Medicine
DX: C22.8 Malignant neoplasm of liver, primary, unspecified as to type (principal)
CPT/HCPCS: 47000; 76942; 85049; 85610; 88307; 88342; 96374; 96375; 99152; J2250; J3010; J7030

== ENCOUNTER 2022-01-18 09:20 | Inpatient (IN) | payer MEDICAID, SELFPAY ==
[2022-01-18] VITALS (57 sets, daily range): BP systolic 91–133; BP diastolic 53–88; PULSE 88–150; RESP 15–40; TEMP 36.6–37.1; O2SAT 91–100; BMI 18.8
--- NOTE | 2022-01-18 09:28 | PC.NURSE ---
Per EMS, pt came to ER for respiratory distress, symptoms started around 0200. Reports pt wears oxygen 5L at baseline. EMS started an IV and administered a duo neb, albuterol, and 6mg dexamethasone en route. audible wheezes heard. Pt has hx of COPD, HTN, and liver cancer. Had a liver biopsy done recently and is supposed to get the results this morning.
--- NOTE | 2022-01-18 09:44 | XRR_ITS ---
PROCEDURE INFORMATION: Exam: XR Chest Exam date and time: 01/18/2022 10:55 AM Age: 57 years old Clinical indication: Cough and dyspnea; Prior surgery; Surgery type: Liver biopsy; Patient HX: HX of liver, lung and eye cancer; Additional info: Dyspnea/cough TECHNIQUE: Imaging protocol: Radiologic exam of the chest. Views: 1 view. COMPARISON: CR XR chest 1V portable [id number] 12/30/2021 2:13 PM FINDINGS: Lungs: The lungs are hyperexpanded consistent with COPD. The lungs are otherwise clear Pleural spaces: Unremarkable. No pleural effusion. No pneumothorax. Heart/Mediastinum: Unremarkable. No cardiomegaly. Bones/joints: Unremarkable. Comparison to prior examination similar findings seen XR/XR chest 1V portable [id number] IMPRESSION: 1. COPD 2. Negative for acute abnormality
--- NOTE | 2022-01-18 09:44 | ECG_ITS ---
[facility] Test Date: 2022-01-18 Pat Name: Shamar Negron Department: Room: Gender: Male Sample Clerk: : 1965 Requested By: Henry Perez Order Number: [id number] Marva MD: Alekasndra Johnston M.D. Measurements Intervals [place] Rate: 125 P: 92 HI: 151 QRS: 85 QRSD: 78 T: 99 QT: 280 QTc: 405 Interpretive Statements SINUS TACHYCARDIA ABNORMAL RHYTHM ECG Compared to ECG 12/30/2021 15:51:00 Sinus rhythm no longer present Electronically Signed On 01-19-2022 12:32:31 AUTOMOBILE ASSEMBLER by Aleksandra Johnston M.D. [email or web address] medical centerSeno Medical [id number]
[2022-01-18 09:57] LABS: Basophils % 0.3 %; Eosinophils % 0.4 %; Hematocrit 40.6 % (42.0-52.0); Hemoglobin 12.5 g/dL (11.7-16.6); Lymphocytes # 0.8 10^3/uL (0.8-4.8); Lymphocytes % 10.3 %; Mean Corpuscular HGB Conc 30.8 g/dL (30.0-36.0); Mean Corpuscular Hemoglobin 28.9 pg (28.0-34.0); Mean Corpuscular Volume 93.8 fl (80-94); Mean Platelet Volume 11.3 fL (7.4-10.4); Monocytes % 12.3 %; Neutrophils % 76.3 %; Nucleated Red Blood Cells % 0 %; Platelet Count 207 10^3/cmm (130-400); Red Blood Count 4.33 10^6/uL (4.1-5.3); Red Cell Distribution Width 12.6 % (12.1-15.1); White Blood Count 7.9 10^3/uL (4.0-10.0)
--- NOTE | 2022-01-18 10:03 | ED_ITS ---
HPI - SOB/Dyspnea General: Chief Complaint: Shortness of Breath/Dyspnea Stated Complaint: Respiratory Distress Time Seen by Provider: 01/18/22 09:22 Source: patient Mode of arrival: EMS History of Present Illness: HPI Narrative: 57-year-old male presents emergency room complaining increasing shortness of breath began around 2 AM today. He states he was normal yesterday at his baseline. He has severe COPD and normally has oxygen at 5 L/min by nasal cannula. Recently had a liver biopsy earlier this month. 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 MD elicited complaint: shortness of breath and cough Pertinent past history: COPD Onset (ago): hour(s) Timing: constant Severity: severe Exacerbating factors: exertion and coughing Relieving factors: oxygen and bronchodilators Known history of: COPD Associated symptoms: Reports abdominal pain and chest congestion; Deny chest pain, cough, diaphoresis, dizziness, extremity pain, fever(s), hemoptysis, lightheadedness, myalgias, nausea, orthopnea, palpitations, paresthesias, polydipsia, polyuria, rash, sense of impending doom, syncope or vomiting Treatment prior to arrival: none Review of Systems Const: Denies: fever(s) or diaphoresis Card: Denies: chest pain, palpitations, lightheadedness, syncope or orthopnea Resp: Reports: chest congestion; Denies: hemoptysis GI: Reports: abdominal pain; Denies: nausea or vomiting Musc: Denies: extremity pain Neuro: Denies: dizziness Endo: Denies: polyuria or polydipsia [facility] ED PFSH: Medical History (Updated 01/18/22 @ 13:03 by Dmitri Sarmiento MD) Anxiety Chronic anticoagulation Chronic back pain COPD (chronic obstructive pulmonary disease) Depression Dyslipidemia End stage COPD GERD (gastroesophageal reflux disease) History of pulmonary embolism Hypertension Major depressive disorder, single episode, in full remission Metastatic melanoma Normal colonoscopy Overdose of analgesic Oxygen dependent Panic disorder [episodic paroxysmal anxiety] Pulmonary embolism Pulmonary hypertension Respiratory failure Surgical History H/O cardiac catheterization Family History Other CAD (coronary artery disease) Diabetes Social History Smoking and tobacco status: current every day smoker Alcohol intake: never Adopted: No Household members: family Physical Exam Const: COMMON NORMALS: no acute distress GENERAL APPEARANCE: cooperative and comfortable ORIENTATION/CONSCIOUSNESS: Yes awake, Yes oriented to person, Yes oriented to place and Yes oriented to time HENMT: COMMON NORMALS: normocephalic, atraumatic and hearing grossly normal bilaterally HEAD & SCALP: normocephalic and atraumatic Resp: EFFORT & INSPECTION: Yes uses accessory muscles AUSCULTATION: rhonchi and wheezes Cardio: COMMON NORMALS: regular rhythm and No murmurs present (Cardio) RATE: tachycardic RHYTHM: regular rhythm GI: COMMON NORMALS: Soft to palpation and No hepatosplenomegaly present AUSCULTATION: Yes normoactive bowel sounds PALPATION: Yes Soft to palpation, No Tenderness to palpation present (GI), No Guarding due to palpation present (GI) and Yes No hepatosplenomegaly present Extremity: COMMON NORMALS: normal to inspection, capillary refill normal, no clubbing, cyanosis or edema, no calf tenderness and no pedal edema Neuro: SENSORIUM/ORIENTATION: Yes oriented to person, Yes oriented to place and Yes oriented to time Skin: COMMON NORMALS: no rashes or lesions noted GENERAL SKIN EXAM: no rashes or lesions noted Course Vital Signs: Vital signs: Vital Signs Temperature 98.7 F 01/18/22 09:28 Pulse Rate 127 H 01/18/22 13:00 Respiratory Rate 36 H 01/18/22 13:00 Blood Pressure 118/87 01/18/22 13:00 Pulse Oximetry 97 01/18/22 13:00 Oxygen Delivery Me thod 01/18/22 10:45 Oxygen Flow Rate 3 01/18/22 10:08 Fraction of Inspir ed Oxygen 30 01/18/22 11:40 MDM - SOB/Dyspnea Medical Decision Making CT is negative of the abdomen. Patient exacerbation of COPD. He still tachycardic were getting a CTA of the chest Dr. Perez has seen him for the hospital service and ordered that. Patient will be admitted for COPD exacerba tion labs and imaging EKG reviewed. Medical Records I reviewed the patient's medical records. Lab Data I reviewed the patient's lab results. 01/18/22 09:40 01/18/22 09:40 Labs/Radiology: Radiology Impressions Chest X-Ray 01/18/22 09:44 IMPRESSION: 1. COPD 2. Negative for acute abnormality Abdomen/Pelvis CT 01/18/22 10:30 IMPRESSION: 1. Severe chronic emphysematous changes at the lung bases. No consolidation. 2. Metastatic lesion in the central liver is reidentified. 3. Study limited by motion but no free air or free fluid is identified. There is mild gaseous distention of the small bowel and constipation. Chest CTA 01/18/22 11:58 IMPRESSION: 1. Quality of this examination is compromised by breathing artifact. 2. Nonocclusive, subsegmental LEFT lower lobe pulmonary emboli. May be chronic. 3. Severe centrilobular emphysema. 4. Indeterminate mediastinal and hilar lymph nodes measuring up to 10 mm. 5. Patient has known metastatic hepatic lesion. Laboratory Results WBC 7.9 10^3/uL (4.0-10.0) 01/18/22 09:40 RBC 4.33 10^6/uL (4.1-5.3) 01/18/22 09:40 Hgb 12.5 g/dL (11.7-16.6) 01/18/22 09:40 Hct 40.6 % (42.0-52.0) L 01/18/22 09:40 MCV 93.8 fl (80-94) 01/18/22 09:40 MCH 28.9 pg (28.0-34.0) 01/18/22 09:40 MCHC 30.8 g/dL (30.0-36.0) 01/18/22 09:40 RDW 12.6 % (12.1-15.1) 01/18/22 09:40 Plt Count 207 10^3/cmm (130-400) 01/18/22 09:40 MPV 11.3 fL (7.4-10.4) H 01/18/22 09:40 Neut % (Auto) 76.3 % 01/18/22 09:40 Lymph % (Auto) 10.3 % 01/18/22 09:40 [place] % (Auto) 12.3 % 01/18/22 09:40 Eos % (Auto) 0.4 % 01/18/22 09:40 Baso % (Auto) 0.3 % 01/18/22 09:40 Neut # (Auto) 6.00 10^3/uL (1.8-7.7) 01/18/22 09:40 Lymph # (Auto) 0.8 10^3/uL (0.8-4.8) 01/18/22 09:40 [place] # (Auto) 1.0 10^3/uL (0.2-0.9) H 01/18/22 09:40 Eos # (Auto) 0.0 10^3/uL (0.0-0.8) 01/18/22 09:40 Baso # (Auto) 0.0 10^3/uL (0.0-0.1) 01/18/22 09:40 Nucleated RBC % (auto) 0 % 01/18/22 09:40 Nucleated RBCs # 0.0 /100WBC 01/18/22 09:40 Specimen Type Arterial 01/18/22 10:09 Sample Site Radial, left 01/18/22 10:09 ABG pH 7.38 (7.35-7.45) 01/18/22 10:09 ABG pCO2 59.9 mmHg (35-45) H 01/18/22 10:09 ABG pO2 49.9 mmHg (80.0-100.0) L 01/18/22 10:09 ABG HCO3 35.1 mmol/L (22-26) H 01/18/22 10:09 ABG O2 Saturation 86.7 01/18/22 10:09 ABG Base Excess 8.0 mmol/L (-2.0-2.0) H 01/18/22 10:09 Damon Test Pos 01/18/22 10:09 A-a O2 Gradient 14.0 mmHg (5-10) H 01/18/22 10:09 Hematocrit 39.5 % (42-52) L 01/18/22 10:09 Hgb O2 Saturation 83.9 % (95-100) L 01/18/22 10:09 Carboxyhemoglobin 2.2 %THgb (0.4-20.1) 01/18/22 10:09 Methemoglobin 1.0 % (0.4-1.5) 01/18/22 10:09 Total Hemoglobin 12.9 g/dL (14-18) L 01/18/22 10:09 Sodium 137.0 mmol/L (131-143) 01/18/22 10:09 Potassium 4.4 mmol/L (3.5-5.0) 01/18/22 10:09 Glucose 109.0 mg/dL (70-115) 01/18/22 10:09 Ionized Calcium 1.2 mmol/L (1.1-1.4) 01/18/22 10:09 O2 Delivery Device Nc 01/18/22 10:09 O2 Liters/Min 3.0 % 01/18/22 10:09 FiO2 32.0 % 01/18/22 10:[address] Freight ID Cak 01/18/22 10:09 Sodium 137 mmol/L (136-145) 01/18/22 09:40 Potassium 4.5 mmol/L (3.5-5.1) 01/18/22 09:40 Chloride 94 mmol/L (98-107) L 01/18/22 09:40 Carbon Dioxide 36 mmol/L (22-29) H 01/18/22 09:40 Anion Gap 11.5 (5-19) 01/18/22 09:40 BUN 14 mg/dL (6-20) 01/18/22 09:40 Creatinine 0.6 mg/dL (0.7-1.2) L 01/18/22 09:40 GFR Calculation 138.9 mL/min (90-130) H 01/18/22 09:40 Glucose 109 mg/dL (65-115) 01/18/22 09:40 Calculated Osmolality 285 mOsm/kg (285-295) 01/18/22 09:40 Calcium 9.0 mg/dL (8.5-10.5) 01/18/22 09:40 Total Bilirubin 0.2 mg/dL (0.15-1.2) 01/18/22 09:40 AST 15 U/L (0-40) 01/18/22 09:40 ALT 13 U/L (0-41) 01/18/22 09:40 Alkaline Phosphatase 88 U/L (40-130) 01/18/22 09:40 Troponin T Gen 5 ng/L 13 ng/L (0-15) 01/18/22 Unknown Total Protein 7.1 g/dL (6.6-8.7) 01/18/22 09:40 Albumin 3.9 g/dL (3.5-5.2) 01/18/22 09:40 Globulin 3.2 g/dL (1.3-4.6) 01/18/22 09:40 Influenza Type A Ag negative (Negative) 01/18/22 10:20 Influenza Type B Ag negative (Negative) 01/18/22 10:20 Discharge Plan Discharge Patient Disposition: Admitted As Inpatient Clinical Impression: Acute exacerbation of chronic obstructive airways disease, End stage COPD, History of pulmonary embolism, Melanoma metastatic to liver Condition: Stable Coding Level of Care Code ED Legal Referee for Chg Fwd Exam Detailed
[2022-01-18 10:21] LABS: Alanine Aminotransferase 13 U/L (0-41); Albumin Level 3.9 g/dL (3.5-5.2); Alkaline Phosphatase 88 U/L (40-130); Anion Gap 11.5 (5-19); Aspartate Amino Transferase 15 U/L (0-40); Blood Urea Nitrogen 14 mg/dL (6-20); Carbon Dioxide 36 mmol/L (22-29); Chloride 94 mmol/L (98-107); Globulin 3.2 g/dL (1.3-4.6); Glomerular Filtration Rate 138.9 mL/min (90-130); Glucose 109 mg/dL (65-115); Osmolality Calculated 285 mOsm/kg (285-295); Potassium 4.5 mmol/L (3.5-5.1); Sodium 137 mmol/L (136-145); Total Bilirubin 0.2 mg/dL (0.15-1.2); Total Protein 7.1 g/dL (6.6-8.7)
[2022-01-18 10:21] LABS: ABG PCO2 59.9 mmHg (35-45); ABG PH Result 7.38 (7.35-7.45); Arterial Blood Gas Hematocrit 39.5 % (42-52); Blood Gas Allen Test Pos; Blood Gas Operator Identificat CAK; Blood Gas Sample Site Radial, left; Blood Gas Sample Type Arterial; Carboxyhemoglobin 2.2 %THgb (0.4-20.1); HCO3 ABG 35.1 mmol/L (22-26); HGB O2 Sat 83.9 % (95-100); Ionized Calcium Level - ABG 1.2 mmol/L (1.1-1.4); Oxygen Device NC; Oxygen Saturation ABG 86.7; PO2 ABG 49.9 mmHg (80.0-100.0); Potassium Level - ABG 4.4 mmol/L (3.5-5.0); Total Hemoglobin 12.9 g/dL (14-18)
[2022-01-18] MEDS: ipratropium-albuterol 3 mL Neb INHALATION ×2 (10:30→20:41)
--- NOTE | 2022-01-18 10:30 | CT_ITS ---
WS: [id number] CT ABDOMEN AND PELVIS WITH CONTRAST HISTORY: Respiratory distress, abdominal pain. History of lung and liver cancer. TECHNIQUE: Imaging performed of the abdomen and pelvis with IV contrast. Single phase imaging of the abdomen. Coronal and sagittal reformats are submitted. All CT scans at [facility] use at [address] one of these dose optimization techniques: automated exposure control; mA and/or kV adjustment per patient size (includes targeted exams where dose is matched to clinical indication); or iterative re construction. IV CONTRAST: Omnipaque 350; 65 mL IV. Oral contrast: No DLP: 321.68 mGy.cm COMPARISON: 12/20/2021 and 12/01/2021 Lower thorax: Severe emphysematous changes at the lung bases with bullous emphysema. Mild bronchial w all thickening at the lung bases is similar to prior studies. No consolidation. Heart is normal size. No hiatal hernia. Liver/biliary system: Limited by motion. Patient has a known metastatic lesion in the central liver m easuring 2.4 x 2.1 cm. Gallbladder: Normal. No gallstones or wall thickening. No pericholecystic fluid. Pancreas: Normal size pancreas and pancreatic duct. No adjacent inflammation. Spleen: Normal size spleen. No mass or infarct. Adrenal glands: Poorly visualized due to motion. Right kidney: Cortical hypodensities too small to characterize. No obstruction. Left kidney: Normal. Aorta: Mild atherosclerosis with no aneurysm. Lymphadenopathy: None identified. Mild limitation by motion. Free fluid: None. GI tract: Moderately distended stomach. Mild air distention of the small bowel. Fecal retention throu ghout the colon. No obstructive pattern. No free air is identified. Small foci may be obscured with this amount of motion. Abdominal wall: Unremarkable abdominal wall. No hernia. Pelvis: No free fluid or adenopathy within the pelvis. Bones: Unremarkable. CT/CT abdomen pelvis w con* [id number] IMPRESSION: 1. Severe chronic emphysematous changes at the lung bases. No consolidation. 2. Metastatic lesion in the central liver is reidentified. 3. Study limited by motion but no free air or free fluid is identified. There is mild gaseous distention of the small bowel and constipation.
[2022-01-18 10:43] LABS: Influenza A by IFA negative (Negative); Influenza B by IFA negative (Negative)
[2022-01-18] MEDS: iohexol 350 mg/mL 500 mL Btl (per mL) IV ×2 (11:10→12:44)
--- NOTE | 2022-01-18 11:58 | CT_ITS ---
WS: [id number] CT CHEST ANGIOGRAPHY WITH REFORMATS HISTORY: tachycardia, hypoxia, history of PE TECHNIQUE: Contiguous axial images are obtained through the chest during arterial injection of intrav enous contrast. Images are reconstructed to evaluate the pulmonary arteries. MIP imaging also reviewe d. All CT scans at [facility] use at least one of these dose optimization techniques: automat ed exposure control; mA and/or kV adjustment per patient size (includes targeted exams where dose is matched to clinical indication); or iterative reconstruction. CONTRAST: Omnipaque 350; 83 mL IV. DLP: 225.17 mGy-cm. COMPARISON: 10/25/2021 Adequate opacification of the pulmonary arteries. No central pulmonary embolism. There is a very smal l incomplete filling defect in a subsegmental branch of the LEFT lower lobe. May be chronic. Mild ath erosclerosis aorta. No aneurysm. Severe chronic emphysema. There are a few scattered granulomata. No pneumonia. No mass. Motion artifa ct. There may be a small nodule at the LEFT lung base which is obscured by the significant motion art ifact. Heart size is normal. Small mediastinal lymph nodes measuring up to 10 mm in diameter. Indeter minate. Small hiatal hernia. No adrenal mass. Patient has known metastatic lesion in the liver. CT/CT angio chest PE protcl [id number] IMPRESSION: 1. Quality of this examination is compromised by breathing artifact. 2. Nonocclusive, subsegmental LEFT lower lobe pulmonary emboli. May be chronic . 3. Severe centrilobular emphysema. 4. Indeterminate mediastinal and hilar lymph nodes measuring up to 10 mm. 5. Patient has known metastatic hepatic lesion.
--- NOTE | 2022-01-18 11:59 | PM.HP ---
Providers/Chief Complaint Admitting Physician: Dmitri Sarmiento MD, hospitalist Primary Care Provider: Shahzad Ybarra Chief Complaint: Respiratory Distress History of Present Illness Shamar Negron Jr is a 57 year old male presenting to the emergency department with significant shortness of breath and wheezing. He reports this woke him from sleep, around 2 AM and was associated with some sharp chest discomfort. Chest discomfort is now gone away. No vomiting, diarrhea. No recent fevers. No cough. No blood in stool or black or tarry stools. According to old records has past history of pulmonary embolism although patient does not remember this. He is currently being investigated for metastatic melanoma, and had an oncology visit today to discuss his recent liver biopsy results. He has had some abdominal pain, he relates that seem to start after he got his liver biopsy. Review of Systems General: Reports: 10 or more systems reviewed and unremarkable except in HPI and below Const: Reports: fatigue; Denies: fever(s) or chills Eyes: Denies: change in vision ENMT: Denies: throat pain Card: Reports: chest pain Resp: Reports: dyspnea GI: Reports: abdominal pain; Denies: nausea or vomiting : Denies: flank pain Musc: Denies: neck pain Skin/Breast: Denies: rash Neuro: Denies: headache(s) Psych: Denies: anxiety or depression Endo: Denies: polyuria Ish/Lymph: Denies: easy bruising All/Imm: Denies: urticaria Medications/Allergies Home Medications Medication Instructions Recorded Confirmed Last Taken Type diltiazem HCl 120 mg 120 mg PO DAILY 02/28/19 01/18/22 01/17/22 History capsule,extended release 24 hr, controlled (DILT-XR) metoprolol tartrate 25 mg tablet 12.5 mg PO BID 02/28/19 01/18/22 01/17/22 History roflumilast 500 mcg tablet 500 mcg PO DAILY 02/28/19 01/18/22 01/17/22 History (Daliresp) tiotropium bromide 18 mcg capsule 1 cap inhalation DAILY 90 days #90 04/10/19 01/18/22 01/18/22 Rx with inhalation device (Spiriva inhalations with HandiHaler) fluticasone 250 mcg-salmeterol 50 1 inh inhalation BID #60 ea 05/12/19 01/18/22 01/18/22 Rx mcg/dose blistr powdr for inhalation (Advair Diskus) cetirizine 10 mg tablet (Zyrtec) 10 mg PO BEDTIME 11/19/19 01/18/22 01/17/22 History hydrocodone 5 mg-acetaminophen 325 1 tab PO BID PRN pain 11/19/19 01/18/22 01/09/22 History mg tablet albuterol sulfate 90 mcg/actuation 2 puff inhalation QID PRN 06/02/20 01/18/22 01/18/22 Rx aerosol inhaler (ProAir HFA) Shortness Of Breath 30 days #1 g bupropion HCl 150 mg 24 hr tablet, 150 mg PO QAM 30 days #30 tabs 04/27/21 01/18/22 01/17/22 Rx extended release (Wellbutrin XL) clonazepam 1 mg tablet (Klonopin) 1 mg PO TID #90 tabs 04/27/21 01/18/22 01/17/22 Rx desvenlafaxine succinate 50 mg 50 mg PO DAILY #30 tabs 04/27/21 01/18/22 01/17/22 Rx tablet,extended release 24 hr (Pristiq) benzonatate 100 mg capsule 100 mg PO TID PRN Cough 12/30/21 01/18/22 01/17/22 History meloxicam 15 mg tablet 15 mg PO DAILY 12/30/21 01/18/22 01/17/22 History quetiapine 50 mg tablet 50 mg PO DAILY 12/30/21 01/18/22 01/17/22 History trazodone 50 mg tablet 50 mg PO BEDTIME 12/30/21 01/18/22 01/17/22 History Allergies Allergy/AdvReac Type Severity Reaction Status Date / Time No Known Allergies Allergy Verified 01/18/22 10:09 PFSH Acute PFSH: Medical History (Updated 01/18/22 @ 13:03 by Dmitri Sarmiento MD) Anxiety Chronic anticoagulation Chronic back pain COPD (chronic obstructive pulmonary disease) Depression Dyslipidemia End stage COPD GERD (gastroesophageal reflux disease) History of pulmonary embolism Hypertension Major depressive disorder, single episode, in full remission Metastatic melanoma Normal colonoscopy Overdose of analgesic Oxygen dependent Panic disorder [episodic paroxysmal anxiety] Pulmonary embolism Pulmonary hypertension Respiratory failure Surgical History H/O cardiac catheterization Family History Other CAD (coronary artery disease) Diabetes Social History Smoking and tobacco status: current every day smoker Alcohol intake: never Adopted: No Household members: family Vitals/I&O/Wt Last Vital Signs Temp 98.7 F 01/18/22 09:28 Pulse 128 H 01/18/22 11:40 Resp 33 H 01/18/22 11:30 BP 116/81 01/18/22 11:30 Pulse Ox 99 01/18/22 11:40 O2 Del Method 01/18/22 10:45 O2 Flow Rate 3 01/18/22 10:08 FiO2 30 01/18/22 11:40 Weight last 48 hrs Weight 59.421 kg Physical Exam Narrative: Generally exam demonstrates a white male, on BiPAP, with accessory muscle use with at least mild respiratory distress HEENT: Atraumatic normocephalic. Neck is supple no lymphadenopathy thyromegaly Cardiovascular tachycardic, no murmur Lungs bilateral expiratory wheezes Abdomen is soft. Slight tenderness generalized although more on the right. No obvious organomegaly exams deferred Extremities no cyanosis clubbing or edema, cap refill brisk Skin no rash Neuro no obvious focal deficits. Data 01/18/22 09:40 01/18/22 09:40 Other Labs: ABG demonstrates pH 7.38, PCO2 59, PO2 49 on 32% FiO2. LFTs are normal. Albumin is 3.9. Influenza a and B are negative. CT abdomen and pelvis demonstrates constipation, severe COPD, metastatic lesion central liver Chest x-ray COPD, no infiltrate Calcium is normal EKG demonstrates sinus tachycardia, normal axis, nonspecific changes A&P Assessment and plan (1) Acute exacerbation of chronic obstructive airways disease: Patient presents with significant wheezing, hypoxia consistent with acute COPD exacerbation. Steroids given by ambulance as well as breathing treatment Continue Solu-Medrol DuoNeb every 4 hours Budesonide twice daily Doxycycline for possibility of acute bronchitis Influenza has been done and is negative Currently requiring BiPAP. At baseline requires 5 L and has known severe COPD Initially admitted to ICU, high risk for deterioration. (2) Acute respiratory failure with hypoxia: Likely secondary to acute COPD exacerbation. Influenza testing was negative Secondary to past history of pulmonary embolism, known metastatic malignancy we will check a CTA. Further testing may be warranted depending upon results of this Check troponin (3) Abdominal pain: Likely secondary to constipation although liver mass may also be causing discomfort. (4) Constipation: Initiate senna, docusate (5) Melanoma metastatic to liver: Discussed with patient pathologic findings, follow-up with oncology. His follow-up will need to be rescheduled and I discussed this with his oncologist. (6) History of pulmonary embolism: Check CTA lungs Plan Multiple other medical problems as outlined in his past medical history Full code currently Lovenox for DVT prophylaxis Attestations Medical Necessity Statement*: Will require greater than 2 midnight stay for evaluation and treatment of respiratory failure Critical Care Time: The high probability of a clinically significant, sudden or life threatening deterioration of the patient's [pulmonary, cardiac, infectious disease, vascular] system(s) required my full and direct attention, intervention and personal management. The critical care time is as shown. This time is in addition to time spent performing any reported procedures but includes the following: [x] Data and vital sign review and interpretation [x] Patient assessment, examination and intervention [x] Documentation [x] Medication orders and management Critical Care Time (min): 49 Coding Level of Care Code Acute Pharmacognosy Teacher for Kianna Fwxiomara Diagnoses Acute exacerbation of chronic obstructive airways disease J44.1 Acute respiratory failure with hypoxia J96.01 Abdominal pain R10.9 Constipation K59.00 Melanoma metastatic to liver C78.7 History of pulmonary embolism Z86.711
[2022-01-18 12:34] LABS: Troponin T (5th) Once 13 ng/L (0-15)
[2022-01-18] MEDS: LORazepam 1 mg Tablet PO (12:49)
[2022-01-18] MEDS: metoprolol tartrate 25 mg Tablet 12.5 MG PO ×2 (12:49→17:20)
[2022-01-18] MEDS: enoxaparin 60 mg/0.6 mL Syringe SUBCUT (13:50)
--- NOTE | 2022-01-18 16:30 | PC.NURSE ---
Pt arrives to ICu from ED. Pt able to transfer self between beds. O2 at 5lpm/NC. PT changed into gown. Slight shortness of breath noted after transfer.
[2022-01-18] MEDS: CLONazepam 1 mg Tablet PO ×2 (17:19→20:40)
[2022-01-18] MEDS: doxycycline 100 mg Tablet PO (17:19)
[2022-01-18] MEDS: docusate sodium 100 mg Capsule PO (17:19)
[2022-01-18] MEDS: sennosides-docusate Tablet 1 TAB PO (17:19)
[2022-01-18] MEDS: HYDROcodone-acetaminophen 5-325 mg Tablet 1 TAB PO (19:02)
--- NOTE | 2022-01-18 19:28 | PC.NURSE ---
Bedside report completed with LUÍS Dejesus
--- NOTE | 2022-01-18 19:31 | PC.NURSE ---
Shift Note: Pt has recently arrived to ICU. NO shortness of breth or distress noted since. Pt has ate his meal well. He has been chatting /textig on his phone since his arrival. 350ml of clear yellow urine noted. Frequent safety and comfort rounds continue. Orders and/or nursing care completed as indicated. Patient monitored for response to intervention and treatment(s). Education provided includes Doxycycline, artifical tears, metoprolol, solumedrol and plan of care. Patient verbalized understanding of all education. Will continue to monitor.
[2022-01-18] MEDS: artificial tears Op Soln 15 mL Btl 1 DROP EYE-BOTH (19:39)
[2022-01-18] MEDS: trazodone 50 mg Tablet PO (20:40)
[2022-01-18] MEDS: budesonide 0.5 mg/2 mL Neb INHALATION (20:41)
[2022-01-19] VITALS (30 sets, daily range): BP systolic 94–137; BP diastolic 58–88; PULSE 75–119; RESP 18–33; TEMP 37.1; O2SAT 90–99
[2022-01-19] MEDS: enoxaparin 60 mg/0.6 mL Syringe SUBCUT ×2 (01:22→13:23)
[2022-01-19] MEDS: ipratropium-albuterol 3 mL Neb INHALATION ×4 (02:39→18:38)
[2022-01-19 03:26] LABS: Hematocrit 39.7 % (42.0-52.0); Hemoglobin 12.4 g/dL (11.7-16.6); Lymphocytes # 0.6 10^3/uL (0.8-4.8); Mean Corpuscular HGB Conc 31.2 g/dL (30.0-36.0); Mean Corpuscular Hemoglobin 28.8 pg (28.0-34.0); Mean Corpuscular Volume 92.1 fl (80-94); Monocytes # 0.2 10^3/uL (0.2-0.9); Monocytes % 6.4 %; Neutrophils # 2.34 10^3/uL (1.8-7.7); Neutrophils % 75.3 %; Nucleated Red Blood Cells % 0 %; Platelet Count 192 10^3/cmm (130-400); Red Blood Count 4.31 10^6/uL (4.1-5.3); Red Cell Distribution Width 12.3 % (12.1-15.1); White Blood Count 3.1 10^3/uL (4.0-10.0)
[2022-01-19 03:50] LABS: Alanine Aminotransferase 11 U/L (0-41); Alkaline Phosphatase 85 U/L (40-130); Anion Gap 12.9 (5-19); Aspartate Amino Transferase 13 U/L (0-40); Blood Urea Nitrogen 21 mg/dL (6-20); Calcium 9.3 mg/dL (8.5-10.5); Carbon Dioxide 34 mmol/L (22-29); Chloride 93 mmol/L (98-107); Globulin 3.1 g/dL (1.3-4.6); Glomerular Filtration Rate 138.9 mL/min (90-130); Glucose 150 mg/dL (65-115); Osmolality Calculated 286 mOsm/kg (285-295); Potassium 4.9 mmol/L (3.5-5.1); Sodium 135 mmol/L (136-145); Total Bilirubin 0.2 mg/dL (0.15-1.2); Total Protein 7.1 g/dL (6.6-8.7)
[2022-01-19] MEDS: buPROPion XL (24 HR) 150 mg Tablet PO (05:25)
--- NOTE | 2022-01-19 07:05 | PC.NURSE ---
Bedside report completed with LUÍS Canas.
[2022-01-19] MEDS: budesonide 0.5 mg/2 mL Neb INHALATION (08:00)
[2022-01-19] MEDS: CLONazepam 1 mg Tablet PO ×4 (09:30→20:53)
[2022-01-19] MEDS: dilTIAZem ER (24HR) 120 mg Capsule PO (09:30)
[2022-01-19] MEDS: pantoprazole DR 40 mg Tablet PO (09:30)
[2022-01-19] MEDS: sennosides-docusate Tablet 1 TAB PO ×2 (09:31→18:00)
[2022-01-19] MEDS: metoprolol tartrate 25 mg Tablet 12.5 MG PO ×2 (09:31→18:00)
[2022-01-19] MEDS: quetiapine 25 mg Tablet 50 MG PO (09:31)
[2022-01-19] MEDS: docusate sodium 100 mg Capsule PO ×2 (09:31→18:00)
[2022-01-19] MEDS: desvenlafaxine 50 mg Tablet PO (09:32)
[2022-01-19] MEDS: roflumilast 500 mcg Tablet PO (09:32)
[2022-01-19] MEDS: doxycycline 100 mg Tablet PO ×2 (09:32→18:00)
--- NOTE | 2022-01-19 13:28 | PM.PN ---
Subjective Subjective: He has been slightly better compared yesterday breathing slightly easier but still having wheezing. He also having some anxiety despite the usual dose clonazepam. Vitals/I&O/Wt Last Vital Signs Temp 98.8 F 01/19/22 04:00 Pulse 92 01/19/22 11:00 Resp 24 H 01/19/22 11:00 BP 127/85 01/19/22 11:00 Pulse Ox 99 01/19/22 11:00 O2 Del Method 01/19/22 11:00 O2 Flow Rate 5 01/19/22 11:00 FiO2 30 01/19/22 03:36 01/18/22 01/19/22 01/19/22 22:59 06:59 14:59 Intake Total 730 / 730 480 / 1210 350 / 350 Output Total 350 / 350 650 / 1000 Balance 380 / 380 -170 / 210 350 / 350 Weight last 48 hrs Weight 56.472 kg Weight 59.421 kg Physical Exam Const: COMMON NORMALS: patient oriented x3 and alert GENERAL APPEARANCE: cooperative NUTRITIONAL APPEARANCE: thin ORIENTATION/CONSCIOUSNESS: Yes awake HENMT: COMMON NORMALS: oropharynx normal Neck/C-Spine: COMMON NORMALS: no JVD Resp: COMMON NORMALS: normal respiratory effort AUSCULTATION: wheezes and diminished lung sounds Cardio: COMMON NORMALS: no JVD, regular rhythm, S1 normal heart sound present, S2 normal heart sound present and No murmurs present (Cardio) RHYTHM: regular rhythm HEART SOUNDS: S1 normal heart sound present and S2 normal heart sound present GI: COMMON NORMALS: Normal to inspection, nondistended, normoactive bowel sounds present, Soft to palpation and non-tender PALPATION: Yes Soft to palpation Extremity: COMMON NORMALS: no joint enlargement and no pedal edema Neuro: COMMON NORMALS: patient oriented x3 and moves all extremities SENSORIUM/ORIENTATION: Yes alert Skin: COMMON NORMALS: no rashes or lesions noted GENERAL SKIN EXAM: no rashes or lesions noted Data 01/19/22 03:11 01/19/22 03:11 A&P Assessment and plan (1) Acute exacerbation of chronic obstructive airways disease: Slightly better, but still diminished air entry, wheezing, dyspnea. Has weaned off BiPAP. This morning on 6 L nasal cannula. Showing improvement compared to yesterday. Given degree of wheezing, diminished air entry, continue for now with current dose IV steroids without de-escalation. Continue breathing treatments with DuoNebs, inhaled budesonide. Continue empiric doxycycline. Influenza has been done and is negative At baseline requires 5 L and has known severe COPD Clonazepam for anxiety/air hunger. Add as needed. May be able to transfer to medical floor if continues to improve. (2) Acute respiratory failure with hypoxia: Likely secondary to acute COPD exacerbation. Recommendation of PE. This may be chronic, consideration possibly of pulm hypertension as well. Influenza testing was negative Normal troponin Treatment for COPD as above. Continued evaluation with repeat Cordox for PE. Transition to oral anticoagulation prior to discharge. (3) Abdominal pain: Has been bothered by some protracted abdominal pain. Mildly tender on exam. Suspected secondary to constipation from possible abdominal wall muscular soreness secondary to cough, although liver mass may also be causing discomfort. (4) Constipation: senna, docusate (5) Melanoma metastatic to liver: Tells me just recently confirmed, intends to follow-up with oncology. (6) History of pulmonary embolism: Noted nonocclusive PE subsegmental left lower lobe. May be chronic. Continue therapeutic Lovenox. Transition to oral anticoagulant prior to discharge. Plan Anxiety: Continue clonazepam scheduled. Add as needed 1 mg twice daily for anxiety or air hunger. 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
--- NOTE | 2022-01-19 19:08 | PC.NURSE ---
Bedside report complete with LUÍS Shook
--- NOTE | 2022-01-19 19:09 | PC.NURSE ---
Shift Note: Pt rested in bed [place] [facility] [place] O2 sats remained around 94% for most of the shift at 4lpm/NC. At shift change pt was coughing , his O2 sats at 82%, heart rate 130's accessory muscle use and gasping. O2 increased to 7lpm/NC, suctioning provided, pt unable to completed cough up. Sats started increasing, but significant work of breathing still present. A couple more coughing fits, O2 sats improved to 90%, working breathing still present, decreased O2 to 6lpm/NC, RT notified and breathing treatment admin. Pt yelled at staff for decreasing his O2 to 4lpm/NC you were told when I was picked up my oxygen was at 5. I expect it to stay at 5! )2 sats 92% after breathing treatment, O2 decreased to 5lpm/NC, heart rate now 100's. Bowel movemtn noted today and urine output regreater than 800ml. Family has been here today visiting, bringing pt lunch and dinner. Frequent safety and comfort rounds continue. Orders and/or nursing care completed as indicated. Patient monitored for response to intervention and treatment(s). Education provided includes Doxycycline, metoprolol, plan of care. Patient and/or banking representative verbaized understanding of plan of care and all medications education provided. Will continue to monitor.
[2022-01-19] MEDS: acetaminophen 325 mg Tablet 650 MG PO (19:29)
[2022-01-19] MEDS: trazodone 50 mg Tablet PO (20:53)
[2022-01-20] VITALS (22 sets, daily range): BP systolic 103–155; BP diastolic 68–85; PULSE 63–90; RESP 15–34; TEMP 36.1–36.7; O2SAT 93–98; BMI 18.6
[2022-01-20] MEDS: enoxaparin 60 mg/0.6 mL Syringe SUBCUT ×2 (01:29→13:31)
--- NOTE | 2022-01-20 03:40 | PC.NURSE ---
Patient was agitated during shift report due to titration of Oxygen that the patient felt increased his respiratory distress. Previous nurse documented this situation. RT was notified that patient preferred to be informed of any changes to his Oxygenation. During this shift patient has rested comfortably and RR has calmed significantly. Accessory muscle use no longer present and saturations remain in upper 90s on 5L. Patient received bath while on commode along with linen change. Patient has exhibited a pleasant disposition throughout the night and appeared to be resting comfortably throughout most of the shift. One report of a headache was treated with Tylenol and patient reported that it was no longer present after reassessment.
[2022-01-20 04:13] LABS: Basophils % 0.1 %; Hemoglobin 11.6 g/dL (11.7-16.6); Lymphocytes # 0.7 10^3/uL (0.8-4.8); Lymphocytes % 5.1 %; Mean Corpuscular HGB Conc 31.4 g/dL (30.0-36.0); Mean Corpuscular Hemoglobin 29.1 pg (28.0-34.0); Mean Platelet Volume 11.4 fL (7.4-10.4); Monocytes # 0.6 10^3/uL (0.2-0.9); Monocytes % 4.2 %; Neutrophils # 12.64 10^3/uL (1.8-7.7); Nucleated Red Blood Cells % 0 %; Platelet Count 215 10^3/cmm (130-400); Red Blood Count 3.98 10^6/uL (4.1-5.3); Red Cell Distribution Width 12.4 % (12.1-15.1)
[2022-01-20 04:29] LABS: Blood Urea Nitrogen 29 mg/dL (6-20); Carbon Dioxide 36 mmol/L (22-29); Chloride 100 mmol/L (98-107); Creatinine Clr Calc Pharmacy 92.9995; Glomerular Filtration Rate 116.2 mL/min (90-130); Glucose 134 mg/dL (65-115); Osmolality Calculated 300 mOsm/kg (285-295); Sodium 141 mmol/L (136-145)
[2022-01-20] MEDS: buPROPion XL (24 HR) 150 mg Tablet PO (06:07)
[2022-01-20] MEDS: ipratropium-albuterol 3 mL Neb INHALATION ×2 (07:46→22:45)
[2022-01-20] MEDS: budesonide 0.5 mg/2 mL Neb INHALATION ×2 (07:59→22:44)
[2022-01-20] MEDS: desvenlafaxine 50 mg Tablet PO (08:17)
[2022-01-20] MEDS: doxycycline 100 mg Tablet PO ×2 (08:17→17:58)
[2022-01-20] MEDS: roflumilast 500 mcg Tablet PO (08:17)
[2022-01-20] MEDS: sennosides-docusate Tablet 1 TAB PO ×2 (08:17→17:58)
[2022-01-20] MEDS: metoprolol tartrate 25 mg Tablet 12.5 MG PO ×2 (08:18→17:58)
[2022-01-20] MEDS: pantoprazole DR 40 mg Tablet PO (08:18)
[2022-01-20] MEDS: CLONazepam 1 mg Tablet PO ×3 (08:18→20:29)
[2022-01-20] MEDS: dilTIAZem ER (24HR) 120 mg Capsule PO (08:18)
[2022-01-20] MEDS: quetiapine 25 mg Tablet 50 MG PO (08:18)
[2022-01-20] MEDS: HYDROcodone-acetaminophen 5-325 mg Tablet 1 TAB PO ×3 (09:29→20:30)
--- NOTE | 2022-01-20 15:31 | PC.NURSE ---
REPORT CALLED TO LUÍS CONKLIN ON [facility]. ALL QUESTIONS ANSWERED. PT SAFELY TRANSFERRED TO [facility] BY THIS NURSE.
--- NOTE | 2022-01-20 16:02 | PC.NURSE ---
Patient transferred from ICU. Patient alert and oriented, lung sounds expiratory wheezing, on 5 L NC oxygen. Patient laying in bed resting at the moment.
[2022-01-20] MEDS: Fleet Enema 133 mL Enema PR (16:14)
--- NOTE | 2022-01-20 17:40 | P.PN_ITS ---
Subjective Subjective: He is feeling overall better today. Coughing less. Wheezing is improving. Denies chest pain or pressure. Currently not bothered by pain. Vitals/I&O/Wt Last Vital Signs Temp 98.0 F 01/20/22 15:53 Pulse 75 01/20/22 15:53 Resp 15 01/20/22 15:53 BP 120/68 01/20/22 15:53 Pulse Ox 97 01/20/22 15:53 O2 Del Method 01/20/22 15:53 O2 Flow Rate 5 01/20/22 13:50 FiO2 30 01/19/22 03:36 01/20/22 01/20/22 01/20/22 06:59 14:59 22:59 Intake Total 360 / 360 Output Total 0 / 950 650 / 650 Balance 0 / 50 -290 / -290 Weight last 48 hrs Weight 58.967 kg Weight 56.472 kg Physical Exam Const: COMMON NORMALS: patient oriented x3 and alert GENERAL APPEARANCE: cooperative NUTRITIONAL APPEARANCE: thin ORIENTATION/CONSCIOUSNESS: Yes awake HENMT: COMMON NORMALS: oropharynx normal Neck/C-Spine: COMMON NORMALS: no JVD Resp: COMMON NORMALS: normal respiratory effort AUSCULTATION: wheezes (Milder) and diminished lung sounds Cardio: COMMON NORMALS: no JVD, regular rhythm, S1 normal heart sound present, S2 normal heart sound present and No murmurs present (Cardio) RHYTHM: regular rhythm HEART SOUNDS: S1 normal heart sound present and S2 normal heart sound present GI: COMMON NORMALS: Normal to inspection, nondistended, normoactive bowel sounds present, Soft to palpation and non-tender PALPATION: Yes Soft to palpation Extremity: COMMON NORMALS: no joint enlargement and no pedal edema Neuro: COMMON NORMALS: patient oriented x3 and moves all extremities SENSORIUM/ORIENTATION: Yes alert Skin: COMMON NORMALS: no rashes or lesions noted GENERAL SKIN EXAM: no rashes or lesions noted Data 01/20/22 03:57 01/20/22 03:57 A&P Assessment and plan (1) Acute exacerbation of chronic obstructive airways disease: Improving respiratory failure. Improving air entry, fever wheezes although still present bilaterally. Oxygenation improving, down to 5 L nasal cannula. Subjectively he is improving. Move out of ICU. Continue care on medical floor. As he is slow to improve for now we will continue unchanged with IV steroids as currently. Continue breathing treatments with DuoNebs, inhaled budesonide. Continue empiric doxycycline. Influenza has been done and is negative At baseline requires 5 L and has known severe COPD Clonazepam for anxiety/air hunger. As needed. (2) Acute respiratory failure with hypoxia: Likely secondary to acute COPD exacerbation. Recommendation of PE. This may be chronic, consideration possibly of pulm hypertension as well. Influenza testing was negative Normal troponin Treatment for COPD as above. Continued evaluation with repeat Cordox for PE. Transition to oral anticoagulation prior to discharge. (3) Abdominal pain: Abdominal pain appears to be improving. Is not tender on exam. May be improving with improving respiratory condition. Has been bothered by some protracted abdominal pain. Mildly tender on exam initial. Suspected secondary to constipation from possible abdominal wall muscular soreness secondary to cough, although liver mass may also be causing discomfort. (4) Constipation: Senna, docusate. Has had a BM. (5) Melanoma metastatic to liver: Tells me just recently confirmed, intends to follow-up with oncology. (6) History of pulmonary embolism: Noted nonocclusive PE subsegmental left lower lobe. May be chronic. Continue therapeutic Lovenox. Transition to oral anticoagulant prior to discharge. Plan Anxiety: Continue clonazepam scheduled. Added as needed 1 mg twice daily for anxiety or air hunger. Multiple other medical problems as outlined in his past medical history Full code currently Lovenox for DVT prophylaxis Attestations Medical Necessity Statement*: Continue admission for slowly improving acute on chronic hypoxic respiratory failure and COPD exacerbation and pneumonia with underlying PE, metastatic melanoma. 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
[2022-01-20] MEDS: docusate sodium 100 mg Capsule PO (17:58)
--- NOTE | 2022-01-20 20:00 | PC.NURSE ---
PHYSICIAN INTERNIST notfied this nurse that the pt was hypoxic at 85%. RT notified and O2 applied at 2 l/m via n/c at this time. Pt did just receive hydro/apap for pain management.
[2022-01-20] MEDS: trazodone 50 mg Tablet PO (20:29)
--- NOTE | 2022-01-20 23:30 | PC.NURSE ---
Pt has refused Fleets enema x 2 stating that he has already had several loose stools and if he gets another enema it will keep him up all night. Pt bsc is noted at this time to have small amt of loose stool present.
[2022-01-21] VITALS (12 sets, daily range): BP systolic 132–140; BP diastolic 73–81; PULSE 57–89; RESP 15–20; TEMP 36.4–36.8; O2SAT 94–99
[2022-01-21] MEDS: enoxaparin 60 mg/0.6 mL Syringe SUBCUT ×2 (00:48→12:39)
[2022-01-21] MEDS: ipratropium-albuterol 3 mL Neb INHALATION ×4 (03:19→19:54)
[2022-01-21] MEDS: buPROPion XL (24 HR) 150 mg Tablet PO (05:13)
[2022-01-21 06:03] LABS: Basophils % 0.1 %; Hemoglobin 10.7 g/dL (11.7-16.6); Lymphocytes # 0.8 10^3/uL (0.8-4.8); Lymphocytes % 5.6 %; Mean Corpuscular HGB Conc 30.6 g/dL (30.0-36.0); Mean Corpuscular Volume 94.9 fl (80-94); Mean Platelet Volume 11.5 fL (7.4-10.4); Monocytes # 0.7 10^3/uL (0.2-0.9); Neutrophils # 12.78 10^3/uL (1.8-7.7); Neutrophils % 88.7 %; Nucleated Red Blood Cells % 0 %; Platelet Count 190 10^3/cmm (130-400); Red Blood Count 3.69 10^6/uL (4.1-5.3); Red Cell Distribution Width 12.3 % (12.1-15.1); White Blood Count 14.4 10^3/uL (4.0-10.0)
[2022-01-21 06:26] LABS: Anion Gap 8.8 (5-19); Blood Urea Nitrogen 23 mg/dL (6-20); Carbon Dioxide 39 mmol/L (22-29); Chloride 98 mmol/L (98-107); Glomerular Filtration Rate 171.4 mL/min (90-130); Glucose 122 mg/dL (65-115); Osmolality Calculated 297 mOsm/kg (285-295); Potassium 4.8 mmol/L (3.5-5.1); Sodium 141 mmol/L (136-145)
[2022-01-21] MEDS: quetiapine 25 mg Tablet 50 MG PO (09:30)
[2022-01-21] MEDS: doxycycline 100 mg Tablet PO ×2 (09:30→17:43)
[2022-01-21] MEDS: docusate sodium 100 mg Capsule PO ×2 (09:30→17:43)
[2022-01-21] MEDS: roflumilast 500 mcg Tablet PO (09:30)
[2022-01-21] MEDS: sennosides-docusate Tablet 1 TAB PO ×2 (09:31→17:43)
[2022-01-21] MEDS: CLONazepam 1 mg Tablet PO ×3 (09:31→20:29)
[2022-01-21] MEDS: pantoprazole DR 40 mg Tablet PO (09:31)
[2022-01-21] MEDS: metoprolol tartrate 25 mg Tablet 12.5 MG PO ×2 (09:31→17:44)
[2022-01-21] MEDS: dilTIAZem ER (24HR) 120 mg Capsule PO (09:31)
[2022-01-21] MEDS: desvenlafaxine 50 mg Tablet PO (09:32)
--- NOTE | 2022-01-21 11:27 | PC.NURSE ---
Dr. Nguyen gave verbal order to give fleets enema now. 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
[2022-01-21] MEDS: Fleet Enema 133 mL Enema PR (12:39)
[2022-01-21] MEDS: HYDROcodone-acetaminophen 5-325 mg Tablet 1 TAB PO ×2 (13:48→20:29)
--- NOTE | 2022-01-21 17:19 | PM.PN ---
Subjective Subjective: Hospital course, labs appreciated. Seen with family at bedside. Patient is back to his baseline oxygen supplementation of 5 L. States he is feeling better. But still pretty weak. Had moderate amount of bowel movement today morning. Vitals/I&O/Wt Last Vital Signs Temp 98.3 F 01/21/22 16:00 Pulse 65 01/21/22 16:00 Resp 16 01/21/22 16:00 BP 132/73 01/21/22 16:00 Pulse Ox 97 01/21/22 16:00 O2 Del Method 01/21/22 16:00 O2 Flow Rate 5 01/21/22 14:00 FiO2 30 01/19/22 03:36 01/21/22 01/21/22 01/21/22 06:59 14:59 22:59 Intake Total 360 / 960 600 / 600 Balance 360 / 310 600 / 600 Weight last 48 hrs Weight 61.32 kg Weight 58.967 kg Physical Exam Narrative: Generally exam demonstrates a white male, on 5 L of oxygen supplementation HEENT: Atraumatic normocephalic. Neck is supple no lymphadenopathy thyromegaly Cardiovascular tachycardic, no murmur Lungs bilateral expiratory wheezes Abdomen is soft. Slight tenderness generalized although more on the right. No obvious organomegaly exams deferred Extremities no cyanosis clubbing or edema, cap refill brisk Skin no rash Neuro no obvious focal deficits. Data 01/21/22 05:19 01/21/22 05:19 A&P Assessment and plan (1) Acute exacerbation of chronic obstructive airways disease: Resolving. Continue with DuoNebs every 6 hour, budesonide twice daily and empiric doxycycline. Influenza and COVID-19 negative. Continue with home dose of Klonopin for air hunger/anxiety. Will down Solu-Medrol to 60 mg daily. Will transition to oral within next 24 hours and plan to discharge accordingly. (2) Acute respiratory failure with hypoxia: Likely secondary to acute COPD exacerbation. Also found to have a small PE. Continue with full dose Lovenox. We will switch to NOAC on discharge. (3) Abdominal pain: Most likely secondary to constipation. Appreciate surgical recommendations. Aggressive bowel regimen. (4) Constipation: Senna, docusate. Has had a BM. (5) Melanoma metastatic to liver: Tells me just recently confirmed, intends to follow-up with oncology. (6) History of pulmonary embolism: Noted nonocclusive PE subsegmental left lower lobe. May be chronic. Continue therapeutic Lovenox. Transition to oral anticoagulant prior to discharge. Plan Anxiety: Continue clonazepam scheduled. Added as needed 1 mg twice daily for anxiety or air hunger. Multiple other medical problems as outlined in his past medical history Full code currently Lovenox for DVT prophylaxis Attestations Medical Necessity Statement*: Requires further hospitalization for management of hypoxia secondary to COPD and newfound PE Time Spent in Patient Care: 16 - 35 minutes Coding Level of Care Code Acute Clinical Documentation Nurse for [facility] Fwd Diagnoses Acute exacerbation of chronic obstructive airways disease J44.1 Acute respiratory failure with hypoxia J96.01 Abdominal pain R10.9 Constipation K59.00 Melanoma metastatic to liver C78.7 History of pulmonary embolism Z86.711
[2022-01-21] MEDS: budesonide 0.5 mg/2 mL Neb INHALATION (19:54)
[2022-01-21] MEDS: trazodone 50 mg Tablet PO (20:29)
--- NOTE | 2022-01-21 23:23 | PC.NURSE ---
Aid notified this nurse that the patient became very [place] [facility] [place] seen now in bed in minimal distress. Does have some soft audible expiratory wheeze heard. Pt states that now he is back in bed his breathing is better at this time.
[2022-01-22] VITALS (14 sets, daily range): BP systolic 128–138; BP diastolic 66–78; PULSE 66–88; RESP 16–22; TEMP 36.4–36.7; O2SAT 93–98
[2022-01-22] MEDS: enoxaparin 60 mg/0.6 mL Syringe SUBCUT ×2 (01:19→12:39)
[2022-01-22] MEDS: ipratropium-albuterol 3 mL Neb INHALATION ×5 (01:57→20:43)
[2022-01-22 04:22] LABS: Basophils % 0.2 %; Lymphocytes # 1.3 10^3/uL (0.8-4.8); Lymphocytes % 9.9 %; Mean Corpuscular HGB Conc 30.6 g/dL (30.0-36.0); Mean Corpuscular Hemoglobin 29.4 pg (28.0-34.0); Mean Corpuscular Volume 96.3 fl (80-94); Mean Platelet Volume 11.8 fL (7.4-10.4); Monocytes # 1.2 10^3/uL (0.2-0.9); Neutrophils # 10.44 10^3/uL (1.8-7.7); Neutrophils % 79.3 %; Nucleated Red Blood Cells % 0 %; Platelet Count 203 10^3/cmm (130-400); Red Blood Count 3.74 10^6/uL (4.1-5.3); Red Cell Distribution Width 12.4 % (12.1-15.1); White Blood Count 13.2 10^3/uL (4.0-10.0)
[2022-01-22 04:52] LABS: Anion Gap 7.8 (5-19); Blood Urea Nitrogen 22 mg/dL (6-20); Calcium 8.9 mg/dL (8.5-10.5); Chloride 95 mmol/L (98-107); Glomerular Filtration Rate 171.4 mL/min (90-130); Glucose 106 mg/dL (65-115); Osmolality Calculated 294 mOsm/kg (285-295); Potassium 3.8 mmol/L (3.5-5.1); Sodium 140 mmol/L (136-145)
[2022-01-22 05:11] LABS: Carbon Dioxide 41 mmol/L (22-29)
--- NOTE | 2022-01-22 05:15 | PC.NURSE ---
Pt referred to Dr. Tinajero for review of increased CO2 from 39 to 41 this am. Will await orders.
[2022-01-22] MEDS: buPROPion XL (24 HR) 150 mg Tablet PO (05:22)
[2022-01-22] MEDS: budesonide 0.5 mg/2 mL Neb INHALATION ×3 (07:28→20:43)
[2022-01-22] MEDS: dilTIAZem ER (24HR) 120 mg Capsule PO (08:52)
[2022-01-22] MEDS: docusate sodium 100 mg Capsule PO ×2 (08:52→17:10)
[2022-01-22] MEDS: desvenlafaxine 50 mg Tablet PO (08:52)
[2022-01-22] MEDS: CLONazepam 1 mg Tablet PO ×3 (08:52→20:58)
[2022-01-22] MEDS: doxycycline 100 mg Tablet PO ×2 (08:53→17:10)
[2022-01-22] MEDS: quetiapine 25 mg Tablet 50 MG PO (08:54)
[2022-01-22] MEDS: pantoprazole DR 40 mg Tablet PO (08:54)
[2022-01-22] MEDS: roflumilast 500 mcg Tablet PO (08:55)
[2022-01-22] MEDS: sennosides-docusate Tablet 1 TAB PO ×2 (08:55→17:11)
[2022-01-22] MEDS: metoprolol tartrate 25 mg Tablet 12.5 MG PO ×2 (09:04→17:11)
[2022-01-22] MEDS: HYDROcodone-acetaminophen 5-325 mg Tablet 1 TAB PO ×2 (09:56→18:03)
--- NOTE | 2022-01-22 17:25 | P.PN_ITS ---
Subjective Subjective: No acute distress overnight. Planning to discharge today but while waiting for paperwork patient had an episode of shortness of breath which is accompanied by expiratory wheeze. Scattered with additional nebulization. Discharge was withheld. Patient otherwise denies any nausea, vomiting, headache. Continues to feel weak. Vitals/I&O/Wt Last Vital Signs Temp 98.1 F 01/22/22 15:45 Pulse 87 01/22/22 15:45 Resp 16 01/22/22 15:45 BP 131/74 01/22/22 15:45 Pulse Ox 96 01/22/22 15:45 O2 Del Method 01/22/22 15:45 O2 Flow Rate 5 01/22/22 15:45 FiO2 30 01/19/22 03:36 01/22/22 01/22/22 01/22/22 06:59 14:59 22:59 Intake Total 120 / 1080 840 / 840 Output Total 300 / 300 550 / 550 Balance -180 / 780 290 / 290 Weight last 48 hrs Weight 63.163 kg Weight 61.32 kg Physical Exam Narrative: Generally exam demonstrates a white male, on 5 L of oxygen supplementation HEENT: Atraumatic normocephalic. Neck is supple no lymphadenopathy thyromegaly Cardiovascular tachycardic, no murmur Lungs bilateral expiratory wheezes Abdomen is soft. Slight tenderness generalized although more on the right. No obvious organomegaly exams deferred Extremities no cyanosis clubbing or edema, cap refill brisk Skin no rash Neuro no obvious focal deficits. Const: COMMON NORMALS: patient oriented x3 and alert GENERAL APPEARANCE: cooperative NUTRITIONAL APPEARANCE: thin ORIENTATION/CONSCIOUSNESS: Yes a wake HENMT: COMMON NORMALS: oropharynx normal Neck/C-Spine: COMMON NORMALS: no JVD Resp: COMMON NORMALS: normal respiratory effort AUSCULTATION: wheezes (Milder) and diminished lung sounds Cardio: COMMON NORMALS: no JVD, regular rhythm, S1 normal heart sound present, S2 normal heart sound present and No murmurs present (Cardio) RHYTHM: regular rhythm HEART SOUNDS: S1 normal heart sound present and S2 normal heart sound present GI: COMMON NORMALS: Normal to inspection, nondistended, normoactive bowel sounds present, Soft to palpation and non-tender PALPATION: Yes Soft to palpation Extremity: COMMON NORMALS: no joint enlargement and no pedal edema Neuro: COMMON NORMALS: patient oriented x3 and moves all extremities SENSORIUM/ORIENTATION: Yes alert Skin: COMMON NORMALS: no rashes or lesions noted GENERAL SKIN EXAM: no rashes or lesions noted Data 01/22/22 03:40 01/22/22 03:40 A&P Assessment and plan (1) Acute exacerbation of chronic obstructive airways disease: Resolving. Continue with DuoNebs every 6 hour, budesonide twice daily and empiric doxycyc line. Influenza and COVID-19 negative. Continue with home dose of Klonopin for air hunger/anxiety. Will down Solu-Medrol to 60 mg daily. Will transition to oral within next 24 hours and plan to discharge accordingly. (2) Acute respiratory failure with hypoxia: Likely secondary to acute COPD exacerbation. Also found to have a small PE. Continue with full dose Lovenox. We will switch to NOAC on discharge. (3) Abdominal pain: Most likely secondary to constipation. Appreciate surgical recommendations. Aggressive bowel regimen. (4) Constipation: Senna, docusate. Has had a BM. (5) Melanoma metastatic to liver: Tells me just recently confirmed, intends to follow-up with oncology. (6) History of pulmonary embolism: Noted nonocclusive PE subsegmental left lower lobe. May be chronic. Continue therapeutic Lovenox. Transition to oral anticoagulant prior to dischar ge. Plan Anxiety: Continue clonazepam scheduled. Added as needed 1 mg twice daily for anxiety or air hunger. Multiple other medical problems as outlined in his past medical history Full code currently Lovenox for DVT prophylaxis Plan for the day: Continue with nebulization. Continue doxycycline to finish a 7-day course. Check procalcitonin, proBNP, CT chest, echocardiogram. Continue other chronic medications. Continue with full dose Lovenox. 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
--- NOTE | 2022-01-22 17:29 | CTR_ITS ---
PROCEDURE INFORMATION: Exam: CT Chest Without Contrast; Diagnostic Exam date and time: 01/22/2022 6:10 PM Age: 57 years old Clinical indication: Shortness of breath TECHNIQUE: Imaging protocol: Diagnostic computed tomography of the chest without contrast. Radiation optimization: All CT scans at this facility use at least one of these dose optimization techniques: automated exposure control; mA and/or kV adjustment per patient size (includes targeted exams where dose is matched to clinical indication); or iterative reconstruction. COMPARISON: CT angio chest PE protcl [id number] 01/18/2022 12:21 PM RADIATION DOSE METRICS: Total DLP (mGy-cm): 268.21 FINDINGS: Limitations: Study is somewhat limited by patient respiratory motion. Lungs: There are extensive changes of pulmonary emphysema throughout both lungs not changed from 01/18/2022. There is some calcified granulomas in the right upper lobe. The small noncalcified pulmonary nodules are not significantly changed compared with 01/18/2022 or compared with 10/25/2021 allowing for respiratory motion artifact.. There is some focal scarring and volume loss in the right lower lobe anterior basal segment. Pleural spaces: Unremarkable. No pneumothorax. No pleural effusion. Heart: There is mild atherosclerotic calcification of the coronary arteries. Lymph nodes: Unremarkable. No enlarged lymph nodes. Vasculature: Unremarkable. No aortic aneurysm. Bones/joints: Unremarkable. No acute fracture. Soft tissues: Unremarkable. CT/CT chest [facility] [id number] IMPRESSION: 1. Somewhat limited examination due to respiratory motion 2. Findings of pulmonary emphysema not significantly changed. 3. No acute infiltrate.
--- NOTE | 2022-01-22 18:08 | PC.NURSE ---
pt to CT via w/c
[2022-01-22 18:14] LABS: NT Pro B Type Natriuretic Pept 152 pg/mL (0-125); Procalcitonin 0.16 ng/mL (0-0.5)
--- NOTE | 2022-01-22 18:24 | PC.NURSE ---
pt has returned to 276 -[address]
[2022-01-22] MEDS: trazodone 50 mg Tablet PO (20:57)
[2022-01-23] VITALS (7 sets, daily range): BP systolic 128–137; BP diastolic 71–77; PULSE 67–77; RESP 14–20; TEMP 36.6–36.8; O2SAT 95–98
[2022-01-23] MEDS: enoxaparin 60 mg/0.6 mL Syringe SUBCUT (00:47)
[2022-01-23] MEDS: ipratropium-albuterol 3 mL Neb INHALATION ×3 (01:53→12:50)
[2022-01-23 05:18] LABS: Basophils % 0.4 %; Hematocrit 35.7 % (42.0-52.0); Hemoglobin 10.8 g/dL (11.7-16.6); Lymphocytes # 1.2 10^3/uL (0.8-4.8); Lymphocytes % 12.9 %; Mean Corpuscular HGB Conc 30.3 g/dL (30.0-36.0); Mean Platelet Volume 11.5 fL (7.4-10.4); Monocytes # 0.9 10^3/uL (0.2-0.9); Neutrophils # 6.73 10^3/uL (1.8-7.7); Neutrophils % 71.7 %; Nucleated Red Blood Cells % 0 %; Platelet Count 212 10^3/cmm (130-400); Red Blood Count 3.72 10^6/uL (4.1-5.3); Red Cell Distribution Width 12.2 % (12.1-15.1); White Blood Count 9.4 10^3/uL (4.0-10.0)
[2022-01-23 05:43] LABS: Alanine Aminotransferase 15 U/L (0-41); Albumin Level 3.3 g/dL (3.5-5.2); Alkaline Phosphatase 78 U/L (40-130); Aspartate Amino Transferase 13 U/L (0-40); Blood Urea Nitrogen 20 mg/dL (6-20); Chloride 93 mmol/L (98-107); Globulin 2.3 g/dL (1.3-4.6); Glomerular Filtration Rate 171.4 mL/min (90-130); Glucose 110 mg/dL (65-115); Osmolality Calculated 295 mOsm/kg (285-295); Sodium 141 mmol/L (136-145); Total Bilirubin 0.2 mg/dL (0.15-1.2); Total Protein 5.6 g/dL (6.6-8.7)
[2022-01-23] MEDS: buPROPion XL (24 HR) 150 mg Tablet PO (05:51)
[2022-01-23 05:56] LABS: Carbon Dioxide 45 mmol/L (22-29)
--- NOTE | 2022-01-23 06:00 | USCV_ITS ---
Shamar Negron Age: 57 Gender: M : 1965 Exam Date: 01/23/2022 10:31 Ordering Phys: Jerome Nguyen MD Technologist: Tyree Pearce [place] [facility] [place]: chest pain BP: 137 / 77 HR: Rhythm: Sinus Technical Quality: Very technically difficult study MEASUREMENTS (Male / Female) Normal Values 2D ECHO LV Diastolic Diameter PLAX 4.9 cm 4.2 - 5.9 / 3.9 - 5.3 cm LV Systolic Diameter PLAX 2.9 cm IVS Diastolic Thickness 1.0 cm 0.6 - 1.0 / 0.6 - 0.9 cm IVS Systolic Thickness 1.4 cm LVPW Diastolic Thickness 1.2 cm 0.6 - 1.0 / 0.6 - 0.9 cm LVPW Systolic Thickness 1.3 cm LV Ejection Fraction 2D Teich 73.0 % IVC Diameter 1.7 cm DOPPLER AV Peak Velocity 134.0 cm/s LVOT Peak Velocity 87.0 cm/s MV Area PHT 5.1 cm squared Mitral E to A Ratio 1.2 MV E' Velocity 66.0 cm/s TR Peak Velocity 139.0 cm/s TR Peak Gradient 7.7 mmHg TV Peak E Velocity 64.0 cm/s Right Atrial Pressure 3.0 mmHg Pulmonary Artery Systolic Pressu 10.7 mmHg RV Acceleration Time 0.1 s FINDINGS Left Ventricle Normal left ventricular size, systolic function with no diagnostic regional wall motion abnormalities. Left ventricular ejection fraction is estimated at 60-65 %. Right Ventricle Normal right ventricular size and possibly mildly decreased systolic function. Right Atrium Normal right atrial size. Left Atrium Probably normal left atrial size. Mitral Valve Structurally normal mitral valve. Trace mitral valve regurgitation. Aortic Valve Aortic valve not well visualized. No aortic valve stenosis. No aortic valve regurgitation. Tricuspid Valve Structurally normal tricuspid valve. Mild tricuspid valve regurgitation. Pulmonic Valve Pulmonic valve not well visualized. Pericardium No pericardial effusion. Aorta Aorta not well visualized. IVC Normal sized inferior vena cava. CONCLUSIONS 1. This is a difiiculty study with only subcostal windows. 2. Normal left ventricular size, systolic function with no diagnostic regional wall motion abnormalities. Left ventricular ejection fraction is estimated at 60-65 %. 3. No significant change when comapred to study dated 02/16/2018. Anna Akhtar MD (Electronically Signed) Final Date: 26 January 2022 19:42 S
--- NOTE | 2022-01-23 06:20 | PC.NURSE ---
Pt referred to Dr. Tinajero for review of H CO2 result. NNO.
[2022-01-23] MEDS: budesonide 0.5 mg/2 mL Neb INHALATION (08:29)
[2022-01-23] MEDS: doxycycline 100 mg Tablet PO (08:35)
[2022-01-23] MEDS: roflumilast 500 mcg Tablet PO (08:35)
[2022-01-23] MEDS: docusate sodium 100 mg Capsule PO (08:35)
[2022-01-23] MEDS: quetiapine 25 mg Tablet 50 MG PO (08:35)
[2022-01-23] MEDS: pantoprazole DR 40 mg Tablet PO (08:36)
[2022-01-23] MEDS: metoprolol tartrate 25 mg Tablet 12.5 MG PO (08:36)
[2022-01-23] MEDS: CLONazepam 1 mg Tablet PO ×2 (08:36→13:39)
[2022-01-23] MEDS: sennosides-docusate Tablet 1 TAB PO (08:36)
[2022-01-23] MEDS: dilTIAZem ER (24HR) 120 mg Capsule PO (08:36)
[2022-01-23] MEDS: desvenlafaxine 50 mg Tablet PO (08:41)
--- NOTE | 2022-01-23 10:42 | P.DS_ITS ---
Discharge Providers Date of Admission: 01/18/22 15:33 Date of Discharge: January 23, 2022 Attending Provider at Admission: Dmitri Sarmiento MD Attending Provider at Discharge: Jerome Nguyen MD Primary Care Provider: Shahzad Ybarra Diagnoses at Discharge Discharge Diagnosis (1) Acute exacerbation of chronic obstructive airways disease: Status: Acute (2) Acute respiratory failure with hypoxia: Status: Acute (3) Abdominal pain: Status: Acute (4) Constipation: Status: Acute (5) Melanoma metastatic to liver: Status: Acute (6) History of pulmonary embolism: Status: Acute Reason for Visit Reason for Visit: Respiratory Distress Brief History: History as per HPI: Shamar Negron Jr is a 57 year old male presenting to the emergency department with significant shortness of breath and wheezing.? He reports this woke him from sleep, around 2 AM and was associated with some sharp chest discomfort.? Chest discomfort is now gone away.? No vomiting, diarrhea.? No recent fevers.? No cough.? No blood in stool or black or tarry stools.? According to old records has past history of pulmonary embolism although patient does not remember this.? He is currently being investigated for metastatic melanoma, and had an oncology visit today to discuss his recent liver biopsy results.? He has had some abdominal pain, he relates that seem to start after he got his liver biopsy. Hospital Course Hospital Course Patient was admitted to hospital further evaluation and and management of hypoxia secondary to acute exacerbation of COPD. Patient is breathing at baseline being managed as an outpatient for end-stage COPD and relates on 5 L of oxygen supplementation. He was at first started on treatment with nebulization, systemic steroids and oral doxycycline. Respiratory viral panel remains negat rose. At first he was started on ventilation through BiPAP which was later transitioned to nasal cannula. During hospitalization CTA was done given his history of metastatic malignancy and was found to have bilateral PE without right heart strain. He was started on full dose Lovenox. Patient was also found to have severe constipation for which she received multiple enemas. Patient had a gradual slow improvement. Patient has been on baseline oxygen supplementation for last 24 to 48 hours. Has been discharged in medically stable condition on oral Eliquis, nebulization treatment. He is to follow-up with his primary care provider within next 1 week. Physical Exam Narrative: Generally exam demonstrates a white male, on 5 L of oxygen supplementation HEENT: Atraumatic normocephalic. Neck is supple no lymphadenopathy thyromegaly Cardiovascular tachycardic, no murmur Lungs bilateral expiratory wheezes Abdomen is soft. Slight tenderness generalized although more on the right. No obvious organomegaly exams deferred Extremities no cyanosis clubbing or edema, cap refill brisk Skin no rash Neuro no obvious focal deficits. Discharge Data Studies Completed and Pending Completed Studies During Hospitalization Category Date Time Status CT abdomen pelvis w con* [id number] Stat Cat Scan 01/18/22 10:[address] chest wo con [id number] Routine Cat Scan 01/22/22 17:29 Completed CTA chest [CT angio chest PE protcl [id number]] Stat Cat Scan 01/18/22 11:58 Completed XR chest 1V portable [id number] Stat Exams 01/18/22 09:44 Completed Pending at discharge Category Date Time Status CV. echo complete* [id number] Routine Ultrasound 01/23/22 06:00 Ordered Radiology Impressions Chest X-Ray 01/18/22 09:44 IMPRESSION: 1. COPD 2. Negative for acute abnormality Abdomen/Pelvis CT 01/18/22 10:30 IMPRESSION: 1. Severe chronic emphysematous changes at the lung bases. No consolidation. 2. Metastatic lesion in the central liver is reidentified. 3. Study limited by motion but no free air or free fluid is identified. There is mild gaseous distention of the small bowel and constipation. Chest CTA 01/18/22 11:58 IMPRESSION: 1. Quality of this examination is compromised by breathing artifact. 2. Nonocclusive, subsegmental LEFT lower lobe pulmonary emboli. May be chronic. 3. Severe centrilobular emphysema. 4. Indeterminate mediastinal and hilar lymph nodes measuring up to 10 mm. 5. Patient has known metastatic hepatic lesion. Chest CT 01/22/22 17:29 IMPRESSION: 1. Somewhat limited examination due to respiratory motion 2. Findings of pulmonary emphysema not significantly changed. 3. No acute infiltrate. Laboratory Results WBC 9.4 10^3/uL (4.0-10.0) 01/23/22 04:27 RBC 3.72 10^6/uL (4.1-5.3) L 01/23/22 04:27 Hgb 10.8 g/dL (11.7-16.6) L 01/23/22 04:27 Hct 35.7 % (42.0-52.0) L 01/23/22 04:27 MCV 96.0 fl (80-94) H 01/23/22 04:27 MCH 29.0 pg (28.0-34.0) 01/23/22 04:27 MCHC 30.3 g/dL (30.0-36.0) 01/23/22 04: RDW 12.2 % (12.1-15.1) 01/23/22 04:27 Plt Count 212 10^3/cmm (130-400) 01/23/22 04:27 MPV 11.5 fL (7.4-10.4) H 01/23/22 04:27 Neut % (Auto) 71.7 % 01/23/22 04:27 Lymph % (Auto) 12.9 % 01/23/22 04:27 [place] % (Auto) 10.0 % 01/23/22 04: Eos % (Auto) 0.0 % 01/23/22 04:27 Baso % (Auto) 0.4 % 01/23/22 04:27 Neut # (Auto) 6.73 10^3/uL (1.8-7.7) 01/23/22 04:27 Lymph # (Auto) 1.2 10^3/uL (0.8-4.8) 01/23/22 04:27 [place] # (Auto) 0.9 10^3/uL (0.2-0.9) 01/23/22 04:27 Eos # (Auto) 0.0 10^3/uL (0.0-0.8) 01/23/22 04:27 Baso # (Auto) 0.0 10^3/uL (0.0-0.1) 01/23/22 04:27 Nucleated RBC % (auto) 0 % 01/23/22 04: Nucleated RBCs # 0.0 /100WBC 01/23/22 04:27 Specimen Type Arterial 01/18/22 10:09 Sample Site Radial, left 01/18/22 10:09 ABG pH 7.38 (7.35-7.45) 01/18/22 10:09 ABG pCO2 59.9 mmHg (35-45) H 01/18/22 10:09 ABG pO2 49.9 mmHg (80.0-100.0) L 01/18/22 10:09 ABG HCO3 35.1 mmol/L (22-26) H 01/18/22 10:09 ABG O2 Saturation 86.7 01/18/22 10:09 ABG Base Excess 8.0 mmol/L (-2.0-2.0) H 01/18/22 10:09 Damon Test Pos 01/18/22 10:09 A-a O2 Gradient 14.0 mmHg (5-10) H 01/18/22 10:09 Hematocrit 39.5 % (42-52) L 01/18/22 10:09 Hgb O2 Saturation 83.9 % (95-100) L 01/18/22 10:09 Carboxyhemoglobin 2.2 %THgb (0.4-20.1) 01/18/22 10:09 Methemoglobin 1.0 % (0.4-1.5) 01/18/22 10:09 Total Hemoglobin 12.9 g/dL (14-18) L 01/18/22 10:09 Sodium 137.0 mmol/L (131-143) 01/18/22 10:09 Potassium 4.4 mmol/L (3.5-5.0) 01/18/22 10:09 Glucose 109.0 mg/dL (70-115) 01/18/22 10:09 Ionized Calcium 1.2 mmol/L (1.1-1.4) 01/18/22 10:09 O2 Delivery Device Nc 01/18/22 10:09 O2 Liters/Min 3.0 % 01/18/22 10:09 FiO2 32.0 % 01/18/22 10:09 Gas Substation Operator ID Cak 01/18/22 10:09 Sodium 141 mmol/L (136-145) 01/23/22 04:27 Potassium 4.0 mmol/L (3.5-5.1) 01/23/22 04:27 Chloride 93 mmol/L (98-107) L 01/23/22 04:27 Carbon Dioxide 45 mmol/L (22-29) H* 01/23/22 04:27 Anion Gap 7.0 (5-19) 01/23/22 04:27 BUN 20 mg/dL (6-20) 01/23/22 04:27 Creatinine 0.5 mg/dL (0.7-1.2) L 01/23/22 04:27 GFR Calculation 171.4 mL/min (90-130) H 01/23/22 04:27 Glucose 110 mg/dL (65-115) 01/23/22 04:27 Calculated Osmolality 295 mOsm/kg (285-295) 01/23/22 04:27 Calcium 9.0 mg/dL (8.5-10.5) 01/23/22 04:27 Total Bilirubin 0.2 mg/dL (0.15-1.2) 01/23/22 04:27 AST 13 U/L (0-40) 01/23/22 04:27 ALT 15 U/L (0-41) 01/23/22 04:27 Alkaline Phosphatase 78 U/L (40-130) 01/23/22 04:27 Troponin T Gen 5 ng/L 13 ng/L (0-15) 01/18/22 Unknown NT-Pro-B Natriuret Pep 152 pg/mL (0-125) H 01/22/22 03:40 Total Protein 5.6 g/dL (6.6-8.7) L 01/23/22 04:27 Albumin 3.3 g/dL (3.5-5.2) L 01/23/22 04:27 Globulin 2.3 g/dL (1.3-4.6) 01/23/22 04:27 Procalcitonin 0.16 ng/mL (0-0.5) 01/22/22 03:40 Influenza Type A Ag negative (Negative) 01/18/22 10:20 Influenza Type B Ag negative (Negative) 01/18/22 10:20 Vitals Last Vital Signs Temp 97.8 F 01/23/22 08:00 Pulse 77 01/23/22 08:00 Resp 16 01/23/22 08:00 BP 135/77 01/23/22 08:00 Pulse Ox 98 01/23/22 08:00 O2 Del Method 01/23/22 08:00 O2 Flow Rate 5 01/23/22 08:00 FiO2 30 01/19/22 03:36 Discharge Plan Discharge Patient Disposition: Home Condition: Stable Prescriptions: New ipratropium-albuterol 0.5 mg-3 mg(2.5 mg base)/3 mL solution for nebulization 3 ml inhalation Q4H PRN (Reason: shortness of breath or wheezing) Qty: 90 0RF Eliquis DVT-PE Treat 30D Start 5 mg (74 tabs) tablets,dose pack 5 mg PO Q12H Qty: 74 0RF prednisone 10 mg tablet See Rx Instructions .ROUTE .COMPLEX Qty: 30 0RF Rx Instructions: prednisone 5 mg: take 8 tablets (40 mg) on Day 1; 7 tablets (35 mg) on Day 2; then decrease by 1 tablet every day until finished Continued Spiriva with HandiHaler 18 mcg capsule, w/inhalation device 1 cap INHALATION DAILY 90 Days Qty: 90 3RF Rx Instructions: run through 340b fluticasone propion-salmeterol [Advair Diskus] 250-50 mcg/dose blister with device 1 inh INHALATION BID Qty: 60 3RF bupropion HCl [Wellbutrin XL] 150 mg tablet extended release 24 hr 150 mg PO QAM 30 Days Qty: 30 2RF clonazepam [Klonopin] 1 mg tablet 1 mg PO TID Qty: 90 2RF desvenlafaxine succinate [Pristiq] 50 mg tablet extended release 24 hr 50 mg PO DAILY Qty: 30 2RF cetirizine [Zyrtec] 10 mg Tablet 10 mg PO BEDTIME hydrocodone-acetaminophen 5-325 mg tablet 1 tab PO BID PRN (Reason: pain) diltiazem HCl [DILT-XR] 120 mg Capsule,Ext.Rel 24h Degradable 120 mg PO DAILY metoprolol tartrate 25 mg Tablet 12.5 mg PO BID Daliresp 500 mcg Tablet 500 mcg PO DAILY albuterol sulfate [ProAir HFA] 90 mcg/actuation Hfa Aerosol Inhaler 2 puff INHALATION QID PRN (Reason: Shortness Of Breath) 30 Days Qty: 1 0RF meloxicam 15 mg tablet 15 mg PO DAILY benzonatate 100 mg capsule 100 mg PO TID PRN (Reason: Cough) trazodone 50 mg tablet 50 mg PO BEDTIME quetiapine 50 mg tablet 50 mg PO DAILY Discharge Orders: Discharge Order (Routine); Ordered 01/23/22 Ordered By: Jerome Nguyen Other Ambulatory Orders: DME: Nebulizer with Neb Kit (Order) Location: None Selected Ordered By: Jerome Nguyen Referrals: Shahzad Ybarra [Primary Care Provider] - 01/27/22 10:00 am Discharge Diet: Cardiac Discharge Activity: Resume usual activity and Increase activity as tolerated Patient Instructions: Ipratropium (By breathing), Prednisone (By mouth), Apixaban (By mouth), COPD (Chronic Obstructive Pulmonary Disease) (GEN), Opioid Safety Activity Restrictions/Additional Instructions: Please follow-up with primary care provider within next 1 week. Please take Eliquis 10 mg morning and evening for next 1 week followed by 5 mg morning and evening going forward for life. Please continue doing nebulization treatment as needed. Continue prednisone taper as directed. Discharge Attestations Time Spent in Discharge Care*: greater than 30 min Specific Discharge Activities: educating patient, educating and/or supporting family/caregiver, discussing with rn case mgr/social workers/dc planners, documenting/other paperwork and evaluating patient/reviewing data Status at Discharge: Cognitive status at discharge: cognitively intact , Behavioral status at discharge: cooperative , Functional status at discharge: other assisted ambulation , Overall status at discharge: patient is back to baseline Quality Metrics Clinical Quality Measures [ Venous Thromboembolism { Contraindication to Overlap Therapy: None; Overlap threrpy ordered; VTE Discharge Education: Education about anticoagulant therapy/Care Notes given; Deep Vein Thrombosis/Pulmonary Embolism Present on Admission: Yes;}] Coding Level of Care Code Acute [facility] note Diagnoses Acute exacerbation of chronic obstructive airways disease J44.1 Acute respiratory failure with hypoxia J96.01 Abdominal pain R10.9 Constipation K59.00 Melanoma metastatic to liver C78.7 History of pulmonary embolism Z86.711
[2022-01-23] MEDS: HYDROcodone-acetaminophen 5-325 mg Tablet 1 TAB PO (10:54)
== END 2022-01-23 14:00 | disposition home or self-care (01) | DRG 175 ==
LOC: ER 12:54 → ICU 15:33 → MEDSURG 01-20 14:57
PROVIDERS: Internal Medicine; Admitting Provider Internal Medicine; Emergency Provider Family Medicine; PCP Family Medicine; Visit Provider Student in an Organized Health Care Education/Training Program
DX: I26.93 Single subsegmental thrombotic pulmonary embolism without acute cor pulmonale (principal); J96.01 Acute respiratory failure with hypoxia; C78.7 Secondary malignant neoplasm of liver and intrahepatic bile duct; J44.1 Chronic obstructive pulmonary disease with (acute) exacerbation; I27.82 Chronic pulmonary embolism; C69.61 Malignant neoplasm of right orbit; F41.9 Anxiety disorder, unspecified; G89.29 Other chronic pain; M54.9 Dorsalgia, unspecified; F32.5 Major depressive disorder, single episode, in full remission; E78.5 Hyperlipidemia, unspecified; K21.9 Gastro-esophageal reflux disease without esophagitis; I10 Essential (primary) hypertension; Z99.81 Dependence on supplemental oxygen; F41.0 Panic disorder [episodic paroxysmal anxiety]; I27.20 Pulmonary hypertension, unspecified; F17.200 Nicotine dependence, unspecified, uncomplicated; K59.00 Constipation, unspecified; Z79.51 Long term (current) use of inhaled steroids; Z79.891 Long term (current) use of opiate analgesic
CPT/HCPCS: 36415; 36600; 71045; 71250; 71275; 74177; 80048; 80051; 80053; 82330; 82805; 83880; 84145; 84484; 85025; 87804; 93005; 93306; 94002; 94640; 94660; 96372; 99291; J1650; J2930; J7626; Q9967

== ENCOUNTER 2022-01-27 08:13 | Oncology outpatient (recurring) (ONCR) | payer MEDICAID, SELFPAY | END 2022-02-25 23:59 | disposition home or self-care (01) | PROVIDERS: PCP Family Medicine; Visit Provider Internal Medicine Medical Oncology | DX: C69.41 Malignant neoplasm of right ciliary body (principal); C78.7 Secondary malignant neoplasm of liver and intrahepatic bile duct; R91.1 Solitary pulmonary nodule; Z87.891 Personal history of nicotine dependence | CPT/HCPCS: 36415; 99205 ==

== ENCOUNTER 2022-02-04 00:56 | Inpatient (IN) | payer MEDICAID, SELFPAY ==
[2022-02-04] VITALS (59 sets, daily range): BP systolic 90–162; BP diastolic 61–98; PULSE 70–126; RESP 5–40; TEMP 36.1–37.5; O2SAT 78–100; BMI 18.6; BMI 18.0; BMI 17.9
--- NOTE | 2022-02-04 00:59 | ECG_ITS ---
[facility] Test Date: 2022-02-04 Pat Name: Shamar Negron Department: Room: 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 Measurements Intervals Elizabeth Rate: 116 P: 83 NM: 163 QRS: 81 QRSD: 77 T: 80 QT: 266 QTc: 370 Interpretive Statements SINUS TACHYCARDIA ABNORMAL RHYTHM ECG INTERPRETATION BASED ON A DEFAULT AGE OF 40 YEARS Compared to ECG 01/18/2022 09:56:28 No significant changes Electronically Signed On 02-04-2022 16:41:37 [employer]ATTLE [employer]ARM[employer] by Emir Colon M.D. [email or web address]
--- NOTE | 2022-02-04 00:59 | XRR_ITS ---
PROCEDURE INFORMATION: Exam: XR Chest Exam date and time: 02/04/2022 1:09 AM Age: 57 years old Clinical indication: Shortness of breath; Prior surgery; Surgery type: Heart cath; Patient HX: C/O severe SOB. History of copd. TECHNIQUE: Imaging protocol: Radiologic exam of the chest. Views: 1 view. COMPARISON: CT chest con [id number] 01/22/2022 6:10 PM FINDINGS: Lungs: Unremarkable. No consolidation. Pleural spaces: Unremarkable. No pleural effusion. No pneumothorax. Heart/Mediastinum: Unremarkable. No cardiomegaly. Bones/joints: Unremarkable. XR/XR chest 1V portable [id number] IMPRESSION: No acute findings.
--- NOTE | 2022-02-04 01:01 | W.ED.SOB ---
HPI - SOB/Dyspnea General: Chief Complaint: Shortness of Breath/Dyspnea Stated Complaint: RESP. DISTRESS Time Seen by Provider: 02/04/22 00:57 Source: patient and EMS Mode of arrival: EMS Limitations: no limitations History of Present Illness: HPI Narrative: 57-year-old male who has a history of end-stage COPD he states he typically wears 5 L oxygen at home states over the last 2 hours he had increasing shortness of breath he turned his on oxygen up to 8 EMS was called of giving a breathing treatment along with Solu-Medrol he have them on a nonrebreather at 15 L due to hypoxia he is in distress here able to speak in 2-4 word sentences with tachypnea he denies any pain denies any fever Associated symptoms: Deny abdominal pain, chest pain, fever(s), nausea or vomiting Review of Systems Const: Denies: fever(s), chills, body aches or change in appetite Eyes: Denies: blurry vision or eye discomfort ENMT: Denies: throat pain or dental pain Card: Denies: chest pain Resp: Reports: dyspnea GI: Denies: abdominal pain, nausea, vomiting or diarrhea : Denies: dysuria Musc: Denies: neck pain or back pain Skin/Breast: Denies: rash Neuro: Denies: headache(s) Psych: Denies: depression Ish/Lymph: Denies: easy bruising All/Imm: Denies: urticaria PFSH ED PFSH: Medical History Anxiety Chronic anticoagulation Chronic back pain COPD (chronic obstructive pulmonary disease) Depression Dyslipidemia GERD (gastroesophageal reflux disease) History of pulmonary embolism Hypertension 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 Metastatic melanoma Overdose of analgesic Oxygen dependent Panic disorder [episodic paroxysmal anxiety] Pulmonary hypertension Respiratory failure Surgical History H/O cardiac catheterization Family History Other CAD (coronary artery disease) Diabetes Social History Smoking and tobacco status: former smoker Quit status (tobacco): has quit using tobacco Year quit tobacco: 2021 - smoked x 40 years Alcohol intake: never Adopted: No Household members: family Physical Exam Const: COMMON NORMALS: patient oriented x3 GENERAL APPEARANCE: in distress, ill appearing and frail appearing HENMT: COMMON NORMALS: normocephalic and atraumatic HEAD & SCALP: normocephalic and atraumatic Eye: COMMON NORMALS: Equal, round and reactive pupils present and EOMs intact bilaterally PUPIL: Yes Equal, round and reactive pupils present Neck/C-Spine: COMMON NORMALS: full ROM and supple Chest: COMMONS NORMALS: normal inspection of the chest and normal palpation of entire chest wall Resp: EFFORT & INSPECTION: Yes tachypneic, Yes respiratory distress and Yes labored AUSCULTATION: wheezes and diminished lung sounds Cardio: COMMON NORMALS: regular rate, regular rhythm and No murmurs present (Cardio) RATE: regular rate RHYTHM: regular rhythm GI: COMMON NORMALS: Normal to inspection, nondistended, normoactive bowel sounds present, Soft to palpation, non-tender and no masses PALPATION: Yes Soft to palpation Extremity: COMMON NORMALS: normal to inspection and full ROM Neuro: COMMON NORMALS: patient oriented x3, moves all extremities and no focal motor deficits Psych: COMMON NORMALS: mental status grossly normal, Normal thought process present and cooperative THOUGHT PROCESS: Normal thought process present Skin: COMMON NORMALS: no rashes or lesions noted and no wounds GENERAL SKIN EXAM: no rashes or lesions noted Course Vital Signs: Vital signs: Vital Signs Temperature 97.0 F L 02/04/22 00:57 Pulse Rate 119 H 02/04/22 02:24 Respiratory Rate 40 H 02/04/22 02:24 Blood Pressure 118/73 02/04/22 02:24 Pulse Oximetry 96 02/04/22 02:24 Oxygen Delivery Me thod 02/04/22 02:24 Oxygen Flow Rate 15 02/04/22 00:57 Fraction of Inspir ed Oxygen 35 02/04/22 02:21 MDM - SOB/Dyspnea Medical Decision Making Patient presents here with COPD exacerbation with hypercapnia he is improving on BiPAP I spoke to hospice will admit the ICU he has no signs of pneumonia. Lab Data 02/04/22 00:27 02/04/22 00:27 Labs/Radiology: Radiology Impressions Chest X-Ray 02/04/22 00:59 IMPRESSION: No acute findings. Laboratory Results WBC 9.8 10^3/uL (4.0-10.0) 12/10/22 00: RBC 4.09 10^6/uL (4.1-5.3) L 02/04/22 00: Hgb 12.0 g/dL (11.7-16.6) 02/04/22 00: Hct 40.4 % (42.0-52.0) L 02/04/22 00: MCV 98.8 fl (80-94) H 02/04/22: MCH 29.3 pg (28.0-34.0) 02/04/22: MCHC 29.7 g/dL (30.0-36.0) L 02/04/22: RDW 13.0 % (12.1-15.1) 02/04/22 00: Plt Count 224 10^3/cmm (130-400) 02/04/22 00: MPV 11.2 fL (7.4-10.4) H 02/04/22 00: Neut % (Auto) 70.7 % 02/04/22: Lymph % (Auto) 14.0 % 02/04/22: [place] % (Auto) 11.9 % 02/04/22 00: Eos % (Auto) 1.9 % 02/04/22 00: Baso % (Auto) 0.4 % 02/04/22 00: Neut # (Auto) 6.94 10^3/uL (1.8-7.7) 02/04/22 00: Lymph # (Auto) 1.4 10^3/uL (0.8-4.8) 02/04/22 00:27 [place] # (Auto) 1.2 10^3/uL (0.2-0.9) H 02/04/22 00: Eos # (Auto) 0.2 10^3/uL (0.0-0.8) 02/04/22: Baso # (Auto) 0.0 10^3/uL (0.0-0.1) 02/04/22 00: Nucleated RBC % (auto) 0 % 02/04/22 00: Nucleated RBCs # 0.0 /100WBC 02/04/22 00: PT 12.40 SECONDS (12.1-14.9) 02/04/22 00:27 INR 0.89 (0.8-1.2) 02/04/22 00:27 Specimen Type Arterial 02/04/22 02:04 Sample Site Radial, left 02/04/22 02:04 ABG pH 7.29 (7.35-7.45) L 02/04/22 02:04 ABG pCO2 80.8 mmHg (35-45) H* 02/04/22 02:04 ABG pO2 74.9 mmHg (80.0-100.0) L 02/04/22 02:04 ABG HCO3 38.8 mmol/L (22-26) H 02/04/22 02:04 ABG Base Excess 9.6 mmol/L (-2.0-2.0) H 02/04/22 02:04 Damon Test Pos 02/04/22 02:04 Hematocrit 34.5 % (42-52) L 02/04/22 02:04 Hgb O2 Saturation 97.3 % (95-100) 02/04/22 01:05 Carboxyhemoglobin 1.5 %THgb (0.4-20.1) 02/04/22 01:05 Methemoglobin 1.3 % (0.4-1.5) 02/04/22 01:05 Total Hemoglobin 11.8 g/dL (14-18) L 02/04/22 01:05 O2 Delivery Device Bipap 02/04/22 02:04 FiO2 35.0 % 02/04/22 02:04 Directional Bore Operator ID [place] 02/04/22 02:04 Sodium 148 mmol/L (136-145) H 02/04/22 00:27 Potassium 4.5 mmol/L (3.5-5.1) 02/04/22 00:27 Chloride 102 mmol/L (98-107) 02/04/22 00:27 Carbon Dioxide 41 mmol/L (22-29) H 02/04/22 00:27 Anion Gap 9.5 (5-19) 02/04/22 00:27 BUN 15 mg/dL (6-20) 02/04/22 00:27 Creatinine 0.5 mg/dL (0.7-1.2) L 02/04/22 00:27 GFR Calculation 171.4 mL/min (90-130) H 02/04/22 00:27 Glucose 119 mg/dL (65-115) H 02/04/22 00:27 Calculated Osmolality 308 mOsm/kg (285-295) H 02/04/22 00:27 Calcium 8.9 mg/dL (8.5-10.5) 02/04/22 00:27 Total Bilirubin 0.2 mg/dL (0.15-1.2) 02/04/22 00:27 AST 21 U/L (0-40) 02/04/22 00:27 ALT 33 U/L (0-41) 02/04/22 00:27 Alkaline Phosphatase 89 U/L (40-130) 02/04/22 00:27 NT-Pro-B Natriuret Pep 19 pg/mL (0-125) 02/04/22 00:27 Total Protein 6.6 g/dL (6.6-8.7) 02/04/22 00:27 Albumin 4.0 g/dL (3.5-5.2) 02/04/22 00:27 Globulin 2.6 g/dL (1.3-4.6) 02/04/22 00:27 Influenza Type A Ag negative (Negative) 02/04/22 01:30 Influenza Type B Ag negative (Negative) 02/04/22 01:30 EKG Data EKG 1: I personally reviewed and interpreted this EKG as follows: EKG Interpretation Date: 02/04/22 EKG interpretation time: 01:25 Interpretation: sinus tach hr [address] or t wave abnormalities qrs 77 qtc 335 Critical Care Time Critical Care Time: Critical Care Time: Yes Total Critical Care Time: 45 Attestation: The high probability of a clinically significant, sudden or life threatening deterioration of the patient's resp system(s) required my full and direct attention, intervention and personal management. The critical care time is as shown. This time is in addition to time spent performing any reported procedures but includes the following: [x] Data and vital sign review and interpretation [x] Patient assessment, examination and intervention [x] Documentation [x] Medication orders and management Discharge Plan Discharge Patient Disposition: Admitted As Inpatient Admit Provider: Vilma Tinajero Clinical Impression: Acute exacerbation of chronic obstructive airways disease, Acute and chronic respiratory failure with hypercapnia Condition: Stable Coding Level of Care Code ED Roll Forming Machine Operator for Chg Fwd Exam Comprehensive
[2022-02-04 01:17] LABS: ABG PH Result 7.28 (7.35-7.45); Arterial Blood Gas Hematocrit 36.1 % (42-52); Base Excess ABG 10.6 mmol/L (-2.0-2.0); Blood Gas Allen Test Pos; Blood Gas Operator Identificat WALCI; Blood Gas Sample Site Radial, left; Blood Gas Sample Type Arterial; Carboxyhemoglobin 1.5 %THgb (0.4-20.1); HCO3 ABG 40.5 mmol/L (22-26); HGB O2 Sat 97.3 % (95-100); Methemoglobin 1.3 % (0.4-1.5); Oxygen Device BIPAP; Total Hemoglobin 11.8 g/dL (14-18)
[2022-02-04 01:18] LABS: ABG PCO2 86.7 mmHg (35-45)
[2022-02-04 01:21] LABS: Basophils % 0.4 %; Eosinophils # 0.2 10^3/uL (0.0-0.8); Eosinophils % 1.9 %; Hematocrit 40.4 % (42.0-52.0); Lymphocytes # 1.4 10^3/uL (0.8-4.8); Mean Corpuscular HGB Conc 29.7 g/dL (30.0-36.0); Mean Corpuscular Hemoglobin 29.3 pg (28.0-34.0); Mean Corpuscular Volume 98.8 fl (80-94); Mean Platelet Volume 11.2 fL (7.4-10.4); Monocytes # 1.2 10^3/uL (0.2-0.9); Monocytes % 11.9 %; Neutrophils # 6.94 10^3/uL (1.8-7.7); Neutrophils % 70.7 %; Nucleated Red Blood Cells % 0 %; Platelet Count 224 10^3/cmm (130-400); Red Blood Count 4.09 10^6/uL (4.1-5.3); White Blood Count 9.8 10^3/uL (4.0-10.0)
[2022-02-04] MEDS: albuterol 2.5 mg/3 mL Neb INHALATION (01:25)
[2022-02-04 01:31] LABS: INR 0.89 (0.8-1.2)
[2022-02-04] MEDS: ondansetron 2 mg/ML SDV 2 mL 4 MG IVP (01:40)
[2022-02-04 01:48] LABS: Alanine Aminotransferase 33 U/L (0-41); Alkaline Phosphatase 89 U/L (40-130); Anion Gap 9.5 (5-19); Aspartate Amino Transferase 21 U/L (0-40); Blood Urea Nitrogen 15 mg/dL (6-20); Calcium 8.9 mg/dL (8.5-10.5); Chloride 102 mmol/L (98-107); Globulin 2.6 g/dL (1.3-4.6); Glomerular Filtration Rate 171.4 mL/min (90-130); Glucose 119 mg/dL (65-115); NT Pro B Type Natriuretic Pept 19 pg/mL (0-125); Osmolality Calculated 308 mOsm/kg (285-295); Potassium 4.5 mmol/L (3.5-5.1); Sodium 148 mmol/L (136-145); Total Bilirubin 0.2 mg/dL (0.15-1.2); Total Protein 6.6 g/dL (6.6-8.7)
[2022-02-04 01:54] LABS: Carbon Dioxide 41 mmol/L (22-29)
[2022-02-04 02:15] LABS: ABG PH Result 7.29 (7.35-7.45); Arterial Blood Gas Hematocrit 34.5 % (42-52); Base Excess ABG 9.6 mmol/L (-2.0-2.0); Blood Gas Allen Test Pos; Blood Gas Operator Identificat WALCI; Blood Gas Sample Site Radial, left; Blood Gas Sample Type Arterial; HCO3 ABG 38.8 mmol/L (22-26); Oxygen Device BIPAP; PO2 ABG 74.9 mmHg (80.0-100.0)
[2022-02-04 02:16] LABS: ABG PCO2 80.8 mmHg (35-45)
[2022-02-04 02:29] LABS: Influenza A by IFA negative (Negative); Influenza B by IFA negative (Negative)
--- NOTE | 2022-02-04 03:31 | P.HP_ITS ---
Providers/Chief Complaint Admitting Physician: Vilma Tinajero MD Primary Care Provider: Shahzad Ybarra Chief Complaint: RESP. 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 Normally patient is on 5 L nasal cannula at home however has been requiring up to 8 L. EMS was called. Patient was given Solu-Medrol and placed on nonrebreather 15 L due to hypoxia. Patient was in quite a bit of respiratory distress and unable to speak and was talking in 2-4 word sentences with tachypnea. On arrival ABG 7.29/80. Patient placed on BiPAP and transferred to ICU. Unable to obtain much of a history. denied chest pain, nausea, vomiting, diarrhea, fever. Of note patient was recently discharged on January 23, 2022 after being treated for COPD exacerbation and discharged home on a steroid taper along with nebulizing treatments with DuoNeb. At home he is on Spiriva, albuterol, Advair.. Patient also was found to have bilateral pulmonary embolism without right heart strain and therefore was started on Eliquis after being given full dose Lovenox during hospital stay. He also had severe constipation for which she received multiple enemas. Medications/Allergies Home Medications Medication Instructions Recorded Confirmed Last Taken Type diltiazem HCl 120 mg 120 mg PO DAILY 02/28/19 02/04/22 02/03/22 07:00 History capsule,extended release 24 hr, controlled (DILT-XR) metoprolol tartrate 25 mg tablet 12.5 mg PO BID 02/28/19 02/04/22 02/03/22 20:00 History roflumilast 500 mcg tablet 500 mcg PO DAILY 02/28/19 02/04/22 02/03/22 07:00 History (Daliresp) tiotropium bromide 18 mcg capsule 1 cap inhalation DAILY 90 days #90 04/10/19 02/04/22 02/03/22 16:00 Rx with inhalation device (Spiriva inhalations with HandiHaler) fluticasone 250 mcg-salmeterol 50 1 inh inhalation BID #60 ea 05/12/19 02/04/2202/03/22 16:00 Rx mcg/dose blistr powdr for inhalation (Advair Diskus) cetirizine 10 mg tablet (Zyrtec) 10 mg PO BEDTIME 11/19/19 02/04/22 02/03/22 07:00 History hydrocodone 5 mg-acetaminophen 325 1 tab PO BID PRN pain 11/19/19 02/04/22 02/03/22 20:00 History mg tablet albuterol sulfate 90 mcg/actuation 2 puff inhalation QID PRN 06/02/20 02/04/22 02/03/22 18:00 Rx aerosol inhaler (ProAir HFA) Shortness Of Breath 30 days #1 g bupropion HCl 150 mg 24 hr tablet, 150 mg PO QAM 30 days #30 tabs 04/27/21 02/04/22 02/03/22 07:00 Rx extended release (Wellbutrin XL) clonazepam 1 mg tablet (Klonopin) 1 mg PO TID #90 tabs 04/27/21 02/04/22 02/03/22 12:00 Rx desvenlafaxine succinate 50 mg 50 mg PO DAILY #30 tabs 04/27/21 02/04/22 02/03/22 22:00 Rx tablet,extended release 24 hr (Pristiq) benzonatate 100 mg capsule 100 mg PO TID PRN Cough 12/30/21 02/04/22 02/03/22 12:00 History meloxicam 15 mg tablet 15 mg PO DAILY 12/30/21 02/04/22 02/02/22 22:00 History quetiapine 50 mg tablet 50 mg PO DAILY 12/30/21 02/04/22 02/02/22 22:00 History trazodone 50 mg tablet 50 mg PO BEDTIME 12/30/21 02/04/22 02/02/22 22:00 History apixaban 5 mg (74 tabs) tablets in 5 mg PO Q12H #74 ea 01/23/22 02/04/22 02/03/22 07:00 Rx a dose pack (Eliquis DVT-PE Treat 30D Start) ipratropium 0.5 mg-albuterol 3 mg 3 ml inhalation Q4H PRN shortness 01/23/22 02/04/22 02/03/22 21:00 Rx (2.5 mg base)/3 mL nebulization of breath or wheezing #90 mL soln Allergies Allergy/AdvReac Type Severity Reaction Status Date / Time No Known Allergies Allergy Verified 01/27/22 08:25 PFSH Acute PFSH: Medical History Anxiety Chronic anticoagulation Chronic back pain COPD (chronic obstructive pulmonary disease) Depression Dyslipidemia GERD (gastroesophageal reflux disease) History of pulmonary embolism Hypertension 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 Metastatic melanoma Overdose of analgesic Oxygen dependent Panic disorder [episodic paroxysmal anxiety] Pulmonary hypertension Respiratory failure Surgical History H/O cardiac catheterization Family History Other CAD (coronary artery disease) Diabetes Social History Smoking and tobacco status: former smoker Quit status (tobacco): has quit using tobacco Year quit tobacco: 2021 - smoked x 40 years Alcohol intake: never Adopted: No Household members: family Vitals/I&O/Wt Last Vital Signs Temp 97.0 F L 02/04/22 00:57 Pulse 115 H 02/04/22 02:42 Resp 18 02/04/22 02:42 BP 101/75 02/04/22 02:42 Pulse Ox 96 02/04/22 02:42 O2 Del Method 02/04/22 02:42 O2 Flow Rate 15 02/04/22 00:57 FiO2 35 02/04/22 02:21 Weight last 48 hrs Weight 58.967 kg Physical Exam Narrative: General: Alert oriented x3, patient seen laying in bed on BiPAP. HEENT: Normocephalic, atraumatic, EOMI, comfortably on BiPAP. Cardio: Slight sinus tachycardia, normal S1-S2, Respiratory: Rhonchi and wheezing bilateral, poor bilateral air entry, diminished at bases GI: Abdomen soft, nontender, nondistended, bowel sounds + Extremities: Trace bilateral edema Data 02/04/22 00:27 02/04/22 00:27 Micro: Microbiology 02/04/22 01:35 Blood Culture - Preliminary Blood SPECIMEN COLLECTED 02/04/22 01:35 Blood Culture - Preliminary Blood SPECIMEN COLLECTED A&P Assessment and plan (1) Acute and chronic respiratory failure with hypercapnia: (2) 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: (3) Constipation: (4) Acute respiratory failure with hypoxia: (5) Acute exacerbation of chronic obstructive airways disease: (6) Melanoma metastatic to liver: (7) History of pulmonary embolism: (8) COPD (chronic obstructive pulmonary disease): (9) Dyslipidemia: (10) Major depressive disorder, recurrent severe without psychotic features: (11) Panic disorder [episodic paroxysmal anxiety]: (12) End stage COPD: (13) Pulmonary hypertension: (14) GERD (gastroesophageal reflux disease): Qualifiers: Esophagitis presence: esophagitis presence not specified Qualified Code(s): K21.9 - Gastro-esophageal reflux disease without esophagitis (15) Oxygen dependent: Plan #COPD exacerbation, patient has known history of end-stage COPD #Acute respiratory failure with hypoxia #History of pulmonary embolism #Metastatic melanoma with lesion in liver #Dyslipidemia #Depression #GERD #Pulmonary hypertension #Hypernatremia ? Continue on azithromycin ? Solu-Medrol 40 every 8 hours ? DuoNeb every 4 hours scheduled ? Pulmicort 0.5 twice daily inhaled ? Check sputum gram stain culture ? Benzonatate for cough ? Continue BiPAP. Repeat ABG in couple of hours ? Patient to follow-up with pulmonology at discharge. -Patient to follow-up with oncology. As per oncology note Case will be discussed with Dr. Edil Montiel regarding liver lesion and referral to hepatology will be given to patient. This is already being worked on outpatient by his oncologist ? Continue home dose Klonopin for air hunger/anxiety ? Check blood cultures ? Continue rest of home medications including metoprolol, diltiazem, desvenlafaxine, Daliresp, clonazepam, quetiapine, trazodone, Eliquis -Started on D5 water 50 cc/h for hypernatremia ? Recheck labs in a.m. Full code DVT prophylaxis: Lovenox Attestations Medical Necessity Statement*: Greater than 2 midnight stay for management of COPD exacerbation Coding Level of Care Code Acute Raw Scales Operator for [facility] Fwd Diagnoses Acute and chronic respiratory failure with hypercapnia J96.22 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 C69.41 Constipation K59.00 Acute respiratory failure with hypoxia J96.01 Acute exacerbation of chronic obstructive airways disease J44.1 Melanoma metastatic to liver C78.7 History of pulmonary embolism Z86.711 COPD (chronic obstructive pulmonary disease) J44.9 Dyslipidemia E78.5 Major depressive disorder, recurrent severe without psychotic features F33.2 Panic disorder [episodic paroxysmal anxiety] F41.0 End stage COPD J44.9 Pulmonary hypertension I27.20 GERD (gastroesophageal reflux disease) K21.9 Esophagitis presence: esophagitis presence not specified Oxygen dependent Z99.81
[2022-02-04] MEDS: azithromycin 500 MG in sodium chloride 0.9% 250 ML 250 MG IV (05:14)
[2022-02-04] MEDS: buPROPion XL (24 HR) 150 mg Tablet PO (05:16)
[2022-02-04] MEDS: enoxaparin 40 mg/0.4 mL Syringe SUBCUT (05:18)
[2022-02-04 05:51] LABS: ABG PH Result 7.34 (7.35-7.45); Alveolar-Arterial Oxygen Gradi 9.9 mmHg (5-10); Arterial Blood Gas Hematocrit 34.5 % (42-52); Base Excess ABG 10.4 mmol/L (-2.0-2.0); Blood Gas Allen Test Pos; Blood Gas Operator Identificat WALCI; Blood Gas Sample Site Radial, left; Blood Gas Sample Type Arterial; Carboxyhemoglobin 1.4 %THgb (0.4-20.1); HCO3 ABG 38.5 mmol/L (22-26); HGB O2 Sat 95.7 % (95-100); Ionized Calcium Level - ABG 1.2 mmol/L (1.1-1.4); Methemoglobin 0.6 % (0.4-1.5); Oxygen Device BIPAP; Oxygen Saturation ABG 97.6; PO2 ABG 89.6 mmHg (80.0-100.0); Potassium Level - ABG 4.4 mmol/L (3.5-5.0); Total Hemoglobin 11.2 g/dL (14-18)
[2022-02-04 05:52] LABS: ABG PCO2 70.9 mmHg (35-45)
[2022-02-04 06:01] LABS: Magnesium 1.9 mg/dL (1.7-2.3)
[2022-02-04 06:03] LABS: Lactic Sepsis W/Reflex 0.8 mmol/L (0.5-2.2)
[2022-02-04 06:08] LABS: Procalcitonin 0.18 ng/mL (0-0.5)
[2022-02-04] MEDS: dextrose 5% 1,000 ML 50 ML IV (07:40)
[2022-02-04] MEDS: budesonide 0.5 mg/2 mL Neb INHALATION ×2 (08:04→20:05)
[2022-02-04] MEDS: ipratropium-albuterol 3 mL Neb INHALATION ×4 (08:04→20:06)
[2022-02-04] MEDS: dilTIAZem ER (24HR) 120 mg Capsule PO (08:49)
[2022-02-04] MEDS: CLONazepam 1 mg Tablet PO ×3 (08:49→20:29)
[2022-02-04] MEDS: metoprolol tartrate 25 mg Tablet 12.5 MG PO ×2 (08:50→18:35)
[2022-02-04] MEDS: quetiapine 25 mg Tablet 50 MG PO (08:51)
[2022-02-04] MEDS: desvenlafaxine 50 mg Tablet PO (08:53)
[2022-02-04] MEDS: roflumilast 500 mcg Tablet PO (08:53)
--- NOTE | 2022-02-04 17:00 | PC.NURSE ---
report given for transfer to room 276 son with staff at time of transfer with belongings in bag upon transfer to room assisted pt into shower with 2nd floor staff . remains on o2 at 5 lnc
--- NOTE | 2022-02-04 19:29 | P.PN_ITS ---
Subjective Subjective: This morning he is feeling better. States that he is breathing easier. Has weaned off BiPAP. Down to 5 L nasal cannula oxygen which he uses at home. States he is not coughing much. He is bringing up phlegm. Vitals/I&O/Wt Last Vital Signs Temp 97.5 F L 02/04/22 17:50 Pulse 104 H 02/04/22 17:50 Resp 18 02/04/22 17:50 BP 115/75 02/04/22 17:50 Pulse Ox 96 02/04/22 17:50 O2 Del Method 02/04/22 17:59 O2 Flow Rate 6 02/04/22 17:50 FiO2 35 02/04/22 16:00 02/04/22 02/04/22 02/04/22 06:59 14:59 22:59 Intake Total 650 / 650 300 / 300 490 / 790 Output Total 500 / 500 350 / 850 Balance 650 / 650 -200 / -200 140 / -60 Weight last 48 hrs Weight 56.699 kg Weight 56.971 kg Weight 58.967 kg Physical Exam Const: COMMON NORMALS: patient oriented x3 and alert GENERAL APPEARANCE: cooperative ORIENTATION/CONSCIOUSNESS: Yes awake HENMT: COMMON NORMALS: oropharynx normal Neck/C-Spine: COMMON NORMALS: no JVD Resp: COMMON NORMALS: normal respiratory effort AUSCULTATION: diminished lung sounds Cardio: COMMON NORMALS: no JVD, regular rhythm, S1 normal heart sound present, S2 normal heart sound present and No murmurs present (Cardio) RHYTHM: regular rhythm HEART SOUNDS: S1 normal heart sound present and S2 normal heart sound present GI: COMMON NORMALS: Normal to inspection, nondistended, normoactive bowel sounds present, Soft to palpation and non-tender PALPATION: Yes Soft to palpation Extremity: COMMON NORMALS: no joint enlargement and no pedal edema Neuro: COMMON NORMALS: patient oriented x3 and moves all extremities SENSORIUM/ORIENTATION: Yes alert Skin: COMMON NORMALS: no rashes or lesions noted GENERAL SKIN EXAM: no rashes or lesions noted Data 02/04/22 00:27 02/04/22 00:27 Micro: Microbiology 02/04/22 01:35 Blood Culture - Preliminary Blood SPECIMEN COLLECTED 02/04/22 01:35 Blood Culture - Preliminary Blood SPECIMEN COLLECTED A&P Assessment and plan (1) Acute and chronic respiratory failure with hypercapnia: COPD exacerbation, has been requiring BiPAP. Weaned off BiPAP, so far doing better. Transition to 5 L nasal cannula oxygen. Continue Solu-Medrol, budesonide inhalation, nebs. Continue azithromycin. Collect sputum culture. Recently diagnosed with PE. Continued evaluation, switched to Lovenox while in the hospital. Continue care on medical floor. (2) 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: (3) Constipation: (4) Acute respiratory failure with hypoxia: (5) Acute exacerbation of chronic obstructive airways disease: (6) Melanoma metastatic to liver: (7) History of pulmonary embolism: (8) COPD (chronic obstructive pulmonary disease): (9) Dyslipidemia: (10) Major depressive disorder, recurrent severe without psychotic features: (11) Panic disorder [episodic paroxysmal anxiety]: (12) End stage COPD: (13) Pulmonary hypertension: (14) GERD (gastroesophageal reflux disease): Qualifiers: Esophagitis presence: esophagitis presence not specified Qualified Code (s): K21.9 - Gastro-esophageal reflux disease without esophagitis (15) Oxygen dependent: Plan #COPD exacerbation, patient has known history of end-stage COPD #Acute respiratory failure with hypoxia #History of pulmonary embolism #Metastatic melanoma with lesion in liver #Dyslipidemia #Depression #GERD #Pulmonary hypertension #Hypernatremia Full code DVT prophylaxis: Lovenox Attestations Medical Necessity Statement*: Continue hospitalization for assessment management of acute respiratory failure, COPD exacerbation with end-stage underlying COPD and recently diagnosed PE. Coding Level of Care Code Acute Press Catcher for [facility] Diagnoses Acute and chronic respiratory failure with hypercapnia J96.22 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 C69.41 Constipation K59.00 Acute respiratory failure with hypoxia J96.01 Acute exacerbation of chronic obstructive airways disease J44.1 Melanoma metastatic to liver C78.7 History of pulmonary embolism Z86.711 COPD (chronic obstructive pulmonary disease) J44.9 Dyslipidemia E78.5 Major depressive disorder, recurrent severe without psychotic features F33.2 Panic disorder [episodic paroxysmal anxiety] F41.0 End stage COPD J44.9 Pulmonary hypertension I27.20 GERD (gastroesophageal reflux disease) K21.9 Esophagitis presence: esophagitis presence not specified Oxygen dependent Z99.81
[2022-02-04] MEDS: trazodone 50 mg Tablet PO (20:29)
[2022-02-05] VITALS (10 sets, daily range): BP systolic 104–115; BP diastolic 64–70; PULSE 63–87; RESP 15–28; TEMP 36.4–36.6; O2SAT 96–99
[2022-02-05] MEDS: ipratropium-albuterol 3 mL Neb INHALATION ×3 (01:02→08:07)
[2022-02-05 01:43] LABS: Basophils % 0.1 %; Hematocrit 32.7 % (42.0-52.0); Hemoglobin 10.1 g/dL (11.7-16.6); Lymphocytes # 0.4 10^3/uL (0.8-4.8); Lymphocytes % 4.9 %; Mean Corpuscular HGB Conc 30.9 g/dL (30.0-36.0); Mean Corpuscular Hemoglobin 29.4 pg (28.0-34.0); Mean Corpuscular Volume 95.3 fl (80-94); Mean Platelet Volume 11.2 fL (7.4-10.4); Monocytes # 0.2 10^3/uL (0.2-0.9); Monocytes % 2.6 %; Neutrophils # 7.98 10^3/uL (1.8-7.7); Neutrophils % 91.7 %; Nucleated Red Blood Cells % 0 %; Platelet Count 185 10^3/cmm (130-400); Red Blood Count 3.43 10^6/uL (4.1-5.3); Red Cell Distribution Width 12.8 % (12.1-15.1); White Blood Count 8.7 10^3/uL (4.0-10.0)
[2022-02-05 02:04] LABS: Alanine Aminotransferase 28 U/L (0-41); Albumin Level 3.5 g/dL (3.5-5.2); Alkaline Phosphatase 59 U/L (40-130); Anion Gap 8.5 (5-19); Aspartate Amino Transferase 14 U/L (0-40); Blood Urea Nitrogen 18 mg/dL (6-20); Calcium 9.2 mg/dL (8.5-10.5); Carbon Dioxide 37 mmol/L (22-29); Chloride 96 mmol/L (98-107); Globulin 2.3 g/dL (1.3-4.6); Glomerular Filtration Rate 221.7 mL/min (90-130); Glucose 144 mg/dL (65-115); Magnesium 1.9 mg/dL (1.7-2.3); Osmolality Calculated 288 mOsm/kg (285-295); Potassium 4.5 mmol/L (3.5-5.1); Sodium 137 mmol/L (136-145); Total Bilirubin 0.2 mg/dL (0.15-1.2); Total Protein 5.8 g/dL (6.6-8.7)
[2022-02-05] MEDS: enoxaparin 40 mg/0.4 mL Syringe SUBCUT (04:13)
[2022-02-05] MEDS: dextrose 5% 1,000 ML 50 ML IV (04:29)
[2022-02-05] MEDS: azithromycin 500 MG in sodium chloride 0.9% 250 ML 250 MG IV (04:42)
[2022-02-05 05:29] LABS: ABG PH Result 7.38 (7.35-7.45); Arterial Blood Gas Hematocrit 31.1 % (42-52); Blood Gas Allen Test Pos; Blood Gas Sample Type Arterial; PO2 ABG 81.9 mmHg (80.0-100.0)
[2022-02-05 05:30] LABS: Blood Gas Operator Identificat WALCI; Blood Gas Sample Site Radial, left; Oxygen Device NC
[2022-02-05 05:31] LABS: ABG PCO2 63.1 mmHg (35-45)
[2022-02-05] MEDS: buPROPion XL (24 HR) 150 mg Tablet PO (06:09)
[2022-02-05] MEDS: budesonide 0.5 mg/2 mL Neb INHALATION (08:07)
[2022-02-05] MEDS: roflumilast 500 mcg Tablet PO (09:36)
[2022-02-05] MEDS: dilTIAZem ER (24HR) 120 mg Capsule PO (09:36)
[2022-02-05] MEDS: desvenlafaxine 50 mg Tablet PO (09:36)
[2022-02-05] MEDS: metoprolol tartrate 25 mg Tablet 12.5 MG PO (09:37)
[2022-02-05] MEDS: CLONazepam 1 mg Tablet PO (09:37)
--- NOTE | 2022-02-05 15:09 | PM.DCS ---
Discharge Providers Date of Admission: 02/04/22 02:21 Date of Discharge: February 05, 2022 Attending Provider at Admission: Vilma Tinajero MD Attending Provider at Discharge: Tam Painter Primary Care Provider: Shahzad Ybarra Diagnoses at Discharge Discharge Diagnosis (1) Acute and chronic respiratory failure with hypercapnia: Status: Acute (2) 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: Status: Acute (3) Constipation: Status: Acute (4) Acute respiratory failure with hypoxia: Status: Acute (5) Acute exacerbation of chronic obstructive airways disease: Status: Acute (6) Melanoma metastatic to liver: Status: Acute (7) History of pulmonary embolism: Status: Acute (8) COPD (chronic obstructive pulmonary disease): Status: Acute (9) Dyslipidemia: Status: Acute (10) Major depressive disorder, recurrent severe without psychotic features: Status: Acute (11) Panic disorder [episodic paroxysmal anxiety]: Status: Acute (12) End stage COPD: Status: Acute (13) Pulmonary hypertension: Status: Acute (14) GERD (gastroesophageal reflux disease): Status: Acute Qualifiers: Esophagitis presence: esophagitis presence not specified Qualified Code(s): K21.9 - Gastro-esophageal reflux disease without esophagitis (15) Oxygen dependent: Status: Acute Reason for Visit Reason for Visit: RESP. DISTRESS Hospital Course Hospital Course Pleasant 57-year-old gentleman recently hospitalized for acute hypoxic failure with acute COPD exacerbation, also with finding of bilateral PE, started on anticoagulation, recently diagnosed with malignancy metastatic to the liver, additionally managed for severe constipation, return to the hospital on 02/04 and was readmitted with hypoxic respiratory failure with COPD this admission, initially requiring BiPAP support. While in the hospital received IV steroids, azithromycin, duo nebs, Pulmicort, wean down on BiPAP support down to 5 L nasal cannula. Sputum culture was requested but not collected. Symptomatically he is feeling much better. Unfortunately he left the hospital AMA before he could be discharged, but provided prescription for brief steroid and azithromycin course. Encouraged to follow-up with PCP and guest service manager. Physical Exam Narrative: Speaking on the phone. Const: COMMON NORMALS: patient oriented x3 and alert GENERAL APPEARANCE: cooperative ORIENTATION/CONSCIOUSNESS: Yes awake OTHER: Reports he is feeling better. HENMT: COMMON NORMALS: oropharynx normal Neck/C-Spine: COMMON NORMALS: no JVD Resp: COMMON NORMALS: normal respiratory effort EFFORT & INSPECTION: Yes able to speak in complete sentences AUSCULTATION: diminished lung sounds Cardio: COMMON NORMALS: no JVD, regular rhythm, S1 normal heart sound present, S2 normal heart sound present and No murmurs present (Cardio) RHYTHM: regular rhythm HEART SOUNDS: S1 normal heart sound present and S2 normal heart sound present GI: COMMON NORMALS: Normal to inspection, nondistended, normoactive bowel sounds present, Soft to palpation and non-tender PALPATION: Yes Soft to palpation Extremity: COMMON NORMALS: no joint enlargement and no pedal edema Neuro: COMMON NORMALS: patient oriented x3 and moves all extremities SENSORIUM/ORIENTATION: Yes alert Skin: COMMON NORMALS: no rashes or lesions noted GENERAL SKIN EXAM: no rashes or lesions noted Discharge Data Studies Completed and Pending Completed Studies During Hospitalization Category Date Time Status XR chest 1V portable [id number] Stat Exams 02/04/22 00:59 Completed Pending at discharge Category Date Time Status Blood Culture Stat Lab 02/04/22 01:35 Results Sputum Culture and Gram Stain Stat Lab 02/04/22 15:17 Ordered Radiology Impressions Chest X-Ray 02/04/22 00:59 IMPRESSION: No acute findings. Laboratory Results WBC 8.7 10^3/uL (4.0-10.0) 02/05/22 01:23 RBC 3.43 10^6/uL (4.1-5.3) L 02/05/22 01:23 Hgb 10.1 g/dL (11.7-16.6) L 02/05/22 01:23 Hct 32.7 % (42.0-52.0) L 02/05/22 01:23 MCV 95.3 fl (80-94) H 02/05/22 01:23 MCH 29.4 pg (28.0-34.0) 02/05/22 01:23 MCHC 30.9 g/dL (30.0-36.0) 02/05/22 01:23 RDW 12.8 % (12.1-15.1) 02/05/22 01:23 Plt Count 185 10^3/cmm (130-400) 02/05/22 01:23 MPV 11.2 fL (7.4-10.4) H 02/05/22 01:23 Neut % (Auto) 91.7 % 02/05/22 01:23 Lymph % (Auto) 4.9 % 02/05/22 01:23 [place] % (Auto) 2.6 % 02/05/22 01:23 Eos % (Auto) 0.0 % 02/05/22 01:23 Baso % (Auto) 0.1 % 02/05/22 01:23 Neut # (Auto) 7.98 10^3/uL (1.8-7.7) H 02/05/22 01:23 Lymph # (Auto) 0.4 10^3/uL (0.8-4.8) L 02/05/22 01:23 [place] # (Auto) 0.2 10^3/uL (0.2-0.9) 02/05/22 01:23 Eos # (Auto) 0.0 10^3/uL (0.0-0.8) 02/05/22 01:23 Baso # (Auto) 0.0 10^3/uL (0.0-0.1) 02/05/22 01:23 Nucleated RBC % (auto) 0 % 02/05/22 01:23 Nucleated RBCs # 0.0 /100WBC 02/05/22 01:23 PT 12.40 SECONDS (12.1-14.9) 02/04/22 00:27 INR 0.89 (0.8-1.2) 02/04/22 00:27 Specimen Type Arterial 02/05/22 05:18 Sample Site Radial, left 02/05/22 05:18 ABG pH 7.38 (7.35-7.45) 02/05/22 05:18 ABG pCO2 63.1 mmHg (35-45) H* 02/05/22 05:18 ABG pO2 81.9 mmHg (80.0-100.0) 02/05/22 05:18 ABG HCO3 37.0 mmol/L (22-26) H 02/05/22 05:18 ABG O2 Saturation 97.6 02/04/22 05:37 ABG Base Excess 10.0 mmol/L (-2.0-2.0) H 02/05/22 05:18 Damon Test Pos 02/05/22 05:18 A-a O2 Gradient 9.9 mmHg (5-10) 02/04/22 05:37 Hematocrit 31.1 % (42-52) L 02/05/22 05:18 Hgb O2 Saturation 95.7 % (95-100) 02/04/22 05:37 Carboxyhemoglobin 1.4 %THgb (0.4-20.1) 02/04/22 05:37 Methemoglobin 0.6 % (0.4-1.5) 02/04/22 05:37 Total Hemoglobin 11.2 g/dL (14-18) L 02/04/22 05:37 Sodium 141.0 mmol/L (131-143) 02/04/22 05:37 Potassium 4.4 mmol/L (3.5-5.0) 02/04/22 05:37 Glucose 157.0 mg/dL (70-115) H 02/04/22 05:37 Ionized Calcium 1.2 mmol/L (1.1-1.4) 02/04/22 05:37 O2 Delivery Device Nc 02/05/22 05:18 O2 Liters/Min 5.0 % 02/05/22 05:18 FiO2 35.0 % 02/04/22 05:37 Administrative Specialist ID [place] 02/05/22 05:18 Sodium 137 mmol/L (136-145) 02/05/22 01:23 Potassium 4.5 mmol/L (3.5-5.1) 02/05/22 01:23 Chloride 96 mmol/L (98-107) L 02/05/22 01:23 Carbon Dioxide 37 mmol/L (22-29) H 02/05/22 01:23 Anion Gap 8.5 (5-19) 02/05/22 01:23 BUN 18 mg/dL (6-20) 02/05/22 01:23 Creatinine 0.4 mg/dL (0.7-1.2) L 02/05/22 01:23 GFR Calculation 221.7 mL/min (90-130) H 02/05/22 01:23 Glucose 144 mg/dL (65-115) H 02/05/22 01:23 Calculated Osmolality 288 mOsm/kg (285-295) 02/05/22 01:23 Lactic Acid 0.8 mmol/L (0.5-2.2) 02/04/22 05:20 Calcium 9.2 mg/dL (8.5-10.5) 02/05/22 01:23 Magnesium 1.9 mg/dL (1.7-2.3) 02/05/22 01:23 Total Bilirubin 0.2 mg/dL (0.15-1.2) 02/05/22 01:23 AST 14 U/L (0-40) 02/05/22 01:23 ALT 28 U/L (0-41) 02/05/22 01:23 Alkaline Phosphatase 59 U/L (40-130) 02/05/22 01:23 NT-Pro-B Natriuret Pep 19 pg/mL (0-125) 02/04/22 00:27 Total Protein 5.8 g/dL (6.6-8.7) L 02/05/22 01:23 Albumin 3.5 g/dL (3.5-5.2) 02/05/22 01:23 Globulin 2.3 g/dL (1.3-4.6) 02/05/22 01:23 Procalcitonin 0.18 ng/mL (0-0.5) 02/04/22 05:20 Influenza Type A Ag negative (Negative) 02/04/22 01:30 Influenza Type B Ag negative (Negative) 02/04/22 01:30 Vitals Last Vital Signs Temp 97.8 F 02/05/22 08:00 Pulse 86 02/05/22 08:14 Resp 20 H 02/05/22 08:09 BP 115/70 02/05/22 08:00 Pulse Ox 97 02/05/22 08:09 O2 Del Method 02/05/22 08:09 O2 Flow Rate 5 02/05/22 08:09 FiO2 35 02/05/22 04:35 Discharge Plan Discharge Patient Disposition: Left Against Medical Advice Condition: Stable Prescriptions: New azithromycin 500 mg tablet 500 mg PO DAILY 4 Days Qty: 4 0RF Rx Instructions: start on day 2 of therapy prednisone 20 mg tablet 40 mg PO DAILY 4 Days Qty: 16 0RF Continued Spiriva with HandiHaler 18 mcg capsule, w/inhalation device 1 cap INHALATION DAILY 90 Days Qty: 90 3RF Rx Instructions: run through 340b fluticasone propion-salmeterol [Advair Diskus] 250-50 mcg/dose blister with device 1 inh INHALATION BID Qty: 60 3RF bupropion HCl [Wellbutrin XL] 150 mg tablet extended release 24 hr 150 mg PO QAM 30 Days Qty: 30 2RF clonazepam [Klonopin] 1 mg tablet 1 mg PO TID Qty: 90 2RF desvenlafaxine succinate [Pristiq] 50 mg tablet extended release 24 hr 50 mg PO DAILY Qty: 30 2RF cetirizine [Zyrtec] 10 mg Tablet 10 mg PO BEDTIME hydrocodone-acetaminophen 5-325 mg tablet 1 tab PO BID PRN (Reason: pain) diltiazem HCl [DILT-XR] 120 mg Capsule,Ext.Rel 24h Degradable 120 mg PO DAILY metoprolol tartrate 25 mg Tablet 12.5 mg PO BID Daliresp 500 mcg Tablet 500 mcg PO DAILY albuterol sulfate [ProAir HFA] 90 mcg/actuation Hfa Aerosol Inhaler 2 puff INHALATION QID PRN (Reason: Shortness Of Breath) 30 Days Qty: 1 0RF meloxicam 15 mg tablet 15 mg PO DAILY benzonatate 100 mg capsule 100 mg PO TID PRN (Reason: Cough) trazodone 50 mg tablet 50 mg PO BEDTIME quetiapine 50 mg tablet 50 mg PO DAILY ipratropium-albuterol 0.5 mg-3 mg(2.5 mg base)/3 mL solution for nebulization 3 ml inhalation Q4H PRN (Reason: shortness of breath or wheezing) Qty: 90 0RF Eliquis DVT-PE Treat 30D Start 5 mg (74 tabs) tablets,dose pack 5 mg PO Q12H Qty: 74 0RF Discharge Orders: Discharge Order (Routine); Ordered 02/05/22 Ordered By: Tam Painter Referrals: Luis Fernando Morgan MD [Physician] - 2 weeks Shahzad Ybarra [Primary Care Provider] - 4-7 days Discharge Activity: Oxygen as instructed Patient Instructions: Opioid Safety Activity Restrictions/Additional Instructions: Complete prednisone and antibiotic course. Follow-up with pulmonology. Continue with follow-up with oncology as per prior arrangement. Discharge Attestations Time Spent in Discharge Care*: greater than 30 min Status at Discharge: Cognitive status at discharge: cognitively intact, Behavioral status at discharge: cooperative, Quality Metrics Clinical Quality Measures [ No reported AMI, CVA or VTE this stay] Coding Level of Care Code Acute Chg FW DC note Diagnoses Acute and chronic respiratory failure with hypercapnia J96.22 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 C69.41 Constipation K59.00 Acute respiratory failure with hypoxia J96.01 Acute exacerbation of chronic obstructive airways disease J44.1 Melanoma metastatic to liver C78.7 History of pulmonary embolism Z86.711 COPD (chronic obstructive pulmonary disease) J44.9 Dyslipidemia E78.5 Major depressive disorder, recurrent severe without psychotic features F33.2 Panic disorder [episodic paroxysmal anxiety] F41.0 End stage COPD J44.9 Pulmonary hypertension I27.20 GERD (gastroesophageal reflux disease) K21.9 Esophagitis presence: esophagitis presence not specified Oxygen dependent Z99.81
== END 2022-02-05 12:16 | disposition left against medical advice (07) | DRG 189 ==
LOC: ER 02:22 → ICU 02:29 → MEDSURG 17:00
PROVIDERS: Admitting Provider Internal Medicine; Emergency Provider Emergency Medicine; PCP Family Medicine; Visit Provider Internal Medicine
DX: J96.01 Acute respiratory failure with hypoxia (principal); J44.1 Chronic obstructive pulmonary disease with (acute) exacerbation; F33.2 Major depressive disorder, recurrent severe without psychotic features; C78.7 Secondary malignant neoplasm of liver and intrahepatic bile duct; E87.0 Hyperosmolality and hypernatremia; J96.22 Acute and chronic respiratory failure with hypercapnia; C69.41 Malignant neoplasm of right ciliary body; E78.5 Hyperlipidemia, unspecified; F41.0 Panic disorder [episodic paroxysmal anxiety]; I27.20 Pulmonary hypertension, unspecified; K21.9 Gastro-esophageal reflux disease without esophagitis; Z99.81 Dependence on supplemental oxygen; Z53.29 Procedure and treatment not carried out because of patient's decision for other reasons; Z87.891 Personal history of nicotine dependence; Z86.711 Personal history of pulmonary embolism; Z79.01 Long term (current) use of anticoagulants
CPT/HCPCS: 36415; 36600; 71045; 80051; 80053; 82330; 82803; 82805; 83605; 83735; 83880; 84145; 85025; 85610; 87040; 87804; 93005; 94640; 94660; 94664; 94762; 96372; 96374; 99291; J0456; J1650; J2405; J2930; J7050; J7070; J7613; J7626